=== PATIENT | female | born 1970 | race Caucasian/White ===

== ENCOUNTER → 2023-01-14 09:58 | Outpatient (BNVA) | payer OTHER, SELFPAY | PROVIDERS: Visit Provider Student in an Organized Health Care Education/Training Program | DX: M17.12 Unilateral primary osteoarthritis, left knee | CPT/HCPCS: 73560; 73565 ==

== ENCOUNTER 2023-05-06 10:17 | Emergency (ER) | payer SELFPAY ==
[2023-05-06 11:02] VITALS: BP 156/91; PULSE 105; RESP 18; TEMP 36.7; O2SAT 95; BMI 42.8
[2023-05-06 11:19] VITALS: BP 156/91; PULSE 94; RESP 18; O2SAT 95
--- NOTE | 2023-05-06 11:26 | W.ED.WOUNDLC ---
HPI - Wound/Laceration General: Chief Complaint: Extremity Problem,Nontraumatic Stated Complaint: right foot sore,diabetic Time Seen by Provider: 05/06/23 10:21 Source: patient Mode of arrival: ambulatory Limitations: no limitations History of Present Illness: Patient is a 52-year-old female who presents to the ED today with a complaint of an ulcer to the bottom of her right foot that she noticed approximately 3 days ago. Patient states she is a diabetic. Blood sugars roughly run 160-220. She states yesterday and today she noticed some redness to the foot however this is subsided upon arrival to the ED. She has not noticed any odor or drainage from the wound. No fevers or systemic symptoms. Onset (ago): day(s) Extremity Location: Right: foot Place: home Patient tetanus UTD: Yes Associated symptoms: Reports no associated symptoms; Denies chills or fever(s) Review of Systems Const: Denies: fever(s), chills, body aches, fatigue or malaise Musc: Reports: extremity pain (R foot); Denies: neck pain, back pain, extremity swelling, joint pain, joint swelling or joint warmth Skin/Breast: Reports: other (ulcer) Neuro: Reports: numbness in extremities (chronic neuropathy) Physical Exam Const: COMMON NORMALS: no acute distress, patient oriented x3, no limitations, alert and well nourished GENERAL APPEARANCE: cooperative NUTRITIONAL APPEARANCE: obese Resp: COMMON NORMALS: normal respiratory effort Cardio: COMMON NORMALS: regular rate and regular rhythm RATE: regular rate RHYTHM: regular rhythm Extremity: COMMON NORMALS: full ROM, capillary refill normal, no joint enlargement, no clubbing, cyanosis or edema, no calf tenderness and no pedal edema GENERAL: Yes normal exam except as noted Feet Bottom: 1. quarter sized callus with underlying appearing ulcerative formation; overlying callused skin still intact with cracking; no surrounding erythema/warmth/streaking/drainage/or odor Neuro: COMMON NORMALS: patient oriented x3 SENSORIUM/ORIENTATION: Yes alert Course Vital Signs: Vital signs: Vital Signs Temperature 98.1 F 05/06/23 11:02 Pulse Rate 94 05/06/23 11:19 Respiratory Rate 18 05/06/23 11:19 Blood Pressure 156/91 05/06/23 11:19 Pulse Oximetry 95 05/06/23 11:19 Oxygen Delivery Me thod Room Air 05/06/23 11:19 MDM - Wound/Laceration Medical Decision Making Patient with a diabetic foot wound. Wound today appears clean and non-infected however patient states she has had some redness to the foot yesterday and into today thus I will cover her with antibiotics. Patient will be referred to our wound care clinic for possible debridement and further treatment. Discussed talking to her primary care provider about better glycemic control. We also discussed getting an order for custom orthotics for offloading purposes. No radiology studies performed this visit Discharge Plan Discharge Patient Disposition: Home Clinical Impression: Diabetic foot ulcer Qualifiers: Diabetic foot ulcer location: midfoot Diabetes mellitus type: due to underlying condition Laterality: right Non-pressure ulcer stage: with fat layer exposed Qualified Code(s): E08.621 - Diabetes mellitus due to underlying condition with foot ulcer Condition: Stable Prescriptions: New amoxicillin-pot clavulanate 875-125 mg tablet 1 tab PO BID Qty: 14 0RF No Action (DME) Hinged Knee Brace See Rx Instructions .Route .MEDSUPPLY Qty: 1 0RF Rx Instructions: As directed Lantus U-100 Insulin 100 unit/mL Solution 80 unit SUBCUT QAM Wellbutrin XL 300 mg Tablet Extended Release 24 Hr 300 mg PO QAM Apidra SoloStar U-100 Insulin 100 unit/mL Insulin Pen 20 unit SUBCUT QAM Discharge Orders: Discharge ED (Routine); Ordered 05/06/23 Ordered By: Lydia Pandya Activity Restrictions/Additional Instructions: As we discussed we will give you a referral to see our wound care clinic for further evaluation and treatment of your diabetic foot ulcer. You need to speak to your primary care provider and work on a plan for better glycemic control. We also discussed getting an order from either the wound care clinic your primary care provider for specialized orthotic wear. Coding Level of Care Code ED Community Support Professional for [facility]
--- NOTE | 2023-05-07 08:15 | DCPLANNER ---
Message was sent to wound care on 05/07/23 at 0815. Clinic to contact patient for appt.
== END 2023-05-06 12:01 | disposition home or self-care (01) ==
PROVIDERS: Emergency Provider Physician Assistant
DX: E11.621 Type 2 diabetes mellitus with foot ulcer (principal); Z79.4 Long term (current) use of insulin; E11.40 Type 2 diabetes mellitus with diabetic neuropathy, unspecified
CPT/HCPCS: 99283

== ENCOUNTER 2023-05-16 22:39 | Emergency (ER) | payer SELFPAY ==
[2023-05-16 22:44] VITALS: BP 149/75; PULSE 100; RESP 16; TEMP 36.7; O2SAT 96
--- NOTE | 2023-05-17 00:29 | W.ED.WOUNDLC ---
Documented by User: RHONDA Carpio 05/17/23 01:17 HPI - Wound/Laceration General: Chief Complaint: Wound/Laceration Stated Complaint: diabetic and has foot ulcer right foot Time Seen by Provider: 05/17/23 00:08 Source: patient and family Mode of arrival: ambulatory Limitations: no limitations History of Present Illness: Patient presents emergency department tonight accompanied by her for evaluation treatment of acute worsening of right diabetic foot wound. Patient was seen and evaluated here in the emergency department a couple weeks ago for developing right foot ulcer. I did read the providers note from that evaluation as well as the description of the wound. Patient states that while she is taking the antibiotics, foot wound seems to be getting worse. She states that it is now draining and there is malodor to it. Patient has had issues with skin infections and skin wounds which were otherwise difficult to treat. She reports 2 episodes of hospital admission for IV antibiotics in the past. Patient states that she does not feel this area of her foot and is currently not experiencing any pain. She is on her feet during work and states her typical shifts can be anywhere from 12 to 16 hours long. She has been working during this time. Patient has not had any fevers. She has been wearing shoes and socks. She admits she has not been monitoring her blood sugars at home but, previous note indicates poorly controlled blood sugars. Review of Systems General: Reports: 10 or more systems reviewed and unremarkable except in HPI and below Physical Exam Const: COMMON NORMALS: no acute distress, patient oriented x3 and alert HENMT: COMMON NORMALS: normocephalic, atraumatic and hearing grossly normal bilaterally HEAD & SCALP: normocephalic and atraumatic Eye: COMMON NORMALS: Equal, round and reactive pupils present, EOMs intact bilaterally and conjunctivae normal CONJUNCTIVA: Yes conjunctivae normal PUPIL: Yes Equal, round and reactive pupils present Neck/C-Spine: COMMON NORMALS: full ROM and no JVD Lymph: LYMPHATIC: no lymphadenopathy noted Resp: COMMON NORMALS: normal respiratory effort, No retractions and No use of accessory muscles Cardio: COMMON NORMALS: no JVD and regular rate RATE: regular rate Extremity: NARRATIVE EXTREMITY EXAM: Full flexion extension of the toes. Patient is independently ambulatory and weightbearing without difficulty. Neuro: COMMON NORMALS: patient oriented x3 SENSORIUM/ORIENTATION: Yes alert Psych: COMMON NORMALS: mental status grossly normal, Normal thought process present, cooperative and normal affect THOUGHT PROCESS: Normal thought process present Skin: COMMON NORMALS: no rashes or lesions noted and turgor normal GENERAL SKIN EXAM: no rashes or lesions noted and turgor normal OTHER: Patient has an area of ulceration to the ball of the right foot approximately 1 and half centimeters in diameter and approximately 0.5 cm deep. Fat layer is exposed. No significant eschar formation. However, patient has a significant amount of surrounding callus. No obvious active draining. No bleeding. Course Vital Signs: Vital signs: Vital Signs Temperature 98.1 F 05/16/23 22:44 Pulse Rate 96 05/17/23 01:08 Respiratory Rate 16 05/17/23 01:08 Blood Pressure 149/75 05/16/23 22:44 Pulse Oximetry 97 05/17/23 01:08 MDM - Wound/Laceration Medical Decision Making Patient is currently on Augmentin for development of diabetic foot wound. A request for wound care follow-up had been initiated but, patient states she has not heard anything about making an appointment for follow-up yet. Given that she is not improving I did speak with Dr. Lopez. Patient has been putting her barefoot on the shower floor and, as the wound is on the bottom of her foot, she is still wearing her shoes-often for many hours throughout the day. We discussed concern for Pseudomonas. We discussed changing antibiotic coverage to Levaquin and doxycycline with another request for urgent follow-up with wound care as definitive management of this ulcer will most likely come from continued treatment by wound care. Discussed all this with the patient. We have also fashioned a circumferential padding of the ulcer to alleviate direct pressure from IV covering here in the emergency department. Patient was given several others to continue alleviating direct pressure from this wound. I also provided her a note from work as she is scheduled to have 14 to 16-hour shifts the next couple of days. Patient is to continue to monitor this wound. She is to watch for fever, spreading redness, streaking redness in the area and should be seen and reevaluated for any acute worsening while we wait for wound care follow-up. Patient verbalizes understanding and agreement to treatment plan. Differential Diagnosis Unlikely laceration, abscess, abrasion or avulsion of skin No radiology studies performed this visit Discharge Plan Discharge Patient Disposition: Home Clinical Impression: Diabetic foot ulcer Qualifiers: Diabetic foot ulcer location: unspecified part of foot Diabetes mellitus type: type 2 Laterality: right Non-pressure ulcer stage: with fat layer exposed Qualified Code(s): E11.621 - Type 2 diabetes mellitus with foot ulcer Condition: Stable Prescriptions: New levofloxacin 750 mg tablet 750 mg PO DAILY 7 Days Qty: 7 0RF doxycycline hyclate 100 mg tablet 100 mg PO BID 10 Days Qty: 20 0RF No Action (DME) Hinged Knee Brace See Rx Instructions .Route .MEDSUPPLY Qty: 1 0RF Rx Instructions: As directed Lantus U-100 Insulin 100 unit/mL Solution 80 unit SUBCUT QAM Wellbutrin XL 300 mg Tablet Extended Release 24 Hr 300 mg PO QAM Apidra SoloStar U-100 Insulin 100 unit/mL Insulin Pen 20 unit SUBCUT QAM amoxicillin-pot clavulanate 875-125 mg tablet 1 tab PO BID Qty: 14 0RF Discharge Orders: Discharge ED (Routine); Ordered 05/17/23 Ordered By: Rae Blanco Discharge Diet: Diabetic Discharge Activity: Limit activity as instructed Patient Instructions: Diabetic Foot Ulcers (ED) Activity Restrictions/Additional Instructions: Unfortunately, after examining your foot today and reading your evaluation from your previous ER visit, I do think this is worsening even with antibiotic. Given the location of the wound, it is possible you may have some atypical bacterial growth and there is also concern specifically for Pseudomonas. For that reason I spoke to the emergency room physician here maninder and we are changing her antibiotic coverage to levofloxacin and doxycycline. We recommend holding your Augmentin at this time. These 2 medications can cause significant upset stomach so we do recommend taking with a meal. We recommend washing your wound at least once a day with warm water and soap. We have some bandages which you can apply which will help alleviate direct pressure to the area of ulceration. We do not recommend placing your barefoot directly on the ground-especially in the shower during this time. I have sent a message to our case management workers who help facilitate arranging follow-up appointments with our specialty clinics. I indicated the urgent nature of the follow-up with wound care on your behalf though it may still be the middle or end of next week before you are seen due to the holiday weekend. Continue to watch for any spreading redness, streaking redness up her foot, or development of fever. If you have any discoloration of your toes including a purple, dusky, or black color you need to be seen and reevaluated in the ER. Stand Alone Forms: Work/School Release Coding Level of Care Code ED Licensing Representative for [employer] [employer] Documented by User: Juan Lopez, DO 05/17/23 03:46 HPI - Wound/Laceration General: Chief Complaint: Wound/Laceration Stated Complaint: diabetic and has foot ulcer right foot Time Seen by Provider: 05/17/23 00:08 Course Vital Signs: Vital signs: Vital Signs Temperature 98.1 F 05/16/23 22:44 Pulse Rate 96 05/17/23 01:08 Respiratory Rate 16 05/17/23 01:08 Blood Pressure 149/75 05/16/23 22:44 Pulse Oximetry 97 05/17/23 01:08 MDM - Wound/Laceration Medical Decision Making Patient is currently on Augmentin for development of diabetic foot wound. A request for wound care follow-up had been initiated but, patient states she has not heard anything about making an appointment for follow-up yet. Given that she is not improving I did speak with Dr. Lopez. Patient has been putting her barefoot on the shower floor and, as the wound is on the bottom of her foot, she is still wearing her shoes-often for many hours throughout the day. We discussed concern for Pseudomonas. We discussed changing antibiotic coverage to Levaquin and doxycycline with another request for urgent follow-up with wound care as definitive management of this ulcer will most likely come from continued treatment by wound care. Discussed all this with the patient. We have also fashioned a circumferential padding of the ulcer to alleviate direct pressure from IV covering here in the emergency department. Patient was given several others to continue alleviating direct pressure from this wound. I also provided her a note from work as she is scheduled to have 14 to 16-hour shifts the next couple of days. Patient is to continue to monitor this wound. She is to watch for fever, spreading redness, streaking redness in the area and should be seen and reevaluated for any acute worsening while we wait for wound care follow-up. Patient verbalizes understanding and agreement to treatment plan. This patient was originally seen by Mrs. Francis PA-C.? I agree with her history, evaluation, and treatment. Discharge Plan Discharge Patient Disposition: Home Clinical Impression: Diabetic foot ulcer Qualifiers: Diabetic foot ulcer location: unspecified part of foot Diabetes mellitus type: type 2 Laterality: right Non-pressure ulcer stage: with fat layer exposed Qualified Code(s): E11.621 - Type 2 diabetes mellitus with foot ulcer Condition: Stable Prescriptions: New levofloxacin 750 mg tablet 750 mg PO DAILY 7 Days Qty: 7 0RF doxycycline hyclate 100 mg tablet 100 mg PO BID 10 Days Qty: 20 0RF No Action (DME) Hinged Knee Brace See Rx Instructions .Route .MEDSUPPLY Qty: 1 0RF Rx Instructions: As directed Lantus U-100 Insulin 100 unit/mL Solution 80 unit SUBCUT QAM Wellbutrin XL 300 mg Tablet Extended Release 24 Hr 300 mg PO QAM Apidra SoloStar U-100 Insulin 100 unit/mL Insulin Pen 20 unit SUBCUT QAM amoxicillin-pot clavulanate 875-125 mg tablet 1 tab PO BID Qty: 14 0RF Discharge Orders: Discharge ED (Routine); Ordered 05/17/23 Ordered By: Rae Blanco Discharge Diet: Diabetic Discharge Activity: Limit activity as instructed Patient Instructions: Diabetic Foot Ulcers (ED) Activity Restrictions/Additional Instructions: Unfortunately, after examining your foot today and reading your evaluation from your previous ER visit, I do think this is worsening even with antibiotic. Given the location of the wound, it is possible you may have some atypical bacterial growth and there is also concern specifically for Pseudomonas. For that reason I spoke to the emergency room physician here tonight and we are changing her antibiotic coverage to levofloxacin and doxycycline. We recommend holding your Augmentin at this time. These 2 medications can cause significant upset stomach so we do recommend taking with a meal. We recommend washing your wound at least once a day with warm water and soap. We have some bandages which you can apply which will help alleviate direct pressure to the area of ulceration. We do not recommend placing your barefoot directly on the ground-especially in the shower during this time. I have sent a message to our case management workers who help facilitate arranging follow-up appointments with our specialty clinics. I indicated the urgent nature of the follow-up with wound care on your behalf though it may still be the middle or end of next week before you are seen due to the holiday weekend. Continue to watch for any spreading redness, streaking redness up her foot, or development of fever. If you have any discoloration of your toes including a purple, dusky, or black color you need to be seen and reevaluated in the ER. Stand Alone Forms: Work/School Release Coding Level of Care Code ED Licensing Representative for [facility]
[2023-05-17] MEDS: doxycycline 100 mg Tablet PO (01:02)
[2023-05-17] MEDS: levoFLOXacin 750 mg Tablet PO (01:02)
[2023-05-17 01:08] VITALS: PULSE 96; RESP 16; O2SAT 97
--- NOTE | 2023-05-18 23:50 | DCPLANNER ---
Message sent to wound care for follow up appointment for wound on foot getting worse- diabetic in ERx 2 for tx.
== END 2023-05-17 01:03 | disposition home or self-care (01) ==
PROVIDERS: Emergency Provider Physician Assistant
DX: E11.621 Type 2 diabetes mellitus with foot ulcer (principal); L97.512 Non-pressure chronic ulcer of other part of right foot with fat layer exposed; Z79.4 Long term (current) use of insulin
CPT/HCPCS: 99283

== ENCOUNTER 2023-07-13 10:51 | Inpatient (IN) | payer OTHER, SELFPAY ==
[2023-07-13] VITALS (13 sets, daily range): BP systolic 104–171; BP diastolic 56–79; PULSE 90–104; RESP 14–18; TEMP 36.1–36.7; O2SAT 91–98; BMI 41.6
[2023-07-13 12:16] LABS: Basophils # 0.1 10^3/uL (0.0-0.1); Basophils % 0.4 %; Eosinophils # 0.2 10^3/uL (0.0-0.8); Eosinophils % 1.5 %; Hematocrit 39.3 % (36-47); Lymphocytes # 1.9 10^3/uL (0.8-4.8); Lymphocytes % 13.5 %; Mean Corpuscular HGB Conc 32.3 g/dL (30-55); Mean Corpuscular Hemoglobin 29.5 pg (27-33); Mean Corpuscular Volume 91.4 fl (85-98); Mean Platelet Volume 10.2 fL (7.4-10.4); Monocytes # 1.2 10^3/uL (0.2-0.9); Monocytes % 8.2 %; Neutrophils # 10.66 10^3/uL (1.8-7.7); Neutrophils % 75.8 %; Nucleated Red Blood Cells % 0 %; Platelet Count 348 10^3/cmm (157-399); Red Cell Distribution Width 13.8 % (12.1-15.1); White Blood Count 14.05 10^3/uL (3.29-11.43)
--- NOTE | 2023-07-13 12:22 | ED_ITS ---
HPI - Wound/Laceration 2 General: Chief Complaint: Wound/Laceration Stated Complaint: fever, R leg/foot redness,pain Time Seen by Provider: 07/13/23 12:16 History of Present Illness: 52-year-old female with a history of obe sity, insulin-dependent diabetes who presents the emergency room with a worsening wound infection on her foot. She has been followed at wound clinic. Says over the last 2 days it has become painful and has surrounding redness and swelling. And now she has pain radiating up her leg. She says she had a fever at home. No nausea or vomiting. No abdominal pain. No chest pain. No shortness of breath. No altered mental status. Review of Systems 2 Narrative: Constitutional symptoms: Negative except as documented in HPI. Skin symptoms: Negative except as documented in HPI. Eye symptoms: Negative except as documented in HPI. ENMT symptoms: Negative except as documented in HPI. Respiratory symptoms: Negative except as documented in HPI. Cardiovascular symptoms: Negative except as documented in HPI. Gastrointestinal symptoms: Negative except as documented in HPI. Genitourinary symptoms: Negative except as documented in HPI. Musculoskeletal symptoms: Negative except as documented in HPI. Neurologic symptoms: Negative except as documented in HPI. Psychiatric symptoms: Negative except as documented in HPI. Endocrine symptoms: Negative except as documented in HPI. Physical Exam 2 Narrative: EXAM NARRATIVE: General: Alert, no acute distress. Skin: Warm, dry. Patient has a wound on the bottom of her foot. There is a dressing in place centrally. There is surrounding erythema and warmth. This appears to be cellulitic/infected. Head: Normocephalic, atraumatic. Neck: Supple, trachea midline. Eye: Extraocular movements are intact. Ears, nose, mouth and throat: mucosa moist. Cardiovascular: Regular, Normal peripheral perfusion. Respiratory: Lungs are clear to auscultation, respirations are non-labored, breath sounds are equal, Symmetrical chest wall expansion. Gastrointestinal: Soft, Nontender, Non distended, Normal bowel sounds. Musculoskeletal: Normal ROM, no deformity. Neurological: Alert and oriented, No focal neurological deficit observed. Psychiatric: Cooperative, appropriate mood & affect. Course 2 Vital Signs: Vital signs: Vital Signs Temperature 98.0 F 07/13/23 10:58 Pulse Rate 104 H 07/13/23 10:58 Respiratory Rate 14 07/13/23 10:58 Blood Pressure 127/62 07/13/23 13:41 Pulse Oximetry 98 07/13/23 10:58 Oxygen Delivery Me thod Room Air 07/13/23 10:58 MDM - Wound/Laceration Medical Decision Making Medical decision making: Differential diagnosis including but not limited to and based on the above HPI, review of systems and physical exam: Concern for infected diabetic foot wound. Also have concern for sepsis. CBC, comprehensive metabolic panel, blood cultures, lactate, ESR and CRP were ordered. Lab Review: Laboratory results were reviewed and interpreted by myself the emergency room physician. Lab work is notable for elevated inflammatory markers. ESR is 50. CRP is 173. She has a white count of 14,000 no electrolyte abnormalities. No renal failure.. CT of the right lower extremity without contrast: There is a skin ulcer. Appears to be cellulitis. Concern for septic arthritis of the first metatarsophalangeal joint. Concern for osteomyelitis of the first proximal phalanx. There are some free air in the great toe. I reviewed and interpreted these films personally. I also talked to the radiologist on-call about the findings. Consultation: I have consulted podiatry. Dr. Marley. He agrees with IV antibiotics and admission to the hospitalist. He is seeing the patient in the emergency room. Reexamination: Patient remained stable at this time. I evaluated her wound. There is a about a 1 cm lesion. There is no pus drainage. There is surrounding erythema warmth and tenderness. No increased work of breathing. No focal motor deficits. No altered mental status. Lab Data 07/13/23 11:55 07/13/23 11:[address] 07/13/23 13:20 IMPRESSION: 1. Skin ulcer at the plantar side of the 1st metatarsophalangeal joint with cellulitis at the medial forefoot. 2. Findings suggestive of septic arthritis of the 1st metatarsophalangeal joint and CT changes of early osteomyelitis at the dorsal aspect of the base of the proximal phalanx of the big toe. 3. Medial and lateral hallux sesamoiditis. 4. Soft tissue emphysema at the plantar side of the big toe, worrisome for necrotizing fasciitis in the right clinical setting versus gas-forming organism. ADDENDUM: 07/13/23 [id number] THIS REPORT CONTAINS FINDINGS THAT MAY BE CRITICAL TO PATIENT CARE. The findings were verbally communicated via telephone conference with OSORIO, ANTHONY at 2:08 PM [employer]RB[employer] GARDENING SPECIALIST on 07/13/2023. The findings were acknowledged and understood. Laboratory Results WBC 14.05 10^3/uL (3.29-11.43) H 07/13/23 11:55 RBC 4.30 10^6/uL (3.85-5.65) 07/13/23 11:55 Hgb 12.70 g/dL (11.27-16.99) 07/13/23 11:55 Hct 39.3 % (36-47) 07/13/23 11:55 MCV 91.4 fl (85-98) 07/13/23 11:55 MCH 29.5 pg (27-33) 07/13/23 11:55 MCHC 32.3 g/dL (30-55) 07/13/23 11:55 RDW 13.8 % (12.1-15.1) 07/13/23 11:55 Plt Count 348 10^3/cmm (157-399) 07/13/23 11:55 MPV 10.2 fL (7.4-10.4) 07/13/23 11:55 Neut % (Auto) 75.8 % 07/13/23 11:55 Lymph % (Auto) 13.5 % 07/13/23 11:55 [place] % (Auto) 8.2 % 07/13/23 11:55 Eos % (Auto) 1.5 % 07/13/23 11:55 Baso % (Auto) 0.4 % 07/13/23 11:55 Neut # (Auto) 10.66 10^3/uL (1.8-7.7) H 07/13/23 11:55 Lymph # (Auto) 1.9 10^3/uL (0.8-4.8) 07/13/23 11:55 [place] # (Auto) 1.2 10^3/uL (0.2-0.9) H 07/13/23 11:55 Eos # (Auto) 0.2 10^3/uL (0.0-0.8) 07/13/23 11:55 Baso # (Auto) 0.1 10^3/uL (0.0-0.1) 07/13/23 11:55 Nucleated RBC % (auto) 0 % 07/13/23 11:55 Nucleated RBCs # 0.0 /100WBC 07/13/23 11:55 ESR 51 mm/hr (0-15) H 07/13/23 11:55 Sodium 138 mmol/L (136-145) 07/13/23 11:55 Potassium 3.9 mmol/L (3.5-5.1) 07/13/23 11:55 Chloride 99 mmol/L (98-107) 07/13/23 11:55 Carbon Dioxide 27 mmol/L (22-29) 07/13/23 11:55 Anion Gap 15.9 (5-19) 07/13/23 11:55 BUN 13 mg/dL (6-20) 07/13/23 11:55 Creatinine 0.8 mg/dL (0.5-0.9) 07/13/23 11:55 GFR Calculation 75.0 mL/min (90-130) L 07/13/23 11:55 Glucose 98 mg/dL (65-115) 07/13/23 11:55 Calculated Osmolality 286 mOsm/kg (285-295) 07/13/23 11:55 Calcium 9.2 mg/dL (8.5-10.5) 07/13/23 11:55 Total Bilirubin 0.5 mg/dL (0.15-1.2) 07/13/23 11:55 AST 9 U/L (0-32) 07/13/23 11:55 ALT 11 U/L (0-33) 07/13/23 11:55 Alkaline Phosphatase 102 U/L (35-105) 07/13/23 11:55 C-Reactive Protein 173.2 mg/L (0.0-4.9) H 07/13/23 11:55 Total Protein 8.5 g/dL (6.6-8.7) 07/13/23 11:55 Albumin 3.8 g/dL (3.5-5.2) 07/13/23 11:55 Globulin 4.7 g/dL (1.3-4.6) H 07/13/23 11:55 Procalcitonin 0.18 ng/mL (0-0.5) 07/13/23 11:55 All radiology interpretation(s) finalized by discharge Other Data - IV Zyvox and cefepime in the emergency room. -I discussed the patient with the hospitalist on-call who is admitting the patient. - Discussed findings and plan with patient. Answered any questions. - All laboratory values were reviewed and interpreted personally by myself, the ER physician - All imaging was reviewed and interpreted personally by myself, the ER physician. - Evaluation and treatment of this problem were appropriate in the emergency setting Discharge Plan Discharge Patient Disposition: Admitted As Inpatient Clinical Impression: Diabetic infection of right foot Condition: Stable Coding Level of Care Code ED Lorry Weigher for Ellyn Levi
[2023-07-13 12:37] LABS: Alanine Aminotransferase 11 U/L (0-33); Albumin Level 3.8 g/dL (3.5-5.2); Alkaline Phosphatase 102 U/L (35-105); Anion Gap 15.9 (5-19); Aspartate Amino Transferase 9 U/L (0-32); Blood Urea Nitrogen 13 mg/dL (6-20); C Reactive Protein 173.2 mg/L (0.0-4.9); Calcium 9.2 mg/dL (8.5-10.5); Carbon Dioxide 27 mmol/L (22-29); Chloride 99 mmol/L (98-107); Creatinine Clr Calc Pharmacy 116.6833; Globulin 4.7 g/dL (1.3-4.6); Glucose 98 mg/dL (65-115); Osmolality Calculated 286 mOsm/kg (285-295); Potassium 3.9 mmol/L (3.5-5.1); Sodium 138 mmol/L (136-145); Total Bilirubin 0.5 mg/dL (0.15-1.2); Total Protein 8.5 g/dL (6.6-8.7)
[2023-07-13 12:42] LABS: Procalcitonin 0.18 ng/mL (0-0.5)
[2023-07-13] MEDS: ondansetron 2 mg/ML SDV 2 mL 4 MG IVP (12:51)
[2023-07-13] MEDS: cefepime 2,000 MG in sodium chloride 0.9% (plus) 50 ML 100 MG IV (12:51)
[2023-07-13] MEDS: HYDROmorphone 1 mg/mL INJ 1 mL IVP (12:52)
[2023-07-13] MEDS: linezolid premix 600 MG/300 ML PREMIX 300 MG IV (12:52)
--- NOTE | 2023-07-13 13:20 | CTR_ITS ---
PROCEDURE INFORMATION: Exam: CT Right Lower Extremity Without Contrast, Foot Exam date and time: 07/13/2023 1:38 PM Age: 52 years old Clinical indication: Other: Diabetic foot ulcer, concern for osteo TECHNIQUE: Imaging protocol: CT of the right lower extremity without contrast was performed. Exam focused on the foot. Radiation optimization: All CT scans at this facility use at least one of these dose optimization techniques: automated exposure control; mA and/or kV adjustment per patient size (includes targeted exams where dose is matched to clinical indication); or iterative reconstruction. COMPARISON: No relevant prior studies available. RADIATION DOSE METRICS: Total DLP (mGy-cm): 123.31 FINDINGS: Bones/joints: Well corticated bone fragments at the medial and lateral malleolus, from prior injury. Corticated bone fragments around the cuboid and anterior process of the calcaneus, from prior injury. There is mild degenerative disease of the ankle joint. There is mild degenerative disease of the 1st metatarsophalangeal joint. There is a small joint effusion of the 1st metatarsophalangeal joint. There is subcutaneous fat stranding at the plantar side the 1st metatarsophalangeal joint with a skin defect, to be correlate clinically to rule out ulcer. There is an inferior calcaneal spur and Achilles enthesophyte. There is mild demineralization at the dorsal aspect of the base of the proximal phalanx of the big toe, suggestive of osteomyelitis. There are cortical erosions at the plantar side of both hallux sesamoids consistent with sesamoiditis. Soft tissues: There is mild subcutaneous fat stranding and skin thickening at the dorsum of foot. There is subcutaneous emphysema at the plantar side the big toe at the level of the proximal phalanx. Vasculature: There are vascular calcifications. CT/CT foot RT wo con* [id number] IMPRESSION: 1. Skin ulcer at the plantar side of the 1st metatarsophalangeal joint with cellulitis at the medial forefoot. 2. Findings suggestive of septic arthritis of the 1st metatarsophalangeal joint and CT changes of early osteomyelitis at the dorsal aspect of the base of the proximal phalanx of the big toe. 3. Medial and lateral hallux sesamoiditis. 4. Soft tissue emphysema at the plantar side of the big toe, worrisome for necrotizing fasciitis in the right clinical setting versus gas-forming organism.
[2023-07-13 13:27] LABS: Erythrocyte Sedimentation Rate 51 mm/hr (0-15)
--- NOTE | 2023-07-13 14:06 | PC.PHAR ---
PT STATES WAITING ON 2 NEW MEDICATIONS: ARMOUR THYROID AND CRESTOR. (STRENGTH NOT AVAILABLE) [facility] WAITING FOR PRIOR AUTH FROM INSURANCE TO COVER. THEY ARE NOT OPEN ON SUNDAYS, TO CALL FOR ASSISTANCE.
--- NOTE | 2023-07-13 14:37 | P.HP_ITS ---
Providers/Chief Complaint 2 Primary Care Provider: ROULA Lincoln Chief Complaint: fever, R leg/foot redness,pain History of Present Illness Jazmine James is a 52 year old female with a past medical history of type 2 diabetes mellitus, who presents [facility] for concerns of worsening of right foot diabetic ulcer, intermittent, with spreading erythema, of the foot. Patient tells me that over the last 48 hours, she has developed increasing swelling, erythema over her right foot, with development of a right foot diabetic ulceration does report fevers, chills, no nausea, vomiting Review of Systems 2 Const: Reports: fever(s) and chills Card: Denies: chest pain Resp: Denies: dyspnea GI: Denies: abdominal pain : Denies: flank pain Medications/Allergies Home Medications Medication Instructions Recorded Confirmed Last Taken Type Hinged Knee Brace #1 ea 04/24/23 07/13/23 Unknown Rx insulin glargine 100 unit/mL 100 unit SUBCUT BEDTIME 05/06/23 07/13/23 07/12/23 History subcutaneous solution (Lantus U-100 Insulin) insulin glulisine U-100 100 30 unit SUBCUT TID 05/06/23 07/13/23 07/13/23 History unit/mL subcutaneous pen (Apidra SoloStar U-100 Insulin) cholecalciferol (vitamin D3) 1,250 1,250 mcg PO Q7D 07/13/23 07/13/23 07/07/23 History mcg (50,000 unit) capsule clobetasol 0.05 % scalp solution 1 applic topical BID 07/13/23 07/13/23 Unknown History tirzepatide 5 mg/0.5 mL 5 mg SUBCUT Q7D 07/13/23 07/13/23 07/07/23 History subcutaneous pen injector (Mounjaro) Allergies Allergy/AdvReac Type Severity Reaction Status Date / Time No Known Allergies Allergy Verified 07/13/23 10:57 PFSH Acute 2 PFSH: Medical History (Updated 07/13/23 @ 14:43 by Negro Hatfield MD) Type 2 diabetes mellitus Surgical History (Updated 07/13/23 @ 14:40 by Negro Hatfield MD) History of cholecystectomy History of appendectomy Family History (Updated 07/13/23 @ 14:40 by Negro Hatfield MD) Mother CAD (coronary artery disease) Cardiomyopathy Social History (Updated 07/13/23 @ 14:40 by Negro Hatfield MD) Smoking and tobacco/nicotine status: never used tobacco/nicotine Alcohol intake: never Substance/Drug Use: never Vitals/I&O/Wt Last Vital Signs Temp 98.0 F 07/13/23 10:58 Pulse 104 H 07/13/23 10:58 Resp 14 07/13/23 10:58 BP 127/62 07/13/23 13:41 Pulse Ox 98 07/13/23 10:58 O2 Del Method Room Air 07/13/23 10:58 Weight last 48 hrs Weight 127.913 kg Physical Exam 2 Const: COMMON NORMALS: no acute distress and patient oriented x3 HENMT: COMMON NORMALS: normocephalic HEAD & SCALP: normocephalic Eye: COMMON NORMALS: Equal, round and reactive pupils present Neck/C-Spine: COMMON NORMALS: no JVD Resp: COMMON NORMALS: normal respiratory effort, No retractions, No use of accessory muscles and clear to auscultation bilaterally AUSCULTATION: clear to auscultation bilaterally Cardio: COMMON NORMALS: regular rate, regular rhythm, S1 normal heart sound present and S2 normal heart sound present RATE: regular rate RHYTHM: r egular rhythm HEART SOUNDS: S1 normal heart sound present and S2 normal heart sound present GI: COMMON NORMALS: Normal to inspection, nondistended, normoactive bowel sounds present, Soft to palpation and non-tender Extremity: COMMON NORMALS: no pedal edema NARRATIVE EXTREMITY EXAM: right foot, diabetic ulcer 2x2cm, with erythema of right toe, extending down the right foot Neuro: COMMON NORMALS: patient oriented x3, CN's II-XII intact bilaterally and moves all extremities Psych: COMMON NORMALS: mental status grossly normal Data 07/13/23 11:55 07/13/23 11:55 Micro: Microbiology 07/13/23 11:55 Blood Culture - Preliminary Blood SPECIMEN COLLECTED 07/13/23 12:02 Blood Culture - Preliminary Blood SPECIMEN COLLECTED A&P Assessment and plan (1) Diabetic infection of right foot: (2) Osteomyelitis: Plan Diabetic foot infection right foot, with osteomyelitis -There is concerns for necrotizing fasciitis CT/CT foot RT wo con* [id number] IMPRESSION: 1. Skin ulcer at the plantar side of the 1st metatarsophalangeal joint with cellulitis at the medial forefoot. 2. Findings suggestive of septic arthritis of the 1st metatarsophalangeal joint and CT changes of early osteomyelitis at the dorsal aspect of the base of the proximal phalanx of the big toe. 3. Medial and lateral hallux sesamoiditis. 4. Soft tissue emphysema at the plantar side of the big toe, worrisome for necrotizing fasciitis in the right clinical setting versus gas-forming organism. -Clinically does have significant erythema, diabetic ulcer, extreme to first digit, and medial aspect of the foot Plan -Keep n.p.o. -Dr. Grimaldo consulted -Vancomycin, Zosyn -Start clindamycin as there is concern for necrotizing fasciitis -Lactic acid, CPK -Continue to monitor closely clinically -Monitor sliding-scale -SCDs for DVT prophylaxis -Full code Attestations 2 Medical Necessity Statement*: Patient requires hospitalization inpatient, greater than 2 minutes, for right foot diabetic foot infection with cellulitis, osteomyelitis concerns for necrotizing fasciitis requiring IV antibiotics surgical debridement Diagnoses Diabetic infection of right foot E11.628; L08.9 Osteomyelitis M86.9
--- NOTE | 2023-07-13 14:58 | ED_ITS ---
HPI - Wound/Laceration 2 General: Chief Complaint: Wound/Laceration Stated Complaint: fever, R leg/foot redness,pain Time Seen by Provider: 07/13/23 12:16 PFSH ED 2 PFSH: Medical History (Updated 07/13/23 @ 15:12 by Almas Marley DPM) Type 2 diabetes mellitus Surgical History (Updated 07/13/23 @ 14:40 by Negro Hatfield MD) History of cholecystectomy History of appendectomy Family History (Updated 07/13/23 @ 14:40 by Negro Hatfield MD) Mother CAD (coronary artery disease) Cardiomyopathy Social History (Updated 07/13/23 @ 14:40 by Negro Hatfield MD) Smoking and tobacco/nicotine status: never used tobacco/nicotine Alcohol intake: never Substance/Drug Use: never Course 2 Vital Signs: Vital signs: Vital Signs Temperature 98.0 F 07/13/23 10:58 Pulse Rate 104 H 07/13/23 10:58 Respiratory Rate 14 07/13/23 10:58 Blood Pressure 127/62 07/13/23 13:41 Pulse Oximetry 98 07/13/23 10:58 Oxygen Delivery Me thod Room Air 07/13/23 10:58 MDM - Wound/Laceration Lab Data 07/13/23 11:55 07/13/23 11:[address] 07/13/23 13:20 IMPRESSION: 1. Skin ulcer at the plantar side of the 1st metatarsophalangeal joint with cellulitis at the medial forefoot. 2. Findings suggestive of septic arthritis of the 1st metatarsophalangeal joint and CT changes of early osteomyelitis at the dorsal aspect of the base of the proximal phalanx of the big toe. 3. Medial and lateral hallux sesamoiditis. 4. Soft tissue emphysema at the plantar side of the big toe, worrisome for necrotizing fasciitis in the right clinical setting versus gas-forming organism. ADDENDUM: 07/13/23 1409 THIS REPORT CONTAINS FINDINGS THAT MAY BE CRITICAL TO PATIENT CARE. The findings were verbally communicated via telephone conference with ANTHONY OSORIO at 2:08 PM [employer] M[employer] ANALYSIS CAPTAIN on 07/13/2023. The findings were acknowledged and understood. Laboratory Results WBC 14.05 10^3/uL (3.29-11.43) H 07/13/23 11:55 RBC 4.30 10^6/uL (3.85-5.65) 07/13/23 11:55 Hgb 12.70 g/dL (11.27-16.99) 07/13/23 11:55 Hct 39.3 % (36-47) 07/13/23 11:55 MCV 91.4 fl (85-98) 07/13/23 11:55 MCH 29.5 pg (27-33) 07/13/23 11:55 MCHC 32.3 g/dL (30-55) 07/13/23 11:55 RDW 13.8 % (12.1-15.1) 07/13/23 11:55 Plt Count 348 10^3/cmm (157-399) 07/13/23 11:55 MPV 10.2 fL (7.4-10.4) 07/13/23 11:55 Neut % (Auto) 75.8 % 07/13/23 11:55 Lymph % (Auto) 13.5 % 07/13/23 11:55 [place] % (Auto) 8.2 % 07/13/23 11:55 Eos % (Auto) 1.5 % 07/13/23 11:55 Baso % (Auto) 0.4 % 07/13/23 11:55 Neut # (Auto) 10.66 10^3/uL (1.8-7.7) H 07/13/23 11:55 Lymph # (Auto) 1.9 10^3/uL (0.8-4.8) 07/13/23 11:55 [place] # (Auto) 1.2 10^3/uL (0.2-0.9) H 07/13/23 11:55 Eos # (Auto) 0.2 10^3/uL (0.0-0.8) 07/13/23 11:55 Baso # (Auto) 0.1 10^3/uL (0.0-0.1) 07/13/23 11:55 Nucleated RBC % (auto) 0 % 07/13/23 11:55 Nucleated RBCs # 0.0 /100WBC 07/13/23 11:55 ESR 51 mm/hr (0-15) H 07/13/23 11:55 PT 13.90 SECONDS (12.1-14.9) 07/13/23 11:55 INR 1.04 (0.8-1.2) 07/13/23 11:55 Sodium 138 mmol/L (136-145) 07/13/23 11:55 Potassium 3.9 mmol/L (3.5-5.1) 07/13/23 11:55 Chloride 99 mmol/L (98-107) 07/13/23 11:55 Carbon Dioxide 27 mmol/L (22-29) 07/13/23 11:55 Anion Gap 15.9 (5-19) 07/13/23 11:55 BUN 13 mg/dL (6-20) 07/13/23 11:55 Creatinine 0.8 mg/dL (0.5-0.9) 07/13/23 11:55 GFR Calculation 75.0 mL/min (90-130) L 07/13/23 11:55 Glucose 98 mg/dL (65-115) 07/13/23 11:55 Calculated Osmolality 286 mOsm/kg (285-295) 07/13/23 11:55 Lactic Acid 1.3 mmol/L (0.5-2.2) 07/13/23 11:55 Calcium 9.2 mg/dL (8.5-10.5) 07/13/23 11:55 Total Bilirubin 0.5 mg/dL (0.15-1.2) 07/13/23 11:55 AST 9 U/L (0-32) 07/13/23 11:55 ALT 11 U/L (0-33) 07/13/23 11:55 Alkaline Phosphatase 102 U/L (35-105) 07/13/23 11:55 C-Reactive Protein 173.2 mg/L (0.0-4.9) H 07/13/23 11:55 NT-Pro-B Natriuret Pep < 36 pg/mL (0-125) 07/13/23 11:55 Total Protein 8.5 g/dL (6.6-8.7) 07/13/23 11:55 Albumin 3.8 g/dL (3.5-5.2) 07/13/23 11:55 Globulin 4.7 g/dL (1.3-4.6) H 07/13/23 11:55 Procalcitonin 0.18 ng/mL (0-0.5) 07/13/23 11:55 Procalcitonin 0.18 ng/mL (0-0.5) 07/13/23 11:55 TSH 7.33 uIU/mL (0.27-4.20) H 07/13/23 11:55 Discharge Plan Discharge Patient Disposition: Admitted As Inpatient Admit Provider: Negro Hatfield Clinical Impression: Diabetic infection of right foot Condition: Stable Coding Level of Care Code ED Environmental Test Technician for Ellyn Levi
--- NOTE | 2023-07-13 14:59 | P.CONIM_ITS ---
Providers/Reason For Consult 2 Consulting Physician/Specialty*: Eli Estrada.P.M./podiatry Reason for Consult*: Right foot wound, gas producing organism, concern for necrotizing fasciitis Primary Care Provider: ROULA Lincoln History of Present Illness History of Present Illness Jazmine James is a 52 year old female with history of type 2 diabetes and chronic ulceration to plantar aspect of right foot for which she has been seeing wound care. The wound has been present since just prior to of 2022. She states that it developed at the callus before turning into a wound. She has been following weekly with wound care up to this point and it has been noted to be improving. However, over the course of the past few days the patient has had symptoms of general malaise, fever, chills, nausea. Today, the patient states that she started to feel pain in the right pretibial region which she describes as a bruise-like sensation. She presented to the emergency department for further workup and evaluation. In the emergency department, the patient was noted to be leukocytotic with elevated ESR, CRP. CT scan of right foot was obtained which showed subcutaneous emphysema plantar aspect of right hallux. Concern for septic joint/necrotizing fasciitis. Patient denies any other history of diabetic ulceration. Podiatry was consulted for further evaluation and treatment. Review of Systems 2 General: Reports: 10 or more systems reviewed and unremarkable except in HPI and below Const: Denies: fever(s), chills, body aches or change in appetite Eyes: Denies: change in vision or blurry vision Card: Denies: chest pain, palpitations or irregular heart rhythm Resp: Denies: dyspnea GI: Denies: abdominal pain, nausea, vomiting or diarrhea Musc: Reports: joint stiffness Skin/Breast: Reports: non-healing lesions and lesions Neuro: Reports: numbness in extremities Medications/Allergies Home Medications Medication Instructions Recorded Confirmed Last Taken Type Hinged Knee Brace #1 ea 04/24/23 07/13/23 Unknown Rx insulin glargine 100 unit/mL 100 unit SUBCUT BEDTIME 05/06/23 07/13/23 07/12/23 History subcutaneous solution (Lantus U-100 Insulin) insulin glulisine U-100 100 30 unit SUBCUT TID 05/06/23 07/13/23 07/13/23 History unit/mL subcutaneous pen (Apidra SoloStar U-100 Insulin) cholecalciferol (vitamin D3) 1,250 1,250 mcg PO Q7D 07/13/23 07/13/23 07/07/23 History mcg (50,000 unit) capsule clobetasol 0.05 % scalp solution 1 applic topical BID 07/13/23 07/13/23 Unknown History tirzepatide 5 mg/0.5 mL 5 mg SUBCUT Q7D 07/13/23 07/13/23 07/07/23 History subcutaneous pen injector (Mounjaro) Allergies Allergy/AdvReac Type Severity Reaction Status Date / Time No Known Allergies Allergy Verified 07/13/23 10:57 PFSH Acute 2 PFSH: Medical History (Updated 07/13/23 @ 15:12 by Almas Marley DPM) Type 2 diabetes mellitus Surgical History (Updated 07/13/23 @ 14:40 by Negro Hatfield MD) History of cholecystectomy History of appendectomy Family History (Updated 07/13/23 @ 14:40 by Negro Hatfield MD) Mother CAD (coronary artery disease) Cardiomyopathy Social History (Updated 07/13/23 @ 14:40 by Negro Hatfield MD) Smoking and tobacco/nicotine status: never used tobacco/nicotine Alcohol intake: never Substance/Drug Use: never Vitals/I&O/Wt Last Vital Signs Temp 98.0 F 07/13/23 10:58 Pulse 104 H 07/13/23 10:58 Resp 14 07/13/23 10:58 BP 127/62 07/13/23 13:41 Pulse Ox 98 07/13/23 10:58 O2 Del Method Room Air 07/13/23 10:58 Weight last 48 hrs Weight 282 lb Physical Exam 2 Narrative: BELOW IS A FOCUSED LOWER EXTREMITY EXAM GENERAL: A&O x 3 VASCULAR: DP/PT pulses palpable 2/4 with CFT intact, <3seconds to distal digits. Edema to right foot DERMATOLOGICAL: Wound # 1 Location: Plantar right first metatarsal head Size: 1.0 x 1.2 x 0.5 cm Underminin.1 cm circumferentially Tracking: Positive tracking 4 cm to lateral aspect of hallux from the 11 o'clock position Probe to bone: Negative Borders: Hyperkeratotic Base: 100% fibrotic Drainage: Serous Malodor: Positive MUSCULOSKELETAL: Tenderness with palpation of right pretibial region and over the anteromedial gutter of the ankle. No pain with range of motion of right ankle joint. No pain with range of motion of first metatarsophalangeal joint. NEUROLOGICAL: Neurological sensation to the affected foot and ankle is diminished through L4-S1 dermatomes via 10g SWMF, diminished sensation extends proximally to the level of the ankle IMAGING: CT scan of right foot obtained in the emergency department personally interpreted by me which shows increase soft tissue density of right foot surrounding the first metatarsophalangeal joint and hallux. Soft tissue defect plantar aspect of right foot under the first metatarsal head and sesamoid apparatus. Subcutaneous emphysema plantar aspect of right hallux proximal phalanx. Gas does not move more proximal than base of proximal phalanx. No pathological fractures. No other subcutaneous emphysema noted. Data 07/13/23 11:55 07/13/23 11:55 Micro: Microbiology 07/13/23 11:55 Blood Culture - Preliminary Blood SPECIMEN COLLECTED 07/13/23 12:02 Blood Culture - Preliminary Blood SPECIMEN COLLECTED A&P Assessment and plan (1) Gas gangrene of foot: (2) Diabetic infection of right foot: (3) Type 2 diabetes mellitus: Plan -Right foot hallux wound infection with gas producing organism. Concern for sepsis -LRINEC Score: 5 -Labs and vitals reviewed -WBC 14.05 -ESR 51 -CRP 173.2 -HR 104 -RR 14 -Tmax 98.0 -Cultures --Blood: Pending --Wound: Pending -Abx: Vanco/Zosyn/clinda -Imaging: Infection right hallux with gas producing organism visualized on CT scan -Diet: N.p.o. -Plan for incision and drainage right foot this evening (07/13/2023) at 6 PM. Patient last ate at 10 AM. Main goal of source control due to gas producing organism and concern for septic joint. I discussed with the patient in the emergency department that hallux amputation is a possibility given the extent of this infection. Patient verbalized understanding to this. -Weight bearing: Weightbearing as tolerated to right foot for transfers only -Dressings: Dry sterile dressing applied in the emergency department -Continue current Abx therapy until ID and Sensitivity results -Trend labs -Discharge plan: To be determined. Patient will likely need PICC line and IV antibiotics upon discharge -Podiatry will continue to round on patient daily and provide recommendations Coding Level of Care Code Acute Code for g Fwd Diagnoses Gas gangrene of foot A48.0 Diabetic infection of right foot E11.628; L08.9 Type 2 diabetes mellitus E11.9
[2023-07-13 15:05] LABS: INR 1.04 (0.8-1.2)
[2023-07-13 15:15] LABS: Lactic Sepsis W/Reflex 1.3 mmol/L (0.5-2.2)
[2023-07-13 15:22] LABS: NT Pro B Type Natriuretic Pept < 36 pg/mL (0-125); Procalcitonin 0.18 ng/mL (0-0.5); Thyroid Stimulating Hormone 7.33 uIU/mL (0.27-4.20)
[2023-07-13 15:33] LABS: Cholesterol 209 mg/dL (0-200); Creatine Phosphokinase 67 U/L (26-192); HDL Cholesterol 51 mg/dL (60-100); LDL Cholesterol Calculated 128 mg/dL (50-129); LDL HDL Ratio 2.51 RATIO (0.00-3.22); Triglycerides 148 mg/dL (0-150)
[2023-07-13 15:34] LABS: Estmated Average Glucose 200; Hemoglobin A1C 8.6 % (4.0-6.0)
[2023-07-13] MEDS: pantoprazole 40 mg SDV IVP (16:24)
[2023-07-13] MEDS: vancomycin 1,500 MG/300 ML PIGGYBACK 200 MG IV (16:24)
[2023-07-13] MEDS: sodium chloride 0.9% 1,000 ML 75 ML IV ×2 (16:25→19:57)
--- NOTE | 2023-07-13 17:21 | PC.NURSE ---
Patient to surgery at this time.
--- NOTE | 2023-07-13 17:39 | P.HPUD_ITS ---
Surgery/Procedure H&P Update DATE OF PROCEDURE: July 13, 2023 DATE H&P PERFORMED: 07/13/23 H&P UPDATE INFORMATION: I have reviewed H&P completed within last 30 days, I have examined patient prior to procedure, No changes to prior documentation and H&P is in [facility] EMR on date indicated PLANNED PROCEDURE: Operation Date: 07/13/23 18:10 Proposed Procedures p Incision And Drainage(Right) - Almas Marley DPM
--- NOTE | 2023-07-13 17:57 | P.ANESASSM_ITS ---
Pre-Anesthetic Assessment Height/Weight: Height 1.75 m Weight 127.913 kg Temp Pulse Resp BP Pulse Ox O2 Del Method 98.0 F 101 H 16 118/77 92 Room Air 07/13/23 16:00 07/13/23 17:32 07/13/23 17:32 07/13/23 17:32 07/13/23 17:32 07/13/23 17:32 Operation Date: 07/13/23 18:10 Proposed Procedures p Incision And Drainage(Right) - Almas Marley DPM Familial anesthetic complications: none Was Beta Luciano taken within 24 hours: N/A Was Clonidine taken within 24 hours: N/A Social No alcohol and No tobacco Exam alert, oriented x 3, clear to auscultation bilaterally and regular rate & rhythm Airway Submandibular: within normal limits Cervical ROM: within normal limits Mallampati: Class II Dentition: full Metabolic Diabetes Mellitus and Morbid Obesity Neuropsych Neuropathy Anesthetic Plan ASA status: 3 Anesthesia: MAC Medications/Allergies Home Medications Medication Instructions Recorded Confirmed Last Taken Type Hinged Knee Brace #1 ea 04/24/23 07/13/23 Unknown Rx insulin glargine 100 unit/mL 100 unit SUBCUT BEDTIME 05/06/23 07/13/23 07/12/23 History subcutaneous solution (Lantus U-100 Insulin) insulin glulisine U-100 100 30 unit SUBCUT TID 05/06/23 07/13/23 07/13/23 History unit/mL subcutaneous pen (Apidra SoloStar U-100 Insulin) cholecalciferol (vitamin D3) 1,250 1,250 mcg PO Q7D 07/13/23 07/13/23 07/07/23 History mcg (50,000 unit) capsule clobetasol 0.05 % scalp solution 1 applic topical BID 07/13/23 07/13/23 Unknown History tirzepatide 5 mg/0.5 mL 5 mg SUBCUT Q7D 07/13/23 07/13/23 07/07/23 History subcutaneous pen injector (Mounjaro) Allergies Allergy/AdvReac Type Severity Reaction Status Date / Time No Known Allergies Allergy Verified 07/13/23 10:57 Current Medications Generic Name Dose Route Start Last Admin Trade Name Freq PRN Reason Stop Dose Admin Enoxaparin Sodium 40 mg 07/13/23 14:45 07/13/23 16:26 Enoxaparin 40 Mg/0.4 Ml Syringe SUBCUT Not Given Q24H SHARRI Sodium Chloride 1,000 mls @ 75 mls/hr 07/13/23 14:45 07/13/23 16:25 Sodium Chloride 0.9% IV 75 mls/hr .[id number] SHARRI Administration Vancomycin/PEG/NADA/Lysine/Water 1,500 mg in 300 mls @ 200 mls/hr 07/13/23 15:30 07/13/23 16:24 Vancocin IV 200 mls/hr Q12H SHARRI Administration Pantoprazole Sodium 40 mg 07/13/23 14:45 07/13/23 16:24 Pantoprazole 40 Mg Sdv IVP 40 mg Q24H SHARRI Administration PFSH Anesthesia Medical History (Updated 07/13/23 @ 15:12 by Almas Marley DPM) Type 2 diabetes mellitus Surgical History (Updated 07/13/23 @ 14:40 by Negro Hatfield MD) History of cholecystectomy History of appendectomy Family History (Updated 07/13/23 @ 14:40 by Negro Hatfield MD) Mother CAD (coronary artery disease) Cardiomyopathy Social History (Updated 07/13/23 @ 14:40 by Negro Hatfield MD) Smoking and tobacco/nicotine status: never used tobacco/nicotine Alcohol intake: never Substance/Drug Use: never Data Anesthesia 07/13/23 11:55 07/13/23 11:55 Short CBC 07/13/23 Range/Units 11:55 WBC 14.05 H (3.29-11.43) 10^3/uL Hgb 12.70 (11.27-16.99) g/dL Hct 39.3 (36-47) % MCV 91.4 (85-98) fl Plt Count 348 (157-399) 10^3/cmm Neut % (Auto) 75.8 % Neut # (Auto) 10.66 H (1.8-7.7) 10^3/uL BMP 07/13/23 11:55 Sodium 138 Potassium 3.9 Chloride 99 Carbon Dioxide 27 BUN 13 Creatinine 0.8 Glucose 98 Calcium 9.2 Cardiac Enzymes 07/13/23 Range/Units 11:55 Creatine Kinase 67 (26-192) U/L NT-Pro-B Natriuret Pep < 36 (0-125) pg/mL Liver Function 07/13/23 Range/Units 11:55 Total Bilirubin 0.5 (0.15-1.2) mg/dL AST 9 (0-32) U/L ALT 11 (0-33) U/L Alkaline Phosphatase 102 (35-105) U/L Albumin 3.8 (3.5-5.2) g/dL Coags 07/13/23 11:55 ESR 51 H PT 13.90 INR 1.04 C-Reactive Protein 173.2 H Microbiology 07/13/23 14:40 Gram Stain - Final Toe - Wound 07/13/23 11:55 Blood Culture - Preliminary Blood SPECIMEN COLLECTED 07/13/23 12:02 Blood Culture - Preliminary Blood SPECIMEN COLLECTED Cardiac Studies: 2 No Data to Display
[2023-07-13] MEDS: BUPivacaine 0.5% INJ 30 mL INJECTION (18:20)
--- NOTE | 2023-07-13 18:48 | P.OP_ITS ---
Operative Report Date of procedure: July 13, 2023 Pre-op diagnosis: Right foot gas gangrene Post-op diagnosis: Same Post-op findings: Abscess formation plantar aspect right hallux surrounding tendon sheath of flexor hallucis longus tendon. No violation of first metatarsophalangeal joint capsule was noted Procedure done: Incision and drainage below fascia right foot with tendon sheath involvement CPT 04152 Specimens removed/disposition: Cultures aerobic and anaerobic sent to micro for ID and sensitivity Surgeon: Almas Marley DPM Comprehensive Ophthalmologist: Lucas Estimated blood loss: 5 cc No tourniquet Complications: None Findings: See above Procedure: Patient is a 52-year-old female that has a history of chronic ulceration right foot with abscess formation including gas producing organism. The extent of the infection necessitates incision and drainage. Written and verbal consent have been obtained. All patient questions have been answered to the patient?s satisfaction. No written or verbal guarantees have been given or implied. The patient has been NPO since this morning at 10 AM. The history has been reviewed and the history and physical is current. The signed consent was confirmed and placed in the patient chart. Patient imaging has been reviewed and is consistent with the diagnosis. Under mild sedation, the patient was brought into the operating room and placed on the table in the supine position. The patient is receiving antibiotics [id number] on the floor. IV sedation was then performed by the anesthesiateam. A local field block was then performed using 0.5% Marcaine plain. A pneumatic tourniquet was then placed about the right ankle. The operative extremity was then prepped and draped in the usual fashion. The tourniquet was not inflated. The following procedure was then performed. Attention was directed to the plantar aspect of the right foot where a full- thickness ulceration was noted plantar first metatarsal head. This was noted to track distally in the 11 o'clock position 4.5 cm along the lateral aspect of the hallux. A [place] was inserted into this portion of the wound along the lateral aspect of the hallux. #15 blade was then used to make a full-thickness incision overlying the [place] elevator. Hemostat was used to bluntly dissect through subcutaneous and superficial fascia down to the level of deep fascia. There was noted to be abscess formation with necrotic tissue visualized. Cultures both aerobic and anaerobic were taken at this point and sent to micro for ID and sensitivity. Dissection was carried out to remove devitalized tissue which involved the sheath of the flexor hallucis longus tendon. The first metatarsal phalangeal joint capsule was visualized and was noted to be intact with no violation. The wound was further probed and was noted to track proximally towards the medial longitudinal arch 2.5 cm. This was incised using #15 blade. Dissection was carried down through subcutaneous and superficial fascia. No abscess was visualized in this area. The remaining tissue appeared healthy and viable in nature. The incision site was then irrigated with copious amounts of sterile saline via pulse lavage. Hemostasis was achieved using electrocautery and the wound was packed with quarter inch iodoform packing gauze before being dressed with 4 x 4 gauze, ABD pad, Kerlix and Derek bandage. The patient tolerated the procedure and anesthesia well and without complication. The patient was transported from the operating room to the recovery room with vital signs stable and vascular status intact to all digits of the right foot. Thepatient was instructed to remain weightbearing as tolerated for transfers only to the operative extremity, to keep surgical dressing clean, dry and intact. The patient will be transferred back to the floor once anesthesia criteria is met. I will continue to round on and follow the patient in the inpatient setting and provide recommendations to stabilize the patient for discharge. Given the intraoperative findings, extent of necrosis and involvement of the flexor hallucis longus tendon sheath I recommend PICC line placement with long- term IV antibiotics.
--- NOTE | 2023-07-13 18:59 | P.PCN_ITS ---
PACU note Narrative: VSS, Good respiratory effort, report to FACILITIES CUSTODIAN Exam: awake
--- NOTE | 2023-07-13 18:59 | PM.PACU ---
PACU note Narrative: VSS, Good respiratory effort, report to CUTTING MACHINE FIXER Exam: awake
[2023-07-13] MEDS: clindamycin 600 MG/50 ML PREMIX 100 MG IV (19:57)
[2023-07-13] MEDS: HYDROcodone-acetaminophen 5-325 mg Tablet 1 TAB PO (20:21)
[2023-07-13] MEDS: piperacillin-tazobactam 3.375 GM in sodium chloride 0.9% (plus) 50 ML IV (20:21)
[2023-07-13 21:28] LABS: Glucose Point of Care 170 mg/dL (70-110)
[2023-07-14] VITALS (7 sets, daily range): BP systolic 113–150; BP diastolic 71–75; PULSE 83–98; RESP 16–18; TEMP 36.4–36.6; O2SAT 92–96; BMI 41.6
[2023-07-14] MEDS: vancomycin 1,500 MG/300 ML PIGGYBACK 200 MG IV ×2 (03:16→15:41)
[2023-07-14] MEDS: clindamycin 600 MG/50 ML PREMIX 100 MG IV ×3 (03:16→19:22)
[2023-07-14] MEDS: piperacillin-tazobactam 3.375 GM in sodium chloride 0.9% (plus) 50 ML IV ×3 (04:39→20:05)
[2023-07-14 05:17] LABS: Basophils % 0.3 %; Eosinophils # 0.2 10^3/uL (0.0-0.8); Eosinophils % 1.4 %; Hematocrit 32.2 % (36-47); Lymphocytes # 2.1 10^3/uL (0.8-4.8); Lymphocytes % 17.7 %; Mean Corpuscular HGB Conc 32.3 g/dL (30-55); Mean Corpuscular Hemoglobin 30.1 pg (27-33); Mean Corpuscular Volume 93.3 fl (85-98); Mean Platelet Volume 10.6 fL (7.4-10.4); Monocytes % 8.6 %; Neutrophils # 8.61 10^3/uL (1.8-7.7); Neutrophils % 71.5 %; Nucleated Red Blood Cells % 0 %; Platelet Count 261 10^3/cmm (157-399); Red Blood Count 3.45 10^6/uL (3.85-5.65); Red Cell Distribution Width 13.9 % (12.1-15.1); White Blood Count 12.06 10^3/uL (3.29-11.43)
[2023-07-14 05:34] LABS: Alanine Aminotransferase 8 U/L (0-33); Alkaline Phosphatase 79 U/L (35-105); Anion Gap 13.7 (5-19); Aspartate Amino Transferase 8 U/L (0-32); Blood Urea Nitrogen 13 mg/dL (6-20); Calcium 7.9 mg/dL (8.5-10.5); Carbon Dioxide 23 mmol/L (22-29); Chloride 101 mmol/L (98-107); Creatinine Clr Calc Pharmacy 133.3524; Globulin 3.8 g/dL (1.3-4.6); Glomerular Filtration Rate 87.5 mL/min (90-130); Glucose 202 mg/dL (65-115); Magnesium 1.5 mg/dL (1.7-2.3); Osmolality Calculated 284 mOsm/kg (285-295); Phosphorus 2.6 mg/dL (2.5-4.5); Potassium 3.7 mmol/L (3.5-5.1); Sodium 134 mmol/L (136-145); Total Bilirubin 0.4 mg/dL (0.15-1.2); Total Protein 6.8 g/dL (6.6-8.7)
[2023-07-14 06:59] LABS: Glucose Point of Care 193 mg/dL (70-110)
[2023-07-14] MEDS: HYDROcodone-acetaminophen 5-325 mg Tablet 1 TAB PO ×3 (07:14→17:50)
--- NOTE | 2023-07-14 07:22 | PM.PN ---
Subjective Subjective: Patient seen at bedside this morning. Resting comfortably. States pain is well-controlled. No fever, chills, nausea. Vitals/I&O/Wt Last Vital Signs Temp 98.1 F 07/13/23 19:11 Pulse 93 07/14/23 05:12 Resp 17 07/14/23 04:00 BP 119/75 07/14/23 04:00 Pulse Ox 93 07/14/23 04:00 O2 Del Method Room Air 07/14/23 04:00 O2 Flow Rate 2 07/13/23 23:37 07/13/23 07/14/23 07/14/23 22:59 06:59 14:59 Intake Total 615 / 965 400 / 1365 Output Total 5 / 5 Balance 610 / 960 400 / 1360 Weight last 48 hrs Weight 282 lb Weight 282 lb Weight 282 lb Physical Exam Narrative: BELOW IS A FOCUSED LOWER EXTREMITY EXAM GENERAL: A&O x 3 VASCULAR: DP/PT pulses palpable 2/4 with CFT intact, <3seconds to distal digits. Edema to right foot DERMATOLOGICAL: Surgical dressing right foot clean, dry, intact with no strikethrough noted MUSCULOSKELETAL: Tenderness with palpation of right pretibial region and over the anteromedial gutter of the ankle. No pain with range of motion of right ankle joint. No pain with range of motion of first metatarsophalangeal joint. NEUROLOGICAL: Neurological sensation to the affected foot and ankle is diminished through L4-S1 dermatomes via 10g SWMF, diminished sensation extends proximally to the level of the ankle IMAGING: CT scan of right foot obtained in the emergency department personally interpreted by me which shows increase soft tissue density of right foot surrounding the first metatarsophalangeal joint and hallux. Soft tissue defect plantar aspect of right foot under the first metatarsal head and sesamoid apparatus. Subcutaneous emphysema plantar aspect of right hallux proximal phalanx. Gas does not move more proximal than base of proximal phalanx. No pathological fractures. No other subcutaneous emphysema noted. Data 07/14/23 04:21 07/14/23 04:21 Micro: Microbiology 07/13/23 14:40 Gram Stain - Final Toe - Wound 07/13/23 11:55 Blood Culture - Preliminary Blood SPECIMEN COLLECTED 07/13/23 12:02 Blood Culture - Preliminary Blood SPECIMEN COLLECTED A&P Assessment and plan (1) Gas gangrene of foot: (2) Diabetic infection of right foot: (3) Type 2 diabetes mellitus: Plan -Right foot hallux wound infection with gas producing organism. Concern for sepsis -LRINEC Score: 5 -Labs and vitals reviewed -WBC 14.05--> 12.06 -ESR 51 -CRP 173.2 -VSS -Cultures --Blood: Pending --Wound: Heavy GPC's in pairs -Abx: Vanco/Zosyn/clinda -Imaging: Infection right hallux with gas producing organism visualized on CT scan -Diet: Okay for diet -Status post right foot incision and drainage. Wound left open and packed with iodoform packing gauze. Patient will need to return to the OR later this week for delayed primary closure -Weight bearing: Weightbearing as tolerated to right foot for transfers only -Dressings: Leave surgical dressing clean, dry, intact. -Continue current Abx therapy until ID and Sensitivity results -Trend labs -Discharge plan: To be determined. Given intraoperative findings recommend PICC line and 6 weeks IV antibiotics upon discharge from hospital -Podiatry will continue to round on patient daily and provide recommendations Attestations Medical Necessity Statement*: Right foot diabetic foot infection with gas producing organism necessitating surgical debridement and IV antibiotics Coding Level of Care Code Acute Code for [facility] Diagnoses Gas gangrene of foot A48.0 Diabetic infection of right foot E11.628; L08.9 Type 2 diabetes mellitus E11.9
[2023-07-14] MEDS: insulin lispro 100 unit/1 mL SUBCUT ×3 (09:01→17:11)
[2023-07-14] MEDS: magnesium sulfate premix 2 GM/50 ML PIGGYBACK IV (09:01)
--- NOTE | 2023-07-14 09:52 | P.PN_ITS ---
Subjective 2 Subjective: History and physical reviewed. Patient discussed with podiatry. She reports she feels better. Less discomfort in her foot. Medications: Reviewed: Yes Vitals/I&O/Wt Last Vital Signs Temp 97.6 F 07/14/23 08:00 Pulse 98 07/14/23 08:00 Resp 18 07/14/23 08:00 BP 150/75 07/14/23 08:00 Pulse Ox 95 07/14/23 08:00 O2 Del Method Room Air 07/14/23 08:00 O2 Flow Rate 2 07/13/23 23:37 07/13/23 07/14/23 07/14/23 22:59 06:59 14:59 Intake Total 615 / 965 400 / 1365 1530 / 1530 Output Total 5 / 5 350 / 350 Balance 610 / 960 400 / 1360 1180 / 1180 Weight last 48 hrs Weight 127.913 kg Weight 127.913 kg Weight 127.913 kg Physical Exam 2 Narrative: General exam no distress Neck is supple Cardiovascular regular rate and rhythm without murmur Lungs clear Abdomen is soft Extremity, right lower extremity with dressing placed by podiatry. Distal cap refill intact. Data 07/14/23 04:21 07/14/23 04:21 Micro: Microbiology 07/13/23 14:40 Gram Stain - Final Toe - Wound 07/13/23 11:55 Blood Culture - Preliminary Blood SPECIMEN COLLECTED 07/13/23 12:02 Blood Culture - Preliminary Blood SPECIMEN COLLECTED A&P Assessment and plan (1) Diabetic infection of right foot: Concerning with septic arthritis, possible necrotizing fasciitis, osteomyelitis. Operative finding was some necrosis involving the flexor hallucis longus tendon Currently on vancomycin, Zosyn, clindamycin If continues to make clinical improvement discontinue clindamycin tomorrow PICC line. Will hold off on ordering until visiting with infectious disease physician. Hopefully this can be done tomorrow if indicated. Infectious disease consultation Expected to return to surgery, Friday for repeat evaluation Close follow-up with vancomycin trough, CBC, CMP daily while in the hospital (2) Type 2 diabetes mellitus: Sliding scale insulin Attestations 2 Medical Necessity Statement*: Needs continued hospital stay for IV antibiotics related to diabetic foot infection Diagnoses Diabetic infection of right foot E11.628; L08.9 Type 2 diabetes mellitus E11.9 Time Spent (min) 29
[2023-07-14 12:20] LABS: Glucose Point of Care 245 mg/dL (70-110)
[2023-07-14] MEDS: pantoprazole 40 mg SDV IVP (15:35)
[2023-07-14] MEDS: enoxaparin 40 mg/0.4 mL Syringe SUBCUT (15:35)
[2023-07-14 16:41] LABS: Glucose Point of Care 219 mg/dL (70-110)
[2023-07-14 20:32] LABS: Glucose Point of Care 172 mg/dL (70-110)
--- NOTE | 2023-07-15 00:02 | P.CONIM_ITS ---
Providers/Reason For Consult 2 Consulting Physician/Specialty*: Hyacinth Dubose MD/ Infectious Disease Reason for Consult*: Osteomyelitis Requesting Physician: Raphael Wang MD Attending Physician: Raphael Wang MD Primary Care Provider: ROULA Lincoln History of Present Illness History of Present Illness Jazmine James is a 52 year old female with diabetes mellitus, neuropathy, osteoarthritis, known history of diabetic foot ulcer since April 2023. She has been noted to have a wound to the plantar first metatarsal head of the right foot with associated cellulitis. She has received a course of Augmentin followed by levofloxacin and doxycycline in April 2023. Thereafter she established care with the wound care clinic on May 23, 2023. Strict offloading was recommended, as were aware of diabetic shoes with custom insoles. She was placed in a total contact cast. Her job demands long hours of standing typically. She has been following closely with the wound care clinic since then. Wound was noted to be stable to improving until July 08, 2023. 2 days prior to presentation on July 13, 2023, she stated that her foot became acutely more painful with surrounding area of cellulitis which were tracking up her leg. Additionally she had subjective fevers at home. CT scan of the foot was obtained which showed subcutaneous emphysema, likely related to the open ulcer over the plantar aspect of right hallux. There was concern for underlying septic joint. Probe to bone: Negative. She was taken to the operating room on July 13, 2023, intraoperatively she was found to have abscess formation over the plantar aspect of right hallux, abscess was seen surrounding the tendon sheath of flexor hallucis longus tendon. There was no violation of the first metatarsophalangeal joint capsule. I&D was performed to level the fascia. Specimen was sent for susceptibility testing. She has been afebrile since admission. [place] [id number]. Currently on treatment with Zosyn/ Vancomycin and Clindamycin 600mg iv TID Review of Systems 2 General: Reports: 10 or more systems reviewed and unremarkable except in HPI and below Const: Denies: fever(s), chills or body aches Eyes: Denies: change in vision, blurry vision or photophobia ENMT: Reports: hoarseness; Denies: throat pain, enlarged tonsils, odynophagia or nasal congestion Card: Denies: chest pain, palpitations, irregular heart rhythm, edema, swelling of feet/ankles, lightheadedness, pre-syncope, dyspnea on exertion or orthopnea Resp: Denies: dyspnea, productive cough, non-productive cough, wheezing, stridor, pain on inspiration, change in phlegm color, hemoptysis or chest congestion GI: Denies: abdominal pain, nausea, vomiting, hematemesis, coffee ground emesis, dysphagia, heartburn, diarrhea, constipation, GI cramping, change in stool character, hematochezia or melena : Denies: flank pain, difficulty voiding, dysuria, urinary frequency, urinary urgency, urinary hesitancy or hematuria Musc: Denies: neck pain, back pain, extremity pain, joint swelling, joint warmth or deformity Neuro: Denies: headache(s), numbness in extremities, weakness in extremities, sensory changes, difficulty walking, frequent falls, dizziness, vertigo, behavioral changes, Slurred speech present or seizure-like activity Psych: Denies: anxiety, depression, suicidal ideation or homicidal ideation Endo: Denies: polyuria, polydipsia, tired all the time, cold intolerance or hot flashes Alejandro/Lymph: Denies: easy bruising or easy bleeding Medications/Allergies Home Medications Medication Instructions Recorded Confirmed Last Taken Type Hinged Knee Brace #1 ea 04/24/23 07/13/23 Unknown Rx insulin glargine 100 unit/mL 100 unit SUBCUT BEDTIME 05/06/23 07/13/23 07/12/23 History subcutaneous solution (Lantus U-100 Insulin) insulin glulisine U-100 100 30 unit SUBCUT TID 05/06/23 07/13/23 07/13/23 History unit/mL subcutaneous pen (Apidra SoloStar U-100 Insulin) cholecalciferol (vitamin D3) 1,250 1,250 mcg PO Q7D 07/13/23 07/13/23 07/07/23 History mcg (50,000 unit) capsule clobetasol 0.05 % scalp solution 1 applic topical BID 07/13/23 07/13/23 Unknown History tirzepatide 5 mg/0.5 mL 5 mg SUBCUT Q7D 07/13/23 07/13/23 07/07/23 History subcutaneous pen injector (Mounjaro) Allergies Allergy/AdvReac Type Severity Reaction Status Date / Time No Known Allergies Allergy Verified 07/13/23 10:57 Current Medications Generic Name Dose Route Start Last Admin Trade Name Freq PRN Reason Stop Dose Admin Hydrocodone Bitart/Acetaminophen 1 tab 07/13/23 20:04 07/14/23 17:50 Hydrocodone-Acetaminophen 5-325 Mg Tablet PO 1 tab Q4H PRN Administration MODERATE PAIN Enoxaparin Sodium 40 mg 07/13/23 14:45 07/14/23 15:35 Enoxaparin 40 Mg/0.4 Ml Syringe SUBCUT 40 mg Q24H SHARRI Administration Clindamycin HCl/Dextrose 600 mg in 50 mls @ 100 mls/hr 07/13/23 14:45 07/14/23 20:05 Cleocin IV Infused Q8H SHARRI Infusion Protocol Piperacillin Sod/Tazobactam 50 mls @ 12.5 mls/hr 07/13/23 16:00 07/14/23 20:05 Sod 3.375 gm/ Sodium Chloride IV 12.5 mls/hr Q8H SHARRI Administration Vancomycin/PEG/NADA/Lysine/Water 1,500 mg in 300 mls @ 200 mls/hr 07/13/23 15:30 07/14/23 17:11 Vancocin IV Infused Q12H SHARRI Infusion Insulin Human Lispro 0 unit 07/13/23 18:00 07/14/23 17:11 Insulin Lispro 100 Unit/1 Ml SUBCUT 6 unit TIDWM SHARRI Administration Protocol Pantoprazole Sodium 40 mg 07/13/23 14:45 07/14/23 15:35 Pantoprazole 40 Mg Sdv IVP 40 mg Q24H SHARRI Administration PFSH Acute 2 PFSH: Medical History Type 2 diabetes mellitus Surgical History History of cholecystectomy History of appendectomy Family History Mother CAD (coronary artery disease) Cardiomyopathy Social History Smoking and tobacco/nicotine status: never used tobacco/nicotine Alcohol intake: never Substance/Drug Use: never Vitals/I&O/Wt Last Vital Signs Temp 97.8 F 07/14/23 23:22 Pulse 85 07/14/23 23:22 Resp 16 07/14/23 23:22 BP 121/73 07/14/23 23:22 Pulse Ox 95 07/14/23 23:22 O2 Del Method Room Air 07/14/23 16:00 O2 Flow Rate 2 07/13/23 23:37 07/14/23 07/14/23 07/15/23 14:59 22:59 06:59 Intake Total 2060 / 2060 1000 / 3060 Output Total 350 / 350 Balance 1710 / 1710 1000 / 2710 Weight last 48 hrs Weight 127.913 kg Weight 127.913 kg Weight 127.913 kg Physical Exam 2 Narrative: General: No acute distress, AO x3 HEENT: PERRLA, pupils bilaterally equal and reactive, pallors not present Chest: Normal vesicular breath sounds, no added sounds, equal good air entry bilaterally CVS: S1-S2 regular, no murmurs, no tachycardia, no gallops, no rubs Abdomen: Soft, nontender, no organomegaly, bowel sounds present Neuro: No focal deficits, no facial deformity, AO x3, power 5/5 in all limbs Extremities: surgical dressing not opened for exam Data 07/14/23 04:21 07/14/23 04:21 Micro: Microbiology 07/13/23 18:22 Gram Stain - Final Other Source 07/13/23 14:40 Gram Stain - Final Toe - Wound Wound Culture - Preliminary Group g streptococcus 07/13/23 12:02 Blood Culture - Preliminary Blood NEGATIVE TO DATE 07/13/23 11:55 Blood Culture - Preliminary Blood NEGATIVE TO DATE Other data: CT Right Lower Extremity Without Contrast, Foot CT/CT foot RT wo con* [id number] IMPRESSION: 1. Skin ulcer at the plantar side of the 1st metatarsophalangeal joint with cellulitis at the medial forefoot. 2. Findings suggestive of septic arthritis of the 1st metatarsophalangeal joint and CT changes of early osteomyelitis at the dorsal aspect of the base of the proximal phalanx of the big toe. 3. Medial and lateral hallux sesamoiditis. 4. Soft tissue emphysema at the plantar side of the big toe, worrisome for necrotizing fasciitis in the right clinical setting versus gas-forming organism. A&P Assessment and plan (1) Foot abscess: (2) Abscess of tendon of foot: Qualifiers: Laterality: right Qualified Code(s): M65.071 - Abscess of tendon sheath, right ankle and foot (3) Diabetic infection of right foot: Plan Patient with a diabetic foot ulcer over the right plantar aspect that progressed in spite of appropriate wound care measures. More acutely worsened around July 10, 2023. CT showing features of cellulitis, possible osteomyelitis, and possible septic joint involvement of the first metatarsophalangeal joint. Status post surgical exploration on July 13, 2023. IntraOp findings negative for septic arthritis. Probe to bone negative. However encountered deep foot abscess which was also involving tendon of the flexor hallucis longus. Given the complicated nature of the infection, patient is currently on empiric IV antibiotics with piperacillin/tazobactam, vancomycin and clindamycin. Discontinue clindamycin. Patient has obtained appropriate surgical debridement, subcutaneous air may be related to open ulcer. Continue vancomycin and Zosyn pending final culture results. Thus far group G Streptococcus appears on preliminary cultures, will await final identification. Will likely be able to narrow antibiotic coverage to ceftriaxone 1 g IV daily if cultures do not reveal any other organisms. Anticipate needing between 4 to 6 weeks of IV antibiotics; final duration to be dependent on clinical response and serial follow-up as outpatient. Blood cultures remain negative to date. Patient is afebrile, hemodynamically stable. Okay to obtain PICC line for anticipated prolonged IV antibiotics. Will follow Consult Attestations 2 Medical Necessity Statement: per admitting Coding Level of Care Code Acute Code for [facility] Diagnoses Foot abscess L02.619 Abscess of tendon of right foot M65.071 Laterality: right Diabetic infection of right foot E11.628; L08.9
[2023-07-15] MEDS: HYDROcodone-acetaminophen 5-325 mg Tablet 1 TAB PO ×2 (02:38→21:39)
[2023-07-15 02:45] LABS: Basophils % 0.5 %; Eosinophils # 0.3 10^3/uL (0.0-0.8); Eosinophils % 3.7 %; Hematocrit 31.1 % (36-47); Lymphocytes # 1.9 10^3/uL (0.8-4.8); Lymphocytes % 21.1 %; Mean Corpuscular HGB Conc 31.8 g/dL (30-55); Mean Corpuscular Hemoglobin 29.6 pg (27-33); Mean Corpuscular Volume 93.1 fl (85-98); Mean Platelet Volume 10.3 fL (7.4-10.4); Monocytes # 0.5 10^3/uL (0.2-0.9); Monocytes % 6.1 %; Nucleated Red Blood Cells % 0 %; Platelet Count 257 10^3/cmm (157-399); Red Blood Count 3.34 10^6/uL (3.85-5.65); Red Cell Distribution Width 13.7 % (12.1-15.1); White Blood Count 8.82 10^3/uL (3.29-11.43)
[2023-07-15 03:08] LABS: Anion Gap 11.4 (5-19); Blood Urea Nitrogen 12 mg/dL (6-20); Calcium 8.4 mg/dL (8.5-10.5); Carbon Dioxide 26 mmol/L (22-29); Chloride 103 mmol/L (98-107); Creatinine Clr Calc Pharmacy 116.6833; Glucose 175 mg/dL (65-115); Magnesium 1.8 mg/dL (1.7-2.3); Osmolality Calculated 286 mOsm/kg (285-295); Potassium 4.4 mmol/L (3.5-5.1); Sodium 136 mmol/L (136-145); Vancomycin Trough 11.6 ug/mL (10-15)
[2023-07-15] MEDS: vancomycin 1,500 MG/300 ML PIGGYBACK 200 MG IV ×2 (03:20→15:42)
[2023-07-15 04:00] VITALS: BP 145/78; PULSE 88; RESP 18; TEMP 36.6; O2SAT 96
[2023-07-15] MEDS: piperacillin-tazobactam 3.375 GM in sodium chloride 0.9% (plus) 50 ML IV ×3 (05:14→20:25)
[2023-07-15 06:35] LABS: Glucose Point of Care 170 mg/dL (70-110)
--- NOTE | 2023-07-15 07:34 | XRR_ITS ---
PROCEDURE INFORMATION: Exam: XR Chest Exam date and time: 07/15/2023 8:18 AM Age: 52 years old Clinical indication: Device placement; Picc; Additional info: Post picc insertion, tone placing on med-surg room 253. Will call when ready. TECHNIQUE: Imaging protocol: Radiologic exam of the chest. Views: 1 view. COMPARISON: No relevant prior studies available. FINDINGS: Tubes, catheters and devices: A PICC line enters from the right and terminates in the right atrium. Lungs: Mild vascular prominence. Pleural spaces: Unremarkable. No pleural effusion. No pneumothorax. Heart/Mediastinum: Mild cardiomegaly. Bones/joints: Unremarkable. XR/XR chest 1V portable [id number] IMPRESSION: 1. Mild cardiac decompensation/fluid overload suspected. 2. PICC line terminates in the right atrium.
--- NOTE | 2023-07-15 07:43 | P.PN_ITS ---
Subjective 2 Subjective: Patient seen at bedside this morning. Resting comfortably. No overnight events. Pain is well-controlled. Vitals/I&O/Wt Last Vital Signs Temp 97.8 F 07/15/23 04:00 Pulse 88 07/15/23 04:00 Resp 18 07/15/23 04:00 BP 145/78 07/15/23 04:00 Pulse Ox 96 07/15/23 04:00 O2 Del Method Room Air 07/14/23 16:00 O2 Flow Rate 2 07/13/23 23:37 07/14/23 07/15/23 07/15/23 22:59 06:59 14:59 Intake Total 1000 / 3060 350 / 3410 Balance 1000 / 2710 350 / 3060 Weight last 48 hrs Weight 282 lb Weight 282 lb Weight 282 lb Weight 282 lb Physical Exam 2 Narrative: BELOW IS A FOCUSED LOWER EXTREMITY EXAM GENERAL: A&O x 3 VASCULAR: DP/PT pulses palpable 2/4 with CFT intact, <3seconds to distal digits. Edema to right foot DERMATOLOGICAL: Surgical dressing right foot clean, dry, intact with no strikethrough noted MUSCULOSKELETAL: Tenderness with palpation of right pretibial region and over the anteromedial gutter of the ankle. No pain with range of motion of right ankle joint. No pain with range of motion of first metatarsophalangeal joint. NEUROLOGICAL: Neurological sensation to the affected foot and ankle is diminished through L4-S1 dermatomes via 10g SWMF, diminished sensation extends proximally to the level of the ankle IMAGING: CT scan of right foot obtained in the emergency department personally interpreted by me which shows increase soft tissue density of right foot surrounding the first metatarsophalangeal joint and hallux. Soft tissue defect plantar aspect of right foot under the first metatarsal head and sesamoid apparatus. Subcutaneous emphysema plantar aspect of right hallux proximal phalanx. Gas does not move more proximal than base of proximal phalanx. No pathological fractures. No other subcutaneous emphysema noted. Data 07/15/23 02:34 07/15/23 02:34 Micro: Microbiology 07/13/23 18:22 Gram Stain - Final Other Source 07/13/23 14:40 Gram Stain - Final Toe - Wound Wound Culture - Preliminary Group g streptococcus 07/13/23 12:02 Blood Culture - Preliminary Blood NEGATIVE TO DATE 07/13/23 11:55 Blood Culture - Preliminary Blood NEGATIVE TO DATE A&P Assessment and plan (1) Gas gangrene of foot: (2) Diabetic infection of right foot: (3) Type 2 diabetes mellitus: Plan -Right foot hallux wound infection with gas producing organism. Concern for sepsis -LRINEC Score: 5 -Labs and vitals reviewed -WBC 8.8 -ESR 51 -CRP 173.2 -VSS -Cultures --Blood: Pending --Wound: Group G strep -Abx: Vanco/Zosyn/ -Imaging: Infection right hallux with gas producing organism visualized on CT scan -Diet: N.p.o. at midnight for procedure on 07/16/2023 -Plan for OR tomorrow morning 07/16/2023 for delayed primary closure right foot -Weight bearing: Weightbearing as tolerated to right foot for transfers only -Dressings: Leave surgical dressing clean, dry, intact. -Continue current Abx therapy until ID and Sensitivity results -Trend labs -Discharge plan: To be determined. Given intraoperative findings recommend PICC line and 6 weeks IV antibiotics upon discharge from hospital -Podiatry will continue to round on patient daily and provide recommendations Attestations 2 Medical Necessity Statement*: Plan for OR tomorrow 07/16/2023 for delayed primary closure of right foot wound Coding Level of Care Code Acute Code for [facility] Diagnoses Gas gangrene of foot A48.0 Diabetic infection of right foot E11.628; L08.9 Type 2 diabetes mellitus E11.9
[2023-07-15 08:00] VITALS: BP 123/71; PULSE 82; RESP 16; TEMP 36.4; O2SAT 96
--- NOTE | 2023-07-15 08:30 | PC.NURSE ---
Single lumen PICC placed to right basilic vein. Referred to vascular access nurse for PICC placement for IV antibiotics > 14 days. Risks and benefits discussed and informed consent obtained from patient. Right arm assessed with right basilic vein measuring 3.6 mm, straight, and apparent best choice for placement. Using sterile technique and MST, right basilic vein accessed x 1 stick. Mid-arm circumference measured 10 cm from right AC 33 cm. Trimmed cath 48 cm with 2 cm external length noted. Two images sent to radiology, first image shows tip in right atrium. Line retracted with second image showing tip in distal SVC. Vrad radiologist reads tip in right atrium. Dr. Jacobs reads second image in distal SVC, good to use. Line secured with stat-lock. Insertion site covered with Biopatch and TSM. Report given to bedside nurseShanel.
--- NOTE | 2023-07-15 08:43 | P.PN_ITS ---
Subjective 2 Subjective: Patient reports she feels okay today. No significant pain. Agreeable to PICC line. Probable surgery tomorrow for recheck of wound by podiatry. Medications: Reviewed: Yes Vitals/I&O/Wt Last Vital Signs Temp 97.6 F 07/15/23 08:00 Pulse 82 07/15/23 08:00 Resp 16 07/15/23 08:00 BP 123/71 07/15/23 08:00 Pulse Ox 96 07/15/23 08:00 O2 Del Method Room Air 07/15/23 08:00 O2 Flow Rate 2 07/13/23 23:37 07/14/23 07/15/23 07/15/23 22:59 06:59 14:59 Intake Total 1000 / 3060 350 / 3410 240 / 240 Balance 1000 / 2710 350 / 3060 240 / 240 Weight last 48 hrs Weight 127.913 kg Weight 127.913 kg Weight 127.913 kg Weight 127.913 kg Physical Exam 2 Narrative: General exam no distress Neck is supple Cardiovascular regular rate and rhythm without murmur Lungs clear Abdomen is soft Extremity, right lower extremity with dressing placed by podiatry. Distal cap refill intact. Data 07/15/23 02:34 07/15/23 02:34 Micro: Microbiology 07/13/23 18:22 Gram Stain - Final Other Source 07/13/23 14:40 Gram Stain - Final Toe - Wound Wound Culture - Preliminary Group g streptococcus 07/13/23 12:02 Blood Culture - Preliminary Blood NEGATIVE TO DATE 07/13/23 11:55 Blood Culture - Preliminary Blood NEGATIVE TO DATE A&P Assessment and plan (1) Foot abscess: Concern for necrotic tendon. Underwent surgery on July 13, and expected to return Friday for repeat evaluation Continue vancomycin and Zosyn Appreciate infectious disease consultation, clindamycin discontinued PICC line Currently growing strep. Consider Rocephin 1 g IV daily for 4 to 6 weeks at discharge if no other organisms noted on culture CBC, CMP tomorrow (2) Type 2 diabetes mellitus: Sliding scale insulin Consistent carb diet Plan Full code Lovenox for DVT prophylaxis Attestations 2 Medical Necessity Statement*: Requires continued hospitalization for IV antibiotics secondary to foot abscess with tendon involvement. Diagnoses Foot abscess L02.619 Type 2 diabetes mellitus E11.9 Time Spent (min) 25
[2023-07-15] MEDS: insulin lispro 100 unit/1 mL SUBCUT ×3 (08:51→17:08)
[2023-07-15 09:12] LABS: Basophils # 0.1 10^3/uL (0.0-0.1); Basophils % 0.8 %; Eosinophils # 0.4 10^3/uL (0.0-0.8); Eosinophils % 3.8 %; Hematocrit 33.1 % (36-47); Lymphocytes # 1.6 10^3/uL (0.8-4.8); Lymphocytes % 16.9 %; Mean Corpuscular HGB Conc 31.1 g/dL (30-55); Mean Corpuscular Hemoglobin 29.5 pg (27-33); Mean Corpuscular Volume 94.8 fl (85-98); Mean Platelet Volume 10.3 fL (7.4-10.4); Monocytes # 0.6 10^3/uL (0.2-0.9); Monocytes % 5.9 %; Neutrophils # 6.83 10^3/uL (1.8-7.7); Neutrophils % 71.9 %; Nucleated Red Blood Cells % 0 %; Platelet Count 277 10^3/cmm (157-399); Red Blood Count 3.49 10^6/uL (3.85-5.65); Red Cell Distribution Width 13.6 % (12.1-15.1); White Blood Count 9.51 10^3/uL (3.29-11.43)
--- NOTE | 2023-07-15 10:30 | XR_ITS ---
WS: [id number] PORTABLE CHEST HISTORY: Re-evaluation of PICC line after repositioning COMPARISON: Study earlier the same day. Right-sided PICC line is evaluated. The tip is probably just distal to the caval atrial junction. Rec ommend retraction 1 cm for more optimal positioning. Mild hazy attenuation throughout both lungs. No pleural effusion or pneumothorax. Cardiac size: Moderately enlarged cardiac silhouette. Mediastinum/Aorta: Mild mediastinal widening is probably on the basis of fluid overload. No osseous abnormality seen. IMPRESSION: RIGHT PICC line just beyond the caval atrial junction. Recommend retracting additional 1-2 cm.
[2023-07-15 10:55] LABS: Glucose Point of Care 170 mg/dL (70-110)
[2023-07-15 10:56] VITALS: PULSE 85; O2SAT 95
[2023-07-15 11:44] VITALS: BP 118/66; PULSE 82; RESP 16; TEMP 36.6; O2SAT 94
--- NOTE | 2023-07-15 12:36 | PC.NURSE ---
Repositioning of PICC line. After speaking to Dr. Jacobs, radiologist, recommendation made to retract PICC 1-2 cm for more optimal placement. PICC retracted 2 cm, which should put the tip at the cavoatrial junction. External length of PICC now noted at 4 cm. Report given to bedside nurseShanel.
[2023-07-15] MEDS: enoxaparin 40 mg/0.4 mL Syringe SUBCUT (15:47)
[2023-07-15] MEDS: pantoprazole 40 mg SDV IVP (15:47)
[2023-07-15 16:00] VITALS: BP 134/74; PULSE 89; RESP 16; TEMP 36.4; O2SAT 96
[2023-07-15 16:41] LABS: Glucose Point of Care 177 mg/dL (70-110)
[2023-07-15 20:00] VITALS: BP 102/64; PULSE 87; RESP 17; TEMP 36.6; O2SAT 95
[2023-07-15 21:16] LABS: Glucose Point of Care 169 mg/dL (70-110)
[2023-07-16] VITALS (11 sets, daily range): BP systolic 112–137; BP diastolic 60–77; PULSE 81–93; RESP 16–97; TEMP 36.1–36.7; O2SAT 94–97
[2023-07-16] MEDS: vancomycin 1,500 MG/300 ML PIGGYBACK 200 MG IV (04:07)
[2023-07-16 05:39] LABS: Alanine Aminotransferase 8 U/L (0-33); Albumin Level 3.1 g/dL (3.5-5.2); Alkaline Phosphatase 83 U/L (35-105); Anion Gap 16.1 (5-19); Aspartate Amino Transferase 13 U/L (0-32); Blood Urea Nitrogen 11 mg/dL (6-20); Calcium 8.7 mg/dL (8.5-10.5); Carbon Dioxide 23 mmol/L (22-29); Chloride 102 mmol/L (98-107); Creatinine Clr Calc Pharmacy 133.3524; Glomerular Filtration Rate 87.5 mL/min (90-130); Glucose 188 mg/dL (65-115); Osmolality Calculated 288 mOsm/kg (285-295); Potassium 4.1 mmol/L (3.5-5.1); Sodium 137 mmol/L (136-145); Total Bilirubin 0.2 mg/dL (0.15-1.2); Total Protein 7.1 g/dL (6.6-8.7)
--- NOTE | 2023-07-16 05:51 | P.PN_ITS ---
Subjective 2 Subjective: Infectious disease progress note N.p.o. this morning for planned Primary closure of the right foot. no new complaints. Remains afebrile and hemodynamically stable. Vitals/I&O/Wt Last Vital Signs Temp 98.0 F 07/16/23 04:00 Pulse 88 07/16/23 04:00 Resp 18 07/16/23 04:00 BP 133/77 07/16/23 04:00 Pulse Ox 94 07/16/23 04:00 O2 Del Method Room Air 07/16/23 04:00 O2 Flow Rate 2 07/13/23 23:37 07/15/23 07/15/23 07/16/23 14:59 22:59 06:59 Intake Total 530 / 530 850 / 1380 550 / 1930 Output Total 0 / 0 Balance 530 / 530 850 / 1380 550 / 1930 Weight last 48 hrs Weight 127.913 kg Physical Exam 2 Narrative: General: No acute distress, AO x3 HEENT: PERRLA, pupils bilaterally equal and reactive, pallors not present Neuro: No focal deficits Extremities: Surgoical dressing right foot, not opened for exam Data 07/15/23 08:55 07/16/23 04:35 Micro: Microbiology 07/13/23 14:40 Gram Stain - Final Toe - Wound Wound Culture - Final Group g streptococcus M.I.C. RX --------- ------ * Ampicillin <=0.06 S * Azithromycin <=0.25 S * Cefepime <=0.25 S * Ceftriaxone <=0.25 S * Clindamycin <=0.06 S * Erythromycin <=0.06 S * Levofloxacin <=0.25 S * Penicillin <=0.03 S * Tetracycline >4 R Vancomycin 0.5 S 07/13: Blood c x: negative to date A&P Assessment and plan (1) Foot abscess: (2) Abscess of tendon of foot: Qualifiers: Laterality: right Qualified Code(s): M65.071 - Abscess of tendon sheath, right ankle and foot (3) Diabetic infection of right foot: Plan Patient with a diabetic foot ulcer over the right plantar aspect since 04/2023 that progressed in spite of appropriate wound care measures. More acutely worsened around July 10, 2023. CT showing features of cellulitis, possible osteomyelitis, and possible septic joint involvement of the first metatarsophalangeal joint. Status post surgical exploration on July 13, 2023. IntraOp findings negative for septic arthritis. Probe to bone negative. However encountered deep foot abscess which was also involving tendon of the flexor hallucis longus. Given the complicated nature of the infection, patient is currently on empiric IV antibiotics with piperacillin/tazobactam, vancomycin while awaiting cx OR cx now finalized to reflect grp G streptococcus s/t PCN. Discontinue vancomycin and Zosyn pending final culture results. Change abx to ceftriaxone 1 g IV daily in keeping with cx results Anticipate needing between 4 to 6 weeks of IV antibiotics; final duration to be dependent on clinical response and serial follow-up as outpatient. Blood cultures remain negative to date. Patient is afebrile, hemodynamically stable. She obtained PICC line on 07/15 Planned to be discharged home with family infusing iv abx, to return to infusion center for once weekly PICC line care and lab draws Weekly CBC, creatinine, LFT and CRP while on above abx - fax to ID clinic for review f/up ID clinic on 08/19/23 at 11 AM Attestations 2 Medical Necessity Statement*: per admitting Coding Level of Care Code Acute Code for [facility] Diagnoses Foot abscess L02.619 Abscess of tendon of right foot M65.071 Laterality: right Diabetic infection of right foot E11.628; L08.9
[2023-07-16] MEDS: cefTRIAXone 1,000 MG in sodium chloride 0.9% (plus) 50 ML 100 MG IV (06:07)
[2023-07-16 06:44] LABS: Glucose Point of Care 200 mg/dL (70-110)
--- NOTE | 2023-07-16 08:43 | P.ANESASSM_ITS ---
Pre-Anesthetic Assessment Height/Weight: Height 1.75 m Weight 127.913 kg Temp Pulse Resp BP Pulse Ox O2 Del Method O2 Flow Rate 97.1 F L 86 16 136/75 97 Room Air 2 07/16/23 08:33 07/16/23 08:33 07/16/23 08:00 07/16/23 08:33 07/16/23 08:33 07/16/23 08:33 07/13/23 23:37 Operation Date: 07/13/23 18:00 Proposed Procedures p Incision And Drainage(Right) - Almas Marley DPM Operation Date: 07/16/23 09:25 Proposed Procedures p Delayed Wound Closure Right Foot(Right) - Almas Marley DPM Familial anesthetic complications: None Was Beta Luciano taken within 24 hours: N/A Was Clonidine taken within 24 hours: N/A Last intake: Intake Last Liquid Date 07/16/23 Last Liquid Time 00:00 Last Solid Date 07/15/23 Last Solid Time 17:00 Social No alcohol and No tobacco Exam alert, oriented x 3, clear to auscultation bilaterally and regular rate & rhythm Airway Mallampati: Class IV Dentition: other (missing) Metabolic Diabetes Mellitus, Hyperlipidemia, Morbid Obesity and Thyroid Disease Anesthetic Plan ASA status: 3 Anesthesia: Choice Risk of > 500 ml blood loss (7ml/kg in children): No Medications/Allergies Home Medications Medication Instructions Recorded Confirmed Last Taken Type Hinged Knee Brace #1 ea 04/24/23 07/13/23 Unknown Rx insulin glargine 100 unit/mL 100 unit SUBCUT BEDTIME 05/06/23 07/13/23 07/12/23 History subcutaneous solution (Lantus U-100 Insulin) insulin glulisine U-100 100 30 unit SUBCUT TID 05/06/23 07/13/23 07/13/23 History unit/mL subcutaneous pen (Apidra SoloStar U-100 Insulin) cholecalciferol (vitamin D3) 1,250 1,250 mcg PO Q7D 07/13/23 07/13/23 07/07/23 History mcg (50,000 unit) capsule clobetasol 0.05 % scalp solution 1 applic topical BID 07/13/23 07/13/23 Unknown History tirzepatide 5 mg/0.5 mL 5 mg SUBCUT Q7D 07/13/23 07/13/23 07/07/23 History subcutaneous pen injector (Lilian) Allergies Allergy/AdvReac Type Severity Reaction Status Date / Time No Known Allergies Allergy Verified 07/13/23 10:57 Current Medications Generic Name Dose Route Start Last Admin Trade Name Freq PRN Reason Stop Dose Admin Hydrocodone Bitart/Acetaminophen 1 tab 07/13/23 20:04 07/15/23 21:39 Hydrocodone-Acetaminophen 5-325 Mg Tablet PO 1 tab Q4H PRN Administration MODERATE PAIN Enoxaparin Sodium 40 mg 07/13/23 14:45 07/15/23 15:47 Enoxaparin 40 Mg/0.4 Ml Syringe SUBCUT 40 mg Q24H SHARRI Administration Ceftriaxone Sodium 1,000 mg/ 50 mls @ 100 mls/hr 07/16/23 06:00 07/16/23 07:00 Sodium Chloride IV Infused Q24H SHARRI Infusion Protocol Insulin Human Lispro 0 unit 07/13/23 18:00 07/16/23 08:25 Insulin Lispro 100 Unit/1 Ml SUBCUT Not Given TIDWM SHARRI Protocol Pantoprazole Sodium 40 mg 07/13/23 14:45 07/15/23 15:47 Pantoprazole 40 Mg Sdv IVP 40 mg Q24H SHARRI Administration PFSH Anesthesia Medical History Type 2 diabetes mellitus Surgical History History of cholecystectomy History of appendectomy Family History Mother CAD (coronary artery disease) Cardiomyopathy Social History Smoking and tobacco/nicotine status: never used tobacco/nicotine Alcohol intake: never Substance/Drug Use: never Data Anesthesia 07/15/23 08:55 07/16/23 04:35 Short CBC 07/15/23 07/15/23 Range/Units 02:34 08:55 WBC 8.82 9.51 (3.29-11.43) 10^3/uL Hgb 9.90 L 10.30 L (11.27-16.99) g/dL Hct 31.1 L 33.1 L (36-47) % MCV 93.1 94.8 (85-98) fl Plt Count 257 277 (157-399) 10^3/cmm Neut % (Auto) 68.0 71.9 % Neut # (Auto) 6.00 6.83 (1.8-7.7) 10^3/uL BMP 07/15/23 07/16/23 02:34 04:35 Sodium 136 137 Potassium 4.4 4.1 Chloride 103 102 Carbon Dioxide 26 23 BUN 12 11 Creatinine 0.8 0.7 Glucose 175 H 188 H Calcium 8.4 L 8.7 Liver Function 07/16/23 Range/Units 04:35 Total Bilirubin 0.2 (0.15-1.2) mg/dL AST 13 (0-32) U/L ALT 8 (0-33) U/L Alkaline Phosphatase 83 (35-105) U/L Albumin 3.1 L (3.5-5.2) g/dL Microbiology 07/13/23 14:40 Gram Stain - Final Toe - Wound Wound Culture - Final Group g streptococcus Cardiac Studies: 2 No Data to Display
[2023-07-16] MEDS: sodium chloride 0.9% 1,000 ML 30 ML IV (08:55)
--- NOTE | 2023-07-16 09:37 | W.PM.OPSUD ---
Surgery/Procedure H&P Update DATE OF PROCEDURE: July 16, 2023 DATE H&P PERFORMED: 07/13/23 H&P UPDATE INFORMATION: I have reviewed H&P completed within last 30 days, I have examined patient prior to procedure, No changes to prior documentation and H&P is in [facility] [place] on date indicated PLANNED PROCEDURE: Operation Date: 07/13/23 18:00 Proposed Procedures p Incision And Drainage(Right) - Almas Marley DPM Operation Date: 07/16/23 09:25 Proposed Procedures p Delayed Wound Closure Right Foot(Right) - Almas Marley DPM
[2023-07-16] MEDS: BUPivacaine 0.5% INJ 30 mL INJECTION (10:09)
--- NOTE | 2023-07-16 10:28 | P.OP_ITS ---
Operative Report Date of procedure: July 16, 2023 Pre-op diagnosis: Right foot gas gangrene Post-op diagnosis: Same Post-op findings: Remaining tissue appeared healthy and viable in nature Procedure done: Delayed primary closure right foot CPT 77875 Surgeon: Almas Marley DPM Estimated blood loss: 5 cc Complications: None Procedure: Patient is a 52-year-old female that has a history of right foot gas gangrene. Patient underwent incision and drainage of right foot on 07/13/2023. The patient return to the operating room today for further washout and delayed primary closure. Written and verbal consent have been obtained. All patient questions have been answered to the patient?s satisfaction. No written or verbal guarantees have been given or implied. The patient has been NPO since midnight. The history has been reviewed and the history and physical is current. The signed consent was confirmed and placed in the patient chart. Patient imaging has been reviewed and is consistent with the diagnosis. Under mild sedation, the patient was brought into the operating room and left on the gurney in the supine position. Patient is receiving antibiotics [id number] on the floor. IV sedation was then performed by the anesthesiateam. The right lower extremity was then prepped and draped in the standard fashion. After preparation, followed procedure was then performed. Attention was directed to the plantar aspect of the right foot where previous incision was noted. There was small amount of fibrotic tissue in the base of the wound. Granulation tissue had noted to begin forming. A rongeur was used to remove fibrotic tissue at the base of the wound. A curette was then used to stimulate blood flow to the deep tissues. The site was irrigated with copious amounts of sterile saline and inspected. No further abscess was visualized. No further tracking was noted. Remaining tissue appeared healthy and viable. After irrigation, attention was directed to closure. Hemostasis was achieved. The wound was closed using 3-0 Prolene in retention suture fashion as well as simple erupted fashion before being dressed with Xeroform, 4 x 4 gauze, Kerlix, Derek. Patient was placed in a cam boot. The patient tolerated the procedure and anesthesia well and without complication. The patient was transported from the operating room to the recovery room with vital signs stable and vascular status intact to all digits of the right foot. Thepatient was instructed to remain weightbearing as tolerated for transfers only to the operative extremity, to keep surgical dressing clean, dry and intact. The patient will be transferred back to the floor once anesthesia criteria is met. I will continue to round on and follow t he patient in the inpatientsetting and provide recommendations to stabilize the patient for discharge.
--- NOTE | 2023-07-16 10:40 | ANE.PACU2 ---
Inpatient post-anesthesia follow up: Airway intact: Yes Vital signs: Temperature 97.2 F Pulse Rate 93 Respiratory Rate 16 Blood Pressure 136/73 Pulse Oximetry 96 Oxygen Delivery Me thod [ Room Air Current Rate & Del rick] Oxygen Delivery Me thod Room Air Oxygen Flow Rate 2 Fraction of Inspir ed Oxygen Hydration adequate: Yes Nausea and vomiting: No Pain level: 1 Mental status: Baseline
--- NOTE | 2023-07-16 10:58 | P.DS_ITS ---
Discharge Providers Date of Admission: 07/13/23 14:18 Date of Discharge: July 16, 2023 Attending Provider at Admission: Negro Hatfield MD Attending Provider at Discharge: Raphael Wang MD Primary Care Provider: ROULA Lincoln Diagnoses at Discharge Discharge Diagnosis (1) Foot abscess: Status: Acute (2) Abscess of tendon of foot: Status: Acute Qualifiers: Laterality: right Qualified Code(s): M65.071 - Abscess of tendon sheath, right ankle and foot (3) Diabetic infection of right foot: Status: Acute Reason for Visit Reason for Visit: fever, R leg/foot redness,pain Hospital Course Hospital Course Jazmine is a 52-year-old female with diabetes who presented with a right foot infection. This was determined to be an abscess with tendon involvement. She was placed on broad-spectrum antibiotics consisting of vancomycin, Zosyn, and initially clindamycin. Podiatry was consulted who promptly took her to surgery. She continued on antibiotics pending cultures, and spectrum was narrowed by July 16 to Rocephin alone. This was appropriate for the group G Streptococcus isolated from her wound. Podiatry took her back to surgery on the , for closure. The wound looked good at that time. It was appropriate for discharge home, on IV antibiotics for minimum of 4 weeks. She will see infectious disease which evaluated her in the hospital, podiatry, and her primary care provider. She was instructed to return for any concerns. She was given opportunity ask questions and agreed with the plan. Physical Exam Narrative: General exam no distress Neck is supple Cardiovascular regular rate and rhythm Lungs clear Abdomen is soft Right foot with dressing, distal cap refill intact Discharge Data Studies Completed and Pending Completed Studies During Hospitalization Category Date Time Status CT foot RT wo con* [id number] Stat Cat Scan 07/13/23 13:20 Completed CXRP [XR chest 1V portable [id number]] Routine Exams 07/15/23 07:34 Completed CXRP [XR chest 1V portable [id number]] Routine Exams 07/15/23 10:30 Completed Pending at discharge Category Date Time Status Abscess Culture and Gram Stain Routine Lab 07/13/23 18:22 Results Anaerobic Culture Routine Lab 07/13/23 18:22 Received Blood Culture Stat Lab 07/13/23 11:55 Results Wound Culture and Gram Stain Routine Lab 07/13/23 14:40 Uncollected Radiology Impressions Foot CT 07/13/23 13:20 IMPRESSION: 1. Skin ulcer at the plantar side of the 1st metatarsophalangeal joint with cellulitis at the medial forefoot. 2. Findings suggestive of septic arthritis of the 1st metatarsophalangeal joint and CT changes of early osteomyelitis at the dorsal aspect of the base of the proximal phalanx of the big toe. 3. Medial and lateral hallux sesamoiditis. 4. Soft tissue emphysema at the plantar side of the big toe, worrisome for necrotizing fasciitis in the right clinical setting versus gas-forming organism. ADDENDUM: 07/13/23 1400 THIS REPORT CONTAINS FINDINGS THAT MAY BE CRITICAL TO PATIENT CARE. The findings were verbally communicated via telephone conference with ANTHONY OSORIO at 2:08 PM [employer]ER on 07/13/2023. The findings were acknowledged and understood. Laboratory Results WBC 9.51 10^3/uL (3.29-11.43) 07/15/23 08:55 RBC 3.49 10^6/uL (3.85-5.65) L 07/15/23 08:55 Hgb 10.30 g/dL (11.27-16.99) L 07/15/23 08:55 Hct 33.1 % (36-47) L 07/15/23 08:55 MCV 94.8 fl (85-98) 07/15/23 08:55 MCH 29.5 pg (27-33) 07/15/23 08:55 MCHC 31.1 g/dL (30-55) 07/15/23 08:55 RDW 13.6 % (12.1-15.1) 07/15/23 08:55 Plt Count 277 10^3/cmm (157-399) 07/15/23 08:55 MPV 10.3 fL (7.4-10.4) 07/15/23 08:55 Neut % (Auto) 71.9 % 07/15/23 08:55 Lymph % (Auto) 16.9 % 07/15/23 08:55 [place] % (Auto) 5.9 % 07/15/23 08:55 Eos % (Auto) 3.8 % 07/15/23 08:55 Baso % (Auto) 0.8 % 07/15/23 08:55 Neut # (Auto) 6.83 10^3/uL (1.8-7.7) 07/15/23 08:55 Lymph # (Auto) 1.6 10^3/uL (0.8-4.8) 07/15/23 08:55 [place] # (Auto) 0.6 10^3/uL (0.2-0.9) 07/15/23 08:55 Eos # (Auto) 0.4 10^3/uL (0.0-0.8) 07/15/23 08:55 Baso # (Auto) 0.1 10^3/uL (0.0-0.1) 07/15/23 08:55 Nucleated RBC % (auto) 0 % 07/15/23 08:55 Nucleated RBCs # 0.0 /100WBC 07/15/23 08:55 ESR 51 mm/hr (0-15) H 07/13/23 11:55 PT 13.90 SECONDS (12.1-14.9) 07/13/23 11:55 INR 1.04 (0.8-1.2) 07/13/23 11:55 Sodium 137 mmol/L (136-145) 07/16/23 04:35 Potassium 4.1 mmol/L (3.5-5.1) 07/16/23 04:35 Chloride 102 mmol/L (98-107) 07/16/23 04:35 Carbon Dioxide 23 mmol/L (22-29) 07/16/23 04:35 Anion Gap 16.1 (5-19) 07/16/23 04:35 BUN 11 mg/dL (6-20) 07/16/23 04:35 Creatinine 0.7 mg/dL (0.5-0.9) 07/16/23 04:35 GFR Calculation 87.5 mL/min (90-130) L 07/16/23 04:35 Glucose 188 mg/dL (65-115) H 07/16/23 04:35 POC Glucose 200 mg/dL (70-110) H 07/16/23 06:32 Estimat Average Glucose 200 07/13/23 11:55 Hemoglobin A1c 8.6 % (4.0-6.0) H 07/13/23 11:55 Calculated Osmolality 288 mOsm/kg (285-295) 07/16/23 04:35 Lactic Acid 1.3 mmol/L (0.5-2.2) 07/13/23 11:55 Calcium 8.7 mg/dL (8.5-10.5) 07/16/23 04:35 Phosphorus 2.6 mg/dL (2.5-4.5) 07/14/23 04:21 Magnesium 1.8 mg/dL (1.7-2.3) 07/15/23 02:34 Total Bilirubin 0.2 mg/dL (0.15-1.2) 07/16/23 04:35 AST 13 U/L (0-32) 07/16/23 04:35 ALT 8 U/L (0-33) 07/16/23 04:35 Alkaline Phosphatase 83 U/L (35-105) 07/16/23 04:35 Creatine Kinase 67 U/L (26-192) 07/13/23 11:55 C-Reactive Protein 173.2 mg/L (0.0-4.9) H 07/13/23 11:55 NT-Pro-B Natriuret Pep < 36 pg/mL (0-125) 07/13/23 11:55 Total Protein 7.1 g/dL (6.6-8.7) 07/16/23 04:35 Albumin 3.1 g/dL (3.5-5.2) L 07/16/23 04:35 Globulin 4.0 g/dL (1.3-4.6) 07/16/23 04:35 Triglycerides 148 mg/dL (0-150) 07/13/23 11:55 Cholesterol 209 mg/dL (0-200) H 07/13/23 11:55 LDL Cholesterol, Calc 128 mg/dL (50-129) 07/13/23 11:55 HDL Cholesterol 51 mg/dL (60-100) L 07/13/23 11:55 LDL/HDL Ratio 2.51 RATIO (0.00-3.22) 07/13/23 11:55 Cholesterol/HDL Ratio 4.10 mg/dL (0.0-4.40) 07/13/23 11:55 Procalcitonin 0.18 ng/mL (0-0.5) 07/13/23 11:55 Procalcitonin 0.18 ng/mL (0-0.5) 07/13/23 11:55 TSH 7.33 uIU/mL (0.27-4.20) H 07/13/23 11:55 Vancomycin Trough 11.6 ug/mL (10-15) 07/15/23 02:34 Vitals Last Vital Signs Temp 97.2 F L 07/16/23 10:41 Pulse 88 07/16/23 10:41 Resp 17 07/16/23 10:41 BP 137/71 07/16/23 10:41 Pulse Ox 96 07/16/23 10:26 O2 Del Method Room Air 07/16/23 10:41 O2 Flow Rate 2 07/13/23 23:37 Discharge Plan Discharge Patient Disposition: Home Condition: Stable Prescriptions: New hydrocodone-acetaminophen 5-325 mg Tablet 1 tab PO Q4H PRN (Reason: Moderate Pain) Qty: 15 0RF Continued (DME) Hinged Knee Brace See Rx Instructions .Route .MEDSUPPLY Qty: 1 0RF Rx Instructions: As directed insulin glargine [Lantus U-100 Insulin] 100 unit/mL Solution 100 unit SUBCUT BEDTIME Apidra SoloStar U-100 Insulin 100 unit/mL Insulin Pen 30 unit SUBCUT TID clobetasol 0.05 % solution 1 applic TOPICAL BID cholecalciferol (vitamin D3) 1,250 mcg (50,000 unit) capsule 1,250 mcg PO Q7D Rx Instructions: ON MONDAYS Mounjaro 5 mg/0.5 mL pen injector 5 mg SUBCUT Q7D Rx Instructions: ON MONDAYS Discharge Orders: Discharge Order (Routine); Ordered 07/16/23 Ordered By: Raphael Wang Other Ambulatory Orders: Miscellaneous Procedure (Order) Location: None Selected Ordered By: Raphael Wang Miscellaneous Test (Routine) Timeframe: 1 Week Facility: [facility] - Location: Lab - Main Lab Ordered By: Raphael Wang Referrals: [facility] [Provider Group] - 08/19/23 11:00 am Almas Marley DPM [Physician] - 07/23/23 2:30 pm Gunjan Lo FNP [Primary Care Provider] - 07/22/23 10:00 am Discharge Diet: Diabetic Patient Instructions: Opioid Safety Activity Restrictions/Additional Instructions: Keep follow-ups as noted above Rocephin 1 g IV every 24 hours for 4 weeks through PICC line, infectious disease will determine if course needs to be extended to 6 weeks Lab work as ordered weekly CBC, CRP, CMP Return for any concerns Wound care per podiatry Discharge Attestations Time Spent in Discharge Care*: greater than 30 min Quality Metrics Clinical Quality Measures [ No reported AMI, CVA or VTE this stay] Coding Level of Care Code 55716 Total time (in minutes) for Discharge: 35 Diagnoses Foot abscess L02.619 Abscess of tendon of right foot M65.071 Laterality: right Diabetic infection of right foot E11.628; L08.9
--- NOTE | 2023-07-16 11:25 | PC.NURSE ---
Patient has PICC dressing change ordered for today. No gauze present just a bio dot in place. PICC bio dot clean and dry. No change needed.
[2023-07-16 11:34] LABS: Glucose Point of Care 194 mg/dL (70-110)
[2023-07-16] MEDS: insulin lispro 100 unit/1 mL SUBCUT (12:16)
--- NOTE | 2023-07-16 13:12 | PC.NURSE ---
Patient wanted eat prior to discharge.4
--- NOTE | 2023-07-16 13:12 | PC.NURSE ---
Educated patient and spouse on how to administer Rocephine IVP at home. Both parties verbalized understanding. Spent 15 minutes in room and let spouse practice with Saline flushes. Sent a couple home so he could practice pushing fluid slow though syringe. Made sure spouse knew to read medication to see how long to push the medication and to watch the clock. Instructed to flush slowly with 10 mL saline prior and 10 mL saline once medication has been slowly pushed as well.
--- NOTE | 2023-07-16 13:51 | PC.NURSE ---
Discussed discharge, follow up appointments and new medications along with continued medications. Asked patient if they had any questions about IVP Rocephine to be done at home and both parties verbalized they understood everything.
== END 2023-07-16 13:25 | disposition home or self-care (01) | DRG 981 ==
LOC: ER 15:08 → MEDSURG 15:11
PROVIDERS: Podiatrist Foot & Ankle Surgery; Admitting Provider Family Medicine; Emergency Provider Emergency Medicine; PCP Nurse Practitioner; Visit Provider Internal Medicine
PROC: 0J9Q0ZZ Drainage of Right Foot Subcutaneous Tissue and Fascia, Open Approach (ICD-10-PCS; principal; 2023-07-13 18:00)
PROC: 0YQMXZZ Repair Right Foot, External Approach (ICD-10-PCS; CPT 13160; principal; 2023-07-16 09:15)
DX: E11.628 Type 2 diabetes mellitus with other skin complications (principal); A48.0 Gas gangrene; L03.115 Cellulitis of right lower limb; Z68.41 Body mass index [BMI] 40.0-44.9, adult; L97.419 Non-pressure chronic ulcer of right heel and midfoot with unspecified severity; E11.52 Type 2 diabetes mellitus with diabetic peripheral angiopathy with gangrene; B95.4 Other streptococcus as the cause of diseases classified elsewhere; Z79.4 Long term (current) use of insulin; M65.071 Abscess of tendon sheath, right ankle and foot; E66.9 Obesity, unspecified; E11.621 Type 2 diabetes mellitus with foot ulcer; M19.90 Unspecified osteoarthritis, unspecified site; E11.40 Type 2 diabetes mellitus with diabetic neuropathy, unspecified
CPT/HCPCS: 36415; 36416; 36573; 71045; 73700; 80048; 80053; 80061; 80202; 82550; 82962; 83036; 83605; 83735; 83880; 84100; 84145; 84443; 85025; 85610; 85651; 86140; 87040; 87070; 87075; 87077; 87186; 87205; 94664; 96365; 96367; 96372; 96375; 99285; C9113; J0692; J0696; J1170; J1650; J1815; J2020; J2250; J2405; J2543; J2704; J3010; J3370; J3475; J3490; J7030; L3260

== ENCOUNTER 2023-07-22 08:24 | Oncology outpatient (recurring) (ONCR) | payer OTHER, SELFPAY ==
[2023-07-22 09:10] VITALS: BP 131/78; PULSE 78; RESP 18; TEMP 36.9; O2SAT 98
[2023-07-22 09:23] LABS: Basophils # 0.1 10^3/uL (0.0-0.1); Basophils % 0.7 %; Eosinophils # 0.3 10^3/uL (0.0-0.8); Eosinophils % 3.2 %; Hematocrit 33.8 % (36-47); Lymphocytes # 2.2 10^3/uL (0.8-4.8); Mean Corpuscular HGB Conc 32.8 g/dL (30-55); Mean Corpuscular Hemoglobin 29.3 pg (27-33); Mean Corpuscular Volume 89.2 fl (85-98); Mean Platelet Volume 10.1 fL (7.4-10.4); Monocytes # 0.5 10^3/uL (0.2-0.9); Monocytes % 5.4 %; Neutrophils # 6.58 10^3/uL (1.8-7.7); Neutrophils % 67.4 %; Nucleated Red Blood Cells % 0 %; Platelet Count 310 10^3/cmm (157-399); Red Blood Count 3.79 10^6/uL (3.85-5.65); Red Cell Distribution Width 13.5 % (12.1-15.1); White Blood Count 9.77 10^3/uL (3.29-11.43)
[2023-07-22 10:10] LABS: Erythrocyte Sedimentation Rate 79 mm/hr (0-15)
[2023-07-22 11:19] LABS: Alanine Aminotransferase 12 U/L (0-33); Albumin Level 3.5 g/dL (3.5-5.2); Alkaline Phosphatase 77 U/L (35-105); Blood Urea Nitrogen 12 mg/dL (6-20); C Reactive Protein 31.6 mg/L (0.0-4.9); Carbon Dioxide 23 mmol/L (22-29); Chloride 103 mmol/L (98-107); Globulin 4.4 g/dL (1.3-4.6); Glomerular Filtration Rate 104.6 mL/min (90-130); Glucose 148 mg/dL (65-115); Osmolality Calculated 291 mOsm/kg (285-295); Sodium 139 mmol/L (136-145); Total Bilirubin 0.2 mg/dL (0.15-1.2); Total Protein 7.9 g/dL (6.6-8.7)
[2023-07-22 11:20] LABS: Anion Gap 17.1 (5-19); Aspartate Amino Transferase 13 U/L (0-32); Potassium 4.1 mmol/L (3.5-5.1)
== END 2023-07-24 23:59 | disposition home or self-care (01) ==
PROVIDERS: Internal Medicine; PCP Nurse Practitioner; Visit Provider Nurse Practitioner
DX: M86.9 Osteomyelitis, unspecified (principal); A48.0 Gas gangrene; Z45.2 Encounter for adjustment and management of vascular access device; Z53.9 Procedure and treatment not carried out, unspecified reason
CPT/HCPCS: 36415; 36592; 80053; 85025; 85651; 86140

== ENCOUNTER → 2023-07-30 13:37 | Outpatient (BNVA) | payer OTHER, SELFPAY | PROVIDERS: PCP Nurse Practitioner; Visit Provider Podiatrist Foot & Ankle Surgery | DX: E11.628 Type 2 diabetes mellitus with other skin complications (principal); L08.9 Local infection of the skin and subcutaneous tissue, unspecified | CPT/HCPCS: 36415; 80053; 85025 ==

== ENCOUNTER → 2023-08-22 07:50 | Outpatient (BNVA) | payer OTHER, SELFPAY | PROVIDERS: PCP Nurse Practitioner; Visit Provider Podiatrist Foot & Ankle Surgery | DX: E11.621 Type 2 diabetes mellitus with foot ulcer (principal); L97.512 Non-pressure chronic ulcer of other part of right foot with fat layer exposed; Z98.890 Other specified postprocedural states; Z79.4 Long term (current) use of insulin | CPT/HCPCS: 73630 ==

== ENCOUNTER 2023-08-22 10:00 | Oncology outpatient (recurring) (ONCR) | payer OTHER, SELFPAY ==
[2023-08-05 10:26] LABS: Basophils # 0.1 10^3/uL (0.0-0.1); Basophils % 0.8 %; Eosinophils # 0.2 10^3/uL (0.0-0.8); Eosinophils % 2.6 %; Lymphocytes # 2.1 10^3/uL (0.8-4.8); Lymphocytes % 24.3 %; Mean Corpuscular HGB Conc 32.6 g/dL (30-55); Mean Corpuscular Hemoglobin 29.5 pg (27-33); Mean Corpuscular Volume 90.7 fl (85-98); Mean Platelet Volume 10.7 fL (7.4-10.4); Monocytes # 0.5 10^3/uL (0.2-0.9); Monocytes % 6.1 %; Neutrophils # 5.77 10^3/uL (1.8-7.7); Neutrophils % 65.7 %; Nucleated Red Blood Cells % 0 %; Platelet Count 299 10^3/cmm (157-399); Red Cell Distribution Width 14.1 % (12.1-15.1); White Blood Count 8.79 10^3/uL (3.29-11.43)
[2023-08-05 10:35] LABS: Erythrocyte Sedimentation Rate 64 mm/hr (0-15)
[2023-08-12 10:21] LABS: Basophils # 0.1 10^3/uL (0.0-0.1); Basophils % 0.8 %; Eosinophils # 0.3 10^3/uL (0.0-0.8); Eosinophils % 2.3 %; Hematocrit 38.1 % (36-47); Lymphocytes # 2.4 10^3/uL (0.8-4.8); Lymphocytes % 22.4 %; Mean Corpuscular HGB Conc 32.8 g/dL (30-55); Mean Corpuscular Hemoglobin 29.6 pg (27-33); Mean Corpuscular Volume 90.1 fl (85-98); Mean Platelet Volume 10.8 fL (7.4-10.4); Monocytes # 0.7 10^3/uL (0.2-0.9); Monocytes % 6.5 %; Neutrophils # 7.35 10^3/uL (1.8-7.7); Neutrophils % 67.4 %; Nucleated Red Blood Cells % 0 %; Platelet Count 297 10^3/cmm (157-399); Red Blood Count 4.23 10^6/uL (3.85-5.65); Red Cell Distribution Width 13.8 % (12.1-15.1)
[2023-08-12 10:31] LABS: Erythrocyte Sedimentation Rate 70 mm/hr (0-15)
[2023-08-19 10:11] LABS: Basophils # 0.1 10^3/uL (0.0-0.1); Basophils % 0.6 %; Eosinophils # 0.2 10^3/uL (0.0-0.8); Eosinophils % 2.1 %; Hematocrit 39.6 % (36-47); Lymphocytes # 2.6 10^3/uL (0.8-4.8); Lymphocytes % 23.7 %; Mean Corpuscular HGB Conc 32.6 g/dL (30-55); Mean Corpuscular Hemoglobin 29.3 pg (27-33); Mean Platelet Volume 10.7 fL (7.4-10.4); Monocytes # 0.6 10^3/uL (0.2-0.9); Monocytes % 5.9 %; Neutrophils # 7.32 10^3/uL (1.8-7.7); Neutrophils % 67.2 %; Nucleated Red Blood Cells % 0 %; Platelet Count 275 10^3/cmm (157-399); Red Cell Distribution Width 13.9 % (12.1-15.1); White Blood Count 10.89 10^3/uL (3.29-11.43)
[2023-08-19 10:16] LABS: Erythrocyte Sedimentation Rate 65 mm/hr (0-15)
[2023-08-19 13:06] LABS: C Reactive Protein 26.7 mg/L (0.0-4.9)
[2023-08-22 10:44] VITALS: BP 152/77; PULSE 87; RESP 18; TEMP 36.4; O2SAT 98
[2023-08-22] MEDS: ceFAZolin 2,000 MG in sodium chloride 0.9% (plus) 50 ML 100 MG IV (11:07)
[2023-08-22 11:42] VITALS: BP 146/79; PULSE 82; RESP 16; O2SAT 95
== END 2023-08-24 23:59 | disposition home or self-care (01) ==
PROVIDERS: Internal Medicine; Student in an Organized Health Care Education/Training Program; PCP Nurse Practitioner; Visit Provider Nurse Practitioner
DX: M86.9 Osteomyelitis, unspecified (principal); Z45.2 Encounter for adjustment and management of vascular access device; Z53.9 Procedure and treatment not carried out, unspecified reason
CPT/HCPCS: 36415; 36592; 85025; 85651; 86140; 87070; 87075; 87077; 87186; 87205; 96365; 96413; J0690; J1642

== ENCOUNTER 2023-08-25 09:15 | Outpatient (CLI) | payer OTHER, SELFPAY ==
--- NOTE | 2023-08-25 09:30 | MR_ITS ---
WS: [id number] MRI RIGHT FOOT WITH AND WITHOUT CONTRAST. COMPARISON: Radiographs 08/22/2023 Multiplanar, multisequence imaging is performed with and without contrast. MultiHance 20 mL IV. History: Possible septic arthritis. On the T1 sequences there is diffuse low signal throughout a large portion proximal phalanx first toe . There is abnormal soft tissue with increased T2 signal extending through the first metatarsophalang eal joint with fluid. There is enhancement within the first metatarsophalangeal joint space and capsu lar distention with fluid. Enhancement of nearly the entire proximal phalanx first toe. Additional so ft tissue enhancement and cellulitis. Soft tissue ulcer reidentified along the plantar surface of the foot. This ulcer was better visualized on the CT. Heterogeneous area of enhancement between the mid first and second metatarsals suspicious for phlegmo n. This should be evaluated for possible developing abscess measuring 2.1 x 1.0 cm. No additional bony abnormality or signal abnormality. No additional areas of enhancement. IMPRESSION: 1. Osteomyelitis involving nearly the entire proximal phalanx of the first toe. 2. Fluid and enhancement through the first metatarsophalangeal joint suspicious for septic joint. 3. Additional cellulitis surrounding the first metatarsophalangeal joint and extending between the m id first and second metatarsals. Although no abscess suspicious for developing phlegmon between the f irst and second metatarsals measuring 2.1 x 1.0 cm.
[2023-08-25] MEDS: gadobenate dimeglumine 20 mL vial IV (10:13)
== END 2023-08-25 09:16 | disposition home or self-care (01) ==
LOC: RAD 09:15
PROVIDERS: PCP Nurse Practitioner; Visit Provider Student in an Organized Health Care Education/Training Program
DX: L02.611 Cutaneous abscess of right foot (principal); M65.071 Abscess of tendon sheath, right ankle and foot; M00.9 Pyogenic arthritis, unspecified; M86.171 Other acute osteomyelitis, right ankle and foot; L03.115 Cellulitis of right lower limb
CPT/HCPCS: 73720; A9577

== ENCOUNTER 2023-09-03 06:17 | Day surgery (SDC) | payer OTHER, SELFPAY ==
[2023-09-03] VITALS (7 sets, daily range): BP systolic 100–161; BP diastolic 59–85; PULSE 87–102; RESP 16–18; TEMP 36.2–36.7; O2SAT 94–96; BMI 41.3
[2023-09-03] MEDS: sodium chloride 0.9% 1,000 ML 30 ML IV (06:49)
[2023-09-03] MEDS: acetaminophen 1,000 MG/100 ML PIGGYBACK 400 MG IV (06:52)
[2023-09-03] MEDS: gabapentin 300 mg Capsule PO (06:53)
[2023-09-03 07:05] LABS: Glucose Point of Care 186 mg/dL (70-110)
--- NOTE | 2023-09-03 07:36 | W.PM.OPSUD ---
Surgery/Procedure H&P Update DATE OF PROCEDURE: September 03, 2023 DATE H&P PERFORMED: 08/26/23 H&P UPDATE INFORMATION: I have reviewed H&P completed within last 30 days, I have examined patient prior to procedure, No changes to prior documentation and H&P is in [facility] [place] on date indicated PREOP DIAGNOSIS: Osteomyelitis PLANNED PROCEDURE: Operation Date: 09/03/23 08:00 Proposed Procedures p Ray Resection(Right) - Almas Marley DPM s Amputation Toe/s Hallux Amputation/(Right) - Almas Marley DPM
[2023-09-03] MEDS: ceFAZolin 3,000 MG in sodium chloride 0.9% (plus) 100 ML 200 MG IV (07:45)
--- NOTE | 2023-09-03 07:52 | ANES.PREANE2 ---
Pre-Anesthetic Assessment Height/Weight: Height 1.75 m Weight 127.006 kg Temp Pulse Resp BP Pulse Ox O2 Del Method 97.2 F L 102 H 18 161/85 94 Room Air 09/03/23 06:36 09/03/23 06:36 09/03/23 06:36 09/03/23 06:36 09/03/23 06:36 09/03/23 06:36 Preop Diagnosis: Osteomyelitis Operation Date: 09/03/23 08:00 Proposed Procedures p Ray Resection(Right) - lAmas Marley DPM s Amputation Toe/s Hallux Amputation/(Right) - Almas Marley DPM Familial anesthetic complications: none Was Beta Luciano taken within 24 hours: N/A Was Clonidine taken within 24 hours: N/A Last intake: Intake Last Liquid Date 09/02/23 Last Liquid Time 18:30 Last Solid Date 09/02/23 Last Solid Time 18:30 Social No alcohol and No tobacco Exam alert, oriented x 3, clear to auscultation bilaterally and regular rate & rhythm Airway Submandibular: within normal limits Cervical ROM: within normal limits Mallampati: Class II Dentition: full Metabolic Diabetes Mellitus and Morbid Obesity [facility] [place] Osteoarthritis/DJD Neuropsych Neuropathy Anesthetic Plan ASA status: 3 Anesthesia: MAC Medications/Allergies Home Medications Medication Instructions Recorded Confirmed Last Taken Type Hinged Knee Brace #1 ea 04/24/23 08/26/23 Unknown Rx insulin glargine 100 unit/mL 100 unit SUBCUT BEDTIME 05/06/23 09/03/23 09/02/23 History subcutaneous solution (Lantus U-100 Insulin) insulin glulisine U-100 100 30 unit SUBCUT TID 05/06/23 09/02/23 09/02/23 History unit/mL subcutaneous pen (Apidra SoloStar U-100 Insulin) cholecalciferol (vitamin D3) 1,250 1,250 mcg PO Q7D 07/13/23 09/02/23 08/29/23 History mcg (50,000 unit) capsule clobetasol 0.05 % scalp solution 1 applic topical BID 07/13/23 09/02/23 Unknown History tirzepatide 5 mg/0.5 mL 5 mg SUBCUT Q7D 07/13/23 09/02/23 08/29/23 History subcutaneous pen injector (Mounjaro) hydrocodone 5 mg-acetaminophen 325 1 tab PO Q4H PRN Moderate Pain #15 07/16/23 09/02/23 Unknown Rx mg tablet tabs hydrocodone 5 mg-acetaminophen 325 1 tab PO Q6H PRN pain #12 tabs 09/03/23 Unknown Rx mg tablet Allergies Allergy/AdvReac Type Severity Reaction Status Date / Time No Known Allergies Allergy Verified 09/03/23 06:31 Current Medications Generic Name Dose Route Start Last Admin Trade Name Freq PRN Reason Stop Dose Admin Sodium Chloride 1,000 mls @ 30 mls/hr 09/03/23 06:30 09/03/23 06:49 Sodium Chloride 0.9% IV 09/04/23 06:29 30 mls/hr .Q24H SHARRI Administration PFSH Anesthesia Medical History Type 2 diabetes mellitus Surgical History History of cholecystectomy History of appendectomy Family History Mother CAD (coronary artery disease) Cardiomyopathy Social History Smoking and tobacco/nicotine status: never used tobacco/nicotine Alcohol intake: never Substance/Drug Use: never Data Anesthesia Cardiac Studies: No Data to Display
[2023-09-03] MEDS: BUPivacaine 0.5% INJ 30 mL INJECTION (08:00)
--- NOTE | 2023-09-03 08:48 | W.PM.BPON ---
Date of procedure: 09/03/23 Surgeon name: Dr. Almas Marley DPM Information Assurance(s) name(s): Kimmy Procedure(s) performed: Right hallux amputation Description of findings: osteomyelitis right proximal phalanx and sesamoids Estimated blood loss: 5cc Tourniquet time: 34 minutes Specimen(s) removed: Right hallux proximal phalanx and sesamoids Post-operative diagnosis: Osteomyelitis
--- NOTE | 2023-09-03 08:50 | P.OP_ITS ---
Operative Report Date of procedure: September 03, 2023 Pre-op diagnosis: Right hallux osteomyelitis Post-op diagnosis: Same Post-op findings: Remaining tissue and bone appeared viable and free from infection Procedure done: Right hallux amputation CPT 42685 Pathology: Right hallux proximal phalanx and sesamoids sent to pathology as surgical specimen Surgeon: Almas Marley DPM Hand Alterations Seamstress: Kimmy Estimated blood loss: 5cc 34 minutes Complications: None Findings: See above Procedure: Patient is a 52-year-old female that has a history of right hallux chronic ulceration with underlying osteomyelitis. The patient has had the aforementioned chief complaint for some time. Conservative treatment measures have been attempted and the patient has opted for surgical intervention at this time. A lengthy discussion regarding the procedure, including risks and complications has been had with the patient and is noted in the recent clinic note. Written and verbal consent have been obtained. All patient questions have been answered to the patient?s satisfaction. No written or verbal guarantees have been given or implied. The patient has been NPO since midnight. The history has been reviewed and the history and physical is current. The signed consent was confirmed and placed in the patient chart. Patient imaging has been reviewed and is consistent with the diagnosis. Under mild sedation, the patient was brought into the operating room and placed on the table in the supine position. IV antibiotics were given by the anesthesia team as preoperative surgical prophylaxis. IV sedation was then performed by the anesthesiateam. A pneumatic tourniquet was then placed about the right ankle. The operative extremity was then prepped and draped in the usual fashion. The extremity was then elevated before the tourniquet was inflated to 250 mmHg. After inflation, the following procedure was then performed. Attention was directed to the right foot where there was a large defect to the plantar aspect of the right hallux consistent with incisional wound dehiscence and chronic ulceration. A 15 blade was used to make an incision circumferentially around the right hallux with care to preserve as much soft tissue as possible. This dissection was carried down to the level of the first metatarsophalangeal joint. Care was taken to disarticulate the hallux from the first metatarsophalangeal joint by releasing the medial lateral collateral ligaments and the joint capsule. The hallux is passed from the operative field be sent as specimen. Attention was then directed to identifying and excising the tibial and fibular sesamoids. These were also passed from the operative field and sent the specimen. A rongeur was used to remove devitalized tissue from the wound bed. The site was then irrigated with copious muscle sterile saline. The first metatarsal head was inspected and was noted to be healthy and free from erosive or degenerative changes. Cultures both aerobic and anaerobic were taken. After irrigation with copious amounts of sterile saline attention was directed to closure. The skin was flapped plantarly to close the defect and was approximated using a combination of 3-0 and 4-0 nylon. The tourniquet was let down and good hyperemic response was noted to all remaining digits of the right foot. Hemostasis was noted to be achieved. The incision site was dressed with Xeroform, 4 x 4 gauze, Kerlix, Derek. The patient tolerated the procedure and anesthesia well and without complication. The patient was transported from the operating room to the re covery room with vital signs stable and vascular status intact to all remaining digits of the right foot. The patient was given both written and verbal instructions to remain nonweightbearing to the operative extremity, to keep dressings/splint clean, dry and intact and to take pain medication as directed. The patient will follow-up in the outpatient setting at their scheduled appointment. The patient was discharged with my personal number and was instructed to call if any questions or issues should arise. They were discharged home once anesthesia criteria was met.
[2023-09-03] MEDS: HYDROcodone-acetaminophen 5-325 mg Tablet 1 TAB PO (09:24)
--- NOTE | 2023-09-03 15:20 | ANE.PACU2 ---
Inpatient post-anesthesia follow up: Airway intact: Yes Vital signs: Temperature 98.0 F Pulse Rate 89 Respiratory Rate 17 Blood Pressure 137/85 Pulse Oximetry 96 Oxygen Delivery Me thod Room Air Oxygen Flow Rate Fraction of Inspir ed Oxygen Hydration adequate: Yes Nausea and vomiting: No Pain level: 1 Mental status: Baseline
== END 2023-09-03 09:42 | disposition home or self-care (01) ==
PROVIDERS: PCP Nurse Practitioner; Visit Provider Podiatrist Foot & Ankle Surgery
PROC: (CPT 28810; principal; 2023-09-03 07:50)
PROC: (CPT 28820; 2023-09-03 07:50)
DX: M86.8X7 Other osteomyelitis, ankle and foot (principal); E66.01 Morbid (severe) obesity due to excess calories; Z68.41 Body mass index [BMI] 40.0-44.9, adult; E11.40 Type 2 diabetes mellitus with diabetic neuropathy, unspecified; Z79.4 Long term (current) use of insulin
CPT/HCPCS: 28820; 36416; 82962; 87070; 87075; 87205; 88307; 88311; J0131; J0690; J2704; J3490; J7030

== ENCOUNTER 2023-09-23 09:15 | Oncology outpatient (recurring) (ONCR) | payer OTHER, SELFPAY ==
[2023-08-26 10:35] LABS: Basophils # 0.1 10^3/uL (0.0-0.1); Basophils % 0.8 %; Eosinophils # 0.3 10^3/uL (0.0-0.8); Eosinophils % 3.2 %; Hematocrit 39.3 % (36-47); Lymphocytes # 2.4 10^3/uL (0.8-4.8); Lymphocytes % 27.3 %; Mean Corpuscular HGB Conc 33.1 g/dL (30-55); Mean Corpuscular Hemoglobin 29.1 pg (27-33); Mean Corpuscular Volume 88.1 fl (85-98); Mean Platelet Volume 10.8 fL (7.4-10.4); Monocytes # 0.6 10^3/uL (0.2-0.9); Monocytes % 6.4 %; Neutrophils # 5.48 10^3/uL (1.8-7.7); Neutrophils % 61.8 %; Nucleated Red Blood Cells % 0 %; Platelet Count 281 10^3/cmm (157-399); Red Blood Count 4.46 10^6/uL (3.85-5.65); Red Cell Distribution Width 13.9 % (12.1-15.1); White Blood Count 8.86 10^3/uL (3.29-11.43)
[2023-08-26 10:50] LABS: Alanine Aminotransferase 8 U/L (0-33); Albumin Level 3.8 g/dL (3.5-5.2); Alkaline Phosphatase 93 U/L (35-105); Anion Gap 14.5 (5-19); Aspartate Amino Transferase 14 U/L (0-32); Blood Urea Nitrogen 17 mg/dL (6-20); C Reactive Protein 26.8 mg/L (0.0-4.9); Calcium 9.3 mg/dL (8.5-10.5); Carbon Dioxide 24 mmol/L (22-29); Chloride 104 mmol/L (98-107); Erythrocyte Sedimentation Rate 77 mm/hr (0-15); Globulin 3.9 g/dL (1.3-4.6); Glomerular Filtration Rate 87.5 mL/min (90-130); Glucose 227 mg/dL (65-115); Osmolality Calculated 295 mOsm/kg (285-295); Potassium 4.5 mmol/L (3.5-5.1); Sodium 138 mmol/L (136-145); Total Bilirubin 0.3 mg/dL (0.15-1.2); Total Protein 7.7 g/dL (6.6-8.7)
[2023-09-02 09:46] LABS: Basophils # 0.1 10^3/uL (0.0-0.1); Basophils % 0.7 %; Eosinophils # 0.2 10^3/uL (0.0-0.8); Eosinophils % 2.1 %; Hematocrit 38.1 % (36-47); Lymphocytes # 1.9 10^3/uL (0.8-4.8); Lymphocytes % 23.5 %; Mean Corpuscular HGB Conc 33.3 g/dL (30-55); Mean Platelet Volume 10.6 fL (7.4-10.4); Monocytes # 0.5 10^3/uL (0.2-0.9); Monocytes % 6.1 %; Neutrophils % 67.2 %; Nucleated Red Blood Cells % 0 %; Platelet Count 250 10^3/cmm (157-399); Red Blood Count 4.38 10^6/uL (3.85-5.65); Red Cell Distribution Width 13.5 % (12.1-15.1); White Blood Count 8.04 10^3/uL (3.29-11.43)
[2023-09-02 10:04] LABS: Alanine Aminotransferase 9 U/L (0-33); Albumin Level 3.8 g/dL (3.5-5.2); Alkaline Phosphatase 94 U/L (35-105); Anion Gap 16.5 (5-19); Aspartate Amino Transferase 13 U/L (0-32); Blood Urea Nitrogen 14 mg/dL (6-20); C Reactive Protein 29.5 mg/L (0.0-4.9); Calcium 9.3 mg/dL (8.5-10.5); Carbon Dioxide 23 mmol/L (22-29); Chloride 101 mmol/L (98-107); Globulin 3.9 g/dL (1.3-4.6); Glomerular Filtration Rate 104.6 mL/min (90-130); Glucose 257 mg/dL (65-115); Osmolality Calculated 291 mOsm/kg (285-295); Potassium 4.5 mmol/L (3.5-5.1); Sodium 136 mmol/L (136-145); Total Bilirubin 0.2 mg/dL (0.15-1.2); Total Protein 7.7 g/dL (6.6-8.7)
[2023-09-02 10:20] LABS: Erythrocyte Sedimentation Rate 73 mm/hr (0-15)
[2023-09-09 09:30] LABS: Basophils # 0.1 10^3/uL (0.0-0.1); Basophils % 0.6 %; Eosinophils # 0.4 10^3/uL (0.0-0.8); Eosinophils % 4.8 %; Hematocrit 37.5 % (36-47); Lymphocytes # 1.9 10^3/uL (0.8-4.8); Lymphocytes % 23.5 %; Mean Corpuscular HGB Conc 33.3 g/dL (30-55); Mean Corpuscular Hemoglobin 29.5 pg (27-33); Mean Corpuscular Volume 88.4 fl (85-98); Mean Platelet Volume 10.3 fL (7.4-10.4); Monocytes # 0.5 10^3/uL (0.2-0.9); Monocytes % 5.9 %; Neutrophils # 5.32 10^3/uL (1.8-7.7); Nucleated Red Blood Cells % 0 %; Platelet Count 282 10^3/cmm (157-399); Red Blood Count 4.24 10^6/uL (3.85-5.65); Red Cell Distribution Width 13.6 % (12.1-15.1); White Blood Count 8.18 10^3/uL (3.29-11.43)
[2023-09-09 09:49] LABS: Erythrocyte Sedimentation Rate 39 mm/hr (0-15)
[2023-09-09 09:51] LABS: Alanine Aminotransferase 16 U/L (0-33); Albumin Level 3.8 g/dL (3.5-5.2); Alkaline Phosphatase 78 U/L (35-105); Anion Gap 14.7 (5-19); Aspartate Amino Transferase 15 U/L (0-32); Blood Urea Nitrogen 10 mg/dL (6-20); C Reactive Protein 19.2 mg/L (0.0-4.9); Calcium 8.8 mg/dL (8.5-10.5); Carbon Dioxide 25 mmol/L (22-29); Chloride 103 mmol/L (98-107); Glomerular Filtration Rate 104.6 mL/min (90-130); Glucose 150 mg/dL (65-115); Osmolality Calculated 290 mOsm/kg (285-295); Potassium 3.7 mmol/L (3.5-5.1); Sodium 139 mmol/L (136-145); Total Bilirubin 0.2 mg/dL (0.15-1.2); Total Protein 7.8 g/dL (6.6-8.7)
[2023-09-16 09:57] LABS: Basophils % 0.4 %; Eosinophils # 0.3 10^3/uL (0.0-0.8); Eosinophils % 2.8 %; Hematocrit 38.7 % (36-47); Lymphocytes # 2.1 10^3/uL (0.8-4.8); Mean Corpuscular HGB Conc 33.1 g/dL (30-55); Mean Corpuscular Hemoglobin 28.9 pg (27-33); Mean Corpuscular Volume 87.4 fl (85-98); Mean Platelet Volume 10.7 fL (7.4-10.4); Monocytes # 0.5 10^3/uL (0.2-0.9); Monocytes % 5.8 %; Neutrophils # 6.37 10^3/uL (1.8-7.7); Neutrophils % 68.6 %; Nucleated Red Blood Cells % 0 %; Platelet Count 271 10^3/cmm (157-399); Red Blood Count 4.43 10^6/uL (3.85-5.65); Red Cell Distribution Width 13.7 % (12.1-15.1)
[2023-09-16 10:06] LABS: Erythrocyte Sedimentation Rate 68 mm/hr (0-15)
[2023-09-16 10:17] LABS: Alanine Aminotransferase 11 U/L (0-33); Albumin Level 3.8 g/dL (3.5-5.2); Alkaline Phosphatase 78 U/L (35-105); Blood Urea Nitrogen 10 mg/dL (6-20); C Reactive Protein 20.2 mg/L (0.0-4.9); Calcium 8.7 mg/dL (8.5-10.5); Carbon Dioxide 25 mmol/L (22-29); Chloride 105 mmol/L (98-107); Globulin 3.8 g/dL (1.3-4.6); Glomerular Filtration Rate 104.6 mL/min (90-130); Glucose 161 mg/dL (65-115); Osmolality Calculated 291 mOsm/kg (285-295); Sodium 139 mmol/L (136-145); Total Bilirubin 0.3 mg/dL (0.15-1.2); Total Protein 7.6 g/dL (6.6-8.7)
[2023-09-16 10:30] LABS: Aspartate Amino Transferase 14 U/L (0-32)
[2023-09-23 09:34] LABS: Basophils % 0.4 %; Eosinophils # 0.3 10^3/uL (0.0-0.8); Eosinophils % 3.7 %; Hematocrit 34.4 % (36-47); Lymphocytes # 1.5 10^3/uL (0.8-4.8); Lymphocytes % 20.6 %; Mean Corpuscular HGB Conc 32.6 g/dL (30-55); Mean Corpuscular Volume 89.1 fl (85-98); Mean Platelet Volume 10.7 fL (7.4-10.4); Monocytes # 0.5 10^3/uL (0.2-0.9); Monocytes % 6.7 %; Neutrophils % 68.2 %; Nucleated Red Blood Cells % 0 %; Platelet Count 232 10^3/cmm (157-399); Red Blood Count 3.86 10^6/uL (3.85-5.65); Red Cell Distribution Width 13.8 % (12.1-15.1); White Blood Count 7.04 10^3/uL (3.29-11.43)
[2023-09-23 09:37] LABS: Erythrocyte Sedimentation Rate 41 mm/hr (0-15)
[2023-09-23 09:51] LABS: Alanine Aminotransferase 10 U/L (0-33); Albumin Level 3.5 g/dL (3.5-5.2); Alkaline Phosphatase 79 U/L (35-105); Aspartate Amino Transferase 11 U/L (0-32); Blood Urea Nitrogen 10 mg/dL (6-20); C Reactive Protein 51.8 mg/L (0.0-4.9); Calcium 8.3 mg/dL (8.5-10.5); Carbon Dioxide 25 mmol/L (22-29); Chloride 102 mmol/L (98-107); Globulin 3.5 g/dL (1.3-4.6); Glomerular Filtration Rate 87.5 mL/min (90-130); Glucose 264 mg/dL (65-115); Osmolality Calculated 294 mOsm/kg (285-295); Sodium 138 mmol/L (136-145); Total Bilirubin 0.3 mg/dL (0.15-1.2)
== END 2023-09-23 23:59 | disposition home or self-care (01) ==
PROVIDERS: Internal Medicine; Student in an Organized Health Care Education/Training Program; PCP Nurse Practitioner; Visit Provider Nurse Practitioner
DX: M86.9 Osteomyelitis, unspecified (principal); Z53.9 Procedure and treatment not carried out, unspecified reason
CPT/HCPCS: 36415; 36592; 80053; 85025; 85651; 86140

== ENCOUNTER 2023-10-14 09:00 | Oncology outpatient (recurring) (ONCR) | payer OTHER, SELFPAY ==
[2023-09-30 09:51] LABS: Basophils % 0.5 %; Eosinophils # 0.3 10^3/uL (0.0-0.8); Eosinophils % 4.8 %; Hematocrit 36.6 % (36-47); Lymphocytes # 1.4 10^3/uL (0.8-4.8); Mean Corpuscular HGB Conc 32.8 g/dL (30-55); Mean Corpuscular Hemoglobin 29.1 pg (27-33); Mean Corpuscular Volume 88.8 fl (85-98); Monocytes # 0.6 10^3/uL (0.2-0.9); Monocytes % 9.8 %; Neutrophils # 3.72 10^3/uL (1.8-7.7); Neutrophils % 60.9 %; Nucleated Red Blood Cells % 0 %; Platelet Count 264 10^3/cmm (157-399); Red Blood Count 4.12 10^6/uL (3.85-5.65); Red Cell Distribution Width 13.9 % (12.1-15.1)
[2023-09-30 10:13] LABS: Alanine Aminotransferase 13 U/L (0-33); Albumin Level 3.8 g/dL (3.5-5.2); Alkaline Phosphatase 90 U/L (35-105); Anion Gap 15.3 (5-19); Aspartate Amino Transferase 16 U/L (0-32); Blood Urea Nitrogen 11 mg/dL (6-20); C Reactive Protein 48.3 mg/L (0.0-4.9); Calcium 8.7 mg/dL (8.5-10.5); Carbon Dioxide 26 mmol/L (22-29); Chloride 101 mmol/L (98-107); Globulin 4.3 g/dL (1.3-4.6); Glomerular Filtration Rate 87.5 mL/min (90-130); Glucose 178 mg/dL (65-115); Osmolality Calculated 290 mOsm/kg (285-295); Potassium 4.3 mmol/L (3.5-5.1); Sodium 138 mmol/L (136-145); Total Bilirubin 0.4 mg/dL (0.15-1.2); Total Protein 8.1 g/dL (6.6-8.7)
[2023-09-30 10:18] LABS: Erythrocyte Sedimentation Rate 85 mm/hr (0-15)
[2023-10-07 09:26] LABS: Basophils # 0.1 10^3/uL (0.0-0.1); Basophils % 0.7 %; Eosinophils # 0.3 10^3/uL (0.0-0.8); Eosinophils % 4.7 %; Hematocrit 37.1 % (36-47); Lymphocytes # 1.3 10^3/uL (0.8-4.8); Lymphocytes % 19.7 %; Mean Corpuscular HGB Conc 32.6 g/dL (30-55); Mean Corpuscular Hemoglobin 28.7 pg (27-33); Mean Corpuscular Volume 87.9 fl (85-98); Mean Platelet Volume 10.4 fL (7.4-10.4); Monocytes # 0.6 10^3/uL (0.2-0.9); Monocytes % 8.7 %; Neutrophils # 4.46 10^3/uL (1.8-7.7); Neutrophils % 65.8 %; Nucleated Red Blood Cells % 0 %; Platelet Count 257 10^3/cmm (157-399); Red Blood Count 4.22 10^6/uL (3.85-5.65); Red Cell Distribution Width 14.2 % (12.1-15.1); White Blood Count 6.79 10^3/uL (3.29-11.43)
[2023-10-07 09:41] LABS: Erythrocyte Sedimentation Rate 38 mm/hr (0-15)
[2023-10-07 09:42] LABS: Alanine Aminotransferase 19 U/L (0-33); Albumin Level 3.7 g/dL (3.5-5.2); Alkaline Phosphatase 85 U/L (35-105); Anion Gap 13.2 (5-19); Aspartate Amino Transferase 18 U/L (0-32); Blood Urea Nitrogen 13 mg/dL (6-20); C Reactive Protein 24.8 mg/L (0.0-4.9); Calcium 9.3 mg/dL (8.5-10.5); Carbon Dioxide 26 mmol/L (22-29); Chloride 101 mmol/L (98-107); Glomerular Filtration Rate 87.5 mL/min (90-130); Glucose 204 mg/dL (65-115); Osmolality Calculated 288 mOsm/kg (285-295); Potassium 4.2 mmol/L (3.5-5.1); Sodium 136 mmol/L (136-145); Total Bilirubin 0.3 mg/dL (0.15-1.2); Total Protein 7.7 g/dL (6.6-8.7)
[2023-10-14 09:35] LABS: Basophils # 0.1 10^3/uL (0.0-0.1); Eosinophils # 0.3 10^3/uL (0.0-0.8); Eosinophils % 4.9 %; Hematocrit 35.3 % (36-47); Lymphocytes # 1.3 10^3/uL (0.8-4.8); Lymphocytes % 21.7 %; Mean Corpuscular HGB Conc 32.9 g/dL (30-55); Mean Corpuscular Hemoglobin 28.9 pg (27-33); Mean Platelet Volume 10.3 fL (7.4-10.4); Monocytes # 0.6 10^3/uL (0.2-0.9); Monocytes % 9.8 %; Neutrophils # 3.82 10^3/uL (1.8-7.7); Neutrophils % 62.1 %; Nucleated Red Blood Cells % 0 %; Platelet Count 232 10^3/cmm (157-399); Red Blood Count 4.01 10^6/uL (3.85-5.65); Red Cell Distribution Width 14.2 % (12.1-15.1); White Blood Count 6.14 10^3/uL (3.29-11.43)
[2023-10-14 09:59] LABS: Alanine Aminotransferase 27 U/L (0-33); Albumin Level 3.9 g/dL (3.5-5.2); Alkaline Phosphatase 80 U/L (35-105); Anion Gap 14.9 (5-19); Aspartate Amino Transferase 29 U/L (0-32); Blood Urea Nitrogen 18 mg/dL (6-20); C Reactive Protein 11.4 mg/L (0.0-4.9); Calcium 8.7 mg/dL (8.5-10.5); Carbon Dioxide 23 mmol/L (22-29); Chloride 105 mmol/L (98-107); Globulin 3.5 g/dL (1.3-4.6); Glomerular Filtration Rate 87.5 mL/min (90-130); Glucose 131 mg/dL (65-115); Osmolality Calculated 292 mOsm/kg (285-295); Potassium 3.9 mmol/L (3.5-5.1); Sodium 139 mmol/L (136-145); Total Bilirubin 0.2 mg/dL (0.15-1.2); Total Protein 7.4 g/dL (6.6-8.7)
[2023-10-14 10:18] LABS: Erythrocyte Sedimentation Rate 49 mm/hr (0-15)
== END 2023-10-24 23:59 | disposition home or self-care (01) ==
PROVIDERS: Student in an Organized Health Care Education/Training Program; PCP Nurse Practitioner; Visit Provider Nurse Practitioner
DX: M86.9 Osteomyelitis, unspecified; Z53.9 Procedure and treatment not carried out, unspecified reason
CPT/HCPCS: 36415; 36592; 80053; 85025; 85651; 86140; 86200; 86431

== ENCOUNTER 2023-10-21 14:14 | Outpatient (CLI) | payer OTHER, SELFPAY ==
--- NOTE | 2023-10-21 14:30 | MR_ITS ---
WS: [id number] MRI RIGHT FOOT WITH AND WITHOUT CONTRAST. COMPARISON: 08/25/2023 Multiplanar, multisequence imaging is performed with and without contrast. MultiHance 20 mL IV. Since the prior examination patient has undergone amputation of the first toe. Debridement tract at t he area of the previously described infection involving the first metatarsal phalangeal joint. Persistent edema and enhancement surrounding the first metatarsal head through the soft tissue amputa tion site. There is low signal on the T1 sequences. There is persistent soft tissue thickening with e jojo. There is not a focal well-formed fluid collection. Findings are still suspicious for celluliti s. Some of the changes may be postoperative but with the extent of edema and enhancement continued ce llulitis and possible osteomyelitis involving the first metatarsal head should be considered. There is also new signal abnormality with enhancement involving the second and fifth metatarsal heads . These changes were not present on the prior study and osteomyelitis should be considered. There is soft tissue enhancement surrounding the mid to distal second metatarsal through the metatarsophalange al joint. MR/MR foot RT wo/w con [id number] IMPRESSION: 1. Since the prior examination surgical amputation of the first toe. 2. There is significant persistent soft tissue edema with enhancement consiste nt with cellulitis involving the first metatarsal head and the mid to distal se cond metatarsal. These changes may be postoperative but cellulitis is also like ly. There is no focal fluid collection or drainable abscess. 3. New edema with enhancement involving the second and fifth metatarsal heads highly suspicious for additional sites of osteomyelitis.
== END 2023-10-21 14:15 | disposition home or self-care (01) ==
LOC: RAD 14:14
PROVIDERS: PCP Nurse Practitioner; Visit Provider Podiatrist Foot & Ankle Surgery
DX: M86.9 Osteomyelitis, unspecified (principal); Z89.411 Acquired absence of right great toe; R60.9 Edema, unspecified
CPT/HCPCS: 73720; A9577

== ENCOUNTER 2023-10-28 09:30 | Outpatient (CLI) | payer OTHER, SELFPAY ==
[2023-10-28 10:12] LABS: Basophils # 0.1 10^3/uL (0.0-0.1); Basophils % 0.8 %; Eosinophils # 0.3 10^3/uL (0.0-0.8); Eosinophils % 3.5 %; Hematocrit 37.2 % (36-47); Lymphocytes # 2.1 10^3/uL (0.8-4.8); Lymphocytes % 26.3 %; Mean Corpuscular HGB Conc 32.5 g/dL (30-55); Mean Corpuscular Hemoglobin 28.3 pg (27-33); Mean Corpuscular Volume 87.1 fl (85-98); Mean Platelet Volume 10.3 fL (7.4-10.4); Monocytes # 0.5 10^3/uL (0.2-0.9); Monocytes % 6.7 %; Neutrophils # 4.86 10^3/uL (1.8-7.7); Neutrophils % 62.3 %; Nucleated Red Blood Cells % 0 %; Platelet Count 301 10^3/cmm (157-399); Red Blood Count 4.27 10^6/uL (3.85-5.65); Red Cell Distribution Width 14.6 % (12.1-15.1); White Blood Count 7.79 10^3/uL (3.29-11.43)
[2023-10-28 10:24] LABS: Erythrocyte Sedimentation Rate 43 mm/hr (0-15)
[2023-10-28 10:35] LABS: C Reactive Protein 21.8 mg/L (0.0-4.9)
== END 2023-10-28 09:31 | disposition home or self-care (01) ==
LOC: LAB 09:32
PROVIDERS: PCP Nurse Practitioner; Visit Provider Podiatrist Foot & Ankle Surgery
DX: E11.621 Type 2 diabetes mellitus with foot ulcer (principal); L97.519 Non-pressure chronic ulcer of other part of right foot with unspecified severity
CPT/HCPCS: 36415; 85025; 85651; 86140; 87070; 87075; 87205

== ENCOUNTER 2023-11-07 23:17 | Emergency (ER) | payer OTHER, MEDICAID, SELFPAY ==
[2023-11-07 23:22] VITALS: RESP 18
--- NOTE | 2023-11-07 23:39 | XRR_ITS ---
PROCEDURE INFORMATION: Exam: XR Right Toe(s) Exam date and time: 11/07/2023 11:53 PM Age: 52 years old Clinical indication: Prior surgery; Surgery date: 1-6 months; Surgery type: Great toe amputation August 2023; Patient HX: Draining wound to amputation stump of RT great toe. ; Additional info: Draining wound 1st mtp amputation site TECHNIQUE: Imaging protocol: Radiologic exam of the right toes. Views: Minimum 2 views. COMPARISON: MR foot RT wo/w con [id number] 10/21/2023 2:33 PM FINDINGS: Bones/joints: First proximal and distal phalanges are absent. First metatarsal head demonstrates some lucency, please correlate for osteomyelitis, MRI could further evaluate this. Soft tissues: Normal. XR/XR toe RT min 2V [id number] IMPRESSION: 1. First proximal and distal phalanges are absent. 2. First metatarsal head demonstrates some lucency, please correlate for osteomyelitis, MRI could further evaluate this.
--- NOTE | 2023-11-07 23:53 | W.ED.GENADLT ---
HPI - General Adult General: Chief complaint: General Medical Stated complaint: big toe amputated/has green drainage Time Seen by Provider: 11/07/23 23:28 History of Present Illness: 52-year-old female complaining of right foot pain. She has a history of chronic diabetic foot ulceration with amputation of her first MTP. This was done in August. She has been getting localized wound care from the podiatry clinic. They have been doing dressing changes at home. This morning at 5 AM, she noticed increased pain that woke her up. This evening, during a dressing change, they noted malodorous drainage that was milky white coming from the open wound. No history of fever. She does note that she felt faint earlier in the day, for just a few seconds. No other cause or reason why. She says she feels tight and swollen in her ankle, which she had prior to her infection and surgery the first time. Associated symptoms: Reports nausea; Deny chest pain, dyspnea or vomiting Review of Systems Const: Denies: fever(s) Card: Denies: chest pain Resp: Denies: dyspnea, productive cough or non-productive cough GI: Reports: nausea; Denies: abdominal pain or vomiting PFS ED PFSH: Medical History Type 2 diabetes mellitus Surgical History History of cholecystectomy History of appendectomy Family History Mother CAD (coronary artery disease) Cardiomyopathy Social History Smoking and tobacco/nicotine status: never used tobacco/nicotine Alcohol intake: never Substance/Drug Use: never Physical Exam Const: COMMON NORMALS: no acute distress GENERAL APPEARANCE: cooperative; not ill appearing and not frail appearing HENMT: COMMON NORMALS: normocephalic, atraumatic and Normal external nose present HEAD & SCALP: normocephalic and atraumatic FACE & SINUS: normal facial exam and face symmetric NOSE: Normal external nose present Eye: COMMON NORMALS: Equal, round and reactive pupils present and EOMs intact bilaterally PUPIL: Yes Equal, round and reactive pupils present Neck/C-Spine: GENERAL: Yes trachea midline Chest: CHEST: Yes Symmetrical chest wall rise Resp: COMMON NORMALS: normal respiratory effort, No retractions and No use of accessory muscles Cardio: COMMON NORMALS: regular rate and regular rhythm RATE: regular rate RHYTHM: regular rhythm GI: COMMON NORMALS: Normal to inspection, nondistended, normoactive bowel sounds present Extremity: NARRATIVE EXTREMITY EXAM: Exam the right foot reveals absence of the great toe. There is a small, open wound at the MTP amputation site. There is redness dorsally. There is malodorous drainage at the open wound. No streaking. Mild foot swelling. Neuro: JAZMIN COMA SCALE: document GCS findings Bartlett coma scale eye opening: Spontaneous Jazmin coma scale verbal response: Orientated Jazmin coma scale motor response: Obey commands Jazmin coma scale total score: 15 SENSORY EXAM: Yes extremities (intact) Psych: COMMON NORMALS: speech normal SPEECH: Yes normal speech Skin: COMMON NORMALS: no rashes or lesions noted GENERAL SKIN EXAM: no rashes or lesions noted Course Vital Signs: Vital signs: Vital Signs Respiratory Rate 18 11/07/23 23:22 Oxygen Delivery Me thod Room Air 11/07/23 23:[address] [facility] - General Adult Medical Decision Making Vitals are stable here. CBC is normal. CRP is 71. Lactic is 0.8. Sed rate is 37, which is significantly lower than 10 days ago. On x-ray first metatarsal head demonstrates some slight lucency. She does not appear systemically ill. Spoke with her lcac operator/foot surgeon. Recommendations are oral antibiotics. Close observation. He will call her on Friday to check her progress. Follow-up as an outpatient. Return for worsening symptoms despite antibiotics. Patient understands. Lab Data 11/08/23 00:03 11/08/23 00:03 Radiology Impressions Toe X-Ray 11/07/23 23:39 IMPRESSION: 1. First proximal and distal phalanges are absent. 2. First metatarsal head demonstrates some lucency, please correlate for osteomyelitis, MRI could further evaluate this. Laboratory Results WBC 9.98 10^3/uL (3.29-11.43) 11/08/23 00:03 RBC 4.42 10^6/uL (3.85-5.65) 11/08/23 00:03 Hgb 12.50 g/dL (11.27-16.99) 11/08/23 00:03 Hct 38.9 % (36-47) 11/08/23 00:03 MCV 88.0 fl (85-98) 11/08/23 00:03 MCH 28.3 pg (27-33) 11/08/23 00:03 MCHC 32.1 g/dL (30-55) 11/08/23 00:03 RDW 14.4 % (12.1-15.1) 11/08/23 00:03 Plt Count 279 10^3/cmm (157-399) 11/08/23 00:03 MPV 11.2 fL (7.4-10.4) H 11/08/23 00:03 Neut % (Auto) 65.0 % 11/08/23 00:03 Lymph % (Auto) 21.8 % 11/08/23 00:03 [place] % (Auto) 9.2 % 11/08/23 00:03 Eos % (Auto) 2.9 % 11/08/23 00:03 Baso % (Auto) 0.6 % 11/08/23 00:03 Neut # (Auto) 6.48 10^3/uL (1.8-7.7) 11/08/23 00:03 Lymph # (Auto) 2.2 10^3/uL (0.8-4.8) 11/08/23 00:03 [place] # (Auto) 0.9 10^3/uL (0.2-0.9) 11/08/23 00:03 Eos # (Auto) 0.3 10^3/uL (0.0-0.8) 11/08/23 00:03 Baso # (Auto) 0.1 10^3/uL (0.0-0.1) 11/08/23 00:03 Nucleated RBC % (auto) 0 % 11/08/23 00:03 Nucleated RBCs # 0.0 /100WBC 11/08/23 00:03 ESR 37 mm/hr (0-15) H 11/08/23 00:03 Sodium 137 mmol/L (136-145) 11/08/23 00:03 Potassium 4.0 mmol/L (3.5-5.1) 11/08/23 00:03 Chloride 99 mmol/L (98-107) 11/08/23 00:03 Carbon Dioxide 27 mmol/L (22-29) 11/08/23 00:03 Anion Gap 15.0 (5-19) 11/08/23 00:03 BUN 22 mg/dL (6-20) H 11/08/23 00:03 Creatinine 0.8 mg/dL (0.5-0.9) 11/08/23 00:03 GFR Calculation 75.0 mL/min (90-130) L 11/08/23 00:03 Glucose 99 mg/dL (65-115) 11/08/23 00:03 Calculated Osmolality 287 mOsm/kg (285-295) 11/08/23 00:03 Lactic Acid 0.8 mmol/L (0.5-2.2) 11/08/23 00:03 Calcium 9.6 mg/dL (8.5-10.5) 11/08/23 00:03 Total Bilirubin 0.3 mg/dL (0.15-1.2) 11/08/23 00:03 AST 15 U/L (0-32) 11/08/23 00:03 ALT 13 U/L (0-33) 11/08/23 00:03 Alkaline Phosphatase 97 U/L (35-105) 11/08/23 00:03 C-Reactive Protein 71.4 mg/L (0.0-4.9) H 11/08/23 00:03 Total Protein 7.4 g/dL (6.6-8.7) 11/08/23 00:03 Albumin 4.0 g/dL (3.5-5.2) 11/08/23 00:03 Globulin 3.4 g/dL (1.3-4.6) 11/08/23 00:03 All radiology interpretation(s) finalized by discharge Discharge Plan Discharge Patient Disposition: Home Clinical Impression: Cellulitis of foot Condition: Stable Prescriptions: New levofloxacin 500 mg tablet 500 mg PO DAILY 10 Days Qty: 10 0RF No Action (DME) Hinged Knee Brace See Rx Instructions .Route .MEDSUPPLY Qty: 1 0RF Rx Instructions: As directed clindamycin HCl 300 mg capsule 300 mg PO TID Qty: 21 0RF celecoxib 200 mg capsule PO bupropion HCl 300 mg tablet extended release 24 hr PO (DME) medial marzipan molder brace, left See Rx Instructions .Route .MEDSUPPLY Qty: 1 0RF Rx Instructions: As directed hydrocodone-acetaminophen 5-325 mg tablet 1 tab PO Q6H PRN (Reason: pain) Qty: 12 0RF insulin glargine [Lantus U-100 Insulin] 100 unit/mL Solution 100 unit SUBCUT BEDTIME Apidra SoloStar U-100 Insulin 100 unit/mL Insulin Pen 30 unit SUBCUT TID clobetasol 0.05 % solution 1 applic TOPICAL BID cholecalciferol (vitamin D3) 1,250 mcg (50,000 unit) capsule 1,250 mcg PO Q7D Rx Instructions: ON MONDAYS Mounjaro 5 mg/0.5 mL pen injector 5 mg SUBCUT Q7D Rx Instructions: ON MONDAYS hydrocodone-acetaminophen 5-325 mg Tablet 1 tab PO Q4H PRN (Reason: Moderate Pain) Qty: 15 0RF Discharge Orders: Discharge ED (Routine); Ordered 11/08/23 Ordered By: Juan Lopez Referrals: Almas Marley DPM [Physician] - 1-3 days Gunjan Lo FNP [Primary Care Provider] - Patient Instructions: Cellulitis (ED), Opioid Safety, Pain Management Activity Restrictions/Additional Instructions: Medication as directed. Elevate your foot. Continue to perform dressing changes. Your lcac operator will call you on Friday for follow-up to make sure you are improving. Return for fever greater than 100 despite 2 doses of antibiotics, worsening swelling or pain despite 2 more doses of antibiotics, any other concerning symptoms. If you do not hear from your doctor on Friday, call them at the above number. Coding Level of Care Code ED Auto Tune Up Mechanic for Ellyn Levi
[2023-11-08 00:12] LABS: Erythrocyte Sedimentation Rate 37 mm/hr (0-15)
[2023-11-08 00:27] LABS: Alanine Aminotransferase 13 U/L (0-33); Alkaline Phosphatase 97 U/L (35-105); Aspartate Amino Transferase 15 U/L (0-32); Blood Urea Nitrogen 22 mg/dL (6-20); C Reactive Protein 71.4 mg/L (0.0-4.9); Calcium 9.6 mg/dL (8.5-10.5); Carbon Dioxide 27 mmol/L (22-29); Chloride 99 mmol/L (98-107); Creatinine Clr Calc Pharmacy 116.2176; Globulin 3.4 g/dL (1.3-4.6); Glucose 99 mg/dL (65-115); Osmolality Calculated 287 mOsm/kg (285-295); Sodium 137 mmol/L (136-145); Total Bilirubin 0.3 mg/dL (0.15-1.2); Total Protein 7.4 g/dL (6.6-8.7)
[2023-11-08 00:28] LABS: Lactic Sepsis W/Reflex 0.8 mmol/L (0.5-2.2)
[2023-11-08 00:42] LABS: Basophils # 0.1 10^3/uL (0.0-0.1); Basophils % 0.6 %; Eosinophils # 0.3 10^3/uL (0.0-0.8); Eosinophils % 2.9 %; Hematocrit 38.9 % (36-47); Lymphocytes # 2.2 10^3/uL (0.8-4.8); Lymphocytes % 21.8 %; Mean Corpuscular HGB Conc 32.1 g/dL (30-55); Mean Corpuscular Hemoglobin 28.3 pg (27-33); Mean Platelet Volume 11.2 fL (7.4-10.4); Monocytes # 0.9 10^3/uL (0.2-0.9); Monocytes % 9.2 %; Neutrophils # 6.48 10^3/uL (1.8-7.7); Nucleated Red Blood Cells % 0 %; Platelet Count 279 10^3/cmm (157-399); Red Blood Count 4.42 10^6/uL (3.85-5.65); Red Cell Distribution Width 14.4 % (12.1-15.1); White Blood Count 9.98 10^3/uL (3.29-11.43)
== END 2023-11-08 01:51 | disposition home or self-care (01) ==
PROVIDERS: Emergency Provider Emergency Medicine; PCP Nurse Practitioner
DX: L03.115 Cellulitis of right lower limb (principal); Z79.85 Long-term (current) use of injectable non-insulin antidiabetic drugs; Z79.4 Long term (current) use of insulin; E11.9 Type 2 diabetes mellitus without complications
CPT/HCPCS: 73660; 80053; 83605; 85025; 85651; 86140; 99284

== ENCOUNTER 2023-11-11 06:00 | Outpatient (CLI) | payer OTHER, BC, MEDICAID, SELFPAY | END 2023-11-11 23:59 | disposition home or self-care (01) | LOC: SPT 11-12 09:29 | PROVIDERS: PCP Nurse Practitioner; Visit Provider Student in an Organized Health Care Education/Training Program | DX: Z46.89 Encounter for fitting and adjustment of other specified devices (principal); M17.12 Unilateral primary osteoarthritis, left knee | CPT/HCPCS: 97760; L1852 ==

== ENCOUNTER 2023-12-23 22:32 | Emergency (ER) | payer BC, MEDICAID, SELFPAY ==
[2023-12-23 22:46] VITALS: BP 149/80; PULSE 88; RESP 16; TEMP 36.7; O2SAT 96
[2023-12-23 22:53] VITALS: BP 160/84; PULSE 91; RESP 16; O2SAT 99
[2023-12-23 23:23] VITALS: BP 124/75; PULSE 71; RESP 16; O2SAT 97
--- NOTE | 2023-12-23 23:52 | XRR_ITS ---
PROCEDURE INFORMATION: Exam: XR Right Foot Exam date and time: 12/24/2023 12:15 AM Age: 53 years old Clinical indication: Pain; Foot; Right; Prior surgery; Surgery date: 1-6 months; Surgery type: Great toe amputation; Additional info: Toe amputation, post surgical wound TECHNIQUE: Imaging protocol: Radiologic exam of the right foot. Views: 3 or more views. COMPARISON: MR foot RT wo/w con [id number] 10/21/2023 2:33 PM FINDINGS: Bones/joints: Amputation at the level of the metatarsal head of the 1st digit. There is osteopenia involving the distal aspect of the 1st metatarsal concerning for osteomyelitis. Degenerative changes of the foot with joint space narrowing. Soft tissues: Soft tissue swelling involving the medial distal foot. Vasculature: Atherosclerotic calcifications. XR/XR foot RT min 3V* [id number] IMPRESSION: 1. Amputation at the level of the metatarsal head of the 1st digit. 2. There is osteopenia involving the distal aspect of the 1st metatarsal with overlying soft tissue swelling concerning for osteomyelitis.
--- NOTE | 2023-12-23 23:55 | W.ED.WOUNDLC ---
HPI - Wound/Laceration General: Chief Complaint: Wound/Laceration Stated Complaint: Rt Foot Toe Bleeding Time Seen by Provider: 12/23/23 23:40 History of Present Illness: Patient presents to the ER with complaints of a wound opened up on the plantar surface of her right great metatarsal phalangeal joint region. This is the region where she had an amputation by the supervisor machine workers. She said she saw him yesterday and everything looked good however today when she took her sock off the wound opened up and drained purulent debris. Patient said there is no increase in pain but the open area of the wound does sting. There is no streaking no erythema around the wound. Review of Systems General: Reports: 10 or more systems reviewed and unremarkable except in HPI and below PFSH ED PFSH: Medical History Type 2 diabetes mellitus Surgical History History of cholecystectomy History of appendectomy Family History Mother CAD (coronary artery disease) Cardiomyopathy Social History Smoking and tobacco/nicotine status: unknown if used tobacco/nicotine Alcohol intake: never Substance/Drug Use: never Physical Exam Const: COMMON NORMALS: no acute distress, average body habitus, patient oriented x3, no limitations, healthy appearing, alert and well nourished HENMT: COMMON NORMALS: normocephalic, atraumatic, hearing grossly normal bilaterally, external ears normal, Normal external nose present and moist oral mucous membranes HEAD & SCALP: normocephalic and atraumatic NOSE: Normal external nose present EXTERNAL EAR: Yes external ears normal Neck/C-Spine: COMMON NORMALS: no JVD Chest: COMMONS NORMALS: normal inspection of the chest and normal palpation of entire chest wall Resp: COMMON NORMALS: normal respiratory effort, No retractions, No use of accessory muscles and clear to auscultation bilaterally AUSCULTATION: clear to auscultation bilaterally Cardio: COMMON NORMALS: no JVD, regular rate, regular rhythm, S1 normal heart sound present, S2 normal heart sound present, No gallops present (Cardio), No clicks present (Cardio), No murmurs present (Cardio) and No rub (Cardio) RATE: regular rate RHYTHM: regular rhythm HEART SOUNDS: S1 normal heart sound present and S2 normal heart sound present GI: COMMON NORMALS: Normal to inspection, nondistended, normoactive bowel sounds present, Soft to palpation, non-tender, No hepatosplenomegaly present and no masses PALPATION: Yes Soft to palpation and Yes No hepatosplenomegaly present Extremity: NARRATIVE EXTREMITY EXAM: Plantar surface of right great metacarpal phalangeal region dime size ulceration with granulation tissue with clear serosanguineous drainage, no obvious erythema or streaking or purulent discharge or odor. Neuro: COMMON NORMALS: patient oriented x3 SENSORIUM/ORIENTATION: Yes alert Course Vital Signs: Vital signs: Vital Signs Temperature 98.0 F 12/23/23 22:46 Pulse Rate 88 12/24/23 02:31 Respiratory Rate 16 12/24/23 02:31 Blood Pressure 151/92 12/24/23 02:31 Pulse Oximetry 96 12/24/23 02:31 Oxygen Delivery Me thod Room Air 12/24/23 02:00 MDM - Wound/Laceration Medical Decision Making Patient's white count was normal, rest of labs CBC CMP benign, CRP 24.7, this was discussed with the patient. Patient will continue to use Betadine swabs and triple antibiotic ointment alternating on daily basis. Will place patient on Bactrim DS she will follow-up with the supervisor machine workers after calling their office first thing in the morning. Lab Data 12/23/23 23:47 12/23/23 23:47 Radiology Impressions Foot X-Ray 12/23/23 23:52 IMPRESSION: 1. Amputation at the level of the metatarsal head of the 1st digit. 2. There is osteopenia involving the distal aspect of the 1st metatarsal with overlying soft tissue swelling concerning for osteomyelitis. Laboratory Results WBC 9.05 10^3/uL (3.29-11.43) 12/23/23 23:47 RBC 3.99 10^6/uL (3.85-5.65) 12/23/23 23:47 Hgb 11.70 g/dL (11.27-16.99) 12/23/23 23:47 Hct 35.1 % (36-47) L 12/23/23 23:47 MCV 88.0 fl (85-98) 12/23/23 23:47 MCH 29.3 pg (27-33) 12/23/23 23:47 MCHC 33.3 g/dL (30-55) 12/23/23 23:47 RDW 14.2 % (12.1-15.1) 12/23/23 23:47 Plt Count 305 10^3/cmm (157-399) 12/23/23 23:47 MPV 10.6 fL (7.4-10.4) H 12/23/23 23:47 Neut % (Auto) 59.7 % 12/23/23 23:47 Lymph % (Auto) 26.2 % 12/23/23 23:47 [place] % (Auto) 7.6 % 12/23/23 23:47 Eos % (Auto) 5.5 % 12/23/23 23:47 Baso % (Auto) 0.4 % 12/23/23 23:47 Neut # (Auto) 5.40 10^3/uL (1.8-7.7) 12/23/23 23:47 Lymph # (Auto) 2.4 10^3/uL (0.8-4.8) 12/23/23 23:47 [place] # (Auto) 0.7 10^3/uL (0.2-0.9) 12/23/23 23:47 Eos # (Auto) 0.5 10^3/uL (0.0-0.8) 12/23/23 23:47 Baso # (Auto) 0.0 10^3/uL (0.0-0.1) 12/23/23 23:47 Nucleated RBC % (auto) 0 % 12/23/23 23:47 Nucleated RBCs # 0.0 /100WBC 12/23/23 23:47 Sodium 139 mmol/L (136-145) 12/23/23 23:47 Potassium 4.1 mmol/L (3.5-5.1) 12/23/23 23:47 Chloride 104 mmol/L (98-107) 12/23/23 23:47 Carbon Dioxide 22 mmol/L (22-29) 12/23/23 23:47 Anion Gap 17.1 (5-19) 12/23/23 23:47 BUN 18 mg/dL (6-20) 12/23/23 23:47 Creatinine 0.7 mg/dL (0.5-0.9) 12/23/23 23:47 GFR Calculation 87.2 mL/min (90-130) L 12/23/23 23:47 Glucose 224 mg/dL (65-115) H 12/23/23 23:47 Calculated Osmolality 297 mOsm/kg (285-295) H 12/23/23 23:47 Calcium 8.9 mg/dL (8.5-10.5) 12/23/23 23:47 Total Bilirubin 0.2 mg/dL (0.15-1.2) 12/23/23 23:47 AST 11 U/L (0-32) 12/23/23 23:47 ALT 13 U/L (0-33) 12/23/23 23:47 Alkaline Phosphatase 99 U/L (35-105) 12/23/23 23:47 C-Reactive Protein 24.7 mg/L (0.0-4.9) H 12/23/23 23:47 Total Protein 7.4 g/dL (6.6-8.7) 12/23/23 23:47 Albumin 3.7 g/dL (3.5-5.2) 12/23/23 23:47 Globulin 3.7 g/dL (1.3-4.6) 12/23/23 23:47 All radiology interpretation(s) finalized by discharge Discharge Plan Discharge Patient Disposition: Home Clinical Impression: Abscess Condition: Stable Prescriptions: New Bactrim DS 800-160 mg tablet 1 tab PO BID Qty: 14 0RF No Action (DME) Hinged Knee Brace See Rx Instructions .Route .MEDSUPPLY Qty: 1 0RF Rx Instructions: As directed clindamycin HCl 300 mg capsule 300 mg PO TID Qty: 21 0RF celecoxib 200 mg capsule PO bupropion HCl 300 mg tablet extended release 24 hr PO (DME) medial briquette operator brace, left See Rx Instructions .Route .MEDSUPPLY Qty: 1 0RF Rx Instructions: As directed hydrocodone-acetaminophen 5-325 mg tablet 1 tab PO Q6H PRN (Reason: pain) Qty: 12 0RF insulin glargine [Lantus U-100 Insulin] 100 unit/mL Solution 100 unit SUBCUT BEDTIME Apidra SoloStar U-100 Insulin 100 unit/mL Insulin Pen 30 unit SUBCUT TID clobetasol 0.05 % solution 1 applic TOPICAL BID cholecalciferol (vitamin D3) 1,250 mcg (50,000 unit) capsule 1,250 mcg PO Q7D Rx Instructions: ON MONDAYS Mounjaro 5 mg/0.5 mL pen injector 5 mg SUBCUT Q7D Rx Instructions: ON MONDAYS hydrocodone-acetaminophen 5-325 mg Tablet 1 tab PO Q4H PRN (Reason: Moderate Pain) Qty: 15 0RF Discharge Orders: Discharge ED (Routine); Ordered 12/24/23 Ordered By: Shon Rouse Referrals: Gunjan Lo FNP [Primary Care Provider] - 1 week Patient Instructions: Abscess (ED) Activity Restrictions/Additional Instructions: The wound in your foot is most likely an abscess of broke open and drained. A culture was obtained that we will know the results for 2 or 3 days. We will start you on Bactrim DS 1 pill twice a day. A first dose was given to you here in the ER. A prescription was sent to your pharmacy. Please follow-up with the supervisor machine workers. Please call their office first thing later this morning to arrange an appointment. Coding Level of Care Code ED Sales And Marketing Director for Ellyn Levi
[2023-12-24] VITALS: BP 160/84; PULSE 89; RESP 16; O2SAT 97
[2023-12-24] LABS: Basophils % 0.4 %; Eosinophils # 0.5 10^3/uL (0.0-0.8); Eosinophils % 5.5 %; Hematocrit 35.1 % (36-47); Lymphocytes # 2.4 10^3/uL (0.8-4.8); Lymphocytes % 26.2 %; Mean Corpuscular HGB Conc 33.3 g/dL (30-55); Mean Corpuscular Hemoglobin 29.3 pg (27-33); Mean Platelet Volume 10.6 fL (7.4-10.4); Monocytes # 0.7 10^3/uL (0.2-0.9); Monocytes % 7.6 %; Neutrophils % 59.7 %; Nucleated Red Blood Cells % 0 %; Platelet Count 305 10^3/cmm (157-399); Red Blood Count 3.99 10^6/uL (3.85-5.65); Red Cell Distribution Width 14.2 % (12.1-15.1); White Blood Count 9.05 10^3/uL (3.29-11.43)
[2023-12-24 00:12] LABS: Alanine Aminotransferase 13 U/L (0-33); Albumin Level 3.7 g/dL (3.5-5.2); Alkaline Phosphatase 99 U/L (35-105); Anion Gap 17.1 (5-19); Aspartate Amino Transferase 11 U/L (0-32); Blood Urea Nitrogen 18 mg/dL (6-20); C Reactive Protein 24.7 mg/L (0.0-4.9); Calcium 8.9 mg/dL (8.5-10.5); Carbon Dioxide 22 mmol/L (22-29); Chloride 104 mmol/L (98-107); Creatinine Clr Calc Pharmacy 131.2934; Globulin 3.7 g/dL (1.3-4.6); Glomerular Filtration Rate 87.2 mL/min (90-130); Glucose 224 mg/dL (65-115); Osmolality Calculated 297 mOsm/kg (285-295); Potassium 4.1 mmol/L (3.5-5.1); Sodium 139 mmol/L (136-145); Total Bilirubin 0.2 mg/dL (0.15-1.2); Total Protein 7.4 g/dL (6.6-8.7)
[2023-12-24 01:30] VITALS: BP 121/78; PULSE 86; RESP 16; O2SAT 95
[2023-12-24 02:00] VITALS: BP 163/89; PULSE 86; RESP 16; O2SAT 93
[2023-12-24] MEDS: sulfamethoxazole-trimeth DS 160-800 mg Tablet 1 TAB PO (02:21)
[2023-12-24 02:31] VITALS: BP 151/92; PULSE 88; RESP 16; O2SAT 96
== END 2023-12-24 02:37 | disposition home or self-care (01) ==
PROVIDERS: Emergency Provider Emergency Medicine; PCP Nurse Practitioner
DX: L02.611 Cutaneous abscess of right foot (principal); E11.9 Type 2 diabetes mellitus without complications; Z79.4 Long term (current) use of insulin; Z79.85 Long-term (current) use of injectable non-insulin antidiabetic drugs
CPT/HCPCS: 73630; 80053; 85025; 86140; 87070; 87077; 87186; 99284

== ENCOUNTER 2023-12-31 06:45 | Day surgery (SDC) | payer BC, MEDICAID, SELFPAY ==
[2023-12-31] VITALS (7 sets, daily range): BP systolic 96–142; BP diastolic 56–78; PULSE 83–89; RESP 18; TEMP 36.1–36.6; O2SAT 95–98; BMI 41.3
--- NOTE | 2023-12-31 | XR_ITS ---
WS: [id number] XR foot RT 2V [id number] REASON FOR EXAM: MARTHA PICS FINDINGS: Preoperative findings of osteomyelitis in the distal metaphysis of the first metatarsal. Amputation of the first metatarsal at the level of the proximal metadiaphysis. No remaining bone frag ments beyond the line of amputation. XR/XR foot RT 2V [id number] IMPRESSION: Amputation of the the first metatarsal as above.
[2023-12-31 07:22] LABS: Glucose Point of Care 209 mg/dL (70-110)
[2023-12-31] MEDS: gabapentin 300 mg Capsule PO (07:23)
[2023-12-31] MEDS: sodium chloride 0.9% 1,000 ML 30 ML IV (07:24)
[2023-12-31] MEDS: acetaminophen 1,000 MG/100 ML PIGGYBACK 400 MG IV (07:26)
--- NOTE | 2023-12-31 07:53 | P.HPUD_ITS ---
Surgery/Procedure H&P Update DATE OF PROCEDURE: December 31, 2023 DATE H&P PERFORMED: 12/26/23 H&P UPDATE INFORMATION: I have reviewed H&P completed within last 30 days, I have examined patient prior to procedure, No changes to prior documentation and H&P is in [facility] [place] EMR on date indicated PREOP DIAGNOSIS: Osteomyelitis PLANNED PROCEDURE: Operation Date: 12/31/23 08:30 Proposed Procedures p Right foot partial 1st ray resection(Right) - Almas Marley DPM
[2023-12-31] MEDS: midazolam 1 mg/mL INJ 2 mL 2 MG IVP (07:58)
[2023-12-31] MEDS: ceFAZolin 2,000 mg SDV 2000 MG IVP (08:06)
--- NOTE | 2023-12-31 08:18 | P.ANESASSM_ITS ---
Pre-Anesthetic Assessment Height/Weight: Height 1.75 m Weight 127.006 kg Temp Pulse Resp BP Pulse Ox O2 Del Method 97.9 F 84 18 142/69 97 Room Air 12/31/23 07:07 12/31/23 07:07 12/31/23 07:07 12/31/23 07:07 12/31/23 07:07 12/31/23 07:13 Preop Diagnosis: Osteomyelitis Operation Date: 12/31/23 08:30 Proposed Procedures p Right foot partial 1st ray resection(Right) - KYLIE MorenoM Was Beta Luciano taken within 24 hours: N/A Was Clonidine taken within 24 hours: N/A Last intake: Intake Last Liquid Date 12/30/23 Last Liquid Time 19:00 Last Solid Date 12/30/23 Last Solid Time 19:00 Social No alcohol and No tobacco Exam alert, oriented x 3, clear to auscultation bilaterally and regular rate & rhythm Airway Submandibular: within normal limits Cervical ROM: within normal limits Mallampati: Class II Dentition: full History/ROS No significant history except as noted and No significant complaints CV/HEM None reported None reported Hepatic None reported GI None reported Metabolic Diabetes Mellitus, Morbid Obesity and Thyroid Disease [facility] [place] None reported Neuropsych None reported Anesthetic Plan ASA status: 3 Anesthesia: Anesthesia Evaluation and MAC Risk of > 500 ml blood loss (7ml/kg in children): No Medications/Allergies Home Medications Medication Instructions Recorded Confirmed Last Taken Type Hinged Knee Brace #1 ea 04/24/23 12/26/23 Unknown Rx insulin glargine 100 unit/mL 100 unit SUBCUT BEDTIME 05/06/23 12/30/23 12/29/23 History subcutaneous solution (Lantus U-100 Insulin) insulin glulisine U-100 100 30 unit SUBCUT TID 05/06/23 12/30/23 09/02/23 History unit/mL subcutaneous pen (Apidra SoloStar U-100 Insulin) cholecalciferol (vitamin D3) 1,250 1,250 mcg PO Q7D 07/13/23 12/30/23 12/29/23 History mcg (50,000 unit) capsule clobetasol 0.05 % scalp solution 1 applic topical BID 07/13/23 12/30/23 Unknown History bupropion HCl 300 mg 24 hr tablet, 300 mg PO DAILY 11/04/23 12/30/23 12/30/23 History extended release celecoxib 200 mg capsule 200 mg PO DAILY 11/04/23 12/30/23 12/30/23 History medial datapower consultant brace, left #1 ea 11/04/23 12/26/23 Unknown Rx sulfamethoxazole 800 1 tab PO BID #14 tabs 12/24/23 12/30/23 12/30/23 Rx mg-trimethoprim 160 mg tablet (Bactrim DS) rosuvastatin 10 mg tablet 10 mg PO DAILY 12/30/23 12/30/23 12/30/23 History thyroid (pork) 30 mg tablet 30 mg PO DAILY 12/30/23 12/30/23 12/30/23 History ([place] Thyroid) hydrocodone 5 mg-acetaminophen 325 1 tab PO Q6H PRN pain #12 tabs 12/31/23 Unknown Rx mg tablet Allergies Allergy/AdvReac Type Severity Reaction Status Date / Time No Known Allergies Allergy Verified 12/26/23 09:26 Current Medications Generic Name Dose Route Start Last Admin Trade Name Freq PRN Reason Stop Dose Admin Sodium Chloride 1,000 mls @ 30 mls/hr 12/31/23 07:00 12/31/23 07:24 Sodium Chloride 0.9% IV 01/01/24 06:59 30 mls/hr .Q24H SHARRI Administration Midazolam HCl 2 mg 12/31/23 06:49 12/31/23 07:58 Midazolam 1 Mg/Ml Inj 2 Ml IVP 2 mg ONCE PRN Administration Preop Anxiety PFSH Anesthesia Medical History Type 2 diabetes mellitus Surgical History History of cholecystectomy History of appendectomy Family History Mother CAD (coronary artery disease) Cardiomyopathy Social History Smoking and tobacco/nicotine status: unknown if used tobacco/nicotine Alcohol intake: never Substance/Drug Use: never Data Anesthesia Cardiac Studies: No Data to Display
[2023-12-31] MEDS: BUPivacaine 0.5% INJ 30 mL INJECTION (08:46)
--- NOTE | 2023-12-31 09:14 | W.PM.BPON ---
Date of procedure: 12/31/2023 Surgeon name: Dr. Almas Marley D.P.M. Napkin Band Wrapper(s) name(s): Kimmy Procedure(s) performed: Partial first ray resection right foot Description of findings: Osteomyelitis first metatarsal head right foot to the level of the midshaft Estimated blood loss: 20 cc Tourniquet time: 26 minutes Specimen(s) removed: First metatarsal right foot, proximal margin right foot, cultures aerobic and anaerobic of soft tissue right foot Post-operative diagnosis: Osteomyelitis
--- NOTE | 2023-12-31 09:16 | P.OP_ITS ---
Operative Report Date of procedure: December 31, 2023 Pre-op diagnosis: Osteomyelitis right first metatarsal head Post-op diagnosis: Same Post-op findings: Degenerative changes of right first metatarsal head consistent with osteomyelitis. Phlegmon tissue present surrounding first metatarsal head Procedure done: Partial ray resection, first ray right foot CPT 19703 Pathology: Right first metatarsal and proximal margin of right first metatarsal Surgeon: Almas Marley DPM Truss Driver Helper: Kimmy Estimated blood loss: 20 cc 26 minutes Complications: None Findings: See above Procedure: The patient presents with a severe foot infection involving right first metatarsal head, characterized by erythema, swelling, and drainage. The infection is complicated by underlying conditions, including diabetes, peripheral arterial disease, which have contributed to the progression of the infection despite conservative management. Preoperative imaging and laboratory results indicate osteomyelitis, necessitating surgical intervention. The planned procedure is intended to address the infection, debride necrotic tissue, and, if necessary, assess the viability of surrounding structures to prevent further complications. The patient has been NPO since midnight. The history has been reviewed and the history and physical is current. The signed consent was confirmed and placed in the patient chart. Patient imaging has been reviewed and is consistent with the diagnosis. Under mild sedation, the patient was brought into the operating room and placed on the table in the supine position. Patient is receiving antibiotics around the clock on the floor, Therefore, additional antibiotic prophylaxix was not administered. IV sedation was then performed by the anesthesiateam. A local field block was performed using 0.5% Marcaine plain. A pneumatic tourniquet was then placed about the right ankle. The operative extremity was then prepped and draped in the usual fashion. After prep, the following procedure was then performed. Attention was directed to the right foot where a full-thickness incision was made using #15 blade along the medial aspect of the foot and circumferentially a round the full-thickness ulceration to the plantar medial aspect of the right foot. This incision was carried down to the level of bone, first metatarsal. Dissection was carried out to expose the remaining first metatarsal. There was noted to be discoloration and degenerative changes of the first metatarsal head consistent with osteomyelitis. Phlegmon tissue present surrounding the first metatarsal head. A sagittal bone saw was used to resect the first metatarsal. This was passed from the operative field the specimen. A second cut was made in the first metatarsal and sent as a proximal margin. Site was irrigated with copious amounts sterile saline. Cultures both aerobic and anaerobic were obtained and sent to micro for ID and sensitivity. No further abscess or necrotic tissue was visualized. After irrigation, the incision was closed using combination of 2-0 and 3-0 nylon in horizontal mattress fashion. The incision was dressed with Xeroform, 4 x 4 gauze, Kerlix, Derek. Patient was placed in a cam boot. Tourniquet was let down and good hyperemic response was noted to all remaining digits of the right foot. The patient tolerated the procedure and anesthesia well and without complication. The patient was transported from the operating room to the recovery room with vital signs stable and vascular status intact to all digits of the right foot. The patient was given both written and verbal instructions to remain nonweightbearing to the operative extremity, to keep dressings/splint clean, dry and intact and to take pain medication as directed. The patient will follow-up in the outpatient setting at their scheduled appointment. The patient was discharged with my personal number and was instructed to call if any questions or issues should arise. They were discharged home once anesthesia criteria was met.
--- NOTE | 2023-12-31 10:35 | ANE.PACU2 ---
Inpatient post-anesthesia follow up: Airway intact: Yes Vital signs: Temperature 97 F Pulse Rate 83 Respiratory Rate 18 Blood Pressure 140/78 Pulse Oximetry 97 Oxygen Delivery Me thod Room Air Oxygen Flow Rate Fraction of Inspir ed Oxygen Hydration adequate: Yes Nausea and vomiting: No Pain level: 1 Mental status: Baseline
== END 2023-12-31 10:37 | disposition home or self-care (01) ==
PROVIDERS: PCP Nurse Practitioner; Visit Provider Podiatrist Foot & Ankle Surgery
PROC: (CPT 28810; principal; 2023-12-31 08:20)
DX: M86.8X7 Other osteomyelitis, ankle and foot (principal); E11.9 Type 2 diabetes mellitus without complications; E66.01 Morbid (severe) obesity due to excess calories; Z68.41 Body mass index [BMI] 40.0-44.9, adult; Z79.4 Long term (current) use of insulin
CPT/HCPCS: 28810; 36416; 73620; 76000; 82962; 87070; 87075; 87176; 87205; 88305; 88307; 88311; J0131; J0690; J2250; J2371; J2704; J3010; J3490; J7030

== ENCOUNTER → 2024-02-10 09:42 | Outpatient (BNVA) | payer BC, MEDICAID, SELFPAY | PROVIDERS: PCP Nurse Practitioner; Visit Provider Podiatrist Foot & Ankle Surgery | DX: M79.671 Pain in right foot (principal); Z89.421 Acquired absence of other right toe(s); I70.201 Unspecified atherosclerosis of native arteries of extremities, right leg | CPT/HCPCS: 73630 ==

== ENCOUNTER 2024-02-15 15:52 | Emergency (ER) | payer BC, MEDICAID, SELFPAY ==
[2024-02-15 16:15] VITALS: BP 153/81; PULSE 95; RESP 18; TEMP 36.6; O2SAT 98
--- NOTE | 2024-02-15 17:41 | XRR_ITS ---
PROCEDURE INFORMATION: Exam: XR Right Foot Exam date and time: 02/15/2024 5:56 PM Age: 53 years old Clinical indication: Pain; Toes; Right; Prior surgery; Surgery date: 6+ months; Surgery type: RT 1st metatarsal amputation; Patient HX: RT 2nd toe infection; Swelling; HX 1st toe/metatarsal amputation TECHNIQUE: Imaging protocol: Radiologic exam of the right foot. Views: 3 or more views. COMPARISON: CR XR foot RT min 3V* [id number] 02/10/2024 9:50 AM FINDINGS: Bones/joints: Prior amputation of the proximal right 1st metatarsal. No fracture is seen. Mild scattered degenerative changes. Soft tissues: There is soft tissue irregularity at the distal tip of the 2nd digit with ill-defined irregular distal phalanx concerning for possible osteomyelitis. Vasculature: Peripheral vascular atherosclerosis is present. XR/XR foot RT min 3V* [id number] IMPRESSION: 1. Soft tissue irregularity at the distal tip of the 2nd digit with underlying ill-defined distal phalanx concerning for possible osteomyelitis. Recommend clinical correlation. Consider confirmation with MRI if clinically warranted.
--- NOTE | 2024-02-15 17:41 | W.ED.WOUNDLC ---
HPI - Wound/Laceration General: Chief Complaint: Wound/Laceration Stated Complaint: right toe infection - pre surgery Time Seen by Provider: 02/15/24 17:34 History of Present Illness: Patient presents to the ER with fever and chills breaking out in sweats today her second toe on the right side is more red swollen and squishy than before per her. She did see Dr. Rodriguez approximately a week ago she had an x-ray he plans on taking at least the distal tip of the toe off coming up in about 10 days depends upon what he finds in surgery he may remove the entire toe. Patient already had a big toe amputated on the same foot. Patient denies hitting it or traumatizing it in any way. Related Data Home Medications Medication Instructions Recorded Confirmed insulin glargine 100 unit/mL 100 unit SUBCUT BEDTIME 05/06/23 02/10/24 subcutaneous solution (Lantus U-100 Insulin) insulin glulisine U-100 100 30 unit SUBCUT TID 05/06/23 02/10/24 unit/mL subcutaneous pen (Apidra SoloStar U-100 Insulin) cholecalciferol (vitamin D3) 1,250 1,250 mcg PO Q7D 07/13/23 02/10/24 mcg (50,000 unit) capsule clobetasol 0.05 % scalp solution 1 applic topical BID 07/13/23 02/10/24 bupropion HCl 300 mg 24 hr tablet, 300 mg PO DAILY 11/04/23 02/10/24 extended release celecoxib 200 mg capsule 200 mg PO DAILY 11/04/23 02/10/24 rosuvastatin 10 mg tablet 10 mg PO DAILY 12/30/23 02/10/24 thyroid (pork) 30 mg tablet 30 mg PO DAILY 12/30/23 02/10/24 ([place] Thyroid) Previous Rx's Medication Instructions Recorded Hinged Knee Brace #1 ea 04/24/23 medial extension division director brace, left #1 ea 11/04/23 sulfamethoxazole 800 1 tab PO BID #14 tabs 12/24/23 mg-trimethoprim 160 mg tablet (Bactrim DS) hydrocodone 5 mg-acetaminophen 325 1 tab PO Q6H PRN pain #12 tabs 12/31/23 mg tablet Diabetic shoes w/ 3 inserts #1 ea 01/13/24 hyaluronate sodium, stabilized 60 60 mg (3 mL) intra-articular ONCE 01/29/24 mg/3 mL intra-articular syringe #3 mL (Durolane) clindamycin HCl 300 mg capsule 300 mg PO TID #30 caps 02/16/24 Allergies Allergy/AdvReac Type Severity Reaction Status Date / Time No Known Allergies Allergy Verified 02/15/24 16:22 Review of Systems General: Reports: 10 or more systems reviewed and unremarkable except in HPI and below PFSH ED PFSH: Medical History Type 2 diabetes mellitus Surgical History History of cholecystectomy History of appendectomy Family History Mother CAD (coronary artery disease) Cardiomyopathy Social History Smoking and tobacco/nicotine status: unknown if used tobacco/nicotine Alcohol intake: never Substance/Drug Use: never Physical Exam Const: COMMON NORMALS: no acute distress, average body habitus, patient oriented x3, no limitations, healthy appearing, alert and well nourished HENMT: COMMON NORMALS: normocephalic, atraumatic, hearing grossly normal bilaterally, external ears normal, Normal external nose present and moist oral mucous membranes HEAD & SCALP: normocephalic and atraumatic NOSE: Normal external nose present EXTERNAL EAR: Yes external ears normal Neck/C-Spine: COMMON NORMALS: no JVD Chest: COMMONS NORMALS: normal inspection of the chest and normal palpation of entire chest wall Resp: COMMON NORMALS: normal respiratory effort, No retractions, No use of accessory muscles and clear to auscultation bilaterally AUSCULTATION: clear to auscultation bilaterally Cardio: COMMON NORMALS: no JVD, regular rate, regular rhythm, S1 normal heart sound present, S2 normal heart sound present, No gallops present (Cardio), No clicks present (Cardio), No murmurs present (Cardio) and No rub (Cardio) RATE: regular rate RHYTHM: regular rhythm HEART SOUNDS: S1 normal heart sound present and S2 normal heart sound present GI: COMMON NORMALS: Normal to inspection, nondistended, normoactive bowel sounds present, Soft to palpation, non-tender, No hepatosplenomegaly present and no masses PALPATION: Yes Soft to palpation and Yes No hepatosplenomegaly present Neuro: COMMON NORMALS: patient oriented x3 SENSORIUM/ORIENTATION: Yes alert Course Vital Signs: Vital signs: Vital Signs Temperature 97.9 F 02/15/24 16:15 Pulse Rate 88 02/15/24 19:45 Respiratory Rate 18 02/15/24 19:45 Blood Pressure 148/79 02/15/24 19:45 Pulse Oximetry 99 02/15/24 19:45 Oxygen Delivery Me thod Room Air 02/15/24 18:32 MDM - Wound/Laceration Medical Decision Making Patient's white count was normal her CRP was elevated, x-ray showed possible osteomyelitis of the distal tip of the second digit, this was discussed with the patient and patient will call Dr. Cochran's office in the morning and notify him that she was in the ER and had x-rays. Medical Records I reviewed the patient's medical records. Lab Data I reviewed the patient's lab results. 02/15/24 18:03 02/15/24 18:03 Radiology Impressions Foot X-Ray 02/15/24 17:41 IMPRESSION: 1. Soft tissue irregularity at the distal tip of the 2nd digit with underlying ill-defined distal phalanx concerning for possible osteomyelitis. Recommend clinical correlation. Consider confirmation with MRI if clinically warranted. Laboratory Results WBC 11.08 10^3/uL (3.29-11.43) 02/15/24 18:03 RBC 4.07 10^6/uL (3.85-5.65) 02/15/24 18:03 Hgb 11.90 g/dL (11.27-16.99) 02/15/24 18:03 Hct 36.4 % (36-47) 02/15/24 18:03 MCV 89.4 fl (85-98) 02/15/24 18:03 MCH 29.2 pg (27-33) 02/15/24 18:03 MCHC 32.7 g/dL (30-55) 02/15/24 18:03 RDW 14.0 % (12.1-15.1) 02/15/24 18:03 Plt Count 295 10^3/cmm (157-399) 02/15/24 18:03 MPV 10.5 fL (7.4-10.4) H 02/15/24 18:03 Neut % (Auto) 65.9 % 02/15/24 18:03 Lymph % (Auto) 24.1 % 02/15/24 18:03 [place] % (Auto) 6.9 % 02/15/24 18:03 Eos % (Auto) 2.2 % 02/15/24 18:03 Baso % (Auto) 0.5 % 02/15/24 18:03 Neut # (Auto) 7.31 10^3/uL (1.8-7.7) 02/15/24 18:03 Lymph # (Auto) 2.7 10^3/uL (0.8-4.8) 02/15/24 18:03 [place] # (Auto) 0.8 10^3/uL (0.2-0.9) 02/15/24 18:03 Eos # (Auto) 0.2 10^3/uL (0.0-0.8) 02/15/24 18:03 Baso # (Auto) 0.1 10^3/uL (0.0-0.1) 02/15/24 18:03 Nucleated RBC % (auto) 0 % 02/15/24 18:03 Nucleated RBCs # 0.0 /100WBC 02/15/24 18:03 Sodium 140 mmol/L (136-145) 02/15/24 18:03 Potassium 3.9 mmol/L (3.5-5.1) 02/15/24 18:03 Chloride 105 mmol/L (98-107) 02/15/24 18:03 Carbon Dioxide 22 mmol/L (22-29) 02/15/24 18:03 Anion Gap 16.9 (5-19) 02/15/24 18:03 BUN 18 mg/dL (6-20) 02/15/24 18:03 Creatinine 0.8 mg/dL (0.5-0.9) 02/15/24 18:03 GFR Calculation 74.7 mL/min (90-130) L 02/15/24 18:03 Glucose 176 mg/dL (65-115) H 02/15/24 18:03 Calculated Osmolality 296 mOsm/kg (285-295) H 02/15/24 18:03 Calcium 9.2 mg/dL (8.5-10.5) 02/15/24 18:03 Total Bilirubin 0.2 mg/dL (0.15-1.2) 02/15/24 18:03 AST 13 U/L (0-32) 02/15/24 18:03 ALT 15 U/L (0-33) 02/15/24 18:03 Alkaline Phosphatase 97 U/L (35-105) 02/15/24 18:03 C-Reactive Protein 53.1 mg/L (0.0-4.9) H 02/15/24 18:03 Total Protein 7.4 g/dL (6.6-8.7) 02/15/24 18:03 Albumin 3.9 g/dL (3.5-5.2) 02/15/24 18:03 Globulin 3.5 g/dL (1.3-4.6) 02/15/24 18:03 All radiology interpretation(s) finalized by discharge Discharge Plan Discharge Patient Disposition: Home Clinical Impression: Osteomyelitis Qualifiers: Osteomyelitis type: unspecified type Osteomyelitis location: other site Qualified Code(s): M86.9 - Osteomyelitis, unspecified Condition: Stable Prescriptions: No Action (DME) Hinged Knee Brace See Rx Instructions .Route .MEDSUPPLY Qty: 1 0RF Rx Instructions: As directed (DME) Diabetic shoes w/ 3 inserts See Rx Instructions .Route .MEDSUPPLY Qty: 1 0RF Rx Instructions: As directed by HOME toe filler to the right celecoxib 200 mg capsule 200 mg PO DAILY bupropion HCl 300 mg tablet extended release 24 hr 300 mg PO DAILY (DME) medial extension division director brace, left See Rx Instructions .Route .MEDSUPPLY Qty: 1 0RF Rx Instructions: As directed Durolane 60 mg/3 mL syringe 60 mg intra-articular ONCE Qty: 3 0RF clindamycin HCl 300 mg capsule 300 mg PO TID Qty: 30 0RF sulfamethoxazole-trimethoprim [Bactrim DS] 800-160 mg tablet 1 tab PO BID Qty: 14 0RF insulin glargine [Lantus U-100 Insulin] 100 unit/mL Solution 100 unit SUBCUT BEDTIME Apidra SoloStar U-100 Insulin 100 unit/mL Insulin Pen 30 unit SUBCUT TID clobetasol 0.05 % solution 1 applic TOPICAL BID cholecalciferol (vitamin D3) 1,250 mcg (50,000 unit) capsule 1,250 mcg PO Q7D Rx Instructions: ON MONDAYS rosuvastatin 10 mg tablet 10 mg PO DAILY [place] Thyroid 30 mg tablet 30 mg PO DAILY hydrocodone-acetaminophen 5-325 mg tablet 1 tab PO Q6H PRN (Reason: pain) Qty: 12 0RF Discharge Orders: Discharge ED (Routine); Ordered 02/15/24 Ordered By: Shon Rouse Referrals: Gunjan Lo FNP [Primary Care Provider] - Activity Restrictions/Additional Instructions: Please continue cleansing and dressing your toe per Dr. Rodriguez. Your x-rays may look a little bit worse today. Please call Dr. Pisano's office first thing in the morning and let notify him that you are in the ER and got repeat x-rays. Otherwise continue with current treatments. Coding Level of Care Code ED Heel Gummer for Ellyn Levi
[2024-02-15 17:59] VITALS: BP 182/83; PULSE 92; RESP 18; O2SAT 97
[2024-02-15 18:02] VITALS: BP 139/69; PULSE 90; RESP 16; O2SAT 95
[2024-02-15 18:10] LABS: Basophils # 0.1 10^3/uL (0.0-0.1); Basophils % 0.5 %; Eosinophils # 0.2 10^3/uL (0.0-0.8); Eosinophils % 2.2 %; Hematocrit 36.4 % (36-47); Lymphocytes # 2.7 10^3/uL (0.8-4.8); Lymphocytes % 24.1 %; Mean Corpuscular HGB Conc 32.7 g/dL (30-55); Mean Corpuscular Hemoglobin 29.2 pg (27-33); Mean Corpuscular Volume 89.4 fl (85-98); Mean Platelet Volume 10.5 fL (7.4-10.4); Monocytes # 0.8 10^3/uL (0.2-0.9); Monocytes % 6.9 %; Neutrophils # 7.31 10^3/uL (1.8-7.7); Neutrophils % 65.9 %; Nucleated Red Blood Cells % 0 %; Platelet Count 295 10^3/cmm (157-399); Red Blood Count 4.07 10^6/uL (3.85-5.65); White Blood Count 11.08 10^3/uL (3.29-11.43)
[2024-02-15 18:29] LABS: Alanine Aminotransferase 15 U/L (0-33); Albumin Level 3.9 g/dL (3.5-5.2); Alkaline Phosphatase 97 U/L (35-105); Anion Gap 16.9 (5-19); Aspartate Amino Transferase 13 U/L (0-32); Blood Urea Nitrogen 18 mg/dL (6-20); C Reactive Protein 53.1 mg/L (0.0-4.9); Calcium 9.2 mg/dL (8.5-10.5); Carbon Dioxide 22 mmol/L (22-29); Chloride 105 mmol/L (98-107); Creatinine Clr Calc Pharmacy 114.8817; Globulin 3.5 g/dL (1.3-4.6); Glomerular Filtration Rate 74.7 mL/min (90-130); Glucose 176 mg/dL (65-115); Osmolality Calculated 296 mOsm/kg (285-295); Potassium 3.9 mmol/L (3.5-5.1); Sodium 140 mmol/L (136-145); Total Bilirubin 0.2 mg/dL (0.15-1.2); Total Protein 7.4 g/dL (6.6-8.7)
[2024-02-15 18:32] VITALS: BP 137/71; PULSE 89; O2SAT 97
[2024-02-15 19:45] VITALS: BP 148/79; PULSE 88; RESP 18; O2SAT 99
== END 2024-02-15 19:46 | disposition home or self-care (01) ==
PROVIDERS: Emergency Provider Emergency Medicine; PCP Nurse Practitioner; Referring Provider Podiatrist Foot & Ankle Surgery
DX: M86.9 Osteomyelitis, unspecified (principal); Z79.4 Long term (current) use of insulin; E11.9 Type 2 diabetes mellitus without complications
CPT/HCPCS: 36415; 73630; 80053; 85025; 86140; 99284

== ENCOUNTER 2024-02-18 09:23 | Emergency (ER) | payer BC, MEDICAID, SELFPAY ==
--- NOTE | 2024-02-18 09:56 | XRR_ITS ---
PROCEDURE INFORMATION: Exam: XR Right Foot Exam date and time: 02/18/2024 10:08 AM Age: 53 years old Clinical indication: Pain; Foot; Right TECHNIQUE: Imaging protocol: Radiologic exam of the right foot. Views: 3 or more views. COMPARISON: CR (LOW EXM, ) 02/15/2024 5:56 PM FINDINGS: Bones/joints: There are postoperative changes status post transmetatarsal amputation of the 1st digit. There is bone destruction involving the distal phalanx of the 2nd digit suspicious for osteomyelitis. No fracture is noted. Joint spaces are otherwise relatively well preserved. Bony mineralization is normal. There is a plantar calcaneal spur. Small enthesophyte is noted at the Achilles tendon insertion. Soft tissues: There is soft tissue swelling involving the 2nd digit. XR/XR foot RT min 3V* [id number] IMPRESSION: 1. Postoperative changes status post transmetatarsal amputation of the 1st metatarsal. 2. Suspect osteomyelitis involving the distal phalanx of the 2nd digit. 3. Soft tissue swelling involving the 2nd digit.
[2024-02-18 10:16] LABS: Basophils # 0.1 10^3/uL (0.0-0.1); Basophils % 0.8 %; Eosinophils # 0.2 10^3/uL (0.0-0.8); Eosinophils % 2.6 %; Hematocrit 38.5 % (36-47); Lymphocytes % 22.4 %; Mean Corpuscular HGB Conc 32.7 g/dL (30-55); Mean Corpuscular Volume 88.7 fl (85-98); Mean Platelet Volume 10.3 fL (7.4-10.4); Monocytes # 0.5 10^3/uL (0.2-0.9); Monocytes % 5.4 %; Neutrophils % 68.5 %; Nucleated Red Blood Cells % 0 %; Platelet Count 318 10^3/cmm (157-399); Red Blood Count 4.34 10^6/uL (3.85-5.65); Red Cell Distribution Width 13.7 % (12.1-15.1)
[2024-02-18 10:20] VITALS: BP 154/74; PULSE 100; RESP 18; TEMP 36.7; O2SAT 95; BMI 41.3
[2024-02-18 10:22] LABS: Erythrocyte Sedimentation Rate 55 mm/hr (0-15)
[2024-02-18 10:36] LABS: Alanine Aminotransferase 18 U/L (0-33); Albumin Level 3.6 g/dL (3.5-5.2); Alkaline Phosphatase 94 U/L (35-105); Anion Gap 17.5 (5-19); Aspartate Amino Transferase 17 U/L (0-32); Blood Urea Nitrogen 15 mg/dL (6-20); C Reactive Protein 22.8 mg/L (0.0-4.9); Calcium 9.2 mg/dL (8.5-10.5); Carbon Dioxide 21 mmol/L (22-29); Chloride 101 mmol/L (98-107); Creatinine Clr Calc Pharmacy 131.2934; Glomerular Filtration Rate 87.2 mL/min (90-130); Glucose 253 mg/dL (65-115); Osmolality Calculated 289 mOsm/kg (285-295); Potassium 4.5 mmol/L (3.5-5.1); Sodium 135 mmol/L (136-145); Total Bilirubin 0.3 mg/dL (0.15-1.2); Total Protein 7.6 g/dL (6.6-8.7)
--- NOTE | 2024-02-18 11:52 | W.ED.SKABFB ---
HPI - Skin/Abscess/Foreign Bdy General: Chief complaint: Skin/Abscess/Foreign Body Stated complaint: toe infection Time Seen by Provider: 02/18/24 09:30 Source: patient Mode of arrival: ambulatory Limitations: no limitations History of Present Illness: 53-year-old female has a history of diabetes patient has a history of right great toe amputation she states that she supposed to get her second toe amputated next week she was seen here on Friday started on clindamycin states she has had some worsening pain and swelling to that toe. She denies any fevers Associated symptoms: Deny chills, fever(s), nausea or vomiting Related Data Home Medications Medication Instructions Recorded Confirmed insulin glargine 100 unit/mL 100 unit SUBCUT BEDTIME 05/06/23 02/10/24 subcutaneous solution (Lantus U-100 Insulin) insulin glulisine U-100 100 30 unit SUBCUT TID 05/06/23 02/10/24 unit/mL subcutaneous pen (Apidra SoloStar U-100 Insulin) cholecalciferol (vitamin D3) 1,250 1,250 mcg PO Q7D 07/13/23 02/10/24 mcg (50,000 unit) capsule clobetasol 0.05 % scalp solution 1 applic topical BID 07/13/23 02/10/24 bupropion HCl 300 mg 24 hr tablet, 300 mg PO DAILY 11/04/23 02/10/24 extended release celecoxib 200 mg capsule 200 mg PO DAILY 11/04/23 02/10/24 rosuvastatin 10 mg tablet 10 mg PO DAILY 12/30/23 02/10/24 thyroid (pork) 30 mg tablet 30 mg PO DAILY 12/30/23 02/10/24 ([place] Thyroid) Previous Rx's Medication Instructions Recorded Hinged Knee Brace #1 ea 04/24/23 medial technology education instructor brace, left #1 ea 11/04/23 sulfamethoxazole 800 1 tab PO BID #14 tabs 12/24/23 mg-trimethoprim 160 mg tablet (Bactrim DS) hydrocodone 5 mg-acetaminophen 325 1 tab PO Q6H PRN pain #12 tabs 12/31/23 mg tablet Diabetic shoes w/ 3 inserts #1 ea 01/13/24 hyaluronate sodium, stabilized 60 60 mg (3 mL) intra-articular ONCE 01/29/24 mg/3 mL intra-articular syringe #3 mL (Durolane) clindamycin HCl 300 mg capsule 300 mg PO TID #30 caps 02/16/24 ciprofloxacin HCl 500 mg tablet 500 mg PO BID #14 tabs 02/18/24 (Cipro) Allergies Allergy/AdvReac Type Severity Reaction Status Date / Time No Known Allergies Allergy Verified 02/15/24 16:22 Review of Systems Const: Denies: fever(s), chills, body aches or change in appetite ENMT: Denies: throat pain or dental pain Card: Denies: chest pain Resp: Denies: dyspnea GI: Denies: abdominal pain, nausea, vomiting or diarrhea Musc: Reports: extremity pain; Denies: neck pain or back pain Skin/Breast: Denies: rash Neuro: Denies: headache(s) PFSH ED PFSH: Medical History Type 2 diabetes mellitus Surgical History History of cholecystectomy History of appendectomy Family History Mother CAD (coronary artery disease) Cardiomyopathy Social History Smoking and tobacco/nicotine status: unknown if used tobacco/nicotine Alcohol intake: never Substance/Drug Use: never Physical Exam Const: COMMON NORMALS: no acute distress, patient oriented x3 and healthy appearing HENMT: COMMON NORMALS: normocephalic and atraumatic HEAD & SCALP: normocephalic and atraumatic Neck/C-Spine: COMMON NORMALS: full ROM and supple Chest: COMMONS NORMALS: normal inspection of the chest Resp: COMMON NORMALS: normal respiratory effort Cardio: COMMON NORMALS: regular rate, regular rhythm and No murmurs present (Cardio) RATE: regular rate RHYTHM: regular rhythm Extremity: NARRATIVE EXTREMITY EXAM: Erythema noted to second toe right foot Neuro: COMMON NORMALS: patient oriented x3, moves all extremities and no focal motor deficits Psych: COMMON NORMALS: mental status grossly normal, Normal thought process present and cooperative THOUGHT PROCESS: Normal thought process present Skin: COMMON NORMALS: no rashes or lesions noted and no wounds GENERAL SKIN EXAM: no rashes or lesions noted Course Vital Signs: Vital signs: Vital Signs Temperature 98.1 F 02/18/24 10:20 Pulse Rate 100 02/18/24 10:20 Respiratory Rate 18 02/18/24 10:20 Blood Pressure 154/74 02/18/24 10:20 Pulse Oximetry 95 02/18/24 10:20 Oxygen Delivery Me thod Room Air 02/18/24 10:20 MDM - Skin/Abscess/Foreign Bdy Medicial Decision Making Patient presents with osteomyelitis to her right second toe of spoke to her automotive lube technician Dr. Rodriguez who reviewed her x-ray along with the images of her toe that I sent him patient stable here afebrile he recommended adding Cipro along with Betadine wet-to-dry dressings twice a day and to keep appointment as scheduled surgery next Friday. I informed patient this informed if she does worsen has fever she is to return she understands agrees to plan Medical Records I reviewed the patient's medical records. Lab Data I reviewed the patient's lab results. 02/18/24 10:10 02/18/24 10:10 Radiology Impressions Foot X-Ray 02/18/24 09:56 IMPRESSION: 1. Postoperative changes status post transmetatarsal amputation of the 1st metatarsal. 2. Suspect osteomyelitis involving the distal phalanx of the 2nd digit. 3. Soft tissue swelling involving the 2nd digit. Laboratory Results WBC 8.90 10^3/uL (3.29-11.43) 02/18/24 10:10 RBC 4.34 10^6/uL (3.85-5.65) 02/18/24 10:10 Hgb 12.60 g/dL (11.27-16.99) 02/18/24 10:10 Hct 38.5 % (36-47) 02/18/24 10:10 MCV 88.7 fl (85-98) 02/18/24 10:10 MCH 29.0 pg (27-33) 02/18/24 10:10 MCHC 32.7 g/dL (30-55) 02/18/24 10:10 RDW 13.7 % (12.1-15.1) 02/18/24 10:10 Plt Count 318 10^3/cmm (157-399) 02/18/24 10:10 MPV 10.3 fL (7.4-10.4) 02/18/24 10:10 Neut % (Auto) 68.5 % 02/18/24 10:10 Lymph % (Auto) 22.4 % 02/18/24 10:10 [place] % (Auto) 5.4 % 02/18/24 10:10 Eos % (Auto) 2.6 % 02/18/24 10:10 Baso % (Auto) 0.8 % 02/18/24 10:10 Neut # (Auto) 6.10 10^3/uL (1.8-7.7) 02/18/24 10:10 Lymph # (Auto) 2.0 10^3/uL (0.8-4.8) 02/18/24 10:10 [place] # (Auto) 0.5 10^3/uL (0.2-0.9) 02/18/24 10:10 Eos # (Auto) 0.2 10^3/uL (0.0-0.8) 02/18/24 10:10 Baso # (Auto) 0.1 10^3/uL (0.0-0.1) 02/18/24 10:10 Nucleated RBC % (auto) 0 % 02/18/24 10:10 Nucleated RBCs # 0.0 /100WBC 02/18/24 10:10 ESR 55 mm/hr (0-15) H 02/18/24 10:10 Sodium 135 mmol/L (136-145) L 02/18/24 10:10 Potassium 4.5 mmol/L (3.5-5.1) 02/18/24 10:10 Chloride 101 mmol/L (98-107) 02/18/24 10:10 Carbon Dioxide 21 mmol/L (22-29) L 02/18/24 10:10 Anion Gap 17.5 (5-19) 02/18/24 10:10 BUN 15 mg/dL (6-20) 02/18/24 10:10 Creatinine 0.7 mg/dL (0.5-0.9) 02/18/24 10:10 GFR Calculation 87.2 mL/min (90-130) L 02/18/24 10:10 Glucose 253 mg/dL (65-115) H 02/18/24 10:10 Calculated Osmolality 289 mOsm/kg (285-295) 02/18/24 10:10 Calcium 9.2 mg/dL (8.5-10.5) 02/18/24 10:10 Total Bilirubin 0.3 mg/dL (0.15-1.2) 02/18/24 10:10 AST 17 U/L (0-32) 02/18/24 10:10 ALT 18 U/L (0-33) 02/18/24 10:10 Alkaline Phosphatase 94 U/L (35-105) 02/18/24 10:10 C-Reactive Protein 22.8 mg/L (0.0-4.9) H 02/18/24 10:10 Total Protein 7.6 g/dL (6.6-8.7) 02/18/24 10:10 Albumin 3.6 g/dL (3.5-5.2) 02/18/24 10:10 Globulin 4.0 g/dL (1.3-4.6) 02/18/24 10:10 All radiology interpretation(s) finalized by discharge Discharge Plan Discharge Patient Disposition: Home Clinical Impression: Osteomyelitis Qualifiers: Osteomyelitis type: unspecified type Osteomyelitis location: other site Qualified Code(s): M86.9 - Osteomyelitis, unspecified Condition: Stable Prescriptions: New Cipro 500 mg tablet 500 mg PO BID Qty: 14 0RF No Action (DME) Hinged Knee Brace See Rx Instructions .Route .MEDSUPPLY Qty: 1 0RF Rx Instructions: As directed (DME) Diabetic shoes w/ 3 inserts See Rx Instructions .Route .MEDSUPPLY Qty: 1 0RF Rx Instructions: As directed by HOME toe filler to the right celecoxib 200 mg capsule 200 mg PO DAILY bupropion HCl 300 mg tablet extended release 24 hr 300 mg PO DAILY (DME) medial technology education instructor brace, left See Rx Instructions .Route .MEDSUPPLY Qty: 1 0RF Rx Instructions: As directed Durolane 60 mg/3 mL syringe 60 mg intra-articular ONCE Qty: 3 0RF clindamycin HCl 300 mg capsule 300 mg PO TID Qty: 30 0RF sulfamethoxazole-trimethoprim [Bactrim DS] 800-160 mg tablet 1 tab PO BID Qty: 14 0RF insulin glargine [Lantus U-100 Insulin] 100 unit/mL Solution 100 unit SUBCUT BEDTIME Apidra SoloStar U-100 Insulin 100 unit/mL Insulin Pen 30 unit SUBCUT TID clobetasol 0.05 % solution 1 applic TOPICAL BID cholecalciferol (vitamin D3) 1,250 mcg (50,000 unit) capsule 1,250 mcg PO Q7D Rx Instructions: ON MONDAYS rosuvastatin 10 mg tablet 10 mg PO DAILY [place] Thyroid 30 mg tablet 30 mg PO DAILY hydrocodone-acetaminophen 5-325 mg tablet 1 tab PO Q6H PRN (Reason: pain) Qty: 12 0RF Discharge Orders: Discharge ED (Routine); Ordered 02/18/24 Ordered By: Naldo Bates Referrals: Almas Marley DPM [Physician] - 1-3 days Gunjan Lo FNP [Primary Care Provider] - Discharge Diet: Advance as tolerated Discharge Activity: Resume usual activity Patient Instructions: Osteomyelitis (ED) Coding Level of Care Code ED Mangle Operator Garments for Ellyn Levi
[2024-02-18] MEDS: ciprofloxacin 500 mg Tablet PO (12:08)
[2024-02-18 12:20] VITALS: BP 158/89; PULSE 97; O2SAT 96
== END 2024-02-18 12:21 | disposition home or self-care (01) ==
PROVIDERS: Emergency Provider Emergency Medicine; PCP Nurse Practitioner
DX: M86.8X7 Other osteomyelitis, ankle and foot (principal); Z89.411 Acquired absence of right great toe; E11.69 Type 2 diabetes mellitus with other specified complication
CPT/HCPCS: 36415; 73630; 80053; 85025; 85651; 86140; 99284

== ENCOUNTER 2024-02-23 11:34 | Inpatient (IN) | payer BC, MEDICAID, SELFPAY ==
[2024-02-23] VITALS (7 sets, daily range): BP systolic 128–147; BP diastolic 67–81; PULSE 85–102; RESP 16–20; TEMP 36.4–36.8; O2SAT 95–98; BMI 41.3; BMI 42.3
--- NOTE | 2024-02-23 12:17 | XR_ITS ---
WS: [id number] Exam: XR foot RT min 3V* [id number] Date/Time of Exam: 02/23/2024 12:17 PM Reason For Exam: infection Comparison 02/18/2024. Progressive osseous destruction of the distal phalanx of the second toe noted with soft tissue air. N o other sign of acute bone destruction. Again noted is status post amputation of the first ray at the level of the proximal first metatarsal. No acute fracture. Degenerative changes. IMPRESSION1. Probable acute osteomyelitis of the distal second phalanx with soft tissue air and edema . Probably progressive since prior study.
--- NOTE | 2024-02-23 12:18 | W.ED.EXTPRO ---
HPI - Extremity Problem General: Chief complaint: Extremity Injury, Lower Stated complaint: RT toe inj Time Seen by Provider: 02/23/24 11:39 Source: patient Mode of arrival: wheelchair Limitations: no limitations History of Present Illness: Patient is a 53-year-old female with a history of diabetes here for continued concerns of an infected right second toe. Patient was seen by her pc maintenance technician Dr. Marley approximately 2 weeks ago. He had completed a ray resection of her right great toe and planned for amputation of the right second toe scheduled 02/24. Patient presented to the emergency department on 02/14 as well as 02/17 for concerns of infection to the toe. She has been placed on oral antibiotics and continues to worsen. She states she woke up this morning and the toe was black and foul-smelling with worsening redness thus prompting her emergency visit. MD Complaint: extremity pain and extremity swelling Onset (ago): day(s) Pain Consistency: constant Location: right and lower extremity (2nd R toe) Radiation: none Associated symptoms: Reports no associated symptoms; Deny chest pain or fever(s) Related Data Home Medications Medication Instructions Recorded Confirmed cholecalciferol (vitamin D3) 1,250 1,250 mcg PO Q7D 07/13/23 02/23/24 mcg (50,000 unit) capsule clobetasol 0.05 % scalp solution 1 applic topical BID PRN Skin 07/13/23 02/23/24 Irritation bupropion HCl 300 mg 24 hr tablet, 300 mg PO DAILY 11/04/23 02/23/24 extended release celecoxib 100 mg capsule 100 mg PO BID 02/23/24 02/23/24 cyanocobalamin (vitamin B-12) 1,000 mcg IM Q28D 02/23/24 02/23/24 1,000 mcg/mL injection solution insulin lispro 100 unit/mL 30 unit SUBCUT TID 02/23/24 02/23/24 subcutaneous solution ketorolac 0.5 % eye drops 1 drp ophthalmic (eye) TID 02/23/24 02/23/24 prednisolone acetate 1 % eye 1 drp ophthalmic (eye) QID 02/23/24 02/23/24 drops,suspension rosuvastatin 20 mg tablet 20 mg PO DAILY 02/23/24 02/23/24 thyroid (pork) 60 mg tablet (DOCUMENT REVIEW ATTORNEY 60 mg PO DAILY 02/23/24 02/23/24 Thyroid) Previous Rx's Medication Instructions Recorded Hinged Knee Brace #1 ea 04/24/23 medial motel maid brace, left #1 ea 11/04/23 Diabetic shoes w/ 3 inserts #1 ea 01/13/24 hyaluronate sodium, stabilized 60 60 mg (3 mL) intra-articular ONCE 01/29/24 mg/3 mL intra-articular syringe #3 mL (Durolane) clindamycin HCl 300 mg capsule 300 mg PO TID #30 caps 02/16/24 ciprofloxacin HCl 500 mg tablet 500 mg PO BID #14 tabs 02/18/24 (Cipro) Allergies Allergy/AdvReac Type Severity Reaction Status Date / Time No Known Allergies Allergy Verified 02/23/24 11:52 Review of Systems Const: Denies: fever(s), chills, body aches, fatigue or malaise Card: Denies: chest pain Resp: Denies: dyspnea GI: Denies: nausea or vomiting Musc: Reports: other (black/necrotic R 2nd toe) PFSH ED PFSH: Medical History Type 2 diabetes mellitus Surgical History History of cholecystectomy History of appendectomy Family History Mother CAD (coronary artery disease) Cardiomyopathy Social History Smoking and tobacco/nicotine status: unknown if used tobacco/nicotine Alcohol intake: never Substance/Drug Use: never Physical Exam Const: COMMON NORMALS: no acute distress, patient oriented x3, no limitations, alert and well nourished GENERAL APPEARANCE: cooperative NUTRITIONAL APPEARANCE: obese morbidly obese (BMI 41.3) ORIENTATION/CONSCIOUSNESS: Yes awake, Yes oriented to person, Yes oriented to place and Yes oriented to time Resp: COMMON NORMALS: normal respiratory effort and clear to auscultation bilaterally AUSCULTATION: clear to auscultation bilaterally Cardio: COMMON NORMALS: regular rhythm RATE: tachycardic RHYTHM: regular rhythm Extremity: GENERAL: Yes normal exam except as noted RIGHT LOWER EXTREMITY: Yes foot & digits Right foot and digits: Yes neurovascular exam (normal) OTHER: Resected right great toe; R second toe is diffusely erythematous with necrotic areas and sloughing-foul smelling Neuro: COMMON NORMALS: patient oriented x3 SENSORIUM/ORIENTATION: Yes alert, Yes oriented to person, Yes oriented to place and Yes oriented to time Skin: NARRATIVE SKIN EXAM: see above Course Consultations: Consultation #1: Dr. Marley-recommending admission for IV abx and plan will be for OR Friday Consultation #2: Dr. Floyd-accepts hospitalization Vital Signs: Vital signs: Vital Signs Temperature 98.3 F 02/23/24 11:48 Pulse Rate 102 H 02/23/24 11:48 Respiratory Rate 16 02/23/24 14:15 Blood Pressure 145/81 02/23/24 14:15 Pulse Oximetry 96 02/23/24 14:15 Oxygen Delivery Me thod Room Air 02/23/24 14:15 MDM - Extremity (Nontraumatic) Medical Decision Making Patient is a 53-year-old female here for worsening osteomyelitis of her right great toe. Toe is now foul-smelling and necrotic. She now has worsening cellulitis. She has been on multiple outpatient antibiotics and continues to worsen. X-ray showing worsening osteomyelitis with soft tissue air. She arrives mildly tachycardic. White count is normal but she does have an elevated CRP. Spoke to podiatry who is recommending admission for IV antibiotics and he will amputate toe on Friday. Dr. Floyd will except hospitalization. Blood cultures obtained and she has been started on IV antibiotics. Medical Records I reviewed the patient's medical records. Lab Data I reviewed the patient's lab results. 02/23/24 12:33 02/23/24 12:33 Laboratory Results WBC 9.49 10^3/uL (3.29-11.43) 02/23/24 12:33 RBC 4.17 10^6/uL (3.85-5.65) 02/23/24 12:33 Hgb 12.30 g/dL (11.27-16.99) 02/23/24 12:33 Hct 37.2 % (36-47) 02/23/24 12:33 MCV 89.2 fl (85-98) 02/23/24 12: MCH 29.5 pg (27-33) 02/23/24 12:33 MCHC 33.1 g/dL (30-55) 02/23/24 12:33 RDW 13.8 % (12.1-15.1) 02/23/24 12:33 Plt Count 284 10^3/cmm (157-399) 02/23/24 12:33 MPV 10.3 fL (7.4-10.4) 02/23/24 12:33 Neut % (Auto) 68.9 % 02/23/24 12:33 Lymph % (Auto) 21.6 % 02/23/24 12:33 [place] % (Auto) 6.2 % 02/23/24 12:33 Eos % (Auto) 2.5 % 02/23/24 12:33 Baso % (Auto) 0.4 % 02/23/24 12:33 Neut # (Auto) 6.53 10^3/uL (1.8-7.7) 02/23/24 12:33 Lymph # (Auto) 2.1 10^3/uL (0.8-4.8) 02/23/24 12:33 [place] # (Auto) 0.6 10^3/uL (0.2-0.9) 02/23/24 12:33 Eos # (Auto) 0.2 10^3/uL (0.0-0.8) 02/23/24 12:33 Baso # (Auto) 0.0 10^3/uL (0.0-0.1) 02/23/24 12:33 Nucleated RBC % (auto) 0 % 02/23/24 12:33 Nucleated RBCs # 0.0 /100WBC 02/23/24 12:33 Sodium 138 mmol/L (136-145) 02/23/24 12:33 Potassium 4.1 mmol/L (3.5-5.1) 02/23/24 12:33 Chloride 107 mmol/L (98-107) 02/23/24 12:33 Carbon Dioxide 21 mmol/L (22-29) L 02/23/24 12:33 Anion Gap 14.1 (5-19) 02/23/24 12:33 BUN 14 mg/dL (6-20) 02/23/24 12:33 Creatinine 0.7 mg/dL (0.5-0.9) 02/23/24 12:33 GFR Calculation 87.2 mL/min (90-130) L 02/23/24 12:33 Glucose 177 mg/dL (65-115) H 02/23/24 12:33 Calculated Osmolality 291 mOsm/kg (285-295) 02/23/24 12:33 Lactic Acid 1.5 mmol/L (0.5-2.2) 02/23/24 12:33 Calcium 9.3 mg/dL (8.5-10.5) 02/23/24 12:33 Total Bilirubin 0.3 mg/dL (0.15-1.2) 02/23/24 12:33 AST 16 U/L (0-32) 02/23/24 12:33 ALT 19 U/L (0-33) 02/23/24 12:33 Alkaline Phosphatase 95 U/L (35-105) 02/23/24 12:33 C-Reactive Protein 44.3 mg/L (0.0-4.9) H 02/23/24 12:33 Total Protein 7.3 g/dL (6.6-8.7) 02/23/24 12:33 Albumin 3.6 g/dL (3.5-5.2) 02/23/24 12:33 Globulin 3.7 g/dL (1.3-4.6) 02/23/24 12:33 All radiology interpretation(s) finalized by discharge Discharge Plan Discharge Patient Disposition: Admitted As Inpatient Clinical Impression: Osteomyelitis of second toe of right foot Condition: Stable Prescriptions: No Action (DME) Hinged Knee Brace See Rx Instructions .Route .MEDSUPPLY Qty: 1 0RF Rx Instructions: As directed (DME) Diabetic shoes w/ 3 inserts See Rx Instructions .Route .MEDSUPPLY Qty: 1 0RF Rx Instructions: As directed by HOME toe filler to the right bupropion HCl 300 mg tablet extended release 24 hr 300 mg PO DAILY (DME) medial motel maid brace, left See Rx Instructions .Route .MEDSUPPLY Qty: 1 0RF Rx Instructions: As directed Durolane 60 mg/3 mL syringe 60 mg intra-articular ONCE Qty: 3 0RF clindamycin HCl 300 mg capsule 300 mg PO TID Qty: 30 0RF insulin lispro 100 unit/mL solution 30 unit SUBCUT TID celecoxib 100 mg capsule 100 mg PO BID rosuvastatin 20 mg tablet 20 mg PO DAILY DOCUMENT REVIEW ATTORNEY Thyroid 60 mg tablet 60 mg PO DAILY ketorolac 0.5 % drops 1 drp ophthalmic (eye) TID prednisolone acetate 1 % drops,suspension 1 drp ophthalmic (eye) QID cyanocobalamin (vitamin B-12) 1,000 mcg/mL solution 1,000 mcg IM Q28D clobetasol 0.05 % solution 1 applic TOPICAL BID PRN (Reason: Skin Irritation) cholecalciferol (vitamin D3) 1,250 mcg (50,000 unit) capsule 1,250 mcg PO Q7D Rx Instructions: ON MONDAYS ciprofloxacin HCl [Cipro] 500 mg tablet 500 mg PO BID Qty: 14 0RF Referrals: Gunjan Lo FNP [Primary Care Provider] - Coding Level of Care Code ED Senior Front End Developer for Ellyn Levi
[2024-02-23 12:50] LABS: Basophils % 0.4 %; Eosinophils # 0.2 10^3/uL (0.0-0.8); Eosinophils % 2.5 %; Hematocrit 37.2 % (36-47); Lymphocytes # 2.1 10^3/uL (0.8-4.8); Lymphocytes % 21.6 %; Mean Corpuscular HGB Conc 33.1 g/dL (30-55); Mean Corpuscular Hemoglobin 29.5 pg (27-33); Mean Corpuscular Volume 89.2 fl (85-98); Mean Platelet Volume 10.3 fL (7.4-10.4); Monocytes # 0.6 10^3/uL (0.2-0.9); Monocytes % 6.2 %; Neutrophils # 6.53 10^3/uL (1.8-7.7); Neutrophils % 68.9 %; Nucleated Red Blood Cells % 0 %; Platelet Count 284 10^3/cmm (157-399); Red Blood Count 4.17 10^6/uL (3.85-5.65); Red Cell Distribution Width 13.8 % (12.1-15.1); White Blood Count 9.49 10^3/uL (3.29-11.43)
[2024-02-23] MEDS: vancomycin 1,000 MG in sodium chloride 0.9% 250 ML 250 MG IV (13:08)
[2024-02-23] MEDS: piperacillin-tazobactam 3.375 GM in sodium chloride 0.9% (plus) 50 ML IV ×2 (13:08→21:29)
[2024-02-23 13:13] LABS: Lactic Sepsis W/Reflex 1.5 mmol/L (0.5-2.2)
[2024-02-23 13:15] LABS: Alanine Aminotransferase 19 U/L (0-33); Albumin Level 3.6 g/dL (3.5-5.2); Alkaline Phosphatase 95 U/L (35-105); Aspartate Amino Transferase 16 U/L (0-32); Blood Urea Nitrogen 14 mg/dL (6-20); C Reactive Protein 44.3 mg/L (0.0-4.9); Calcium 9.3 mg/dL (8.5-10.5); Carbon Dioxide 21 mmol/L (22-29); Chloride 107 mmol/L (98-107); Creatinine Clr Calc Pharmacy 131.2934; Globulin 3.7 g/dL (1.3-4.6); Glomerular Filtration Rate 87.2 mL/min (90-130); Glucose 177 mg/dL (65-115); Osmolality Calculated 291 mOsm/kg (285-295); Sodium 138 mmol/L (136-145); Total Bilirubin 0.3 mg/dL (0.15-1.2); Total Protein 7.3 g/dL (6.6-8.7)
[2024-02-23 13:20] LABS: Anion Gap 14.1 (5-19); Potassium 4.1 mmol/L (3.5-5.1)
[2024-02-23 15:42] LABS: Glucose Point of Care 70 mg/dL (70-110)
--- NOTE | 2024-02-23 17:13 | ECG_ITS ---
[facility] Test Date: 2024-02-23 Pat Name: Jazmine James Department: Room: 258 Gender: Female Server Systems Administrator: : 1970 Requested By: Ayanna Floyd Order Number: [id number] Wil MD: Adolph Barclay M.D. Measurements Intervals [place] Rate: 86 P: 28 GA: 163 QRS: -34 QRSD: 128 T: -10 QT: 393 QTc: 473 Interpretive Statements SINUS RHYTHM LEFT AXIS DEVIATION [QRS AXIS < -30] RIGHT BUNDLE BRANCH BLOCK [120+ ms QRS DURATION, UPRIGHT V1, 40+ ms S IN I/aVL/V4/V5/V6] POSSIBLE ANTERIOR MYOCARDIAL INFARCTION , OF INDETERMINATE AGE [30 ms Q WAVE IN V3/V4, OR R < 0.2 mV IN V4] No previous ECG available for comparison Electronically Signed On 02-23-2024 18:52:58 CDT by Adolph Barclay M.D. [email or web address]
[2024-02-23 17:26] LABS: Glucose Point of Care 151 mg/dL (70-110)
[2024-02-23] MEDS: prednisoLONE 1% Op Susp 5 mL Btl 1 DROP EYE-BOTH ×2 (17:37→21:02)
[2024-02-23] MEDS: sodium chlor 0.9% + KCl 20 mEq 20 MEQ/1,000 ML BAG 100 MEQ IV (18:24)
[2024-02-23] MEDS: enoxaparin 40 mg/0.4 mL Syringe SUBCUT (18:24)
--- NOTE | 2024-02-23 19:02 | P.HP_ITS ---
Providers/Chief Complaint 2 Admitting Physician: Ayanna Floyd MD Primary Care Provider: ROULA Linclon Chief Complaint: RT toe inj History of Present Illness Jazmine James is a 53 year old female who presented to the emergency room with chief complaint of worsening of right second toe. She has a history of diabetes mellitus type 2. She also has a history of diabetic foot ulcer involving the right great toe eventually with evidence of osteomyelitis. She was followed by Dr. Dubose, infectious disease, being treated with IV antibiotics. Mrs. James underwent amputation of the right hallux on September 03, 2023, with subsequent partial ray resection first ray of the right foot on December [address] Marley. At the time of 2nd surgery her right second toe did not have any visible wounds. MRI performed on 09/2023 did show some edema with enhancement at 2nd and 5th digit metatarsal heads. Most recent visit with Dr Marley was on February 09. At that visit x-rays showed evidence of osteomyelitis now involving the second digit of the right foot. She was given a prescription for Augmentin. She has had a couple of ED visits since then with continued worsening and received prescriptions for clinda and then ciprofloxacin as well. Over the last few days she has had increasing swelling to the right foot, increasing erythema encroaching up the right foot and a sensation of fullness or bursting within the second toe. Describes as discomfort . She does have peripheral neuropathy. The wounds have become progressively worse as well and most of the skin has come off of the second toe in the last 24 hours. This prompted her return visit to the ER today. She has not had any fever but she has felt significant fatigue and malaise. Repeat x-ray studies show progressive findings of osteomyelitis with airint he soft tissues . CRP, which had initially trended downward after initiation of antibiotic therapy, is again trending upward. Case was discussed with podiatry who recommended admission with initiation of IV antibiotics and planned amputation. She is tachycardic but not hypotensive. Lactic acid was checked and is at 1.5. She is being admitted to the hospitalist service. Review of Systems 2 General: Reports: Other (ROS as per HPI or as otherwise noted here) Const: Reports: fatigue and malaise; Denies: fever(s) ENMT: Denies: throat pain or nasal congestion Card: Denies: chest pain Resp: Denies: dyspnea GI: Denies: abdominal pain, nausea, vomiting or change in bowel habits : Denies: difficulty voiding Musc: Reports: other (Doing okay walking since great toe amputation, no new trauma to foot/toes) Skin/Breast: Reports: changes in skin color, surgical incision (At great toe healing well), nail changes (New findings left great toe) and other (Malodorous wound right foot/second toe) Alejandro/Lymph: Denies: easy bruising or easy bleeding Medications/Allergies Home Medications Medication Instructions Recorded Confirmed Last Taken Type Hinged Knee Brace #1 ea 04/24/23 02/23/24 Unknown Rx cholecalciferol (vitamin D3) 1,250 1,250 mcg PO Q7D 07/13/23 02/23/24 02/23/24 History mcg (50,000 unit) capsule clobetasol 0.05 % scalp solution 1 applic topical BID PRN Skin 07/13/23 02/23/24 Unknown History Irritation bupropion HCl 300 mg 24 hr tablet, 300 mg PO DAILY 11/04/23 02/23/24 02/23/24 History extended release medial red mud thickener operator brace, left #1 ea 11/04/23 02/23/24 Unknown Rx Diabetic shoes w/ 3 inserts #1 ea 01/13/24 02/23/24 Unknown Rx hyaluronate sodium, stabilized 60 60 mg (3 mL) intra-articular ONCE 01/29/24 02/23/24 Unknown Rx mg/3 mL intra-articular syringe #3 mL (Durolane) clindamycin HCl 300 mg capsule 300 mg PO TID #30 caps 02/16/24 02/23/24 02/23/24 Rx ciprofloxacin HCl 500 mg tablet 500 mg PO BID #14 tabs 02/18/24 02/23/24 02/23/24 Rx (Cipro) celecoxib 100 mg capsule 100 mg PO BID 02/23/24 02/23/24 02/23/24 History cyanocobalamin (vitamin B-12) 1,000 mcg IM Q28D 02/23/24 02/23/24 01/22/24 History 1,000 mcg/mL injection solution insulin lispro 100 unit/mL 30 unit SUBCUT TID 02/23/24 02/23/24 02/23/24 History subcutaneous solution ketorolac 0.5 % eye drops 1 drp ophthalmic (eye) TID 02/23/24 02/23/24 02/23/24 History prednisolone acetate 1 % eye 1 drp ophthalmic (eye) QID 02/23/24 02/23/24 02/23/24 History drops,suspension rosuvastatin 20 mg tablet 20 mg PO DAILY 02/23/24 02/23/24 02/22/24 History thyroid (pork) 60 mg tablet (CRIMINAL JUDGE 60 mg PO DAILY 02/23/24 02/23/24 02/23/24 History Thyroid) Allergies Allergy/AdvReac Type Severity Reaction Status Date / Time No Known Allergies Allergy Verified 02/23/24 11:52 Additional Medication Information Indicates on lispro insulin only as her insurance will not cover long-acting formulations PFSH Acute 2 PFSH: Medical History (Updated 02/23/24 @ 21:14 by Ayanna Floyd MD) Hypothyroidism Diabetic retinopathy PIC line (peripherally inserted central catheter) removal (~10/2023) Abscess of tendon of foot (06/2023) Septic arthritis (07/2023) Left knee DJD Dehiscence of incision (07/2023) Osteomyelitis (07/2023) Type 2 diabetes mellitus Surgical History (Updated 02/23/24 @ 20:53 by Ayanna Floyd MD) History of partial ray amputation of first toe of right foot (12/2023) Status post amputation of right great toe (08/2023) History of cholecystectomy History of appendectomy Family History Mother CAD (coronary artery disease) Cardiomyopathy Social History (Updated 02/23/24 @ 20:30 by Ayanna Floyd MD) Smoking and tobacco/nicotine status: never used tobacco/nicotine Alcohol intake: never Substance/Drug Use: never Female Reproductive History: : 1 Para: 0 Vitals/I&O/Wt Last Vital Signs Temp 97.6 F 02/23/24 16:42 Pulse 89 02/23/24 17:20 Resp 16 02/23/24 16:42 BP 136/70 02/23/24 16:42 Pulse Ox 98 02/23/24 17:20 O2 Del Method Room Air 02/23/24 17:20 09/30/24 09/30/24 09/30/24 06:59 14:59 22:59 Intake Total 540 / 540 Balance 540 / 540 Weight last 48 hrs Weight 129.818 kg Weight 127.006 kg Physical Exam 2 Narrative: Patient is awake and alert, able to provide history. Alert and oriented x 3. Extraocular movements are intact. Mucous membranes are moist. Neck is supple. Lungs are clear to auscultation bilaterally. Cardiovascular exam reveals a regular rate and rhythm. Abdomen is soft, nontender. Extremities edema noted to the right ankle and foot compared to the left but no pretibial edema. Right foot with previous great toe amputation. Right second toe with loss of layers of skin, areas of necrosis, malordorous, some serous and sanguinous oozing. Large flap of skin coming off as shown. Erythema extends to just before midfoot anteriorly on right. Left foot with discolored and disfigured nails on great toe in particular. Tip of right 2nd toe seen from dorsum if foot Right 2nd toes seen from midline with skin to left of iinfected toe the remnant of right great toe skin Right 2nd toe from dorsum of foot taken not too long after surgery 12/30 by patient Data 02/23/24 12:33 02/23/24 12:33 Other Labs: RADIOLOGY Exam: XR foot RT min 3V* [id number] Date/Time of Exam: 02/23/2024 12:17 PM Reason For Exam: infection Comparison 02/18/2024. Progressive osseous destruction of the distal phalanx of the second toe noted with soft tissue air. No other sign of acute bone destruction. Again noted is status post amputation of the first ray at the level of the proximal first metatarsal. No acute fracture. Degenerative changes. IMPRESSION1. Probable acute osteomyelitis of the distal second phalanx with soft tissue air and edema. Probably progressive since prior study. Laboratory Results WBC 9.49 10^3/uL (3.29-11.43) 02/23/24 12:33 RBC 4.17 10^6/uL (3.85-5.65) 02/23/24 12:33 Hgb 12.30 g/dL (11.27-16.99) 02/23/24 12:33 Hct 37.2 % (36-47) 02/23/24 12:33 MCV 89.2 fl (85-98) 02/23/24 12:33 MCH 29.5 pg (27-33) 02/23/24 12:33 MCHC 33.1 g/dL (30-55) 02/23/24 12:33 RDW 13.8 % (12.1-15.1) 02/23/24 12:33 Plt Count 284 10^3/cmm (157-399) 02/23/24 12:33 MPV 10.3 fL (7.4-10.4) 02/23/24 12:33 Neut % (Auto) 68.9 % 02/23/24 12:33 Lymph % (Auto) 21.6 % 02/23/24 12:33 [place] % (Auto) 6.2 % 02/23/24 12:33 Eos % (Auto) 2.5 % 02/23/24 12:33 Baso % (Auto) 0.4 % 02/23/24 12:33 Neut # (Auto) 6.53 10^3/uL (1.8-7.7) 02/23/24 12:33 Lymph # (Auto) 2.1 10^3/uL (0.8-4.8) 02/23/24 12:33 [place] # (Auto) 0.6 10^3/uL (0.2-0.9) 02/23/24 12:33 Eos # (Auto) 0.2 10^3/uL (0.0-0.8) 02/23/24 12:33 Baso # (Auto) 0.0 10^3/uL (0.0-0.1) 02/23/24 12:33 Nucleated RBC % (auto) 0 % 02/23/24 12:33 Nucleated RBCs # 0.0 /100WBC 02/23/24 12:33 Sodium 138 mmol/L (136-145) 02/23/24 12:33 Potassium 4.1 mmol/L (3.5-5.1) 02/23/24 12:33 Chloride 107 mmol/L (98-107) 02/23/24 12:33 Carbon Dioxide 21 mmol/L (22-29) L 02/23/24 12:33 Anion Gap 14.1 (5-19) 02/23/24 12:33 BUN 14 mg/dL (6-20) 02/23/24 12:33 Creatinine 0.7 mg/dL (0.5-0.9) 02/23/24 12:33 GFR Calculation 87.2 mL/min (90-130) L 02/23/24 12:33 Glucose 177 mg/dL (65-115) H 02/23/24 12:33 POC Glucose 151 mg/dL (70-110) H 02/23/24 17:04 Calculated Osmolality 291 mOsm/kg (285-295) 02/23/24 12:33 Lactic Acid 1.5 mmol/L (0.5-2.2) 02/23/24 12:33 Calcium 9.3 mg/dL (8.5-10.5) 02/23/24 12:33 Total Bilirubin 0.3 mg/dL (0.15-1.2) 02/23/24 12:33 AST 16 U/L (0-32) 02/23/24 12:33 ALT 19 U/L (0-33) 02/23/24 12:33 Alkaline Phosphatase 95 U/L (35-105) 02/23/24 12:33 C-Reactive Protein 44.3 mg/L (0.0-4.9) H 02/23/24 12:33 Total Protein 7.3 g/dL (6.6-8.7) 02/23/24 12:33 Albumin 3.6 g/dL (3.5-5.2) 02/23/24 12:33 Globulin 3.7 g/dL (1.3-4.6) 02/23/24 12:33 Micro: Microbiology 02/23/24 12:36 Blood Culture - Preliminary Blood SPECIMEN COLLECTED 02/23/24 12:33 Blood Culture - Preliminary Blood SPECIMEN COLLECTED A&P Assessment and plan (1) Osteomyelitis of second toe of right foot: Has not responded to attempts at outpatient treatment and has rapidly worsened over the last weekend. She is exhibiting systemic symptoms with tachycardia and increasing CRP along with fatigue and malaise. She has previously hide right great toe amputation and partial ray amputation of the right foot due to osteomyelitis. Diabetes mellitus with suboptimal control is a contributing factor. Inpatient admission Broad-spectrum antibiotics with vancomycin and Zosyn Podiatry consultation with Dr. Marley, have spoken with him Surgery tentatively planned for February 24 after she has been on antibiotics for 48 hours Wound management in the interim with Betadine and wet-to-dry dressing twice a day Pain management as needed (2) Diabetic ulcer of right foot: See above Qualifiers: Diabetic foot ulcer location: toe Diabetes mellitus type: type 2 Non- pressure ulcer stage: with necrosis of bone Qualified Code(s): E11.621 - Type 2 diabetes mellitus with foot ulcer; L97.514 - Non-pressure chronic ulcer of other part of right foot with necrosis of bone (3) Type 2 diabetes mellitus: On short acting insulin only with lispro 30 units 3 times a day. Blood sugars have been suboptimally controlled. Last A1c available here is from June when it was 8.6. Sugars have been high at outpatient follow-up within the interim. Insurance coverage is a contributing factor. Today after taking her morning insulin but not subsequently having any food she experienced hypoglycemia with blood sugars into the 70s. She was symptomatic but improved after getting some food. Add long-acting insulin, discussed with patient rationale to help optimize healing postsurgery Sliding scale insulin moderate dose Watch blood sugars closely for recurrent episodes of hypoglycemia making adjustments as needed Need to evaluate options for more optimal outpatient blood sugar control that are covered by patient's insurance and which she cannot afford Will check hemoglobin A1c Qualifiers: Diabetes mellitus continuous churn buttermaker insulin use: with continuous churn buttermaker use Diabetes mellitus complication status: with hyperglycemia Qualified Code(s): E11.65 - Type 2 diabetes mellitus with hyperglycemia; Z79.4 - continuous churn buttermaker (current) use of insulin (4) Diabetic retinopathy: Chronically on ketorolac and prednisolone eyedrops Continue usual management in the inpatient setting, may use home supply if needed Qualifiers: Diabetes mellitus type: type 2 Diabetic retinopathy severity: with unspecified retinopathy severity Diabetes mellitus macular edema: with macular edema Laterality: bilateral Qualified Code(s): E11.311 - Type 2 diabetes mellitus with unspecified diabetic retinopathy with macular edema (5) Hypothyroidism: Chronically on [place] Thyroid Continue [place] Thyroid Qualifiers: Hypothyroidism type: acquired Qualified Code(s): E03.9 - Hypothyroidism, unspecified (6) Left knee DJD: He has been seen by orthopedics with plan for hyaluronate injection for DJD. Given active infection in the right foot currently would hold injections into joint spaces until infection has cleared. Qualifiers: Osteoarthritis type: primary Qualified Code(s): M17.12 - Unilateral primary osteoarthritis, left knee Plan VTE prophylaxis: Lovenox until before surgery Antibiotics: s/p augmentin, clinda, cipro outpatient; started vancomycin and zosyn 02/22 Pending studies: blood cultures Telemetry: not currently indicated Crystal: not currently indicated Line(s): peripheral IVs Disposition plan: Home with outpatient follow up to PCP for optimal diabetes management and Dr Marley for hospital follow up. Depending on findings at time of OR, determination will be made regarding oral versus systemic antibiotics. Code Status: Full Code Supportive care otherwise Findings, concerns and plans were discussed with patient and she and her were given an opportunity to ask questions Attestations 2 Medical Necessity Statement*: Anticipated stay greater than two midnights in this patient with progressively worsening diabetic foot wound and osteomyelitis of the second digit of the right foot despite attempts at outpatient management. She additionally has suboptimally controlled diabetes mellitus type 2 as a contributing factor. She has evidence of systemic impact of worsening infection with tachycardia and malaise/fatigue plus increasing CRP levels. Without inpatient management at risk for progression to systemic spread of infection and development of severe sepsis. Plans are as noted. Coding Level of Care Code Acute Code for [facility] Diagnoses Osteomyelitis of second toe of right foot M86.9 Diabetic ulcer of toe of right foot associated with type 2 diabetes mellitus, with necrosis of bone E11.621; L97.514 Diabetic foot ulcer location: toe Diabetes mellitus type: type 2 Non-pressure ulcer stage: with necrosis of bone Type 2 diabetes mellitus with hyperglycemia, with long-term current use of insulin E11.65; Z79.4 Diabetes mellitus continuous churn buttermaker insulin use: with fpc use Diabetes mellitus complication status: with hyperglycemia Diabetic retinopathy of both eyes with macular edema associated with type 2 diabetes mellitus, unspecified retinopathy severity E11.311 Diabetes mellitus type: type 2 Diabetic retinopathy severity: with unspecified retinopathy severity Diabetes mellitus macular edema: with macular edema Laterality: bilateral Acquired hypothyroidism E03.9 Hypothyroidism type: acquired Primary osteoarthritis of left knee M17.12 Osteoarthritis type: primary
[2024-02-23 21:01] LABS: Glucose Point of Care 333 mg/dL (70-110)
[2024-02-23] MEDS: ketorolac 0.5% Op 5 mL Btl 1 DROP EYE-BOTH (21:02)
[2024-02-23] MEDS: insulin glargine 100 units/1 mL 8 UNIT SUBCUT (21:03)
[2024-02-23] MEDS: insulin lispro 100 unit/1 mL SUBCUT (21:03)
--- NOTE | 2024-02-23 21:25 | P.PHAVANC_ITS ---
Vancomycin Goal - Goal Vancomycin Goal:: 10-15 mg/L Vancomycin Indication:: Osteo - Therapy Current therapy:: Pip/Tazo Day of therpy:: Day 1 Actual body weight (kg): 286 lb 3.2 oz [place] body weight: 66.2 Dosing weight (kg): 91.72 - Data Labs: WBC 9.49 10^3/uL (3.29-11.43) 02/23/24 12:33 RBC 4.17 10^6/uL (3.85-5.65) 02/23/24 12:33 Hgb 12.30 g/dL (11.27-16.99) 02/23/24 12:33 Hct 37.2 % (36-47) 02/23/24 12:33 MCV 89.2 fl (85-98) 02/23/24 12:33 MCH 29.5 pg (27-33) 02/23/24 12:33 MCHC 33.1 g/dL (30-55) 02/23/24 12:33 RDW 13.8 % (12.1-15.1) 02/23/24 12:33 Sodium 138 mmol/L (136-145) 02/23/24 12:33 Potassium 4.1 mmol/L (3.5-5.1) 02/23/24 12:33 Chloride 107 mmol/L (98-107) 02/23/24 12:33 Carbon Dioxide 21 mmol/L (22-29) L 02/23/24 12:33 Anion Gap 14.1 (5-19) 02/23/24 12:33 BUN 14 mg/dL (6-20) 02/23/24 12:33 Creatinine 0.7 mg/dL (0.5-0.9) 02/23/24 12:33 GFR Calculation 87.2 mL/min (90-130) L 02/23/24 12:33 Last dialysis session:: N/A Treatment plan:: new consult Regimen:: INITIAL DOSE 1500 MG Q12H Follow up:: WILL CONTINUE TO MONITOR RENAL FUNCTION AND FOLLOW UP DAILY
[2024-02-23] MEDS: HYDROcodone-acetaminophen 5-325 mg Tablet 1 TAB PO (21:37)
[2024-02-24] VITALS: BP 120/67; PULSE 93; RESP 20; TEMP 36.4; O2SAT 97
[2024-02-24] MEDS: vancomycin 1,500 MG/300 ML PIGGYBACK 200 MG IV ×2 (01:45→13:44)
[2024-02-24 01:55] LABS: Glucose Point of Care 345 mg/dL (70-110)
[2024-02-24 04:00] VITALS: BP 110/57; PULSE 87; RESP 20; TEMP 36.8; O2SAT 97
[2024-02-24] MEDS: sodium chlor 0.9% + KCl 20 mEq 20 MEQ/1,000 ML BAG 100 MEQ IV (04:38)
--- NOTE | 2024-02-24 04:42 | PC.NURSE ---
This nurse checked pt's blood sugar at approximately [address] Floyd's order. Blood sugar was 345. Dr. Dubose notified per Dr. Floyd's order. Dr. Dubose ordered a one time dose of sliding scale humalog.
[2024-02-24] MEDS: piperacillin-tazobactam 3.375 GM in sodium chloride 0.9% (plus) 50 ML IV ×2 (05:04→16:34)
[2024-02-24 05:23] LABS: Estmated Average Glucose 183
[2024-02-24 05:33] LABS: Blood Urea Nitrogen 13 mg/dL (6-20); Calcium 8.5 mg/dL (8.5-10.5); Carbon Dioxide 23 mmol/L (22-29); Chloride 107 mmol/L (98-107); Creatinine Clr Calc Pharmacy 132.9248; Glomerular Filtration Rate 87.2 mL/min (90-130); Glucose 273 mg/dL (65-115); Magnesium 1.5 mg/dL (1.7-2.3); Osmolality Calculated 300 mOsm/kg (285-295); Sodium 140 mmol/L (136-145)
[2024-02-24 05:34] LABS: Anion Gap 14.4 (5-19); Potassium 4.4 mmol/L (3.5-5.1)
[2024-02-24] MEDS: insulin lispro 100 unit/1 mL 6 UNIT SUBCUT (05:37)
[2024-02-24 06:26] LABS: Glucose Point of Care 240 mg/dL (70-110)
--- NOTE | 2024-02-24 07:29 | P.CONIM_ITS ---
Providers/Reason For Consult 2 Consulting Physician/Specialty*: Eli Estrada.P.M./podiatry Reason for Consult*: Right foot second toe gangrene Attending Physician: Ayanna Floyd MD Primary Care Provider: ROULA Lincoln History of Present Illness History of Present Illness Jazmine James is a 53 year old female who presented to the emergency department yesterday 02/23/2024 with worsening dental infection. Patient has a history of chronic ulceration to right foot second digit. She has been treated outpatient with oral antibiotics over the course of the past few weeks. This has failed and she has presented to the emergency department for evaluation. X- rays show degenerative changes of distal phalanx consistent with osteomyelitis. Despite oral antibiotic usage, patient infection has continued to worsen with swelling and redness to the right foot. Patient states that she began to feel increasingly more fatigued and uncomfortable. She presented to the emergency department for further workup and evaluation. She was admitted to the hospital for IV antibiotics and further evaluation due to failed outpatient antibiotics and confirmed osteomyelitis. She was originally scheduled for outpatient second digit amputation of the right foot for February 25, 2024. Podiatry was consulted to provide further recommendations and treatment plan. Review of Systems 2 General: Reports: 10 or more systems reviewed and unremarkable except in HPI and below Const: Denies: fever(s), chills, body aches or change in appetite Eyes: Denies: change in vision or blurry vision Card: Denies: chest pain, palpitations or irregular heart rhythm Resp: Denies: dyspnea GI: Denies: abdominal pain, nausea, vomiting or diarrhea Musc: Reports: joint stiffness Skin/Breast: Reports: non-healing lesions and lesions Neuro: Reports: numbness in extremities Medications/Allergies Home Medications Medication Instructions Recorded Confirmed Last Taken Type Hinged Knee Brace #1 ea 04/24/23 02/23/24 Unknown Rx cholecalciferol (vitamin D3) 1,250 1,250 mcg PO Q7D 07/13/23 02/23/24 02/23/24 History mcg (50,000 unit) capsule clobetasol 0.05 % scalp solution 1 applic topical BID PRN Skin 07/13/23 02/23/24 Unknown History Irritation bupropion HCl 300 mg 24 hr tablet, 300 mg PO DAILY 11/04/23 02/23/24 02/23/24 History extended release medial service line bus cleaner brace, left #1 ea 11/04/23 02/23/24 Unknown Rx Diabetic shoes w/ 3 inserts #1 ea 01/13/24 02/23/24 Unknown Rx hyaluronate sodium, stabilized 60 60 mg (3 mL) intra-articular ONCE 01/29/24 02/23/24 Unknown Rx mg/3 mL intra-articular syringe #3 mL (Durolane) clindamycin HCl 300 mg capsule 300 mg PO TID #30 caps 02/16/24 02/23/24 02/23/24 Rx ciprofloxacin HCl 500 mg tablet 500 mg PO BID #14 tabs 02/18/24 02/23/24 02/23/24 Rx (Cipro) celecoxib 100 mg capsule 100 mg PO BID 02/23/24 02/23/24 02/23/24 History cyanocobalamin (vitamin B-12) 1,000 mcg IM Q28D 02/23/24 02/23/24 01/22/24 History 1,000 mcg/mL injection solution insulin lispro 100 unit/mL 30 unit SUBCUT TID 02/23/24 02/23/24 02/23/24 History subcutaneous solution ketorolac 0.5 % eye drops 1 drp ophthalmic (eye) TID 02/23/24 02/23/24 02/23/24 History prednisolone acetate 1 % eye 1 drp ophthalmic (eye) QID 02/23/24 02/23/24 02/23/24 History drops,suspension rosuvastatin 20 mg tablet 20 mg PO DAILY 02/23/24 02/23/24 02/22/24 History thyroid (pork) 60 mg tablet (ALARM INSTALLATION TECHNICIAN 60 mg PO DAILY 02/23/24 02/23/24 02/23/24 History Thyroid) Allergies Allergy/AdvReac Type Severity Reaction Status Date / Time No Known Allergies Allergy Verified 02/23/24 11:52 Current Medications Generic Name Dose Route Start Last Admin Trade Name Freq PRN Reason Stop Dose Admin Hydrocodone Bitart/Acetaminophen 1 tab 02/23/24 16:42 02/23/24 21:37 Hydrocodone-Acetaminophen 5-325 Mg Tablet PO 1 tab Q4H PRN Administration MODERATE TO SEVERE PAIN Docusate Sodium 100 mg 02/23/24 18:00 02/23/24 17:36 Docusate Sodium 100 Mg Capsule PO Not Given BID SHARRI Enoxaparin Sodium 40 mg 02/23/24 16:42 02/23/24 18:24 Enoxaparin 40 Mg/0.4 Ml Syringe SUBCUT 02/24/24 18:00 40 mg Q24H SHARRI Administration Potassium Chloride/Sodium Chloride 20 meq in 1,000 mls @ 100 mls/hr 02/23/24 16:42 02/24/24 04:38 Sodium Chlor 0.9% + Kcl 20 Meq IV 100 mls/hr .Q10H SHARRI Administration Piperacillin Sod/Tazobactam 50 mls @ 12.5 mls/hr 02/23/24 21:30 02/24/24 05:04 Sod 3.375 gm/ Sodium Chloride IV 12.5 mls/hr Q8H SHARRI Administration Vancomycin HCl 1,500 mg in 300 mls @ 200 mls/hr 02/24/24 01:00 02/24/24 04:39 Vancocin IV Infused Q12H SHARRI Infusion Insulin Glargine 8 unit 02/23/24 21:00 02/23/24 21:03 Insulin Glargine 100 Units/1 Ml SUBCUT 8 unit BEDTIME SHARRI Administration Insulin Human Lispro 0 unit 02/23/24 21:00 02/23/24 21:03 Insulin Lispro 100 Unit/1 Ml SUBCUT 6 unit BEDTIME SHARRI Administration Protocol Insulin Human Lispro 0 unit 02/23/24 18:00 02/23/24 17:36 Insulin Lispro 100 Unit/1 Ml SUBCUT Not Given TIDWM [facility] Protocol Ketorolac Tromethamine 1 drop 02/23/24 21:00 02/23/24 21:02 Ketorolac 0.5% Op 5 Ml Btl EYE-BOTH 1 drop TID SHARRI Administration Prednisolone Acetate 1 drop 02/23/24 17:00 02/23/24 21:02 Prednisolone 1% Op Susp 5 Ml Btl EYE-BOTH 1 drop QID SHARRI Administration PFSH Acute 2 PFSH: Medical History (Updated 02/23/24 @ 21:14 by Ayanna Floyd MD) Hypothyroidism Diabetic retinopathy PIC line (peripherally inserted central catheter) removal (~10/2023) Abscess of tendon of foot (06/2023) Septic arthritis (07/2023) Left knee DJD Dehiscence of incision (07/2023) Osteomyelitis (07/2023) Type 2 diabetes mellitus Surgical History (Updated 02/23/24 @ 20:53 by Ayanna Floyd MD) History of partial ray amputation of first toe of right foot (12/2023) Status post amputation of right great toe (08/2023) History of cholecystectomy History of appendectomy Family History Mother CAD (coronary artery disease) Cardiomyopathy Social History (Updated 02/23/24 @ 20:30 by Ayanna Floyd MD) Smoking and tobacco/nicotine status: never used tobacco/nicotine Alcohol intake: never Substance/Drug Use: never Female Reproductive History: : 1 Para: 0 Vitals/I&O/Wt Last Vital Signs Temp 98.3 F 02/24/24 04:00 Pulse 87 02/24/24 04:00 Resp 20 H 02/24/24 04:00 BP 110/57 02/24/24 04:00 Pulse Ox 97 02/24/24 04:00 O2 Del Method Room Air 02/24/24 04:00 02/23/24 02/24/24 02/24/24 22:59 06:59 14:59 Intake Total 540 / 540 1350 / 1890 Balance 540 / 540 1350 / 1890 Weight last 48 hrs Weight 289 lb 11.2 oz Weight 286 lb 3.2 oz Weight 280 lb Physical Exam 2 Narrative: BELOW IS A FOCUSED LOWER EXTREMITY EXAM GENERAL: A&O x 3 VASCULAR: DP/PT pulses palpable 2/4 with CFT intact, <3seconds to distal digits. Edema to right foot DERMATOLOGICAL: Full-thickness ulceration to right foot second digit with significant necrosis of tissue and positive probe to bone of distal phalanx. MUSCULOSKELETAL: Tenderness with palpation of right midfoot. No pain with ankle joint range of motion. NEUROLOGICAL: Neurological sensation to the affected foot and ankle is diminished through L4-S1 dermatomes via 10g SWMF, diminished sensation extends proximally to the level of the ankle IMAGING: X-rays of right foot taken in the emergency department, person interpreted by me show erosive changes of distal phalanx consistent with osteomyelitis. Increase soft tissue density of right foot second digit consistent with soft tissue infection. No subcutaneous emphysema noted. Data 02/23/24 12:33 02/24/24 04:23 Micro: Microbiology 02/23/24 12:36 Blood Culture - Preliminary Blood SPECIMEN COLLECTED 02/23/24 12:33 Blood Culture - Preliminary Blood SPECIMEN COLLECTED A&P Assessment and plan (1) Diabetic ulcer of right foot: Qualifiers: Diabetic foot ulcer location: toe Diabetes mellitus type: type 2 Non- pressure ulcer stage: with necrosis of bone Qualified Code(s): E11.621 - Type 2 diabetes mellitus with foot ulcer; L97.514 - Non-pressure chronic ulcer of other part of right foot with necrosis of bone (2) Type 2 diabetes mellitus: Qualifiers: Diabetes mellitus skilled nursing insulin use: with skilled nursing use Diabetes mellitus complication status: with hyperglycemia Qualified Code(s): E11.65 - Type 2 diabetes mellitus with hyperglycemia; Z79.4 - detention (current) use of insulin (3) Osteomyelitis of second toe of right foot: Plan -Right foot second digit chronic ulceration with underlying osteomyelitis. -Labs and vitals reviewed -WBC 9.49 -ESR 55 -CRP 44 -HR 102 on admit -RR 16 -Tmax 98.3 -Cultures blood?NGTD -Abx Vanco/Zosyn -Diet: Okay for diet. N.p.o. midnight 02/25/24 for procedure on 02/25/24 -Plan for right foot second digit amputation tomorrow 02/25/2024 -Pain Mgmt: Per primary team -Weight bearing: Weightbearing as tolerated to right foot for transfers only -Dressings: Betadine wet-to-dry dressings twice daily -Continue current Abx therapy -Trend labs -Discharge plan: To be determined -Podiatry will continue to round on patient daily and provide recommendations Coding Level of Care Code Acute Code for [facility] Fwd Diagnoses Diabetic ulcer of toe of right foot associated with type 2 diabetes mellitus, with necrosis of bone E11.621; L97.514 Diabetic foot ulcer location: toe Diabetes mellitus type: type 2 Non-pressure ulcer stage: with necrosis of bone Type 2 diabetes mellitus with hyperglycemia, with long-term current use of insulin E11.65; Z79.4 Diabetes mellitus skilled nursing insulin use: with skilled nursing use Diabetes mellitus complication status: with hyperglycemia Osteomyelitis of second toe of right foot M86.9
[2024-02-24 07:48] VITALS: BP 125/65; PULSE 86; RESP 16; TEMP 36.6; O2SAT 96
[2024-02-24] MEDS: docusate sodium 100 mg Capsule PO (08:48)
[2024-02-24] MEDS: insulin lispro 100 unit/1 mL SUBCUT ×4 (08:48→21:03)
[2024-02-24] MEDS: atorvastatin 40 mg Tablet PO (08:48)
[2024-02-24] MEDS: thyroid 60 mg Tablet PO (08:49)
[2024-02-24] MEDS: buPROPion XL (24 HR) 300 mg Tablet PO (08:49)
[2024-02-24] MEDS: prednisoLONE 1% Op Susp 5 mL Btl 1 DROP EYE-BOTH ×4 (08:52→20:55)
[2024-02-24] MEDS: ketorolac 0.5% Op 5 mL Btl 1 DROP EYE-BOTH ×3 (08:52→20:55)
--- NOTE | 2024-02-24 09:25 | PC.CHAP ---
Pastoral Care Encounter/Spiritual Assessment Type of Contact [] Declined garbage collector visit [] Patient/Family/Request visit [] Outpatient visit [] Follow-up visit [] Physician referral [] Code/Alert [x] Routine visit [] Staff referral [] Actively dying [] Patient sleeping [] Family support [] [] Out of room [] Palliative care [] [] Receiving care in room [] Pre-surgical visit [] Trauma [] Long length of stay [] ICU visit [] Other: Relational/Emotional Strength [x] Patient feels connected with others/family/visitors/staff [] Distress [] Loneliness/isolation [] Abandonment Spirituality of Patient [x] Person of Rosa [] Attends Mu-Ism of their Rosa [x] Believes in Prayer [] Reads Bible or Amish materials [] There are Spiritual issues to be addressed Spray Drier Interventions [x] Prayer [x] Active listening [x] Non-anxious presence [x] Spiritual/emotional support [] Crisis/trauma care [] Spiritual counseling [] Bereavement support [] Provided bereavement packet [] Provided Bible/devotional materials [] Provided toy/stuffed animal, coloring book to patient or family member [] Provided Communion [] Anointing/[place] [] Salvation [x] Completed spiritual assessment [] Other: Impact on Illness or Injury [] Angry [] Fearful [] Anxious [] Often cries [] Exhaustion [] Unable to work [] Unable to attend rastafari [] Unable to walk/stand [] Unable to read [] Unable to drive [] Unable to eat/drink [] Unable to sleep [] Unable to be with family [] Patient intubated [] Other: Summary Time spent with patient 5 min
[2024-02-24 11:02] LABS: Glucose Point of Care 218 mg/dL (70-110)
[2024-02-24 11:11] LABS: Basophils # 0.1 10^3/uL (0.0-0.1); Basophils % 0.6 %; Eosinophils # 0.2 10^3/uL (0.0-0.8); Eosinophils % 2.8 %; Hematocrit 35.7 % (36-47); Lymphocytes # 1.6 10^3/uL (0.8-4.8); Lymphocytes % 18.4 %; Mean Corpuscular HGB Conc 33.1 g/dL (30-55); Mean Corpuscular Hemoglobin 29.4 pg (27-33); Mean Platelet Volume 11.7 fL (7.4-10.4); Monocytes # 0.7 10^3/uL (0.2-0.9); Monocytes % 8.7 %; Neutrophils # 5.91 10^3/uL (1.8-7.7); Neutrophils % 69.1 %; Nucleated Red Blood Cells % 0 %; Platelet Count 284 10^3/cmm (157-399); Red Blood Count 4.01 10^6/uL (3.85-5.65); Red Cell Distribution Width 14.2 % (12.1-15.1); White Blood Count 8.54 10^3/uL (3.29-11.43)
[2024-02-24 11:30] LABS: Alanine Aminotransferase 24 U/L (0-33); Albumin Level 3.3 g/dL (3.5-5.2); Alkaline Phosphatase 86 U/L (35-105); Aspartate Amino Transferase 22 U/L (0-32); Iron 33 ug/dL (37-145); Percent Saturation 18.2 % (20-50); Total Bilirubin 0.2 mg/dL (0.15-1.2); Total Iron Binding Capacity 181 mcg/dl; Total Protein 6.8 g/dL (6.6-8.7); Unsaturated Iron Binding 148 ug/dL (112-347)
[2024-02-24 11:36] VITALS: BP 116/71; PULSE 90; RESP 17; TEMP 36.6; O2SAT 96
--- NOTE | 2024-02-24 11:36 | USCV_ITS ---
JamesJazmine montiel Age: 53 Gender: F : 1970 Exam Date: 02/24/2024 15:16 Ordering Phys: Adams Callejas MD Technologist: CT Exam Location: [facility] [place] Indication: pvd Risk Factors: Previous Vascular Surgery: RIGHT LEFT BP: 138.0 / 78.00 BP: / 0 Waveform Velocity (cm/s) Velocity (cm/s) Waveform Triphasic 124.8 Iliac Prox Triphasic 127.5 Iliac Mid Triphasic 122.4 Iliac Distal Triphasic 135.0 FORGING PRESS SETTER UP Triphasic 160.0 SFA Prox Triphasic 166.0 SFA Mid Triphasic 148.0 SFA Dist Triphasic 112.0 POP Biphasic 37.0 NETWORK SECURITY ADMINISTRATOR Triphasic 173.0 DPA 1.0 KRISS FINDINGS Resting KRISS of 1.0 on the right side. Intimal thickening the iliac and femoral artery on the right side Normal Doppler flow velocities and waveforms CONCLUSIONS Normal resting KRISS 1.0 on the right side Intimal thickening in the iliac and femoral arteries No significant arterial obstruction, based on the above findings Dr Terri Castro MD [facility] (Electronically Signed) Final Date: 24 February 2024 18:31 S
[2024-02-24 11:42] LABS: Procalcitonin 0.09 ng/mL (0-0.5); Vitamin B12 406 pg/mL (232-1245)
--- NOTE | 2024-02-24 13:17 | PM.PN ---
Subjective Subjective: Admitted overnight. Patient denies any nausea, vomiting, headache. States pain is well-controlled. Seen with spouse at bedside. Denies any new complaints. Has remained hemodynamically stable and afebrile. Medications: Medication Review Details: Indicates on lispro insulin only as her insurance will not cover long-acting formulations Vitals/I&O/Wt Last Vital Signs Temp 97.8 F 02/24/24 11:36 Pulse 90 02/24/24 11:36 Resp 17 02/24/24 11:36 BP 116/71 02/24/24 11:36 Pulse Ox 96 02/24/24 11:36 O2 Del Method Room Air 02/24/24 11:36 02/23/24 02/24/24 02/24/24 22:59 06:59 14:59 Intake Total 540 / 540 1350 / 1890 410 / 410 Balance 540 / 540 1350 / 1890 410 / 410 Weight last 48 hrs Weight 131.406 kg Weight 129.818 kg Weight 127.006 kg Physical Exam Narrative: General: No acute distress, AO x 3 Lungs: Normal vesicular breath sounds all over lung singh with occasional rhonchi Cardiac: S1-S2 regular no murmurs or gallops Abdomen: Soft nontender, no organomegaly. Nonfocal neurological examination Extremity: Pulses bilaterally palpable, slightly faint on right side Tip of right 2nd toe seen from dorsum if foot Right 2nd toes seen from midline with skin to left of iinfected toe the remnant of right great toe skin Right 2nd toe from dorsum of foot taken not too long after surgery 12/30 by patient Data 02/24/24 04:23 02/24/24 04:23 Micro: Microbiology 02/23/24 12:36 Blood Culture - Preliminary Blood NEGATIVE TO DATE 02/23/24 12:33 Blood Culture - Preliminary Blood NEGATIVE TO DATE A&P Assessment and plan (1) Osteomyelitis of second toe of right foot: Failure to outpatient treatment. Wound dressings as per podiatry team Plan to OR for further amputation tomorrow. Follow-up with blood culture. Continue with empiric IV antibiotics with vancomycin and Zosyn. Appreciate old cultures with MSSA and strep. Follow-up OR culture. Check arterial duplex to rule out PVD. (2) Diabetic ulcer of right foot: See above Qualifiers: Diabetic foot ulcer location: toe Diabetes mellitus type: type 2 Non-pressure ulcer stage: with necrosis of bone Qualified Code(s): E11.621 - Type 2 diabetes mellitus with foot ulcer; L97.514 - Non-pressure chronic ulcer of other part of right foot with necrosis of bone (3) Type 2 diabetes mellitus: A1c around 8. Takes lispro 30 units 3 times daily at home. Started on Lantus on admission. Continue to monitor blood sugar within next 24 hours. Will uptitrate insulin doses accordingly as needed. Qualifiers: Diabetes mellitus mcfp insulin use: with regional intermodal truck driver use Diabetes mellitus complication status: with hyperglycemia Qualified Code(s): E11.65 - Type 2 diabetes mellitus with hyperglycemia; Z79.4 - terminal block assembler (current) use of insulin (4) Diabetic retinopathy: Chronically on ketorolac and prednisolone eyedrops Continue usual management in the inpatient setting, may use home supply if needed Qualifiers: Diabetes mellitus type: type 2 Diabetic retinopathy severity: with unspecified retinopathy severity Diabetes mellitus macular edema: with macular edema Laterality: bilateral Qualified Code(s): E11.311 - Type 2 diabetes mellitus with unspecified diabetic retinopathy with macular edema (5) Hypothyroidism: Chronically on Eek Thyroid. Continue home dose. Appreciate TSH. Qualifiers: Hypothyroidism type: acquired Qualified Code(s): E03.9 - Hypothyroidism, unspecified (6) Left knee DJD: He has been seen by orthopedics with plan for hyaluronate injection for DJD. Given active infection in the right foot currently would hold injections into joint spaces until infection has cleared. Qualifiers: Osteoarthritis type: primary Qualified Code(s): M17.12 - Unilateral primary osteoarthritis, left knee Plan VTE prophylaxis: Lovenox until before surgery Carb consistent cardiac diet Famotidine for PUD prophylaxis Disposition plan: Home with outpatient follow up to PCP for optimal diabetes management and Dr Marley for hospital follow up. Depending on findings at time of OR, determination will be made regarding oral versus systemic antibiotics. Code Status: Full Code Attestations Medical Necessity Statement*: Requires further hospitalization for management of second right fourth toe osteomyelitis requiring amputation Diagnoses Osteomyelitis of second toe of right foot M86.9 Diabetic ulcer of toe of right foot associated with type 2 diabetes mellitus, with necrosis of bone E11.621; L97.514 Diabetic foot ulcer location: toe Diabetes mellitus type: type 2 Non-pressure ulcer stage: with necrosis of bone Type 2 diabetes mellitus with hyperglycemia, with long-term current use of insulin E11.65; Z79.4 Diabetes mellitus regional intermodal truck driver insulin use: with regional intermodal truck driver use Diabetes mellitus complication status: with hyperglycemia Diabetic retinopathy of both eyes with macular edema associated with type 2 diabetes mellitus, unspecified retinopathy severity E11.311 Diabetes mellitus type: type 2 Diabetic retinopathy severity: with unspecified retinopathy severity Diabetes mellitus macular edema: with macular edema Laterality: bilateral Acquired hypothyroidism E03.9 Hypothyroidism type: acquired Primary osteoarthritis of left knee M17.12 Osteoarthritis type: primary
[2024-02-24 15:18] VITALS: BP 124/63; PULSE 85; RESP 16; TEMP 36.8; O2SAT 96
[2024-02-24 16:35] LABS: Glucose Point of Care 205 mg/dL (70-110)
[2024-02-24] MEDS: famotidine 20 mg Tablet PO (17:21)
[2024-02-24] MEDS: enoxaparin 40 mg/0.4 mL Syringe SUBCUT (17:21)
[2024-02-24 20:00] VITALS: BP 129/67; PULSE 91; RESP 17; TEMP 36.7; O2SAT 94
[2024-02-24] MEDS: HYDROcodone-acetaminophen 5-325 mg Tablet 1 TAB PO (20:55)
[2024-02-24 21:03] LABS: Glucose Point of Care 249 mg/dL (70-110)
[2024-02-24] MEDS: insulin glargine 100 units/1 mL 8 UNIT SUBCUT (21:03)
[2024-02-25] VITALS (12 sets, daily range): BP systolic 96–152; BP diastolic 63–90; PULSE 78–100; RESP 16–18; TEMP 36.2–36.9; O2SAT 92–98
[2024-02-25] MEDS: vancomycin 1,500 MG/300 ML PIGGYBACK 200 MG IV (00:06)
[2024-02-25] MEDS: piperacillin-tazobactam 3.375 GM in sodium chloride 0.9% (plus) 50 ML IV (01:35)
[2024-02-25 05:49] LABS: Basophils % 0.5 %; Eosinophils # 0.3 10^3/uL (0.0-0.8); Hematocrit 33.6 % (36-47); Lymphocytes # 1.1 10^3/uL (0.8-4.8); Lymphocytes % 14.9 %; Mean Corpuscular Hemoglobin 29.2 pg (27-33); Mean Corpuscular Volume 88.4 fl (85-98); Mean Platelet Volume 10.6 fL (7.4-10.4); Monocytes # 0.7 10^3/uL (0.2-0.9); Monocytes % 8.9 %; Neutrophils # 5.31 10^3/uL (1.8-7.7); Neutrophils % 71.3 %; Nucleated Red Blood Cells % 0 %; Platelet Count 240 10^3/cmm (157-399); Red Cell Distribution Width 14.1 % (12.1-15.1); White Blood Count 7.45 10^3/uL (3.29-11.43)
[2024-02-25 06:11] LABS: Chol HDL Ratio 5.97 mg/dL (0.0-4.40); Cholesterol 173 mg/dL (0-200); HDL Cholesterol 29 mg/dL (60-100); Magnesium 1.3 mg/dL (1.7-2.3); Triglycerides 714 mg/dL (0-150); VLDL Cholestrol Calculation 143 mg/dL (0-30)
[2024-02-25 06:13] LABS: Alanine Aminotransferase 25 U/L (0-33); Albumin Level 3.4 g/dL (3.5-5.2); Alkaline Phosphatase 90 U/L (35-105); Anion Gap 13.1 (5-19); Aspartate Amino Transferase 22 U/L (0-32); Blood Urea Nitrogen 15 mg/dL (6-20); Calcium 8.3 mg/dL (8.5-10.5); Carbon Dioxide 22 mmol/L (22-29); Chloride 107 mmol/L (98-107); Globulin 2.9 g/dL (1.3-4.6); Glomerular Filtration Rate 87.2 mL/min (90-130); Glucose 247 mg/dL (65-115); Osmolality Calculated 295 mOsm/kg (285-295); Potassium 4.1 mmol/L (3.5-5.1); Sodium 138 mmol/L (136-145); Total Bilirubin 0.2 mg/dL (0.15-1.2); Total Protein 6.3 g/dL (6.6-8.7)
[2024-02-25 06:18] LABS: Glucose Point of Care 259 mg/dL (70-110)
[2024-02-25 06:28] LABS: Folate Level 7.2 ng/mL (4.8-37.3); LDL Cholesterol Direct 51 mg/dL (0-100)
[2024-02-25] MEDS: insulin lispro 100 unit/1 mL SUBCUT ×2 (07:58→11:53)
[2024-02-25] MEDS: atorvastatin 40 mg Tablet PO (07:59)
[2024-02-25] MEDS: thyroid 60 mg Tablet PO (08:00)
[2024-02-25] MEDS: famotidine 20 mg Tablet PO (08:00)
[2024-02-25] MEDS: buPROPion XL (24 HR) 300 mg Tablet PO (08:00)
[2024-02-25] MEDS: ketorolac 0.5% Op 5 mL Btl 1 DROP EYE-BOTH (08:02)
[2024-02-25] MEDS: prednisoLONE 1% Op Susp 5 mL Btl 1 DROP EYE-BOTH (08:05)
[2024-02-25 09:01] LABS: Glucose Point of Care 296 mg/dL (70-110)
[2024-02-25] MEDS: sodium chloride 0.9% 1,000 ML 30 ML IV (09:02)
--- NOTE | 2024-02-25 09:45 | P.HPUD_ITS ---
Surgery/Procedure H&P Update DATE OF PROCEDURE: February 25, 2024 DATE H&P PERFORMED: 12/26/23 H&P UPDATE INFORMATION: I have reviewed H&P completed within last 30 days, I have examined patient prior to procedure, No changes to prior documentation and H&P is in [facility] EMR on date indicated PLANNED PROCEDURE: Operation Date: 02/25/24 09:45 Proposed Procedures p Right 2nd digit amputation(Right) - Almas Marley DPM
--- NOTE | 2024-02-25 09:58 | ANES.PREANE2 ---
Pre-Anesthetic Assessment Height/Weight: Height 5 ft 9 in Weight 286 lb Temp Pulse Resp BP Pulse Ox O2 Del Method 97.2 F L 86 18 126/63 97 Room Air 02/25/24 09:03 02/25/24 09:03 02/25/24 09:03 02/25/24 09:03 02/25/24 09:03 02/25/24 09:03 Preop Diagnosis: Osteomyelitis Operation Date: 02/25/24 09:45 Proposed Procedures p Right 2nd digit amputation(Right) - KYLIE MorenoM Was Beta Luciano taken within 24 hours: N/A Was Clonidine taken within 24 hours: N/A Last intake: Intake Last Liquid Date 02/24/24 Last Liquid Time 21:00 Last Solid Date 02/24/24 Last Solid Time 18:00 Social No alcohol and No tobacco Exam alert, oriented x 3, clear to auscultation bilaterally and regular rate & rhythm Airway Submandibular: within normal limits Cervical ROM: within normal limits Mallampati: Class III Dentition: full Anesthetic Plan Other: No prior issues with anesthesia Patient came in yesterday with osteomyelitis Poorly controlled diabetic, a.m. blood sugar 296 Hypothyroidism on Synthroid EKG showing sinus rhythm with RBBB BMI 42 Plan for MAC anesthetic with local via surgeon Medications/Allergies Home Medications Medication Instructions Recorded Confirmed Last Taken Type Hinged Knee Brace #1 ea 04/24/23 02/23/24 Unknown Rx cholecalciferol (vitamin D3) 1,250 1,250 mcg PO Q7D 07/13/23 02/23/24 02/23/24 History mcg (50,000 unit) capsule clobetasol 0.05 % scalp solution 1 applic topical BID PRN Skin 07/13/23 02/23/24 Unknown History Irritation bupropion HCl 300 mg 24 hr tablet, 300 mg PO DAILY 11/04/23 02/23/24 02/23/24 History extended release medial cut off machine unloader brace, left #1 ea 11/04/23 02/23/24 Unknown Rx Diabetic shoes w/ 3 inserts #1 ea 01/13/24 02/23/24 Unknown Rx hyaluronate sodium, stabilized 60 60 mg (3 mL) intra-articular ONCE 01/29/24 02/23/24 Unknown Rx mg/3 mL intra-articular syringe #3 mL (Durolane) clindamycin HCl 300 mg capsule 300 mg PO TID #30 caps 02/16/24 02/23/24 02/23/24 Rx ciprofloxacin HCl 500 mg tablet 500 mg PO BID #14 tabs 02/18/24 02/23/24 02/23/24 Rx (Cipro) celecoxib 100 mg capsule 100 mg PO BID 02/23/24 02/23/24 02/23/24 History cyanocobalamin (vitamin B-12) 1,000 mcg IM Q28D 02/23/24 02/23/24 01/22/24 History 1,000 mcg/mL injection solution insulin lispro 100 unit/mL 30 unit SUBCUT TID 02/23/24 02/23/24 02/23/24 History subcutaneous solution ketorolac 0.5 % eye drops 1 drp ophthalmic (eye) TID 02/23/24 02/23/24 02/23/24 History prednisolone acetate 1 % eye 1 drp ophthalmic (eye) QID 02/23/24 02/23/24 02/23/24 History drops,suspension rosuvastatin 20 mg tablet 20 mg PO DAILY 02/23/24 02/23/24 02/22/24 History thyroid (pork) 60 mg tablet (TIME STUDY TECHNOLOGIST 60 mg PO DAILY 02/23/24 02/23/24 02/23/24 History Thyroid) Allergies Allergy/AdvReac Type Severity Reaction Status Date / Time No Known Allergies Allergy Verified 02/23/24 11:52 Current Medications Generic Name Dose Route Start Last Admin Trade Name Freq PRN Reason Stop Dose Admin Hydrocodone Bitart/Acetaminophen 1 tab 02/23/24 16:42 02/24/24 20:55 Hydrocodone-Acetaminophen 5-325 Mg Tablet PO 1 tab Q4H PRN Administration MODERATE TO SEVERE PAIN Atorvastatin Calcium 40 mg 02/24/24 09:00 02/25/24 07:59 Atorvastatin 40 Mg Tablet PO 40 mg DAILY SHARRI Administration Bupropion HCl 300 mg 02/24/24 09:00 02/25/24 08:00 Bupropion Xl (24 Hr) 300 Mg Tablet PO 300 mg DAILY SHARRI Administration Docusate Sodium 100 mg 02/23/24 18:00 02/25/24 08:00 Docusate Sodium 100 Mg Capsule PO Not Given BID SHARRI Famotidine 20 mg 02/24/24 18:00 02/25/24 08:00 Famotidine 20 Mg Tablet PO 20 mg BID SHARRI Administration Vancomycin HCl 1,500 mg in 300 mls @ 200 mls/hr 02/24/24 01:00 02/25/24 01:37 Vancocin IV Infused Q12H SHARRI Infusion Piperacillin Sod/Tazobactam 50 mls @ 12.5 mls/hr 02/25/24 02:00 02/25/24 05:43 Sod 3.375 gm/ Sodium Chloride IV Infused Q8H SHARRI Infusion Sodium Chloride 1,000 mls @ 30 mls/hr 02/25/24 08:30 02/25/24 09:02 Sodium Chloride 0.9% IV 02/26/24 08:29 30 mls/hr .Q24H SHARRI Administration Insulin Glargine 8 unit 02/23/24 21:00 02/24/24 21:03 Insulin Glargine 100 Units/1 Ml SUBCUT 8 unit BEDTIME SHARRI Administration Insulin Human Lispro 0 unit 02/23/24 21:00 02/24/24 21:03 Insulin Lispro 100 Unit/1 Ml SUBCUT 4 unit BEDTIME SHARRI Administration Protocol Insulin Human Lispro 0 unit 02/23/24 18:00 02/25/24 07:58 Insulin Lispro 100 Unit/1 Ml SUBCUT 4 unit TIDWM SHARRI Administration Protocol Ketorolac Tromethamine 1 drop 02/23/24 21:00 02/25/24 08:02 Ketorolac 0.5% Op 5 Ml Btl EYE-BOTH 1 drop TID SHARRI Administration Prednisolone Acetate 1 drop 02/23/24 17:00 02/25/24 08:05 Prednisolone 1% Op Susp 5 Ml Btl EYE-BOTH 1 drop QID SHARRI Administration Thyroid 60 mg 02/24/24 09:00 02/25/24 08:00 Thyroid 60 Mg Tablet PO 60 mg DAILY SHARRI Administration Additional Medication Information Indicates on lispro insulin only as her insurance will not cover long-acting formulations [facility] Anesthesia Medical History (Updated 02/23/24 @ 21:14 by Ayanna Floyd MD) Hypothyroidism Diabetic retinopathy PIC line (peripherally inserted central catheter) removal (~10/2023) Abscess of tendon of foot (06/2023) Septic arthritis (07/2023) Left knee DJD Dehiscence of incision (07/2023) Osteomyelitis (07/2023) Type 2 diabetes mellitus Surgical History (Updated 02/23/24 @ 20:53 by Ayanna Floyd MD) History of partial ray amputation of first toe of right foot (12/2023) Status post amputation of right great toe (08/2023) History of cholecystectomy History of appendectomy Family History Mother CAD (coronary artery disease) Cardiomyopathy Social History (Updated 02/23/24 @ 20:30 by Ayanna Floyd MD) Smoking and tobacco/nicotine status: never used tobacco/nicotine Alcohol intake: never Substance/Drug Use: never Female Reproductive History : 1 Para: 0 Data Anesthesia 02/25/24 05:16 02/25/24 05:16 Short CBC 02/23/24 02/24/24 02/25/24 Range/Units 12:33 04:23 05:16 WBC 9.49 8.54 7.45 (3.29-11.43) 10^3/uL Hgb 12.30 11.80 11.10 L (11.27-16.99) g/dL Hct 37.2 35.7 L 33.6 L (36-47) % MCV 89.2 89.0 88.4 (85-98) fl Plt Count 284 284 240 (157-399) 10^3/cmm Neut % (Auto) 68.9 69.1 71.3 % Neut # (Auto) 6.53 5.91 5.31 (1.8-7.7) 10^3/uL BMP 02/23/24 02/24/24 02/24/24 12:33 04:23 04:23 Sodium 138 140 Cancelled Potassium 4.1 4.4 Chloride 107 Carbon Dioxide 21 L BUN 14 Creatinine 0.7 Glucose 177 H Calcium 9.3 02/24/24 02/24/24 02/24/24 04:23 04:23 04:23 Sodium Potassium Cancelled Chloride 107 Cancelled Carbon Dioxide 23 Cancelled BUN 13 Creatinine Glucose Calcium 02/24/24 02/24/24 02/24/24 04:23 04:23 04:23 Sodium Potassium Chloride Carbon Dioxide BUN Cancelled Creatinine 0.7 Cancelled Glucose 273 H Cancelled Calcium 8.5 02/24/24 02/25/24 04:23 05:16 Sodium 138 Potassium 4.1 Chloride 107 Carbon Dioxide 22 BUN 15 Creatinine 0.7 Glucose 247 H Calcium Cancelled 8.3 L Liver Function 02/23/24 02/24/24 02/25/24 Range/Units 12:33 04:23 05:16 Total Bilirubin 0.3 0.2 0.2 (0.15-1.2) mg/dL AST 16 22 22 (0-32) U/L ALT 19 24 25 (0-33) U/L Alkaline Phosphatase 95 86 90 (35-105) U/L Albumin 3.6 3.3 L 3.4 L (3.5-5.2) g/dL Coags 02/23/24 12:33 C-Reactive Protein 44.3 H Microbiology 02/23/24 12:36 Blood Culture - Preliminary Blood NEGATIVE TO DATE 02/23/24 12:33 Blood Culture - Preliminary Blood NEGATIVE TO DATE Cardiac Studies: No Data to Display
--- NOTE | 2024-02-25 10:46 | W.PM.BPON ---
Date of procedure: 02/25/2024 Surgeon name: Darcie EstradaPVicky Word Processing Operator(s) name(s): Kelvin Procedure(s) performed: Right foot second digit amputation Description of findings: Gangrene right foot second digit Estimated blood loss: 5 cc Tourniquet time: 14 minutes Specimen(s) removed: Right foot second digit, cultures aerobic and anaerobic Post-operative diagnosis:gangrene right foot second digit with osteomyelitis
--- NOTE | 2024-02-25 11:04 | PM.OP ---
Operative Report Date of procedure: February 25, 2024 Pre-op diagnosis: Right foot second digit gangrene, osteomyelitis Post-op diagnosis: Same Post-op findings: Gangrene right foot second digit. Remaining tissue appeared healthy and viable. No violation of second metatarsal head Procedure done: Right foot second digit amputation CPT 38258 Specimens removed/disposition: Right foot second toe, cultures aerobic and anaerobic Surgeon: Almas Marley DPM Promotions Representative: Kelvin Estimated blood loss: 5 cc 14 minutes Complications: None Findings: See above Procedure: The patient presents with a severe foot infection involving right foot second digit, characterized by erythema, swelling, and drainage. The infection is complicated by underlying conditions, including diabetes, which have contributed to the progression of the infection despite conservative management. Preoperative imaging and laboratory results indicate osteomyelitis, necessitating surgical intervention. The planned procedure is intended to address the infection, debride necrotic tissue, and, if necessary, assess the viability of surrounding structures to prevent further complications. The patient has been NPO since midnight. The history has been reviewed and the history and physical is current. The signed consent was confirmed and placed in the patient chart. Patient imaging has been reviewed and is consistent with the diagnosis. Under mild sedation, the patient was brought into the operating room and placed on the table in the supine position. Patient is receiving antibiotics around the clock on the floor, Therefore, additional antibiotic prophylaxix was not administered. IV sedation was then performed by the anesthesiateam. A local field block was performed using 0.5% Marcaine plain. A pneumatic tourniquet was then placed about the right ankle. The operative extremity was then prepped and draped in the usual fashion. After prep, the following procedure was then performed. Attention was directed to the right second digit where a fishmouth incision was made circumferentially about the toe with care to preserve as much soft tissue as possible. Dissection was carried full-thickness down to level of bone. Dissection was carried out to the level of the second metatarsophalangeal joint. The collateral ligaments and attachments of the second metatarsal phalangeal joint capsule were excised. A penetrating towel clamp was then used to grasp the end of the second digit to joystick the toe for amputation. All connections of the second metatarsophalangeal joint were released using a #15 blade. The toe was then passed from the operative field be sent as specimen. The remaining tissues appeared healthy and viable in nature. The metatarsal head appeared healthy without any degenerative changes. The flexor and extensor tendons were then grasped and pulled distally before being incised as proximally as possible using a #15 blade. All remaining tissue appeared healthy. The site was then irrigated with copious amounts of sterile saline via cystoscopy tubing. The amputation site was then closed using 3-0 nylon in simple interrupted, horizontal mattress and retention type fashion. The tourniquet was let down and good hyperemic response was noted to all remaining digits of the operative extremity. The incision site was then dressed with Xeroform, 4 x 4 gauze, Kerlix, Derek. The patient tolerated the procedure and anesthesia well and without complication. The patient was transported from the operating room to the recovery room with vital signs stable and vascular status intact to all remaining digits of the right foot. Thepatient was instructed to remain minimally weightbearing for transfers only to the operative extremity, to keep surgical dressing clean, dry and intact. The patient will be transferred back to the floor once anesthesia criteria is met. I will continue to round on and follow the patient in the inpatientsetting and provide recommendations to stabilize the patient for discharge. Based on intraoperative findings patient will be okay to discharge home on oral antibiotics.
--- NOTE | 2024-02-25 11:05 | ANE.PACU2 ---
Inpatient post-anesthesia follow up: Airway intact: Yes Vital signs: Temperature 97.8 F Pulse Rate 82 Respiratory Rate 17 Blood Pressure 152/90 Pulse Oximetry 96 Oxygen Delivery Me thod [ Room Air Current Rate & Del rick] Oxygen Delivery Me thod Room Air Oxygen Flow Rate Fraction of Inspir ed Oxygen Hydration adequate: Yes Nausea and vomiting: No Pain level: 1 Mental status: Baseline
[2024-02-25 11:20] LABS: Glucose Point of Care 225 mg/dL (70-110)
--- NOTE | 2024-02-25 11:36 | P.DS_ITS ---
Discharge Providers 2 Date of Admission: 02/23/24 15:31 Date of Discharge: February 25, 2024 Attending Provider at Admission: Ayanna Floyd MD Attending Provider at Discharge: Adams Callejas MD Consults: Podiatry: Dr. Marley Primary Care Provider: ROULA Lincoln Diagnoses at Discharge Discharge Diagnosis (1) Osteomyelitis of second toe of right foot: Status: Acute (2) Diabetic ulcer of right foot: Status: Acute Qualifiers: Diabetes mellitus type: type 2 Diabetic foot ulcer location: toe Non- pressure ulcer stage: with necrosis of bone Qualified Code(s): E11.621 - Type 2 diabetes mellitus with foot ulcer; L97.514 - Non-pressure chronic ulcer of other part of right foot with necrosis of bone (3) Type 2 diabetes mellitus: Status: Acute Qualifiers: Diabetes mellitus complication status: with hyperglycemia Diabetes mellitus long term care administrator insulin use: with long term care administrator use Qualified Code(s): E11.65 - Type 2 diabetes mellitus with hyperglycemia; Z79.4 - lobsterman (current) use of insulin (4) Diabetic retinopathy: Status: Chronic Qualifiers: Diabetes mellitus macular edema: with macular edema Diabetes mellitus type: type 2 Diabetic retinopathy severity: with unspecified retinopathy severity Laterality: bilateral Qualified Code(s): E11.311 - Type 2 diabetes mellitus with unspecified diabetic retinopathy with macular edema (5) Hypothyroidism: Status: Chronic Qualifiers: Hypothyroidism type: acquired Qualified Code(s): E03.9 - Hypothyroidism, unspecified (6) Left knee DJD: Status: Chronic Qualifiers: Osteoarthritis type: primary Qualified Code(s): M17.12 - Unilateral primary osteoarthritis, left knee Reason for Visit 2 Reason for Visit: RT toe inj Brief History: Jazmine James is a 53 year old female who presented to the emergency room with chief complaint of worsening of right second toe. She has a history of diabetes mellitus type 2. She also has a history of diabetic foot ulcer involving the right great toe eventually with evidence of osteomyelitis. She was followed by Dr. Dubose, infectious disease, being treated with IV antibiotics. Mrs. James underwent amputation of the right hallux on September 03, 2023, with subsequent partial ray resection first ray of the right foot on December [address] Marley. At the time of 2nd surgery her right second toe did not have any visible wounds. MRI performed on 09/2023 did show some edema with enhancement at 2nd and 5th digit metatarsal heads. Most recent visit with Dr Marley was on February 09. At that visit x-rays showed evidence of osteomyelitis now involving the second digit of the right foot. She was given a prescription for Augmentin. She has had a couple of ED visits since then with continued worsening and received prescriptions for clinda and then ciprofloxacin as well. Over the last few days she has had increasing swelling to the right foot, increasing erythema encroaching up the right foot and a sensation of fullness or bursting within the second toe. Describes as discomfort . She does have peripheral neuropathy. The wounds have become progressively worse as well and most of the skin has come off of the second toe in the last 24 hours. This prompted her return visit to the ER today. She has not had any fever but she has felt significant fatigue and malaise. Repeat x-ray studies show progressive findings of osteomyelitis with airint he soft tissues . CRP, which had initially trended downward after initiation of antibiotic therapy, is again trending upward. Case was discussed with podiatry who recommended admission with initiation of IV antibiotics and planned amputation. She is tachycardic but not hypotensive. Lactic acid was checked and is at 1.5. She is being admitted to the hospitalist service. Hospital Course Hospital Course Patient was admitted to the hospital for evaluation and management of gangrene of right foot second digit. Podiatry was consulted. She was started on broad- spectrum IV antibiotics. During hospitalization cultures remain negative. She underwent right foot second digit amputation on 02/24. Cultures were sent from the OR. She was also found to have uncontrolled type 2 diabetes mellitus with A1c of more than 8 for which Lantus was added to her home dose of Humalog. Her hospitalization was otherwise unremarkable. She has been discharged luminary stable condition on oral Augmentin and Levaquin for 7 more days with advised to follow-up with podiatry team as an outpatient within next 1 week. Wound care is to be done as per podiatry team. Physical Exam 2 Narrative: General: No acute distress, AO x 3 Lungs: Normal vesicular breath sounds all over lung singh with occasional rhonchi Cardiac: S1-S2 regular no murmurs or gallops Abdomen: Soft nontender, no organomegaly. Nonfocal neurological examination Extremity: Pulses bilaterally palpable, slightly faint on right side Tip of right 2nd toe seen from dorsum if foot Right 2nd toes seen from midline with skin to left of iinfected toe the remnant of right great toe skin Right 2nd toe from dorsum of foot taken not too long after surgery 12/30 by patient Discharge Data Studies Completed and Pending Completed Studies During Hospitalization Category Date Time Status XR foot RT min 3V* 34200 Stat Exams 02/23/24 12:17 [place] [address] Routine Ultrasound 02/24/24 11:36 Completed Pending at discharge Category Date Time Status Abscess Culture Routine Lab 02/25/24 10:30 Received Abscess Culture and Gram Stain Routine Lab 02/25/24 10:30 Received Bacterial Antigen Stat Lab 02/24/24 10:38 Ordered Blood Culture Stat Lab 02/23/24 12:36 Results MAG [Magnesium] AM LABS Lab 02/26/24 04:00 Ordered MAG [Magnesium] AM LABS Lab 02/27/24 04:00 Ordered Vancomycin Trough Routine Lab 02/25/24 12:00 Ordered Pathology: Surgical [PTH] Routine Pth 02/25/24 10:47 Ordered Laboratory Results WBC 7.45 10^3/uL (3.29-11.43) 02/25/24 05:16 RBC 3.80 10^6/uL (3.85-5.65) L 02/25/24 05:16 Hgb 11.10 g/dL (11.27-16.99) L 02/25/24 05:16 Hct 33.6 % (36-47) L 02/25/24 05:16 MCV 88.4 fl (85-98) 02/25/24 05:16 MCH 29.2 pg (27-33) 02/25/24 05:16 MCHC 33.0 g/dL (30-55) 02/25/24 05:16 RDW 14.1 % (12.1-15.1) 02/25/24 05:16 Plt Count 240 10^3/cmm (157-399) 02/25/24 05:16 MPV 10.6 fL (7.4-10.4) H 02/25/24 05:16 Neut % (Auto) 71.3 % 02/25/24 05:16 Lymph % (Auto) 14.9 % 02/25/24 05:16 Clinch % (Auto) 8.9 % 02/25/24 05:16 Eos % (Auto) 4.0 % 02/25/24 05:16 Baso % (Auto) 0.5 % 02/25/24 05:16 Neut # (Auto) 5.31 10^3/uL (1.8-7.7) 02/25/24 05:16 Lymph # (Auto) 1.1 10^3/uL (0.8-4.8) 02/25/24 05:16 Clinch # (Auto) 0.7 10^3/uL (0.2-0.9) 02/25/24 05:16 Eos # (Auto) 0.3 10^3/uL (0.0-0.8) 02/25/24 05:16 Baso # (Auto) 0.0 10^3/uL (0.0-0.1) 02/25/24 05:16 Nucleated RBC % (auto) 0 % 02/25/24 05:16 Nucleated RBCs # 0.0 /100WBC 02/25/24 05:16 Sodium 138 mmol/L (136-145) 02/25/24 05:16 Potassium 4.1 mmol/L (3.5-5.1) 02/25/24 05:16 Chloride 107 mmol/L (98-107) 02/25/24 05:16 Carbon Dioxide 22 mmol/L (22-29) 02/25/24 05:16 Anion Gap 13.1 (5-19) 02/25/24 05:16 BUN 15 mg/dL (6-20) 02/25/24 05:16 Creatinine 0.7 mg/dL (0.5-0.9) 02/25/24 05:16 GFR Calculation 87.2 mL/min (90-130) L 02/25/24 05:16 Glucose 247 mg/dL (65-115) H 02/25/24 05:16 POC Glucose 225 mg/dL (70-110) H 02/25/24 11:17 Estimat Average Glucose 183 02/24/24 04:23 Hemoglobin A1c 8.0 % (4.0-6.0) H 02/24/24 04:23 Calculated Osmolality 295 mOsm/kg (285-295) 02/25/24 05:16 Lactic Acid 1.5 mmol/L (0.5-2.2) 02/23/24 12:33 Calcium 8.3 mg/dL (8.5-10.5) L 02/25/24 05:16 Phosphorus 3.0 mg/dL (2.5-4.5) 02/24/24 04:23 Magnesium 1.3 mg/dL (1.7-2.3) L 02/25/24 05:16 Iron 33 ug/dL (37-145) L 02/24/24 04:23 TIBC 181 mcg/dl 02/24/24 04:23 % Saturation 18.2 % (20-50) L 02/24/24 04:23 Unsat Iron Binding 148 ug/dL (112-347) 02/24/24 04:23 Total Bilirubin 0.2 mg/dL (0.15-1.2) 02/25/24 05:16 AST 22 U/L (0-32) 02/25/24 05:16 ALT 25 U/L (0-33) 02/25/24 05:16 Alkaline Phosphatase 90 U/L (35-105) 02/25/24 05:16 C-Reactive Protein 44.3 mg/L (0.0-4.9) H 02/23/24 12:33 Total Protein 6.3 g/dL (6.6-8.7) L 02/25/24 05:16 Albumin 3.4 g/dL (3.5-5.2) L 02/25/24 05:16 Globulin 2.9 g/dL (1.3-4.6) 02/25/24 05:16 Triglycerides 714 mg/dL (0-150) H 02/25/24 05:16 Cholesterol 173 mg/dL (0-200) 02/25/24 05:16 LDL Cholesterol Direct 51 mg/dL (0-100) 02/25/24 05:16 LDL Cholesterol, Calc Not Reportable 02/25/24 05:16 Total VLDL Cholesterol 143 mg/dL (0-30) H 02/25/24 05:16 HDL Cholesterol 29 mg/dL (60-100) L 02/25/24 05:16 Cholesterol/HDL Ratio 5.97 mg/dL (0.0-4.40) H 02/25/24 05:16 Vitamin B12 406 pg/mL (232-1245) 02/24/24 04:23 Folate 7.2 ng/mL (4.8-37.3) 02/25/24 05:16 Procalcitonin 0.09 ng/mL (0-0.5) 02/24/24 04:23 Vitals Last Vital Signs Temp 97.2 F L 02/25/24 10:46 Pulse 85 02/25/24 11:01 Resp 18 02/25/24 11:01 BP 120/70 02/25/24 11:01 Pulse Ox 98 02/25/24 11:01 O2 Del Method Room Air 02/25/24 11:01 Discharge Plan Discharge Patient Disposition: Home Condition: Stable Prescriptions: New insulin glargine [Lantus Solostar U-100 Insulin] 100 unit/mL (3 mL) insulin pen 10 unit SUBCUT QPM Qty: 15 0RF amoxicillin-pot clavulanate 875-125 mg tablet 1 tab PO Q12H Qty: 14 0RF levofloxacin 750 mg tablet 750 mg PO Q24H 7 Days Qty: 7 0RF Continued (DME) Hinged Knee Brace See Rx Instructions .Route .MEDSUPPLY Qty: 1 0RF Rx Instructions: As directed (DME) Diabetic shoes w/ 3 inserts See Rx Instructions .Route .MEDSUPPLY Qty: 1 0RF Rx Instructions: As directed by HOME toe filler to the right bupropion HCl 300 mg tablet extended release 24 hr 300 mg PO DAILY (DME) medial photogrammetry airplane pilot brace, left See Rx Instructions .Route .MEDSUPPLY Qty: 1 0RF Rx Instructions: As directed Durolane 60 mg/3 mL syringe 60 mg intra-articular ONCE Qty: 3 0RF insulin lispro 100 unit/mL solution 30 unit SUBCUT TID celecoxib 100 mg capsule 100 mg PO BID rosuvastatin 20 mg tablet 20 mg PO DAILY 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 Thyroid 60 mg tablet 60 mg PO DAILY ketorolac 0.5 % drops 1 drp ophthalmic (eye) TID prednisolone acetate 1 % drops,suspension 1 drp ophthalmic (eye) QID cyanocobalamin (vitamin B-12) 1,000 mcg/mL solution 1,000 mcg IM Q28D clobetasol 0.05 % solution 1 applic TOPICAL BID PRN (Reason: Skin Irritation) cholecalciferol (vitamin D3) 1,250 mcg (50,000 unit) capsule 1,250 mcg PO Q7D Rx Instructions: ON MONDAYS Discontinued clindamycin HCl 300 mg capsule 300 mg PO TID Qty: 30 0RF ciprofloxacin HCl [Cipro] 500 mg tablet 500 mg PO BID Qty: 14 0RF Discharge Orders: Discharge Order (Routine); Ordered 02/25/24 Ordered By: Adams Callejas Referrals: Almas Marley DPM [Physician] - 03/03/24 2:15 pm Gunjan Lo FNP [Primary Care Provider] - 03/05/24 10:00 am Discharge Diet: Cardiac and Diabetic Discharge Activity: Resume usual activity and Increase activity as tolerated Patient Instructions: Amoxicillin/Clavulanate Potassium (By mouth), Levofloxacin (By mouth), Insulin Glargine (By injection), Osteomyelitis (DC), Acute Wound Care (DC), Opioid Safety, Post Anesthesia Care Discharge Attestations 2 Time Spent in Discharge Care*: greater than 30 min Specific Discharge Activities: educating patient, educating and/or supporting family/caregiver, discussing with pcp/other providers, discussing with case fitter/social workers/dc planners, documenting/other paperwork and evaluating patient/reviewing data Status at Discharge: Cognitive status at discharge: cognitively intact , B ehavioral status at discharge: cooperative , Functional status at discharge: o ther , Overall status at discharge: patient is progressing back to baseline Quality Metrics Clinical Quality Measures [ No reported AMI, CVA or VTE this stay] Coding Level of Care Code 16645 Total time (in minutes) for Discharge: 60 Diagnoses Osteomyelitis of second toe of right foot M86.9 Diabetic ulcer of toe of right foot associated with type 2 diabetes mellitus, with necrosis of bone E11.621; L97.514 Diabetes mellitus type: type 2 Diabetic foot ulcer location: toe Non-pressure ulcer stage: with necrosis of bone Type 2 diabetes mellitus with hyperglycemia, with long-term current use of insulin E11.65; Z79.4 Diabetes mellitus complication status: with hyperglycemia Diabetes mellitus long term care administrator insulin use: with intermediate use Diabetic retinopathy of both eyes with macular edema associated with type 2 diabetes mellitus, unspecified retinopathy severity E11.311 Diabetes mellitus macular edema: with macular edema Diabetes mellitus type: type 2 Diabetic retinopathy severity: with unspecified retinopathy severity Laterality: bilateral Acquired hypothyroidism E03.9 Hypothyroidism type: acquired Primary osteoarthritis of left knee M17.12 Osteoarthritis type: primary
== END 2024-02-25 13:51 | disposition home or self-care (01) | DRG 617 ==
LOC: ER 14:55 → MEDSURG 15:31
PROVIDERS: Podiatrist Foot & Ankle Surgery; Admitting Provider Hospitalist; Emergency Provider Physician Assistant; PCP Nurse Practitioner; Visit Provider Student in an Organized Health Care Education/Training Program
PROC: 0Y6R0Z0 Detachment at Right 2nd Toe, Complete, Open Approach (ICD-10-PCS; principal; 2024-02-25 09:35)
DX: E11.69 Type 2 diabetes mellitus with other specified complication (principal); E11.52 Type 2 diabetes mellitus with diabetic peripheral angiopathy with gangrene; I96 Gangrene, not elsewhere classified; M86.9 Osteomyelitis, unspecified; E11.621 Type 2 diabetes mellitus with foot ulcer; L97.514 Non-pressure chronic ulcer of other part of right foot with necrosis of bone; E11.65 Type 2 diabetes mellitus with hyperglycemia; E11.311 Type 2 diabetes mellitus with unspecified diabetic retinopathy with macular edema; E11.42 Type 2 diabetes mellitus with diabetic polyneuropathy; E03.9 Hypothyroidism, unspecified; M17.12 Unilateral primary osteoarthritis, left knee; Z79.4 Long term (current) use of insulin
CPT/HCPCS: 36415; 36416; 73630; 80048; 80053; 80061; 82040; 82247; 82607; 82746; 82962; 83036; 83540; 83550; 83605; 83721; 83735; 84075; 84100; 84145; 84155; 84450; 84460; 85025; 86140; 87040; 87070; 87075; 87205; 88305; 88311; 93005; 93926; 96365; 96367; 96372; 96375; 99285; J1650; J1815; J2543; J3370; J3480; J7030; J7050

== ENCOUNTER → 2024-02-25 06:00 | Day surgery (SDC) | payer BC, MEDICAID, SELFPAY | LOC: OR 03-01 08:09 | PROVIDERS: PCP Nurse Practitioner; Visit Provider Podiatrist Foot & Ankle Surgery | DX: Z01.818 Encounter for other preprocedural examination (principal) | CPT/HCPCS: J2250; J2704; J3010 ==

== ENCOUNTER 2024-06-27 20:54 | Emergency (ER) | payer BC, MEDICAID, SELFPAY ==
[2024-06-27 21:07] VITALS: BP 161/83; PULSE 92; RESP 16; TEMP 36.7; O2SAT 97; BMI 42.0
[2024-06-27 21:12] LABS: Glucose Point of Care 384 mg/dL (70-110)
[2024-06-27 21:37] LABS: Basophils # 0.1 10^3/uL (0.0-0.1); Basophils % 0.6 %; Eosinophils # 0.3 10^3/uL (0.0-0.8); Eosinophils % 3.5 %; Hematocrit 39.1 % (36-47); Lymphocytes # 2.8 10^3/uL (0.8-4.8); Lymphocytes % 31.6 %; Mean Corpuscular Hemoglobin 29.4 pg (27-33); Mean Corpuscular Volume 89.1 fl (85-98); Mean Platelet Volume 10.6 fL (7.4-10.4); Monocytes # 0.7 10^3/uL (0.2-0.9); Monocytes % 7.4 %; Neutrophils # 5.03 10^3/uL (1.8-7.7); Neutrophils % 56.5 %; Nucleated Red Blood Cells % 0 %; Platelet Count 232 10^3/cmm (157-399); Red Blood Count 4.39 10^6/uL (3.85-5.65); Red Cell Distribution Width 13.2 % (12.1-15.1)
[2024-06-27 21:53] LABS: Alanine Aminotransferase 12 U/L (0-33); Albumin Level 3.8 g/dL (3.5-5.2); Alkaline Phosphatase 100 U/L (35-105); Anion Gap 18.3 (5-19); Aspartate Amino Transferase 13 U/L (0-32); Blood Urea Nitrogen 27 mg/dL (6-20); Calcium 9.2 mg/dL (8.5-10.5); Carbon Dioxide 24 mmol/L (22-29); Chloride 93 mmol/L (98-107); Creatinine Clr Calc Pharmacy 73.6164; Globulin 3.2 g/dL (1.3-4.6); Glomerular Filtration Rate 42.7 mL/min (90-130); Glucose 391 mg/dL (65-115); Ketone (Acetest) Serum Negative (Negative); Lipase 61 U/L (13-60); Osmolality Calculated 293 mOsm/kg (285-295); Potassium 4.3 mmol/L (3.5-5.1); Sodium 131 mmol/L (136-145); Total Bilirubin 0.3 mg/dL (0.15-1.2)
[2024-06-27 22:38] VITALS: BP 145/61; PULSE 90; RESP 16; O2SAT 94
[2024-06-27 22:39] LABS: Glucose Point of Care 362 mg/dL (70-110)
[2024-06-27 22:45] LABS: Bilirubin Urine Negative (Negative); Blood Urine Negative (Negative); Glucose Urine UA 3+ (Normal); Ketones Urine Trace (Negative); Leukocyte Esterase Urine Negative (Negative); Nitrate Urine Positive (Negative); Protein Urine 2+ (Negative); Specific Gravity, Urine 1.024 (1.005-1.030); Urine Appearance Clear (CLEAR); Urine Color Yellow (Yellow); Urobilinogen Urine 0.2 mg/dL (Negative); pH Urine 5.5 (5-7)
[2024-06-27] MEDS: insulin regular-human 100 units/1 mL 10 UNIT IVP (22:46)
[2024-06-27 22:47] LABS: Add Urine Microscopic? YES; Bacteria Urine 2+ /hpf; Hyaline Casts Urine 11.57 /lpf; RBC Urine 0-2 /hpf (0-2); Squamous Epithelial Cell Urine 0-5 /hpf (0-5); Universal Test for UA Present (0)
[2024-06-27] MEDS: sodium chloride 0.9% 1,000 ML 999 ML IV (22:52)
--- NOTE | 2024-06-27 22:59 | W.ED.RECABL ---
Documented by User: ROULA Lang 06/28/24 00:07 HPI - Recheck/Abnormal Lab/Rx General: Chief Complaint: Recheck/Abnormal Lab/Rx Stated Complaint: blood sugar high(400) Time Seen by Provider: 06/27/24 20:57 History of Present Illness: 53-year-old female comes in today for complaints of being without her insulin. Patient was having a change in her insulin but insurance has been slow about approving the new medication. Patient had ran out of her old prescription and has been without her insulin for the last 2 days. Patient was concerned due to her blood sugar being elevated tonight. Related Data Home Medications Medication Instructions Recorded Confirmed cholecalciferol (vitamin D3) 1,250 1,250 mcg PO Q7D 07/13/23 06/07/24 mcg (50,000 unit) capsule clobetasol 0.05 % scalp solution 1 applic topical BID PRN Skin 07/13/23 06/07/24 Irritation bupropion HCl 300 mg 24 hr tablet, 300 mg PO DAILY 11/04/23 06/07/24 extended release celecoxib 100 mg capsule 100 mg PO BID 02/23/24 06/07/24 cyanocobalamin (vitamin B-12) 1,000 mcg IM Q28D 02/23/24 06/07/24 1,000 mcg/mL injection solution insulin lispro 100 unit/mL 30 unit SUBCUT TID 02/23/24 06/07/24 subcutaneous solution ketorolac 0.5 % eye drops 1 drp ophthalmic (eye) TID 02/23/24 06/07/24 prednisolone acetate 1 % eye 1 drp ophthalmic (eye) QID 02/23/24 06/07/24 drops,suspension rosuvastatin 20 mg tablet 20 mg PO DAILY 02/23/24 06/07/24 thyroid (pork) 60 mg tablet (BUSINESS BANKING SALES ASSISTANT 60 mg PO DAILY 02/23/24 06/07/24 Thyroid) Previous Rx's Medication Instructions Recorded Hinged Knee Brace #1 ea 04/24/23 medial machine stoppage frequency checker brace, left #1 ea 11/04/23 Diabetic shoes w/ 3 inserts #1 ea 01/13/24 hyaluronate sodium, stabilized 60 60 mg (3 mL) intra-articular ONCE 01/29/24 mg/3 mL intra-articular syringe #3 mL (Durolane) amoxicillin 875 mg-potassium 1 tab PO Q12H #14 tabs 02/25/24 clavulanate 125 mg tablet insulin glargine 100 unit/mL (3 10 unit (0.1 mL) SUBCUT QPM #15 mL 02/25/24 mL) subcutaneous pen (Lantus Solostar U-100 Insulin) Allergies Allergy/AdvReac Type Severity Reaction Status Date / Time No Known Allergies Allergy Verified 06/27/24 21:12 Review of Systems General: Reports: 10 or more systems reviewed and unremarkable except in HPI and below PFSH ED PFSH: Medical History Hypothyroidism Diabetic retinopathy PIC line (peripherally inserted central catheter) removal (~10/2023) Abscess of tendon of foot (06/2023) Septic arthritis (07/2023) Left knee DJD Dehiscence of incision (07/2023) Osteomyelitis (07/2023) Type 2 diabetes mellitus Surgical History History of partial ray amputation of first toe of right foot (12/2023) Status post amputation of right great toe (08/2023) History of cholecystectomy History of appendectomy Family History Mother CAD (coronary artery disease) Cardiomyopathy Social History Smoking and tobacco/nicotine status: never used tobacco/nicotine Alcohol intake: never Substance/Drug Use: never Female Reproductive History: Para: 0 Physical Exam Const: COMMON NORMALS: alert HENMT: COMMON NORMALS: normocephalic HEAD & SCALP: normocephalic Neck/C-Spine: COMMON NORMALS: full ROM Resp: COMMON NORMALS: normal respiratory effort and clear to auscultation bilaterally AUSCULTATION: clear to auscultation bilaterally Cardio: COMMON NORMALS: regular rate RATE: regular rate Back/Pelvis: COMMON NORMALS: thoracic and lumbar spine normal to inspection Extremity: COMMON NORMALS: no pedal edema Neuro: SENSORIUM/ORIENTATION: Yes alert Skin: COMMON NORMALS: turgor normal GENERAL SKIN EXAM: turgor normal Course Vital Signs: Vital signs: Vital Signs Temperature 98.1 F 06/27/24 21:07 Pulse Rate 89 06/28/24 00:00 Respiratory Rate 16 06/28/24 00:00 Blood Pressure 165/81 06/28/24 00:00 Pulse Oximetry 97 06/28/24 00:00 Oxygen Delivery Me thod Room Air 06/28/24 00:00 MDM - Recheck/Abnormal Lab/Rx Medical Decision Making 53-year-old female comes in today for complaints of weakness. Patient appears nontoxic. Patient reports being without her insulin and was prompted to come to ER when she noticed that her blood sugars was greater than 400. Patient appears nontoxic. Patient reports no nausea and vomiting. Patient is type II diabetic. Differential diagnosis hyperglycemia, diabetic ketoacidosis, urinary tract infection, dehydration, hyponatremia. Patient's sodium slightly low at 131. Glucose was 391 on labs. Patient was given 10 units of insulin IV. Patient was given 1 L of IV fluids with improvement of blood glucose. Patient was discharged home with recommendations to follow-up with primary care regarding insulin. Lab Data 06/27/24 21:31 06/27/24 21: Laboratory Results WBC 8.90 10^3/uL (3.29-11.43) 06/27/24 21: RBC 4.39 10^6/uL (3.85-5.65) 06/27/24 21: Hgb 12.90 g/dL (11.27-16.99) 06/27/24 21: Hct 39.1 % (36-47) 06/27/24 21: MCV 89.1 fl (85-98) 06/27/24 21: MCH 29.4 pg (27-33) 06/27/24 21: MCHC 33.0 g/dL (30-55) 06/27/24 21: RDW 13.2 % (12.1-15.1) 06/27/24 21: Plt Count 232 10^3/cmm (157-399) 06/27/24 21: MPV 10.6 fL (7.4-10.4) H 06/27/24 21: Neut % (Auto) 56.5 % 06/27/24 21: Lymph % (Auto) 31.6 % 06/27/24 21: [place] % (Auto) 7.4 % 06/27/24 21: Eos % (Auto) 3.5 % 06/27/24 21: Baso % (Auto) 0.6 % 06/27/24 21: Neut # (Auto) 5.03 10^3/uL (1.8-7.7) 06/27/24 21: Lymph # (Auto) 2.8 10^3/uL (0.8-4.8) 06/27/24 21: [place] # (Auto) 0.7 10^3/uL (0.2-0.9) 06/27/24: Eos # (Auto) 0.3 10^3/uL (0.0-0.8) 06/27/24: Baso # (Auto) 0.1 10^3/uL (0.0-0.1) 06/27/24: Nucleated RBC % (auto) 0 % 06/27/24: Nucleated RBCs # 0.0 /100WBC 06/27/24 21: Sodium 131 mmol/L (136-145) L 06/27/24 21: Potassium 4.3 mmol/L (3.5-5.1) 06/27/24 21: Chloride 93 mmol/L (98-107) L 06/27/24 21: Carbon Dioxide 24 mmol/L (22-29) 06/27/24 21: Anion Gap 18.3 (5-19) 06/27/24: BUN 27 mg/dL (6-20) H 06/27/24 21: Creatinine 1.3 mg/dL (0.5-0.9) H 06/27/24 21: GFR Calculation 42.7 mL/min (90-130) L 06/27/24 21: Glucose 391 mg/dL (65-115) H 06/27/24 21: POC Glucose 250 mg/dL (70-110) H 06/27/24 23:38 Calculated Osmolality 293 mOsm/kg (285-295) 06/27/24 21: Calcium 9.2 mg/dL (8.5-10.5) 06/27/24 21: Total Bilirubin 0.3 mg/dL (0.15-1.2) 06/27/24 21: AST 13 U/L (0-32) 06/27/24 21: ALT 12 U/L (0-33) 06/27/24 21:31 Alkaline Phosphatase 100 U/L (35-105) 06/27/24 21:31 Total Protein 7.0 g/dL (6.6-8.7) 06/27/24 21: Albumin 3.8 g/dL (3.5-5.2) 06/27/24 21: Globulin 3.2 g/dL (1.3-4.6) 06/27/24 21: Lipase 61 U/L (13-60) H 06/27/24 21:31 Urine Color Yellow (Yellow) 06/27/24 22:37 Urine Appearance Clear (CLEAR) 06/27/24 22:37 Urine pH 5.5 (5-7) 06/27/24 22:37 Ur Specific [place] 1.024 (1.005-1.030) 06/27/24 22:37 Urine Protein 2+ (Negative) A 06/27/24 22:37 Urine Glucose (UA) 3+ (Normal) H 06/27/24 22:37 Urine Ketones Trace (Negative) 06/27/24 22:37 Urine Blood Negative (Negative) 06/27/24 22:37 Urine Nitrate Positive (Negative) A 06/27/24 22:37 Urine Bilirubin Negative (Negative) 06/27/24 22:37 Urine Urobilinogen 0.2 mg/dL (Negative) 06/27/24 22:37 Ur Leukocyte Esterase Negative (Negative) 06/27/24 22:37 Urine RBC 0-2 /hpf (0-2) 06/27/24 22:37 Urine WBC 11-20 /hpf (0-5) H 06/27/24 22:37 Ur Squamous Epith Cells 0-5 /hpf (0-5) 06/27/24 22:37 Amorphous Sediment Not Reportable 06/27/24 22:37 Urine Bacteria 2+ /hpf (NONE) H 06/27/24 22:37 Hyaline Casts 11.57 /lpf 06/27/24 22:37 Serum Ketones Negative (Negative) 06/27/24 21: No radiology studies performed this visit Discharge Plan Discharge Patient Disposition: Home Clinical Impression: Hyperglycemia due to type 2 diabetes mellitus Qualifiers: Diabetes mellitus architectural engineering teacher insulin use: with architectural engineering teacher use Qualified Code(s): E11.65 - Type 2 diabetes mellitus with hyperglycemia Condition: Stable Prescriptions: No Action (DME) Hinged Knee Brace See Rx Instructions .Route .MEDSUPPLY Qty: 1 0RF Rx Instructions: As directed (DME) Diabetic shoes w/ 3 inserts See Rx Instructions .Route .MEDSUPPLY Qty: 1 0RF Rx Instructions: As directed by HOME toe filler to the right bupropion HCl 300 mg tablet extended release 24 hr 300 mg PO DAILY (DME) medial machine stoppage frequency checker brace, left See Rx Instructions .Route .MEDSUPPLY Qty: 1 0RF Rx Instructions: As directed Durolane 60 mg/3 mL syringe 60 mg intra-articular ONCE Qty: 3 0RF insulin lispro 100 unit/mL solution 30 unit SUBCUT TID celecoxib 100 mg capsule 100 mg PO BID rosuvastatin 20 mg tablet 20 mg PO DAILY BUSINESS BANKING SALES ASSISTANT Thyroid 60 mg tablet 60 mg PO DAILY ketorolac 0.5 % drops 1 drp ophthalmic (eye) TID prednisolone acetate 1 % drops,suspension 1 drp ophthalmic (eye) QID cyanocobalamin (vitamin B-12) 1,000 mcg/mL solution 1,000 mcg IM Q28D insulin glargine [Lantus Solostar U-100 Insulin] 100 unit/mL (3 mL) insulin pen 10 unit SUBCUT QPM Qty: 15 0RF amoxicillin-pot clavulanate 875-125 mg tablet 1 tab PO Q12H Qty: 14 0RF clobetasol 0.05 % solution 1 applic TOPICAL BID PRN (Reason: Skin Irritation) cholecalciferol (vitamin D3) 1,250 mcg (50,000 unit) capsule 1,250 mcg PO Q7D Rx Instructions: ON MONDAYS Discharge Orders: Discharge ED (Routine); Ordered 06/28/24 Ordered By: Manoj Darby Referrals: Gunjan Lo FNP [Primary Care Provider] - Discharge Diet: Usual diet Discharge Activity: Increase activity as tolerated Patient Instructions: Hyperglycemia Activity Restrictions/Additional Instructions: Home and rest. Continue routine care. Contact primary care regarding insulin in the morning. Coding Level of Care Code ED [employer] Driver for Chg Fwd Documented by User: Juanrohit Lopez DO 06/28/24 00:10 HPI - Recheck/Abnormal Lab/Rx General: Chief Complaint: Recheck/Abnormal Lab/Rx Stated Complaint: blood sugar high(400) Time Seen by Provider: 06/27/24 20:57 Related Data Home Medications Medication Instructions Recorded Confirmed cholecalciferol (vitamin D3) 1,250 1,250 mcg PO Q7D 07/13/23 06/07/24 mcg (50,000 unit) capsule clobetasol 0.05 % scalp solution 1 applic topical BID PRN Skin 07/13/23 06/07/24 Irritation bupropion HCl 300 mg 24 hr tablet, 300 mg PO DAILY 11/04/23 06/07/24 extended release celecoxib 100 mg capsule 100 mg PO BID 02/23/24 06/07/24 cyanocobalamin (vitamin B-12) 1,000 mcg IM Q28D 02/23/24 06/07/24 1,000 mcg/mL injection solution insulin lispro 100 unit/mL 30 unit SUBCUT TID 02/23/24 06/07/24 subcutaneous solution ketorolac 0.5 % eye drops 1 drp ophthalmic (eye) TID 02/23/24 06/07/24 prednisolone acetate 1 % eye 1 drp ophthalmic (eye) QID 02/23/24 06/07/24 drops,suspension rosuvastatin 20 mg tablet 20 mg PO DAILY 02/23/24 06/07/24 thyroid (pork) 60 mg tablet (BUSINESS BANKING SALES ASSISTANT 60 mg PO DAILY 02/23/24 06/07/24 Thyroid) Previous Rx's Medication Instructions Recorded Hinged Knee Brace #1 ea 04/24/23 medial machine stoppage frequency checker brace, left #1 ea 11/04/23 Diabetic shoes w/ 3 inserts #1 ea 01/13/24 hyaluronate sodium, stabilized 60 60 mg (3 mL) intra-articular ONCE 01/29/24 mg/3 mL intra-articular syringe #3 mL (Durolane) amoxicillin 875 mg-potassium 1 tab PO Q12H #14 tabs 02/25/24 clavulanate 125 mg tablet insulin glargine 100 unit/mL (3 10 unit (0.1 mL) SUBCUT QPM #15 mL 02/25/24 mL) subcutaneous pen (Lantus Solostar U-100 Insulin) Allergies Allergy/AdvReac Type Severity Reaction Status Date / Time No Known Allergies Allergy Verified 06/27/24 21:12 PFSH ED PFSH: Medical History Hypothyroidism Diabetic retinopathy PIC line (peripherally inserted central catheter) removal (~10/2023) Abscess of tendon of foot (06/2023) Septic arthritis (07/2023) Left knee DJD Dehiscence of incision (07/2023) Osteomyelitis (07/2023) Type 2 diabetes mellitus Surgical History History of partial ray amputation of first toe of right foot (12/2023) Status post amputation of right great toe (08/2023) History of cholecystectomy History of appendectomy Family History Mother CAD (coronary artery disease) Cardiomyopathy Social History Smoking and tobacco/nicotine status: never used tobacco/nicotine Alcohol intake: never Substance/Drug Use: never Course Vital Signs: Vital signs: Vital Signs Temperature 98.1 F 06/27/24 21:07 Pulse Rate 89 06/28/24 00:00 Respiratory Rate 16 06/28/24 00:00 Blood Pressure 165/81 06/28/24 00:00 Pulse Oximetry 97 06/28/24 00:00 Oxygen Delivery Me thod Room Air 06/28/24 00:00 MDM - Recheck/Abnormal Lab/Rx Medical Decision Making 53-year-old female comes in today for complaints of weakness. Patient appears nontoxic. Patient reports being without her insulin and was prompted to come to ER when she noticed that her blood sugars was greater than 400. Patient appears nontoxic. Patient reports no nausea and vomiting. Patient is type II diabetic. Differential diagnosis hyperglycemia, diabetic ketoacidosis, urinary tract infection, dehydration, hyponatremia. Patient's sodium slightly low at 131. Glucose was 391 on labs. Patient was given 10 units of insulin IV. Patient was given 1 L of IV fluids with improvement of blood glucose. Patient was discharged home with recommendations to follow-up with primary care regarding insulin. This patient was originally seen by ROULA Clemons.? I agree with his history, evaluation, and treatment. Lab Data 06/27/24 21:31 06/27/24 21: Laboratory Results WBC 8.90 10^3/uL (3.29-11.43) 06/27/24 21: RBC 4.39 10^6/uL (3.85-5.65) 06/27/24 21: Hgb 12.90 g/dL (11.27-16.99) 06/27/24 21: Hct 39.1 % (36-47) 06/27/24 21: MCV 89.1 fl (85-98) 06/27/24 21: MCH 29.4 pg (27-33) 06/27/24 21: MCHC 33.0 g/dL (30-55) 06/27/24 21: RDW 13.2 % (12.1-15.1) 06/27/24 21: Plt Count 232 10^3/cmm (157-399) 06/27/24 21: MPV 10.6 fL (7.4-10.4) H 06/27/24 21: Neut % (Auto) 56.5 % 06/27/24 21: Lymph % (Auto) 31.6 % 06/27/24 21: [place] % (Auto) 7.4 % 06/27/24 21: Eos % (Auto) 3.5 % 06/27/24 21: Baso % (Auto) 0.6 % 06/27/24 21: Neut # (Auto) 5.03 10^3/uL (1.8-7.7) 06/27/24 21: Lymph # (Auto) 2.8 10^3/uL (0.8-4.8) 06/27/24 21: [place] # (Auto) 0.7 10^3/uL (0.2-0.9) 06/27/24 21:31 Eos # (Auto) 0.3 10^3/uL (0.0-0.8) 06/27/24 21:31 Baso # (Auto) 0.1 10^3/uL (0.0-0.1) 06/27/24 21: Nucleated RBC % (auto) 0 % 06/27/24 21: Nucleated RBCs # 0.0 /100WBC 06/27/24 21: Sodium 131 mmol/L (136-145) L 06/27/24 21: Potassium 4.3 mmol/L (3.5-5.1) 06/27/24 21: Chloride 93 mmol/L (98-107) L 06/27/24 21: Carbon Dioxide 24 mmol/L (22-29) 06/27/24 21: Anion Gap 18.3 (5-19) 06/27/24 21: BUN 27 mg/dL (6-20) H 06/27/24 21: Creatinine 1.3 mg/dL (0.5-0.9) H 06/27/24 21: GFR Calculation 42.7 mL/min (90-130) L 06/27/24 21: Glucose 391 mg/dL (65-115) H 06/27/24 21: POC Glucose 250 mg/dL (70-110) H 06/27/24 23:38 Calculated Osmolality 293 mOsm/kg (285-295) 06/27/24: Calcium 9.2 mg/dL (8.5-10.5) 06/27/24 21: Total Bilirubin 0.3 mg/dL (0.15-1.2) 06/27/24 21: AST 13 U/L (0-32) 06/27/24 21: ALT 12 U/L (0-33) 06/27/24 21: Alkaline Phosphatase 100 U/L (35-105) 06/27/24 21: Total Protein 7.0 g/dL (6.6-8.7) 06/27/24 21: Albumin 3.8 g/dL (3.5-5.2) 06/27/24: Globulin 3.2 g/dL (1.3-4.6) 06/27/24 21:31 Lipase 61 U/L (13-60) H 06/27/24 21:31 Urine Color Yellow (Yellow) 06/27/24 22:37 Urine Appearance Clear (CLEAR) 06/27/24 22:37 Urine pH 5.5 (5-7) 06/27/24 22:37 Ur Specific [place] 1.024 (1.005-1.030) 06/27/24 22:37 Urine Protein 2+ (Negative) A 06/27/24 22:37 Urine Glucose (UA) 3+ (Normal) H 06/27/24 22:37 Urine Ketones Trace (Negative) 06/27/24 22:37 Urine Blood Negative (Negative) 06/27/24 22:37 Urine Nitrate Positive (Negative) A 06/27/24 22: Urine Bilirubin Negative (Negative) 06/27/24 22:37 Urine Urobilinogen 0.2 mg/dL (Negative) 06/27/24 22:37 Ur Leukocyte Esterase Negative (Negative) 06/27/24 22:37 Urine RBC 0-2 /hpf (0-2) 06/27/24 22:37 Urine WBC 11-20 /hpf (0-5) H 06/27/24 22:37 Ur Squamous Epith Cells 0-5 /hpf (0-5) 06/27/24 22:37 Amorphous Sediment Not Reportable 06/27/24 22:37 Urine Bacteria 2+ /hpf (NONE) H 06/27/24 22:37 Hyaline Casts 11.57 /lpf 06/27/24 22:37 Serum Ketones Negative (Negative) 06/27/24 21:31 Discharge Plan Discharge Patient Disposition: Home Clinical Impression: Hyperglycemia due to type 2 diabetes mellitus Qualifiers: Diabetes mellitus chcf insulin use: with chcf use Qualified Code(s): E11.65 - Type 2 diabetes mellitus with hyperglycemia Condition: Stable Prescriptions: No Action (DME) Hinged Knee Brace See Rx Instructions .Route .MEDSUPPLY Qty: 1 0RF Rx Instructions: As directed (DME) Diabetic shoes w/ 3 inserts See Rx Instructions .Route .MEDSUPPLY Qty: 1 0RF Rx Instructions: As directed by HOME toe filler to the right bupropion HCl 300 mg tablet extended release 24 hr 300 mg PO DAILY (DME) medial machine stoppage frequency checker brace, left See Rx Instructions .Route .MEDSUPPLY Qty: 1 0RF Rx Instructions: As directed Durolane 60 mg/3 mL syringe 60 mg intra-articular ONCE Qty: 3 0RF insulin lispro 100 unit/mL solution 30 unit SUBCUT TID celecoxib 100 mg capsule 100 mg PO BID rosuvastatin 20 mg tablet 20 mg PO DAILY BUSINESS BANKING SALES ASSISTANT Thyroid 60 mg tablet 60 mg PO DAILY ketorolac 0.5 % drops 1 drp ophthalmic (eye) TID prednisolone acetate 1 % drops,suspension 1 drp ophthalmic (eye) QID cyanocobalamin (vitamin B-12) 1,000 mcg/mL solution 1,000 mcg IM Q28D insulin glargine [Lantus Solostar U-100 Insulin] 100 unit/mL (3 mL) insulin pen 10 unit SUBCUT QPM Qty: 15 0RF amoxicillin-pot clavulanate 875-125 mg tablet 1 tab PO Q12H Qty: 14 0RF clobetasol 0.05 % solution 1 applic TOPICAL BID PRN (Reason: Skin Irritation) cholecalciferol (vitamin D3) 1,250 mcg (50,000 unit) capsule 1,250 mcg PO Q7D Rx Instructions: ON MONDAYS Discharge Orders: Discharge ED (Routine); Ordered 06/28/24 Ordered By: Manoj Darby Referrals: Gunjan Lo FNP [Primary Care Provider] - Discharge Diet: Usual diet Discharge Activity: Increase activity as tolerated Patient Instructions: Hyperglycemia Activity Restrictions/Additional Instructions: Home and rest. Continue routine care. Contact primary care regarding insulin in the morning. Coding Level of Care Code ED [employer] Driver for Ellyn Levi
[2024-06-27 23:36] LABS: Add Urine Culture? Yes
[2024-06-27 23:42] LABS: Glucose Point of Care 250 mg/dL (70-110)
[2024-06-28] VITALS: BP 165/81; PULSE 89; RESP 16; O2SAT 97
[2024-06-28 00:18] VITALS: BP 160/84; PULSE 86; RESP 14; O2SAT 97
== END 2024-06-28 00:17 | disposition home or self-care (01) ==
PROVIDERS: Emergency Provider Nurse Practitioner Family; PCP Nurse Practitioner
DX: E11.65 Type 2 diabetes mellitus with hyperglycemia (principal); Z79.4 Long term (current) use of insulin; E11.319 Type 2 diabetes mellitus with unspecified diabetic retinopathy without macular edema
CPT/HCPCS: 36415; 36416; 80053; 81001; 82009; 82962; 83690; 85025; 87077; 87086; 87186; 96374; 99284; J1815; J7030

== ENCOUNTER → 2024-09-08 10:56 | Outpatient (BNVA) | payer BC, MEDICAID, SELFPAY | PROVIDERS: PCP Nurse Practitioner; Visit Provider Podiatrist Foot & Ankle Surgery | DX: M79.671 Pain in right foot (principal); E11.65 Type 2 diabetes mellitus with hyperglycemia; Z79.4 Long term (current) use of insulin; G62.9 Polyneuropathy, unspecified; E11.621 Type 2 diabetes mellitus with foot ulcer; L97.522 Non-pressure chronic ulcer of other part of left foot with fat layer exposed; M14.60 Charcot's joint, unspecified site | CPT/HCPCS: 73630 ==

== ENCOUNTER 2025-01-05 09:27 | Inpatient (IN) | payer SELFPAY ==
[2025-01-05] VITALS (12 sets, daily range): BP systolic 126–169; BP diastolic 64–86; PULSE 91–107; RESP 16–20; TEMP 36.7–37.9; O2SAT 93–97; BMI 41.5
--- NOTE | 2025-01-05 10:14 | XR_ITS ---
WS: [id number] Left foot, AP and lateral views, 01/05/2025 Clinical Data: pain, infection Comparison: None. Findings: No fractures or dislocations are seen. No bone destruction or erosion is noted. There is osteoarthritis of the tarsal bones. There is a plantar spur. There are vascular calcifications. XR/XR foot LT 2V [id number] Impression: Tarsal osteoarthritis.
--- NOTE | 2025-01-05 10:15 | ECG_ITS ---
[facility] Date: 2025-01-05 Pat Name: Jazmine James Department: Room: Gender: Female Water Resource Engineer: : 1970 Requested By: Sy Yeung Order Number: [id number] Reading MD: Measurements Intervals [place] Rate: 99 P: -8 MI: 142 QRS: -30 QRSD: 120 T: -30 QT: 348 QTc: 447 Interpretive Statements SINUS RHYTHM BORDERLINE LEFT AXIS DEVIATION [QRS AXIS < -20] RIGHT BUNDLE BRANCH BLOCK [120+ ms QRS DURATION, UPRIGHT V1, 40+ ms S IN I/aVL/V4/V5/V6] WARNING: DATA QUALITY MAY AFFECT INTERPRETATION [email or web address]
--- NOTE | 2025-01-05 10:27 | W.ED.EXTPRO ---
HPI - Extremity Problem General: Chief complaint: Extremity Problem,Nontraumatic Stated complaint: nuasea, weakness, SANTAMARIA, L foot 2nd toe open wound Time Seen by Provider: 01/05/25 10:18 History of Present Illness: Chief complaint is infected left second toe, generalized malaise, fatigue, headache, not feeling well. Related Data Home Medications ?Medication ?Instructions ?Recorded ?Confirmed cholecalciferol (vitamin D3) 1,250 1,250 mcg PO Q7D 07/13/23 01/05/25 mcg (50,000 unit) capsule clobetasol 0.05 % scalp solution 1 applic topical BID PRN Skin 07/13/23 01/05/25 Irritation bupropion HCl 300 mg 24 hr tablet, 300 mg PO QAM 11/04/23 01/05/25 extended release cyanocobalamin (vitamin B-12) 1,000 mcg IM Q28D 02/23/24 01/05/25 1,000 mcg/mL injection solution rosuvastatin 20 mg tablet 20 mg PO DAILY 02/23/24 01/05/25 insulin glulisine U-100 100 35 unit SUBCUT TID 01/05/25 01/05/25 unit/mL subcutaneous pen (Apidra SoloStar U-100 Insulin) magnesium oxide 400 mg (241.3 mg 400 mg PO DAILY 01/05/25 01/05/25 magnesium) tablet thyroid (pork) 90 mg tablet (SET UP PERSON 90 mg PO DAILY 01/05/25 01/05/25 Thyroid) Previous Rx's ?Medication ?Instructions ?Recorded Hinged Knee Brace #1 ea 04/24/23 medial bell cleaner brace, left #1 ea 11/04/23 Diabetic shoes w/ 3 inserts #1 ea 01/13/24 [place] boot #1 ea 09/08/24 Diabetic Shoes 3 x insoles #1 ea 09/08/24 Allergies Allergy/AdvReac Type Severity Reaction Status Date / Time No Known Allergies Allergy Verified 09/08/24 10:13 [facility] PFSH: Medical History Osteomyelitis (07/2023) Hypothyroidism Diabetic retinopathy PIC line (peripherally inserted central catheter) removal (~10/2023) Abscess of tendon of foot (06/2023) Septic arthritis (07/2023) Left knee DJD Dehiscence of incision (07/2023) Type 2 diabetes mellitus Surgical History History of partial ray amputation of first toe of right foot (12/2023) Status post amputation of right great toe (08/2023) History of cholecystectomy History of appendectomy Family History Mother CAD (coronary artery disease) Cardiomyopathy Social History Smoking and tobacco/nicotine status: unknown if used tobacco/nicotine Alcohol intake: never Substance/Drug Use: never Female Reproductive History: Para: 0 Physical Exam Narrative: EXAM NARRATIVE: Patient is alert and oriented. She appears to not be feeling well in mild distress. No signs of trauma to her head trunk or extremities. Heart regular rhythm lung sounds are clear abdomen soft nontender. Her neck is supple. Moist mucous membranes. Normal conjunctiva. Pupils equal reactive to light. Full range ocular motion. No facial droop. Speech is clear. No drift in her arms or legs. No ataxia. Extremities are warm appear well-perfused. No rash on the skin in exposed areas except for her left foot. She has strong dorsalis pedis pulses in both her feet. On her left foot her second toe is wrapped and a Band-Aid is dripping with pus with the ulceration at the tip of the toe and the entire toe is blanched and white with sloughing skin. There is erythema over the base of the toe and onto the foot with tenderness. Course Vital Signs: Vital signs: Vital Signs Temperature 98.2 F 01/05/25 20:00 Pulse Rate 100 01/05/25 20:00 Respiratory Rate 16 01/05/25 20:43 Blood Pressure 126/72 01/05/25 20:00 Pulse Oximetry 95 01/05/25 20:00 Oxygen Delivery Me thod Room Air 01/05/25 20:00 MDM - Extremity (Nontraumatic) Medical Decision Making Patient with diabetes who states her blood sugars have been well-controlled who presents saying she has no fever no cough runny nose sore throat chest pain abdominal pain shortness of breath however she states that she has some generalized malaise, a dull headache. She denies any head trauma or injury. No other rash. Her neck is supple and no meningeal signs. She has no motor deficits on exam. She is lost other toes in her feet and she states she thinks her left second toe is infected. The toe is obviously infected and likely has a component of trench foot from being wrapped and also is dripping and pus and has cellulitis moving proximally. The skin on the toe is loose and sloughing off. Patient clearly has toe infection likely osteomyelitis and likely will lose the toe. Additionally she has cellulitis moving proximally which is likely source of her symptoms. Will swab for COVID influenza RSV and I ordered CBC CMP blood cultures urinalysis. She denies history of MRSA. She denies any possibility of . I ordered vancomycin and Zosyn for her cellulitis and infected toe. I would 1 L normal saline IV fluid bolus. Plan to admit for IV antibiotics treatment of cellulitis and diabetic foot ulcer and likely amputation of that toe for osteomyelitis. I did order a x-ray of the foot. Patient agrees with plan after informed discussion. Patient is afebrile and I do not think she is septic. Patient x-ray negative for the process per radiologist. White count is normal. Sed rate is significantly elevated. Lactic and creatinine are not elevated. EKG shows a sinus rhythm with a rate of [address] segment changes and right bundle branch block to my interpretation. CRP is significant elevated. I have paged Dr. Marley for consultation and discussed with the hospitalist who will admit and continue patient care. Lab Data 01/05/25 10:42 01/05/25 10:42 Radiology Impressions Foot X-Ray 01/05/25 10:14 Impression: Tarsal osteoarthritis. Ankle Brachial Index 01/05/25 17:01 IMPRESSION: 1. Borderline decreased ankle-brachial index in the right lower extremity foot may reflect mild peripheral arterial disease. 2. Mildly decreased ankle-brachial index in the left lower extremity compatible with [id number] peripheral arterial disease. Laboratory Results WBC 9.63 10^3/uL (3.29-11.43) 01/05/25 10:42 RBC 3.94 10^6/uL (3.85-5.65) 01/05/25 10:42 Hgb 12.00 g/dL (11.27-16.99) 01/05/25 10:42 Hct 35.6 % (36-47) L 01/05/25 10:42 MCV 90.4 fl (85-98) 01/05/25 10:42 MCH 30.5 pg (27-33) 01/05/25 10:42 MCHC 33.7 g/dL (30-55) 01/05/25 10:42 RDW 13.2 % (12.1-15.1) 01/05/25 10:42 Plt Count 218 10^3/cmm (157-399) 01/05/25 10:42 MPV 10.4 fL (7.4-10.4) 01/05/25 10:42 Neut % (Auto) 78.6 % 01/05/25 10:42 Lymph % (Auto) 12.3 % 01/05/25 10:42 [place] % (Auto) 7.8 % 01/05/25 10:42 Eos % (Auto) 0.3 % 01/05/25 10:42 Baso % (Auto) 0.6 % 01/05/25 10:42 Neut # (Auto) 7.57 10^3/uL (1.8-7.7) 01/05/25 10:42 Lymph # (Auto) 1.2 10^3/uL (0.8-4.8) 01/05/25 10:42 [place] # (Auto) 0.8 10^3/uL (0.2-0.9) 01/05/25 10:42 Eos # (Auto) 0.0 10^3/uL (0.0-0.8) 01/05/25 10:42 Baso # (Auto) 0.1 10^3/uL (0.0-0.1) 01/05/25 10:42 Nucleated RBC % (auto) 0 % 01/05/25 10:42 Nucleated RBCs # 0.0 /100WBC 01/05/25 10:42 ESR 62 mm/hr (0-15) H 01/05/25 10:42 Sodium 133 mmol/L (136-145) L 01/05/25 10:42 Potassium 4.1 mmol/L (3.5-5.1) 01/05/25 10:42 Chloride 100 mmol/L (98-107) 01/05/25 10:42 Carbon Dioxide 21 mmol/L (22-29) L 01/05/25 10:42 Anion Gap 16.1 (5-19) 01/05/25 10:42 BUN 16 mg/dL (6-20) 01/05/25 10:42 Creatinine 0.8 mg/dL (0.5-0.9) 01/05/25 10:42 GFR Calculation 74.5 mL/min (90-130) L 01/05/25 10:42 Glucose 251 mg/dL (65-115) H 01/05/25 10:42 Calculated Osmolality 286 mOsm/kg (285-295) 01/05/25 10:42 Lactic Acid 1.2 mmol/L (0.5-2.2) 01/05/25 10:42 Calcium 9.1 mg/dL (8.5-10.5) 01/05/25 10:42 Total Bilirubin 0.7 mg/dL (0.15-1.2) 01/05/25 10:42 AST 10 U/L (0-32) 01/05/25 10:42 ALT 13 U/L (0-33) 01/05/25 10:42 Alkaline Phosphatase 94 U/L (35-105) 01/05/25 10:42 C-Reactive Protein 128.9 mg/L (0.0-4.9) H 01/05/25 10:42 Total Protein 7.4 g/dL (6.6-8.7) 01/05/25 10:42 Albumin 3.8 g/dL (3.5-5.2) 01/05/25 10:42 Globulin 3.6 g/dL (1.3-4.6) 01/05/25 10:42 Influenza A (PCR) Negative (Negative) 01/05/25 10:22 Influenza Type B (PCR) Negative (Negative) 01/05/25 10:22 RSV (PCR) Negative (Negative) 01/05/25 10:22 SARS-CoV-2 (PCR) Negative (Negative) 01/05/25 10:22 All radiology interpretation(s) finalized by discharge Discharge Plan Discharge Patient Disposition: Admitted As Inpatient Admit Provider: Ino Bonilla Clinical Impression: Diabetic ulcer of left foot, Cellulitis of second toe of left foot Condition: Stable Coding Level of Care Code ED Pusher Runner for Ellyn Levi
[2025-01-05 10:50] LABS: Hematocrit 35.6 % (36-47); Hemoglobin 12.00 g/dL (11.27-16.99); Mean Corpuscular HGB Conc 33.7 g/dL (30-55); Mean Corpuscular Hemoglobin 30.5 pg (27-33); Mean Corpuscular Volume 90.4 fl (85-98); Nucleated Red Blood Cells % 0 %; Platelet Count 218 10^3/cmm (157-399); Red Blood Count 3.94 10^6/uL (3.85-5.65); White Blood Count 9.63 10^3/uL (3.29-11.43)
[2025-01-05 11:06] LABS: Lactic Sepsis W/Reflex 1.2 mmol/L (0.5-2.2)
[2025-01-05 11:07] LABS: Alanine Aminotransferase 13 U/L (0-33); Albumin Level 3.8 g/dL (3.5-5.2); Alkaline Phosphatase 94 U/L (35-105); Anion Gap 16.1 (5-19); Aspartate Amino Transferase 10 U/L (0-32); Blood Urea Nitrogen 16 mg/dL (6-20); Calcium 9.1 mg/dL (8.5-10.5); Carbon Dioxide 21 mmol/L (22-29); Chloride 100 mmol/L (98-107); Creatinine Clr Calc Pharmacy 117.5528; Globulin 3.6 g/dL (1.3-4.6); Glucose 251 mg/dL (65-115); Osmolality Calculated 286 mOsm/kg (285-295); Potassium 4.1 mmol/L (3.5-5.1); Sodium 133 mmol/L (136-145); Total Protein 7.4 g/dL (6.6-8.7)
[2025-01-05] MEDS: piperacillin-tazobactam 4.5 GM in sodium chloride 0.9% (plus) 50 ML IV (11:12)
[2025-01-05 11:13] LABS: Respiratory Syncytial Virus Ce NEGATIVE (Negative); SARS-CoV-2 PCR NEGATIVE (Negative)
--- NOTE | 2025-01-05 12:30 | PM.CONSULT ---
Providers/Reason For Consult Consulting Physician/Specialty*: Dr. Almas Marley, D.P.M./podiatry Reason for Consult*: Left foot second digit gangrene Primary Care Provider: ROULA Lincoln History of Present Illness History of Present Illness Jazmine James is a 54 year old female who presents to the emergency department with feelings of general malaise, infection of left foot second toe. Patient states that this has been ongoing for the past few days. Had a callus opened up into a wound. They dressed it with Betadine and overnight it developed into ischemic appearing left second toe. Podiatry was consulted to evaluate and provide further treatment recommendations Review of Systems General: Reports: 10 or more systems reviewed and unremarkable except in HPI and below Const: Denies: fever(s), chills, body aches or change in appetite Eyes: Denies: change in vision or blurry vision Card: Denies: chest pain, palpitations or irregular heart rhythm Resp: Denies: dyspnea GI: Denies: abdominal pain, nausea, vomiting or diarrhea Musc: Reports: joint stiffness Skin/Breast: Reports: non-healing lesions and lesions Neuro: Reports: numbness in extremities Medications/Allergies Home Medications ?Medication ?Instructions ?Recorded ?Confirmed ?Last Taken ?Type Hinged Knee Brace #1 ea 04/24/23 01/05/25 Unknown Rx cholecalciferol (vitamin D3) 1,250 1,250 mcg PO Q7D 07/13/23 01/05/25 01/03/25 History mcg (50,000 unit) capsule clobetasol 0.05 % scalp solution 1 applic topical BID PRN Skin 07/13/23 01/05/25 Unknown History Irritation bupropion HCl 300 mg 24 hr tablet, 300 mg PO QAM 11/04/23 01/05/25 01/04/25 History extended release medial call center supervisor brace, left #1 ea 11/04/23 01/05/25 Unknown Rx Diabetic shoes w/ 3 inserts #1 ea 01/13/24 01/05/25 Unknown Rx cyanocobalamin (vitamin B-12) 1,000 mcg IM Q28D 02/23/24 01/05/25 12/27/24 History 1,000 mcg/mL injection solution rosuvastatin 20 mg tablet 20 mg PO DAILY 02/23/24 01/05/25 01/04/25 History [place] boot #1 ea 09/08/24 01/05/25 Unknown Rx Diabetic Shoes 3 x insoles #1 ea 09/08/24 01/05/25 Unknown Rx insulin glulisine U-100 100 35 unit SUBCUT TID 01/05/25 01/05/25 01/04/25 History unit/mL subcutaneous pen (Apidra SoloStar U-100 Insulin) magnesium oxide 400 mg (241.3 mg 400 mg PO DAILY 01/05/25 01/05/25 01/04/25 History magnesium) tablet thyroid (pork) 90 mg tablet (LABORATORY ADMINISTRATIVE DIRECTOR 90 mg PO DAILY 01/05/25 01/05/25 01/04/25 History Thyroid) Allergies Allergy/AdvReac Type Severity Reaction Status Date / Time No Known Allergies Allergy Verified 09/08/24 10:13 PFSH Acute PFSH: Medical History (Updated 01/05/25 @ 12:33 by Almas Marley DPM) Osteomyelitis (07/2023) Hypothyroidism Diabetic retinopathy PIC line (peripherally inserted central catheter) removal (~10/2023) Abscess of tendon of foot (06/2023) Septic arthritis (07/2023) Left knee DJD Dehiscence of incision (07/2023) Type 2 diabetes mellitus Surgical History History of partial ray amputation of first toe of right foot (12/2023) Status post amputation of right great toe (08/2023) History of cholecystectomy History of appendectomy Family History Mother CAD (coronary artery disease) Cardiomyopathy Social History Smoking and tobacco/nicotine status: unknown if used tobacco/nicotine Alcohol intake: never Substance/Drug Use: never Female Reproductive History: Para: 0 Vitals/I&O/Wt Last Vital Signs Temp 98.1 F 01/05/25 10:10 Pulse 97 01/05/25 11:30 Resp 18 01/05/25 10:10 BP 165/86 01/05/25 11:30 Pulse Ox 96 01/05/25 11:30 O2 Del Method Room Air 01/05/25 11:30 01/04/25 01/05/25 01/05/25 22:59 06:59 14:59 Intake Total 50 / 50 Balance 50 / 50 Weight last 48 hrs Weight 290 lb Physical Exam Narrative: BELOW IS A FOCUSED LOWER EXTREMITY EXAM GENERAL: A&O x 3 VASCULAR: DP/PT pulses palpable 2/4 with CFT intact, <3seconds to distal digits DERMATOLOGICAL: Full-thickness ulceration left foot second toe distally. Ischemic changes to level of proximal interphalangeal joint with surrounding cellulitis extending proximally to the metatarsal heads. MUSCULOSKELETAL: Hammertoe contracture left second toe NEUROLOGICAL: Neurological sensation to the affected foot and ankle is present through L4-S1 dermatomes with no hyper/hypoesthesias, negative Tinel or Valleix's sign IMAGIN view x-rays left foot taken in the emergency department dependently interpreted by me. These show radiolucency and soft tissue that correlates clinically with soft tissue defect from wound. No curtis erosive changes indicative of osteomyelitis. However will need further imaging with MRI to confirm Data 01/05/25 10:42 01/05/25 10:42 Micro: Microbiology 01/05/25 10:55 Blood Culture - Preliminary Blood SPECIMEN COLLECTED 01/05/25 10:42 Blood Culture - Preliminary Blood SPECIMEN COLLECTED A&P Assessment and plan 1. Diabetic ulcer of left foot: 2. Diabetic wet gangrene of the foot: 3. Osteomyelitis: 4. Cellulitis of second toe of left foot: Plan: Left foot second digit ulcer Infected, causing ischemic changes to second digit Recommend MRI left forefoot to evaluate extent of likely osteomyelitis ESR 62 CRP 128 Patient will need to undergo surgical intervention of left foot second digit in coming days. Awaiting MRI results before definitive surgical plan is made Okay for diet from podiatry standpoint for now Cellulitis Continue IV antibiotics broad-spectrum until cultures result Monitor Wet gangrene Plan for surgical intervention in coming days pending MRI results Discharge plan To be determined PDMP PDMP Reviewed: Not Reviewed Coding Level of Care Code Acute Code for Chg Fwd Diagnoses Diabetic ulcer of left foot E11.621; L97.529 Diabetic wet gangrene of the foot E11.52 Osteomyelitis M86.9 Cellulitis of second toe of left foot L03.032
--- NOTE | 2025-01-05 13:10 | PM.HP ---
Providers/Chief Complaint Primary Care Provider: ROULA Lincoln Chief Complaint: nuasea, weakness, SANTAMARIA, L foot 2nd toe open wound History of Present Illness Jazmine James is a 54 year old woman with type 2 diabetes mellitus (DM2) who presents with a rapidly worsening ulcer of the left second toe. The lesion began as a callus late last week and progressed to an open wound with discoloration overnight. She reports nausea, chills, mild headache, and a new sore throat but denies fever, vomiting, diarrhea, rash, dysuria, melena, or hematochezia. Home temperature readings have been normal. COVID-19, influenza, and respiratory viral panel swabs performed in the emergency department were negative. Review of systems otherwise negative. She is currently receiving intravenous (IV) piperacillin?tazobactam (Zosyn) and vancomycin started in the emergency department. She receives insulin Apidra 35 units before each meal and takes no long-acting or oral diabetic agents. She denies tobacco, alcohol, or illicit drug use and lives with her . Review of Systems Const: Reports: chills and malaise; Denies: fever(s) or body aches ENMT: Denies: throat pain Card: Denies: chest pain, edema, pre-syncope or dyspnea on exertion Resp: Denies: dyspnea, productive cough, change in phlegm color or hemoptysis GI: Reports: nausea; Denies: abdominal pain, vomiting, diarrhea, constipation, hematochezia or melena : Denies: flank pain, urinary frequency or hematuria Musc: Denies: back pain, joint swelling or joint redness Skin/Breast: Denies: rash or new lesions Neuro: Denies: headache(s) or confusion Medications/Allergies Home Medications ?Medication ?Instructions ?Recorded ?Confirmed ?Last Taken ?Type Hinged Knee Brace #1 ea 04/24/23 01/05/25 Unknown Rx cholecalciferol (vitamin D3) 1,250 1,250 mcg PO Q7D 07/13/23 01/05/25 01/03/25 History mcg (50,000 unit) capsule clobetasol 0.05 % scalp solution 1 applic topical BID PRN Skin 07/13/23 01/05/25 Unknown History Irritation bupropion HCl 300 mg 24 hr tablet, 300 mg PO QAM 06/04/1801/05/25 01/04/25 History extended release medial prescription eyeglass maker brace, left #1 ea 11/04/23 01/05/25 Unknown Rx Diabetic shoes w/ 3 inserts #1 ea 01/13/24 01/05/25 Unknown Rx cyanocobalamin (vitamin B-12) 1,000 mcg IM Q28D 02/23/24 01/05/25 12/27/24 History 1,000 mcg/mL injection solution rosuvastatin 20 mg tablet 20 mg PO DAILY 02/23/24 01/05/25 01/04/25 History [place] boot #1 ea 09/08/24 01/05/25 Unknown Rx Diabetic Shoes 3 x insoles #1 ea 09/08/24 01/05/25 Unknown Rx insulin glulisine U-100 100 35 unit SUBCUT TID 01/05/25 01/05/25 01/04/25 History unit/mL subcutaneous pen (Apidra SoloStar U-100 Insulin) magnesium oxide 400 mg (241.3 mg 400 mg PO DAILY 01/05/25 01/05/25 01/04/25 History magnesium) tablet thyroid (pork) 90 mg tablet (DIRECT CARE SPECIALIST 90 mg PO DAILY 01/05/25 01/05/25 01/04/25 History Thyroid) Allergies Allergy/AdvReac Type Severity Reaction Status Date / Time No Known Allergies Allergy Verified 09/08/24 10:13 PFSH Acute PFSH: Medical History Osteomyelitis (07/2023) Hypothyroidism Diabetic retinopathy PIC line (peripherally inserted central catheter) removal (~10/2023) Abscess of tendon of foot (06/2023) Septic arthritis (07/2023) Left knee DJD Dehiscence of incision (07/2023) Type 2 diabetes mellitus Surgical History History of partial ray amputation of first toe of right foot (12/2023) Status post amputation of right great toe (08/2023) History of cholecystectomy History of appendectomy Family History Mother CAD (coronary artery disease) Cardiomyopathy Social History Smoking and tobacco/nicotine status: unknown if used tobacco/nicotine Alcohol intake: never Substance/Drug Use: never Female Reproductive History: Para: 0 Vitals/I&O/Wt Last Vital Signs Temp 98.1 F 01/05/25 10:10 Pulse 93 01/05/25 13:00 Resp 18 01/05/25 10:10 BP 151/66 01/05/25 13:00 Pulse Ox 95 01/05/25 13:00 O2 Del Method Room Air 01/05/25 13:00 01/04/25 01/05/25 01/05/25 22:59 06:59 14:59 Intake Total 1350 / 1350 Balance 1350 / 1350 Weight last 48 hrs Weight 131.542 kg Physical Exam Const: COMMON NORMALS: patient oriented x3 and alert GENERAL APPEARANCE: cooperative ORIENTATION/CONSCIOUSNESS: Yes awake HENMT: COMMON NORMALS: oropharynx normal Neck/C-Spine: COMMON NORMALS: no JVD Resp: COMMON NORMALS: normal respiratory effort and clear to auscultation bilaterally AUSCULTATION: clear to auscultation bilaterally Cardio: COMMON NORMALS: no JVD, regular rhythm, S1 normal heart sound present, S2 normal heart sound present and No murmurs present (Cardio) RHYTHM: regular rhythm HEART SOUNDS: S1 normal heart sound present and S2 normal heart sound present GI: COMMON NORMALS: Normal to inspection, nondistended, normoactive bowel sounds present, Soft to palpation and non-tender PALPATION: Yes Soft to palpation Extremity: COMMON NORMALS: no joint enlargement and no pedal edema OTHER: Second left toe with significant maceration, ulceration on plantar surface currently without active drainage. Mild proximal erythema Neuro: COMMON NORMALS: patient oriented x3 and moves all extremities SENSORIUM/ORIENTATION: Yes alert Skin: COMMON NORMALS: no rashes or lesions noted GENERAL SKIN EXAM: no rashes or lesions noted Data 01/05/25 10:42 01/05/25 10:42 Micro: Microbiology 01/05/25 10:55 Blood Culture - Preliminary Blood SPECIMEN COLLECTED 01/05/25 10:42 Blood Culture - Preliminary Blood SPECIMEN COLLECTED A&P Assessment and plan 1. Diabetic ulcer of left foot: The foot infection with left second toe ulcer with concern for deep infection/osteomyelitis : Acute, rapidly progressing ulcer of left second toe with drainage and concerning appearance in the setting of DM2; differential includes cellulitis, deep soft-tissue infection, and osteomyelitis. Elevated C-reactive protein (128.9 mg/L) and erythrocyte sedimentation rate (62 mm/hr) support active inflammation; normal white blood cell count and afebrile status noted. MRI recommended by podiatry to delineate infection depth and guide need for debridement versus possible amputation. Current IV antibiotics (piperacillin?tazobactam plus vancomycin) target broad Gram-positive, Gram-negative, and anaerobic coverage; concern for ischemic injury acknowledged.Reviewed vitals, CBC, CMP, CRP, ESR, UA, influenza, RSV, COVID swab, foot x-ray, EKG, ED provider note, discussed with ED provider, podiatry note. Reviewed arterial duplex from 2023 with noted normal resting KRISS and right lower extremity. Will obtain left side. - Obtain MRI of the left foot to assess depth of infection and possible osteomyelitis. - Continue IV piperacillin?tazobactam and vancomycin as initiated in the emergency department. Monitor kidney function while on nephrotoxic antibiotics. Risk of C. difficile, SJS. - Continue IV fluids. - Monitor vitals and watch for signs of ischemia. - Consult/coordinate with podiatry for potential surgical intervention (debridement vs. amputation). 2. Diabetic wet gangrene of the foot: 3. Cellulitis of second toe of left foot: Plan: Type 2 diabetes mellitus : Long-standing DM2 complicated by diabetic retinopathy and recurrent infections; hyperglycemia predisposes to poor wound healing and infection severity. - Monitor and aim to optimize blood glucose during hospitalization. - Continue SA insulin 35 units before meals. Nausea : Intermittent nausea without vomiting or diarrhea; no therapy requested. Possible hypertension : Blood pressure reading 151/66 mmHg; patient denies known hypertension but reports prior physician concern; etiology may include pain, infection, or underlying hypertension. - Reassess blood pressure during hospitalization to determine persistence. PDMP PDMP Reviewed: Not Reviewed Attestations Medical Necessity Statement*: Place in observation for assessment management of diabetic foot infection, wet gangrene, cellulitis in a lady with underlying diabetes and systemic symptoms as above. and High MDM includes amount and/or complexity of data reviewed/ordered [ previous or external records, resulted lab(s)/test(s), ordered lab(s)/test(s) and other healthcare professional discussion] and described risk of complication, morbidity or mortality of management as documented Diagnoses Diabetic ulcer of left foot E11.621; L97.529 Diabetic wet gangrene of the foot E11.52 Cellulitis of second toe of left foot L03.032
[2025-01-05 14:23] LABS: Glucose Urine UA Negative (Normal); Nitrate Urine Negative (Negative); Specific Gravity, Urine 1.017 (1.005-1.030)
[2025-01-05 15:11] LABS: UA Manual Slide Review YES; UA Slide Review UA Slide Review Perf
[2025-01-05 16:47] LABS: Rapid Strep A Test Negative (Negative)
--- NOTE | 2025-01-05 17:01 | USR_ITS ---
PROCEDURE INFORMATION: Exam: US Bilateral Noninvasive Physiologic Study of the Lower Extremity Arteries, Limited Exam date and time: 01/05/2025 5:12 PM Age: 54 years old Clinical indication: Other: Gangrene; Additional info: Lle TECHNIQUE: Imaging protocol: Bilateral Limited bilateral noninvasive physiologic studies of lower extremity arteries. Waveforms were obtained and evaluated. Images were documented and archived. Exam is limited. COMPARISON: CT foot RT wo con* [id number] 07/13/2023 1:38 PM FINDINGS: Right Ankle-Brachial Index: 0.90 in the posterior tibial artery and 0.90 in the dorsalis pedis artery. Left Ankle-Brachial Index: 0.81 in the posterior tibial artery and 0.73 in the dorsalis pedis artery. US/CV ankle brachial index [id number] IMPRESSION: 1. Borderline decreased ankle-brachial index in the right lower extremity foot may reflect mild peripheral arterial disease. 2. Mildly decreased ankle-brachial index in the left lower extremity compatible with [id number] peripheral arterial disease.
--- NOTE | 2025-01-05 17:09 | PC.NURSE ---
This nurse assumed care of pt at this time.
[2025-01-05] MEDS: piperacillin-tazobactam 3.375 GM in sodium chloride 0.9% (plus) 50 ML IV (19:47)
[2025-01-05] MEDS: MELATONIN 3 MG TABLET PO (20:43)
[2025-01-05] MEDS: oxyCODONE 5 mg IR Tab/Cap PO (20:43)
--- NOTE | 2025-01-05 21:34 | PHA.VACGOAL ---
Vancomycin Goal - Goal Vancomycin Goal:: 10-15 mg/L Vancomycin Indication:: SSTI - Therapy Current therapy:: Pip/Tazo Day of therpy:: Day [1]of [] . Actual body weight (kg): 131.542 kg - Data Labs: WBC 9.63 10^3/uL (3.29-11.43) 01/05/25 10:42 RBC 3.94 10^6/uL (3.85-5.65) 01/05/25 10:42 Hgb 12.00 g/dL (11.27-16.99) 01/05/25 10:42 Hct 35.6 % (36-47) L 01/05/25 10:42 MCV 90.4 fl (85-98) 01/05/25 10:42 MCH 30.5 pg (27-33) 01/05/25 10:42 MCHC 33.7 g/dL (30-55) 01/05/25 10:42 RDW 13.2 % (12.1-15.1) 01/05/25 10:42 Sodium 133 mmol/L (136-145) L 01/05/25 10:42 Potassium 4.1 mmol/L (3.5-5.1) 01/05/25 10:42 Chloride 100 mmol/L (98-107) 01/05/25 10:42 Carbon Dioxide 21 mmol/L (22-29) L 01/05/25 10:42 Anion Gap 16.1 (5-19) 01/05/25 10:42 BUN 16 mg/dL (6-20) 01/05/25 10:42 Creatinine 0.8 mg/dL (0.5-0.9) 01/05/25 10:42 GFR Calculation 74.5 mL/min (90-130) L 01/05/25 10:42 Treatment plan:: new consult Regimen:: New start vancomycin for Cellulitis of second toe of left foot/gangrene of the foot. Received 1500 mg loading dose in the ER. Started on maintenance dose of 2000 mg q12h for goal trough of 10-15 mg/L.
[2025-01-06] VITALS (8 sets, daily range): BP systolic 102–146; BP diastolic 62–73; PULSE 76–92; RESP 15–17; TEMP 36.3–37.1; O2SAT 95–98
[2025-01-06] MEDS: piperacillin-tazobactam 3.375 GM in sodium chloride 0.9% (plus) 50 ML IV ×3 (04:41→23:07)
[2025-01-06 04:57] LABS: Hematocrit 35.1 % (36-47); Hemoglobin 11.40 g/dL (11.27-16.99); Mean Corpuscular HGB Conc 32.5 g/dL (30-55); Mean Corpuscular Hemoglobin 30.2 pg (27-33); Mean Corpuscular Volume 92.9 fl (85-98); Nucleated Red Blood Cells % 0 %; Platelet Count 220 10^3/cmm (157-399); Red Blood Count 3.78 10^6/uL (3.85-5.65); White Blood Count 8.08 10^3/uL (3.29-11.43)
[2025-01-06 05:26] LABS: Anion Gap 15.9 (5-19); Blood Urea Nitrogen 15 mg/dL (6-20); Calcium 8.7 mg/dL (8.5-10.5); Carbon Dioxide 21 mmol/L (22-29); Chloride 103 mmol/L (98-107); Creatinine Clr Calc Pharmacy 117.5528; Glucose 181 mg/dL (65-115); Osmolality Calculated 287 mOsm/kg (285-295); Potassium 3.9 mmol/L (3.5-5.1); Sodium 136 mmol/L (136-145)
[2025-01-06] MEDS: oxyCODONE 5 mg IR Tab/Cap PO ×2 (09:29→19:28)
--- NOTE | 2025-01-06 10:03 | PC.CHAP ---
Pastoral Care Encounter/Spiritual Assessment Type of Contact [] Declined labeling specialist visit [] Patient/Family/Request visit [] Outpatient visit [] Follow-up visit [] Physician referral [] Code/Alert [x] Routine visit [] Staff referral [] Actively dying [] Patient sleeping [x] Family support [] [] Out of room [] Palliative care [] [] Receiving care in room [] Pre-surgical visit [] Trauma [] Long length of stay [] ICU visit [] Other: Relational/Emotional Strength [x] Patient feels connected with others/family/visitors/staff [] Distress [] Loneliness/isolation [] Abandonment Spirituality of Patient [x] Person of Rosa [] Attends Sabianism of their Rosa [x] Believes in Prayer [] Reads Bible or Zoroastrian materials [] There are Spiritual issues to be addressed Return Agent Interventions [x] Prayer [x] Active listening [x] Non-anxious presence [x] Spiritual/emotional support [] Crisis/trauma care [] Spiritual counseling [] Bereavement support [] Provided bereavement packet [] Provided Bible/devotional materials [] Provided toy/stuffed animal, coloring book to patient or family member [] Provided Communion [] Anointing/[place] [] Salvation [x] Completed spiritual assessment [] Other: Impact on Illness or Injury [] Angry [] Fearful [] Anxious [] Often cries [] Exhaustion [] Unable to work [] Unable to attend orthodox [] Unable to walk/stand [] Unable to read [] Unable to drive [] Unable to eat/drink [] Unable to sleep [] Unable to be with family [] Patient intubated [] Other: Summary Time spent with patient 5 min
[2025-01-06] MEDS: gadobenate dimeglumine 20 mL vial IV (11:12)
--- NOTE | 2025-01-06 12:58 | P.PN_ITS ---
Subjective 2 Subjective: Patient seen at bedside this morning. Resting comfortably. No overnight events. States that she feels better today Vitals/I&O/Wt Last Vital Signs Temp 97.4 F L 01/06/25 12:00 Pulse 92 01/06/25 12:00 Resp 16 01/06/25 12:00 BP 146/73 01/06/25 12:00 Pulse Ox 95 01/06/25 12:00 O2 Del Method Room Air 01/06/25 12:00 01/05/25 01/06/25 01/06/25 22:59 06:59 14:59 Intake Total 480 / 1830 1795 / 3625 530 / 530 Output Total 1000 / 1000 Balance 480 / 1830 1795 / 3625 -470 / -470 Weight last 48 hrs Weight 299 lb 1 oz Weight 290 lb Physical Exam 2 Narrative: BELOW IS A FOCUSED LOWER EXTREMITY EXAM GENERAL: A&O x 3 VASCULAR: DP/PT pulses palpable 2/4 with CFT intact, <3seconds to distal digits DERMATOLOGICAL: Full-thickness ulceration left foot second toe distally. Ischemic changes to level of proximal interphalangeal joint with surrounding cellulitis extending proximally to the metatarsal heads. MUSCULOSKELETAL: Hammertoe contracture left second toe NEUROLOGICAL: Neurological sensation to the affected foot and ankle is present through L4-S1 dermatomes with no hyper/hypoesthesias, negative Tinel or Valleix's sign IMAGIN view x-rays left foot taken in the emergency department dependently interpreted by me. These show radiolucency and soft tissue that correlates clinically with soft tissue defect from wound. No curtis erosive changes indicative of osteomyelitis. However will need further imaging with MRI to confirm Data 01/07/25 04:20 01/07/25 04:20 Micro: Microbiology 01/05/25 16:10 Group A Streptococcus Rapid Screen - Preliminary Throat 01/05/25 10:22 Wound Culture - Preliminary Toe - #2 01/05/25 10:55 Blood Culture - Preliminary Blood NEGATIVE TO DATE 01/05/25 10:42 Blood Culture - Preliminary Blood NEGATIVE TO DATE A&P Assessment and plan 1. Diabetic ulcer of left foot: 2. Diabetic wet gangrene of the foot: 3. Osteomyelitis: 4. Cellulitis of second toe of left foot: Plan: Left foot second digit ulcer * Infected, causing ischemic changes to second digit * MRI shows marrow edema distal left second digit consistent with osteomyelitis * ESR 62 * CRP 128 * Plan for left foot second digit amputation tomorrow 01/07/2025. N.p.o. at midnight. Details of surgery discussed with patient. All patient questions answered to satisfaction. I discussed with patient that the likelihood of long-term IV antibiotics is low. However, this will be determined by intraoperative findings. * N.p.o. at midnight for procedure 01/07/2025 Cellulitis * Continue IV antibiotics broad-spectrum until cultures result * Monitor Wet gangrene * Surgery tomorrow 01/07/2025 Discharge plan * To be determined PDMP PDMP Reviewed: Not Reviewed Attestations 2 Medical Necessity Statement*: Surgery tomorrow 01/07/2025. Coding Level of Care Code Acute Code for [facility] Diagnoses Diabetic ulcer of left foot E11.621; L97.529 Diabetic wet gangrene of the foot E11.52 Osteomyelitis M86.9 Cellulitis of second toe of left foot L03.032
--- NOTE | 2025-01-06 13:08 | P.PN_ITS ---
Subjective 2 Subjective: She is feeling little bit better today. No vomiting. Ran a fever overnight 100.3 Fahrenheit. Vitals/I&O/Wt Last Vital Signs Temp 97.4 F L 01/06/25 12:00 Pulse 92 01/06/25 12:00 Resp 16 01/06/25 12:00 BP 146/73 01/06/25 12:00 Pulse Ox 95 01/06/25 12:00 O2 Del Method Room Air 01/06/25 12:00 01/05/25 01/06/25 01/06/25 22:59 06:59 14:59 Intake Total 480 / 1830 1795 / 3625 530 / 530 Output Total 1000 / 1000 Balance 480 / 1830 1795 / 3625 -470 / -470 Weight last 48 hrs Weight 135.652 kg Weight 131.542 kg Physical Exam 2 Const: COMMON NORMALS: patient oriented x3 and alert GENERAL APPEARANCE: c ooperative ORIENTATION/CONSCIOUSNESS: Yes awake HENMT: COMMON NORMALS: oropharynx normal Neck/C-Spine: COMMON NORMALS: no JVD Resp: COMMON NORMALS: normal respiratory effort and clear to auscultation bilaterally AUSCULTATION: clear to auscultation bilaterally Cardio: COMMON NORMALS: no JVD, regular rhythm, S1 normal heart sound present, S2 normal heart sound present and No murmurs present (Cardio) RHYTHM: regular rhythm HEART SOUNDS: S1 normal heart sound present and S2 normal heart sound present GI: COMMON NORMALS: Normal to inspection, nondistended, normoactive bowel sounds present, Soft to palpation and non-tender PALPATION: Yes Soft to palpation Extremity: COMMON NORMALS: no joint enlargement and no pedal edema OTHER: Second left toe with significant maceration, ulceration on plantar surface currently without active drainage. Erythema resolving. Mild swelling. Neuro: COMMON NORMALS: patient oriented x3 and moves all extremities S ENSORIUM/ORIENTATION: Yes alert Skin: COMMON NORMALS: no rashes or lesions noted GENERAL SKIN EXAM: no rashes or lesions noted Data 01/06/25 04:25 01/06/25 04:25 Micro: Microbiology 01/05/25 16:10 Group A Streptococcus Rapid Screen - Preliminary Throat 01/05/25 10:22 Wound Culture - Preliminary Toe - #2 01/05/25 10:55 Blood Culture - Preliminary Blood NEGATIVE TO DATE 01/05/25 10:42 Blood Culture - Preliminary Blood NEGATIVE TO DATE A&P Assessment and plan 1. Diabetic ulcer of left foot: Febrile overnight and apparently Fahrenheit. Reviewed CBC, without leukocytosis today. Pending MRI assessment. Reviewed chemistry. Discussed with nursing, telehealth case manager. MRI returning with marrow edema of distal left second toe. Discussed with podiatry. Planning for amputation distal toe tomorrow. Reviewed duplex ultrasound, discussed with her possibly mild peripheral arterial disease. Will hold further IV fluids. Continue empiric antibiotics. Will need to follow-up postop cultures. Repeat blood counts, chemistry. Tylenol, oxycodone as needed for pain control. Discussed with nursing, telehealth case manager. 2. Diabetic wet gangrene of the foot: 3. Cellulitis of second toe of left foot: Plan: Malaise, fever: Reviewed rapid strep, negative Type 2 diabetes mellitus : Reviewed POC glucose. Continue insulin. Consistent carb diet. N.p.o. after midnight. Long-standing DM2 complicated by diabetic retinopathy and recurrent infections; hyperglycemia predisposes to poor wound healing and infection severity. - Monitor and aim to optimize blood glucose during hospitalization. - Continue SA insulin 35 units before meals. Nausea : Intermittent nausea without vomiting or diarrhea; no therapy requested. Possible hypertension : Blood pressure reading 151/66 mmHg; patient denies known hypertension but reports prior physician concern; etiology may include pain, infection, or underlying hypertension. - Reassess blood pressure during hospitalization to determine persistence. PDMP PDMP Reviewed: Not Reviewed Attestations 2 Medical Necessity Statement*: Continue admission for assessment and management of diabetic foot infection, osteomyelitis requiring distal second toe amputation. and High MDM includes amount and/or complexity of data reviewed/ordered [ previous or external records, resulted lab(s)/test(s), ordered lab(s)/test(s) and other healthcare professional discussion] as documented Diagnoses Diabetic ulcer of left foot E11.621; L97.529 Diabetic wet gangrene of the foot E11.52 Cellulitis of second toe of left foot L03.032
--- NOTE | 2025-01-06 13:27 | MR_ITS ---
WS: [id number] MRI LEFT FOOT WITH AND WITHOUT CONTRAST. COMPARISON: Radiograph 01/05/2025 Multiplanar, multisequence imaging is performed with and without contrast. MultiHance 20 mL. History: LEFT foot infections, second toe. Mild soft tissue edema surrounding the foot. Loss of the normal cortical surface involving the terminal tuft of the second toe. There is edema. Enhancement is very difficult to determine as only a small portion of the terminal tuft is involved. There is cellulitis surrounding the toe with soft tissue edema and thickening. No obvious enhancement. Remaining bones of the foot are normal and intact. MR/MR foot LT wo/w con [id number] IMPRESSION: 1. Edema in the terminal tuft of the second toe and associated cellulitis. No definite enhancement identified. This is a difficult area of to evaluate by MRI due to its small size. There is at least marrow edema present along with cellu litis involving the distal second toe. 2. Mild diffuse edema throughout the foot.
[2025-01-06] MEDS: MELATONIN 3 MG TABLET PO (20:38)
[2025-01-07] VITALS (10 sets, daily range): BP systolic 115–156; BP diastolic 65–83; PULSE 82–91; RESP 12–18; TEMP 36.1–36.8; O2SAT 95–98
[2025-01-07 04:49] LABS: Hematocrit 29.9 % (36-47); Hemoglobin 9.80 g/dL (11.27-16.99); Mean Corpuscular HGB Conc 32.8 g/dL (30-55); Mean Corpuscular Hemoglobin 30.0 pg (27-33); Mean Corpuscular Volume 91.4 fl (85-98); Nucleated Red Blood Cells % 0 %; Platelet Count 201 10^3/cmm (157-399); Red Blood Count 3.27 10^6/uL (3.85-5.65); White Blood Count 5.63 10^3/uL (3.29-11.43)
[2025-01-07 05:15] LABS: Anion Gap 17.0 (5-19); Blood Urea Nitrogen 17 mg/dL (6-20); Calcium 8.5 mg/dL (8.5-10.5); Carbon Dioxide 20 mmol/L (22-29); Chloride 103 mmol/L (98-107); Creatinine Clr Calc Pharmacy 136.7027; Glucose 217 mg/dL (65-115); Osmolality Calculated 290 mOsm/kg (285-295); Potassium 4.0 mmol/L (3.5-5.1); Sodium 136 mmol/L (136-145)
[2025-01-07] MEDS: piperacillin-tazobactam 3.375 GM in sodium chloride 0.9% (plus) 50 ML IV (09:17)
--- NOTE | 2025-01-07 10:34 | PC.NURSE ---
Patient down for surgery at this time.
--- NOTE | 2025-01-07 10:43 | P.HPUD_ITS ---
Surgery/Procedure H&P Update DATE OF PROCEDURE: January 07, 2025 DATE H&P PERFORMED: 01/05/25 H&P UPDATE INFORMATION: I have reviewed H&P completed within last 30 days, I have examined patient prior to procedure, No changes to prior documentation, H&P is in [facility] EMR on date indicated and Risks and benefits of the procedure reviewed PLANNED PROCEDURE: Operation Date: 01/07/25 11:20 Proposed Procedures p Amputation Toe/s Toe Amputation(Left) - Almas Marley DPM
--- NOTE | 2025-01-07 10:46 | ANES.PREANE2 ---
Pre-Anesthetic Assessment Height/Weight: Height 1.78 m Weight 135.397 kg Temp Pulse Resp BP Pulse Ox O2 Del Method 97.5 F L 84 18 135/83 97 Room Air 01/07/25 10:42 01/07/25 10:42 01/07/25 10:42 01/07/25 10:42 01/07/25 10:42 01/07/25 10:42 Operation Date: 01/07/25 11:20 Proposed Procedures p Amputation Toe/s Toe Amputation(Left) - Almas Marley DPM Familial anesthetic complications: None Was Beta Luciano taken within 24 hours: N/A Was Clonidine taken within 24 hours: N/A Last intake: Intake Last Liquid Date 01/06/25 Last Liquid Time 23:30 Last Solid Date 01/06/25 Last Solid Time 18:00 Social No alcohol and No tobacco Exam alert, oriented x 3, clear to auscultation bilaterally and regular rate & rhythm Airway Mallampati: Class IV Dentition: other (missing) Metabolic Diabetes Mellitus, Hyperlipidemia, Morbid Obesity and Thyroid Disease Anesthetic Plan ASA status: 3 Anesthesia: MAC Risk of > 500 ml blood loss (7ml/kg in children): No Medications/Allergies Home Medications ?Medication ?Instructions ?Recorded ?Confirmed ?Last Taken ?Type Hinged Knee Brace #1 ea 04/24/23 01/05/25 Unknown Rx cholecalciferol (vitamin D3) 1,250 1,250 mcg PO Q7D 07/13/23 01/05/25 01/03/25 History mcg (50,000 unit) capsule clobetasol 0.05 % scalp solution 1 applic topical BID PRN Skin 07/13/23 01/05/25 Unknown History Irritation bupropion HCl 300 mg 24 hr tablet, 300 mg PO QAM 11/04/23 01/05/25 01/04/25 History extended release medial finisher hot strip brace, left #1 ea 11/04/23 01/05/25 Unknown Rx Diabetic shoes w/ 3 inserts #1 ea 01/13/24 01/05/25 Unknown Rx cyanocobalamin (vitamin B-12) 1,000 mcg IM Q28D 02/23/24 01/05/25 12/27/24 History 1,000 mcg/mL injection solution rosuvastatin 20 mg tablet 20 mg PO DAILY 02/23/24 01/05/25 01/04/25 History [place] boot #1 ea 09/08/24 01/05/25 Unknown Rx Diabetic Shoes 3 x insoles #1 ea 09/08/24 01/05/25 Unknown Rx insulin glulisine U-100 100 35 unit SUBCUT TID 01/05/25 01/05/25 01/04/25 History unit/mL subcutaneous pen (Apidra SoloStar U-100 Insulin) magnesium oxide 400 mg (241.3 mg 400 mg PO DAILY 01/05/25 01/05/25 01/04/25 History magnesium) tablet thyroid (pork) 90 mg tablet ([employer]IAN 90 mg PO DAILY 01/05/25 01/05/25 01/04/25 History Thyroid) Allergies Allergy/AdvReac Type Severity Reaction Status Date / Time No Known Allergies Allergy Verified 09/08/24 10:13 Current Medications Generic Name Dose Route Start Last Admin Trade Name Freq PRN Reason Stop Dose Admin Acetaminophen 650 mg 01/05/25 17:22 01/05/25 18:00 Acetaminophen 325 Mg Tablet PO 650 mg On Hold: 01/07/25 10:36 Q4H PRN Administration Comment: Order held by Process MILD PAIN OR INCREASE TEMP Transfer Atorvastatin Calcium 80 mg 01/06/25 09:00 01/07/25 09:17 Atorvastatin 40 Mg Tablet PO 80 mg On Hold: 01/07/25 10:36 DAILY SHARRI Administration Comment: Order held by Process Transfer Bupropion HCl 300 mg 01/06/25 06:00 01/07/25 05:30 Bupropion Xl (24 Hr) 300 Mg Tablet PO 300 mg On Hold: 01/07/25 10:36 QAM SHARRI Administration Comment: Order held by Process Transfer Enoxaparin Sodium 40 mg 01/05/25 19:00 01/06/25 18:14 Enoxaparin 40 Mg/0.4 Ml Syringe SUBCUT 40 mg On Hold: 01/07/25 10:36 Q24H SHARRI Administration Comment: Order held by Process Transfer Piperacillin Sod/Tazobactam 50 mls @ 12.5 mls/hr 01/05/25 18:00 01/07/25 09:17 Sod 3.375 gm/ Sodium Chloride IV 12.5 mls/hr On Hold: 01/07/25 10:36 Q8H SHARRI Administration Comment: Order held by Process Protocol Transfer Vancomycin HCl 2,000 mg in 400 mls @ 200 mls/hr 01/05/25 22:00 01/06/25 23:07 Vancocin IV Infused On Hold: 01/07/25 10:36 Q12H SHARRI Infusion Comment: Order held by Process Transfer Insulin Human Lispro 35 unit 01/05/25 17:01 01/06/25 21:07 Insulin Lispro 100 Unit/1 Ml SUBCUT Not Given On Hold: 01/07/25 10:36 TIDAC SHARRI Comment: Order held by Process Transfer Insulin Human Lispro 0 unit 01/05/25 18:00 01/07/25 09:22 Insulin Lispro 100 Unit/1 Ml SUBCUT 2 unit On Hold: 01/07/25 10:36 WM&BEDTIME SHARRI Administration Comment: Order held by Process Protocol Transfer Magnesium Oxide 400 mg 01/06/25 09:00 01/07/25 09:16 Magnesium Oxide 400 Mg Tablet PO 400 mg On Hold: 01/07/25 10:36 DAILY SHARRI Administration Comment: Order held by Process Transfer Melatonin 3 mg 01/05/25 21:00 01/06/25 20:38 Melatonin 3 Mg Tablet PO 3 mg On Hold: 01/07/25 10:36 BEDTIME SHARRI Administration Comment: Order held by Process Transfer Oxycodone HCl 5 mg 01/05/25 20:02 01/06/25 19:28 Oxycodone 5 Mg Ir Tab/Cap PO 5 mg On Hold: 01/07/25 10:36 Q6H PRN Administration Comment: Order held by Process MODERATE PAIN Transfer Thyroid 90 mg 01/06/25 09:00 01/07/25 09:16 Thyroid 60 Mg Tablet PO 90 mg On Hold: 01/07/25 10:36 DAILY SHARRI Administration Comment: Order held by Process Transfer [facility] Anesthesia Medical History Osteomyelitis (07/2023) Hypothyroidism Diabetic retinopathy PIC line (peripherally inserted central catheter) removal (~10/2023) Abscess of tendon of foot (06/2023) Septic arthritis (07/2023) Left knee DJD Dehiscence of incision (07/2023) Type 2 diabetes mellitus Surgical History History of partial ray amputation of first toe of right foot (12/2023) Status post amputation of right great toe (08/2023) History of cholecystectomy History of appendectomy Family History Mother CAD (coronary artery disease) Cardiomyopathy Social History Smoking and tobacco/nicotine status: unknown if used tobacco/nicotine Alcohol intake: never Substance/Drug Use: never Female Reproductive History Para: 0 Data Anesthesia 01/07/25 04:20 01/07/25 04:20 Short CBC 01/05/25 01/06/25 01/07/25 Range/Units 10:42 04:25 04:20 WBC 9.63 8.08 5.63 (3.29-11.43) 10^3/uL Hgb 12.00 11.40 9.80 L (11.27-16.99) g/dL Hct 35.6 L 35.1 L 29.9 L (36-47) % MCV 90.4 92.9 91.4 (85-98) fl Plt Count 218 220 201 (157-399) 10^3/cmm Neut % (Auto) 78.6 73.3 65.3 % Neut # (Auto) 7.57 5.92 3.68 (1.8-7.7) 10^3/uL BMP 01/05/25 01/06/25 01/07/25 10:42 04:25 04:20 Sodium 133 L 136 136 Potassium 4.1 3.9 4.0 Chloride 100 103 103 Carbon Dioxide 21 L 21 L 20 L BUN 16 15 17 Creatinine 0.8 0.8 0.7 Glucose 251 H 181 H 217 H Calcium 9.1 8.7 8.5 Liver Function 01/05/25 Range/Units 10:42 Total Bilirubin 0.7 (0.15-1.2) mg/dL AST 10 (0-32) U/L ALT 13 (0-33) U/L Alkaline Phosphatase 94 (35-105) U/L Albumin 3.8 (3.5-5.2) g/dL Urine 01/05/25 Range/Units 13:20 Urine Color Yellow (Yellow) Urine Appearance Cloudy A (CLEAR) Urine pH 5.0 (5-7) Ur Specific [place] 1.017 (1.005-1.030) Urine Protein 2+ A (Negative) Urine Glucose (UA) Negative (Normal) Urine Ketones Negative (Negative) Urine Nitrate Negative (Negative) Urine Bilirubin Negative (Negative) Ur Leukocyte Esterase Negative (Negative) Urine RBC None (0-2) /hpf Urine WBC 0-4 H (0-5) /hpf COVID Results 01/05/25 10:22 SARS-CoV-2 (PCR) Negative Coags 01/05/25 10:42 ESR 62 H C-Reactive Protein 128.9 H Microbiology 01/05/25 16:10 Group A Streptococcus Rapid Screen - Preliminary Throat 01/05/25 10:22 Wound Culture - Preliminary Toe - #2 01/05/25 10:55 Blood Culture - Preliminary Blood NEGATIVE TO DATE 01/05/25 10:42 Blood Culture - Preliminary Blood NEGATIVE TO DATE
[2025-01-07] MEDS: BUPivacaine 0.5% INJ 10 mL INJECTION (11:11)
--- NOTE | 2025-01-07 11:15 | P.OP_ITS ---
Operative Report Date of procedure: January 07, 2025 Surgeon: Almas Marley DPM Procedure: Date of procedure: 01/07/2025 Pre-op diagnosis: Left foot second toe gangrene Post-op diagnosis: Same Post-op findings: Necrotic changes of left foot second toe. Base of proximal phalanx viable and free from infection Procedure done: Left foot second digit partial amputation CPT 43099 Implants: None Specimens removed: Left second toe Surgeon: Dr. Almas Marley DPM [employer] Engineer: Raeann Estimated blood loss: 5 cc Tourniquet time: 6 minutes Complications: None The patient presents with a severe foot infection involving left second toe, swati racterized by erythema, swelling, and drainage. The infection is complicated by underlying conditions, including diabetes, PAD, which have contributed to the progression of the infection despite conservative management. Preoperative imaging and laboratory results indicate osteomyelitis, necessitating surgical intervention. The planned procedure is intended to address the infection, debride necrotic tissue, and, if necessary, assess the viability of surrounding structures to prevent further complications. The patient has been NPO since midnight. The history has been reviewed and the history and physical is current. The signed consent was confirmed and placed in the patient chart. Patient imaging has been reviewed and is consistent with the diagnosis. Under mild sedation, the patient was brought into the operating room and placed on the table in the supine position. Patient is receiving antibiotics around the clock on the floor, Therefore, additional antibiotic prophylaxix was not administered. MAC sedation was then performed by the anesthesiateam. A local field block was performed using 0.5% Marcaine plain. A pneumatic tourniquet was then placed about the left ankle. The operative extremity was then prepped and draped in the usual fashion. After prep, the following procedure was then performed. Attention was directed to the left foot second digit. A fishmouth incision was made at the level of the proximal interphalange joint of the second digit. Proximal interphalangeal joint was dissected free from soft tissue attachments and distal aspect of the toe was passed from the operative field be sent a specimen. Bone cutting forceps were then used to cut the mid diaphysis of the proximal phalanx. Distal aspect of the proximal phalanx was sent as surgical specimen. Remaining tissue appeared healthy and viable. Site was irrigated with copious amounts of sterile saline. Tissue was then reapproximated using 4- 0 nylon in simple interrupted fashion. Tourniquet was let down good hyperemic response was noted to all digits of the left foot. Incision site was dressed with Xeroform, 4 x 4 gauze, Kerlix, Derek bandage. The patient tolerated the procedure and anesthesia well and without complication. The patient was transported from the operating room to the recovery room with vital signs stable and vascular status intact to all digits of the left foot. Thepatient was instructed to remain weightbearing as tolerated in postop shoe to the operative extremity, to keep surgical dressing clean, dry and intact. The patient will be transferred back to the floor once anesthesia criteria is met. I will continue to round on and follow the patient in the inpatientsetting and provide recommendations to stabilize the patient for discharge.
--- NOTE | 2025-01-07 11:35 | ANE.PACU2 ---
Inpatient post-anesthesia follow up: Airway intact: Yes Vital signs: Temperature 98.1 F Pulse Rate 83 Respiratory Rate 12 Blood Pressure 131/78 Pulse Oximetry 96 Oxygen Delivery Me thod Room Air Oxygen Flow Rate Fraction of Inspir ed Oxygen Hydration adequate: Yes Nausea and vomiting: No Pain level: 1 Mental status: Baseline
--- NOTE | 2025-01-07 11:54 | PC.NURSE ---
Patient return to room.
--- NOTE | 2025-01-07 12:49 | PM.DCS ---
Discharge Providers Date of Admission: 01/06/25 10:49 Date of Discharge: January 07, 2025 Attending Provider at Admission: Ino Bonilla Attending Provider at Discharge: Ino oBnilla Primary Care Provider: ROULA Lincoln Diagnoses at Discharge Discharge Diagnosis 1. Diabetic ulcer of left foot: 2. Diabetic wet gangrene of the foot: 3. Osteomyelitis: 4. Cellulitis of second toe of left foot: Reason for Visit Reason for Visit: nuasea, weakness, SANTAMARIA, L foot 2nd toe open wound Brief History: Jazmine James is a 54 year old woman with type 2 diabetes mellitus (DM2) who presents with a rapidly worsening ulcer of the left second toe. The lesion began as a callus late last week and progressed to an open wound with discoloration overnight. She reports nausea, chills, mild headache, and a new sore throat but denies fever, vomiting, diarrhea, rash, dysuria, melena, or hematochezia. Home temperature readings have been normal. COVID-19, influenza, and respiratory viral panel swabs performed in the emergency department were negative. Review of systems otherwise negative. She is currently receiving intravenous (IV) piperacillin?tazobactam (Zosyn) and vancomycin started in the emergency department. She receives insulin Apidra 35 units before each meal and takes no long-acting or oral diabetic agents. She denies tobacco, alcohol, or illicit drug use and lives with her . Hospital Course Hospital Course She was treated with IV empiric antibiotics with Zosyn and vancomycin with improving systemic symptoms, received IV hydration, with MRI suggestive of deep infection/osteomyelitis, underwent amputation of distal second left toe with noted viable base of proximal phalanx. Arterial duplex indicative of possibly mild PAD. She is advised against prolonged use of waterproof Band-Aids, protecting her feet, continue optimization of diabetes. She is okay to return home from podiatry standpoint, she will complete oral antibiotic course and follow-up with podiatry, weightbearing as tolerated, keeping the dressing on until the appointment. With noted hypertension blood pressures rising into 130s-140s systolic, she started on low-dose losartan. Please reassess. Please reassess blood counts with hydration noted have some decrease in hemoglobin to 9.8. Physical Exam Const: COMMON NORMALS: patient oriented x3 and alert GENERAL APPEARANCE: cooperative ORIENTATION/CONSCIOUSNESS: Yes awake HENMT: COMMON NORMALS: oropharynx normal Neck/C-Spine: COMMON NORMALS: no JVD Resp: COMMON NORMALS: normal respiratory effort and clear to auscultation bilaterally AUSCULTATION: clear to auscultation bilaterally Cardio: COMMON NORMALS: no JVD, regular rhythm, S1 normal heart sound present, S2 normal heart sound present and No murmurs present (Cardio) RHYTHM: regular rhythm HEART SOUNDS: S1 normal heart sound present and S2 normal heart sound present GI: COMMON NORMALS: Normal to inspection, nondistended, normoactive bowel sounds present, Soft to palpation and non-tender PALPATION: Yes Soft to palpation Extremity: COMMON NORMALS: no joint enlargement and no pedal edema OTHER: Second left toe with significant maceration, ulceration on plantar surface currently without active drainage. Erythema resolving. Mild swelling. Neuro: COMMON NORMALS: patient oriented x3 and moves all extremities SENSORIUM/ORIENTATION: Yes alert Skin: COMMON NORMALS: no rashes or lesions noted GENERAL SKIN EXAM: no rashes or lesions noted Discharge Data Studies Completed and Pending Completed Studies During Hospitalization Category Date Time Status XR foot LT 2V [id number] Stat Exams 01/05/25 10:14 Completed MR foot LT wo/w con [id number] Stat MRI 01/06/25 13:27 Completed US KRISS [CV ankle brachial index 20344] Routine Ultrasound 01/05/25 17:01 Completed Pending at discharge Category Date Time Status Basic Metabolic Panel AM LABS Lab 01/08/25 04:00 Ordered Blood Culture Stat Lab 01/05/25 10:55 Results Complete Blood Count w/Auto AM LABS Lab 01/08/25 04:00 Ordered Wound Culture Stat Lab 01/05/25 10:22 Results Pathology: Surgical [PTH] Routine Pth 01/07/25 11:21 Received Radiology Impressions Foot X-Ray 01/05/25 10:14 Impression: Tarsal osteoarthritis. Ankle Brachial Index 01/05/25 17:01 IMPRESSION: 1. Borderline decreased ankle-brachial index in the right lower extremity foot may reflect mild peripheral arterial disease. 2. Mildly decreased ankle-brachial index in the left lower extremity compatible with [id number] peripheral arterial disease. Foot MRI 01/06/25 13:27 IMPRESSION: 1. Edema in the terminal tuft of the second toe and associated cellulitis. No definite enhancement identified. This is a difficult area of to evaluate by MRI due to its small size. There is at least marrow edema present along with cellulitis involving the distal second toe. 2. Mild diffuse edema throughout the foot. Laboratory Results WBC 5.63 10^3/uL (3.29-11.43) 01/07/25 04:20 RBC 3.27 10^6/uL (3.85-5.65) L 01/07/25 04:20 Hgb 9.80 g/dL (11.27-16.99) L 01/07/25 04:20 Hct 29.9 % (36-47) L 01/07/25 04:20 MCV 91.4 fl (85-98) 01/07/25 04:20 MCH 30.0 pg (27-33) 01/07/25 04:20 MCHC 32.8 g/dL (30-55) 01/07/25 04:20 RDW 13.3 % (12.1-15.1) 01/07/25 04:20 Plt Count 201 10^3/cmm (157-399) 01/07/25 04:20 MPV 10.6 fL (7.4-10.4) H 01/07/25 04:20 Neut % (Auto) 65.3 % 01/07/25 04:20 Lymph % (Auto) 18.5 % 01/07/25 04:20 [place] % (Auto) 8.5 % 01/07/25 04:20 Eos % (Auto) 6.4 % 01/07/25 04:20 Baso % (Auto) 0.9 % 01/07/25 04:20 Neut # (Auto) 3.68 10^3/uL (1.8-7.7) 01/07/25 04:20 Lymph # (Auto) 1.0 10^3/uL (0.8-4.8) 01/07/25 04:20 [place] # (Auto) 0.5 10^3/uL (0.2-0.9) 01/07/25 04:20 Eos # (Auto) 0.4 10^3/uL (0.0-0.8) 01/07/25 04:20 Baso # (Auto) 0.1 10^3/uL (0.0-0.1) 01/07/25 04:20 Nucleated RBC % (auto) 0 % 01/07/25 04:20 Nucleated RBCs # 0.0 /100WBC 01/07/25 04:20 ESR 62 mm/hr (0-15) H 01/05/25 10:42 Sodium 136 mmol/L (136-145) 01/07/25 04:20 Potassium 4.0 mmol/L (3.5-5.1) 01/07/25 04:20 Chloride 103 mmol/L (98-107) 01/07/25 04:20 Carbon Dioxide 20 mmol/L (22-29) L 01/07/25 04:20 Anion Gap 17.0 (5-19) 01/07/25 04:20 BUN 17 mg/dL (6-20) 01/07/25 04:20 Creatinine 0.7 mg/dL (0.5-0.9) 01/07/25 04:20 GFR Calculation 86.9 mL/min (90-130) L 01/07/25 04:20 Glucose 217 mg/dL (65-115) H 01/07/25 04:20 POC Glucose 238 mg/dL (70-110) H 01/07/25 12:28 Calculated Osmolality 290 mOsm/kg (285-295) 01/07/25 04:20 Lactic Acid 1.2 mmol/L (0.5-2.2) 01/05/25 10:42 Calcium 8.5 mg/dL (8.5-10.5) 01/07/25 04:20 Total Bilirubin 0.7 mg/dL (0.15-1.2) 01/05/25 10:42 AST 10 U/L (0-32) 01/05/25 10:42 ALT 13 U/L (0-33) 01/05/25 10:42 Alkaline Phosphatase 94 U/L (35-105) 01/05/25 10:42 C-Reactive Protein 128.9 mg/L (0.0-4.9) H 01/05/25 10:42 Total Protein 7.4 g/dL (6.6-8.7) 01/05/25 10:42 Albumin 3.8 g/dL (3.5-5.2) 01/05/25 10:42 Globulin 3.6 g/dL (1.3-4.6) 01/05/25 10:42 Urine Color Yellow (Yellow) 01/05/25 13:20 Urine Appearance Cloudy (CLEAR) A 01/05/25 13:20 Urine pH 5.0 (5-7) 01/05/25 13:20 Ur Specific Musella 1.017 (1.005-1.030) 01/05/25 13:20 Urine Protein 2+ (Negative) A 01/05/25 13:20 Urine Glucose (UA) Negative (Normal) 01/05/25 13:20 Urine Ketones Negative (Negative) 01/05/25 13:20 Urine Blood Negative (Negative) 01/05/25 13:20 Urine Nitrate Negative (Negative) 01/05/25 13:20 Urine Bilirubin Negative (Negative) 01/05/25 13:20 Urine Urobilinogen 0.2 mg/dL (Negative) 01/05/25 13:20 Ur Leukocyte Esterase Negative (Negative) 01/05/25 13:20 Urine RBC None /hpf (0-2) 01/05/25 13:20 Urine WBC 0-4 /hpf (0-5) H 01/05/25 13:20 Ur Squamous Epith Cells 5-10 /hpf (0-5) H 01/05/25 13:20 Amorphous Sediment Not Reportable 01/05/25 13:20 Urine Bacteria Trace /hpf (NONE) 01/05/25 13:20 Vancomycin Trough 20.6 ug/mL (10-15) H 01/07/25 08:57 Influenza A (PCR) Negative (Negative) 01/05/25 10:22 Influenza Type B (PCR) Negative (Negative) 01/05/25 10:22 RSV (PCR) Negative (Negative) 01/05/25 10:22 SARS-CoV-2 (PCR) Negative (Negative) 01/05/25 10:22 Group A Strep Rapid Negative (Negative) 01/05/25 16:10 Vitals Last Vital Signs Temp 97.8 F 01/07/25 11:55 Pulse 83 01/07/25 11:55 Resp 16 01/07/25 11:55 BP 131/78 01/07/25 11:55 Pulse Ox 96 01/07/25 11:55 O2 Del Method Room Air 01/07/25 11:55 Discharge Plan Discharge Patient Disposition: Home Condition: Stable Prescriptions: New acetaminophen 325 mg Tablet 650 mg PO Q4H PRN (Reason: Mild Pain Or Increase Temp) Qty: 30 0RF losartan 25 mg tablet 25 mg PO DAILY Qty: 90 0RF cephalexin 500 mg capsule 500 mg PO QID 7 Days Qty: 28 0RF Continued (DME) Hinged Knee Brace See Rx Instructions .Route .MEDSUPPLY Qty: 1 0RF Rx Instructions: As directed (DME) Diabetic shoes w/ 3 inserts See Rx Instructions .Route .MEDSUPPLY Qty: 1 0RF Rx Instructions: As directed by HOME toe filler to the right bupropion HCl 300 mg tablet extended release 24 hr 300 mg PO QAM (DME) medial grain unloader machine brace, left See Rx Instructions .Route .MEDSUPPLY Qty: 1 0RF Rx Instructions: [place] [place] 3 x insoles See Rx Instructions .Route .MEDSUPPLY Qty: 1 0RF Rx Instructions: As directed to [facility] (DME) [place] boot See Rx Instructions .Route .MEDSUPPLY Qty: 1 0RF Rx Instructions: As directed to [facility] rosuvastatin 20 mg tablet 20 mg PO DAILY cyanocobalamin (vitamin B-12) 1,000 mcg/mL solution 1,000 mcg IM Q28D Rx Instructions: Mondays magnesium oxide 400 mg (241.3 mg magnesium) tablet 400 mg PO DAILY Apidra SoloStar U-100 Insulin 100 unit/mL insulin pen 35 unit SUBCUT TID thyroid (pork) [RADIOLOGY CT TECHNOLOGIST Thyroid] 90 mg tablet 90 mg PO DAILY clobetasol 0.05 % solution 1 applic TOPICAL BID PRN (Reason: Skin Irritation) cholecalciferol (vitamin D3) 1,250 mcg (50,000 unit) capsule 1,250 mcg PO Q7D Rx Instructions: ON MONDAYS Discharge Order = DC NOW: Discharge Order (Routine); Ordered 01/07/25 Ordered By: Ino Bonilla Referrals: Almas Marley DPM [Physician, Podiatry] - 1 week Gunjan Lo FNP [Primary Care Provider, Nurse Practitioner] - 4-7 days Discharge Diet: Cardiac and Diabetic Patient Instructions: Cephalexin (By mouth) (Bio-Cef, Keflex), Foot Care for People with Diabetes (GEN), Acute Wound Care (DC), Toe Amputation (GEN), Opioid Safety, Post Anesthesia Care, Patient Portal & Nancy Instructions Activity Restrictions/Additional Instructions: Follow-up with podiatry and primary provider for reassessment after deep infection and osteomyelitis of the second left toe requiring amputation. Complete antibiotic course. Keep dressing intact, do not change until follow-up with podiatry. Weightbearing as tolerated in a surgical shoe. Seek medical attention in case of any worsening or new concerning symptoms as discussed. Avoid leaving waterproof Band-Aids on, avoid walking barefoot, protect your feet at all times. Follow-up with your primary provider regarding diabetes and optimization of control. Target blood glucose 100-150 to assist wound healing. Maintain cast carbohydrate diet. Follow-up with your primary doctor for reassessment of blood counts with anemia noted with rehydration, hgemoglobin 9.8. Measure your blood pressures at home twice daily at least until follow-up with your primary provider with some fluctuation noted with mild hypertension. You are started on low-dose losartan. Do not take the medication if your blood pressure is less than 120/80. Please have your primary doctor reassess your blood pressures, potassium and kidney function. Discharge Attestations Time Spent in Discharge Care*: greater than 30 min Status at Discharge: Cognitive status at discharge: cognitively intact, Behavioral status at discharge: cooperative, Quality Metrics Clinical Quality Measures [ No reported AMI, CVA or VTE this stay] Coding Level of Care Code 02819 Total time (in minutes) for Discharge: 40 Diagnoses Diabetic ulcer of left foot E11.621; L97.529 Diabetic wet gangrene of the foot E11.52 Osteomyelitis M86.9 Osteomyelitis location: other site Osteomyelitis type: unspecified type Cellulitis of second toe of left foot L03.032
== END 2025-01-07 14:30 | disposition home or self-care (01) | DRG 256 ==
LOC: ER 11:10 → MEDSURG 21:15 → ER IP 01-06 07:05
PROVIDERS: Podiatrist Foot & Ankle Surgery; Admitting Provider Internal Medicine; Emergency Provider Emergency Medicine; PCP Nurse Practitioner; Visit Provider Internal Medicine
PROC: 0Y6S0Z1 Detachment at Left 2nd Toe, High, Open Approach (ICD-10-PCS; principal; 2025-01-07 11:20)
DX: E11.52 Type 2 diabetes mellitus with diabetic peripheral angiopathy with gangrene (principal); M86.172 Other acute osteomyelitis, left ankle and foot; E11.69 Type 2 diabetes mellitus with other specified complication; E11.319 Type 2 diabetes mellitus with unspecified diabetic retinopathy without macular edema; E11.65 Type 2 diabetes mellitus with hyperglycemia; L03.032 Cellulitis of left toe; I10 Essential (primary) hypertension; M20.42 Other hammer toe(s) (acquired), left foot; Z79.4 Long term (current) use of insulin; Z89.411 Acquired absence of right great toe; Z82.49 Family history of ischemic heart disease and other diseases of the circulatory system
CPT/HCPCS: 36415; 36416; 73620; 73720; 80048; 80053; 80202; 81001; 82962; 83605; 85025; 85651; 86140; 87040; 87070; 87081; 87186; 87637; 87880; 88305; 88311; 93005; 93922; 96365; 96367; 96372; 99285; G0378; J1650; J1815; J2543; J2704; J3372; J3373; J3490; J7030; J7120; J9999